=== PATIENT | female | born 1960 ===

== ENCOUNTER 2025-02-28 23:36 | Inpatient (IN) | payer OTHER, SELFPAY ==
--- NOTE | ~2025-02-28 | US_ITS ---
CLINICAL HISTORY: Diffuse abdominal pain--to be done on 9 7AM - PT NOT FASTING --- Additional Notes or Special Instructions: check GB CBD Kidneys US abdomen limited Comparison: None provided Findings: Unremarkable visualized liver. The common duct is 6 mm in diameter. Cholecystectomy. The main portal vein is antegrade. The right kidney is 9.8 cm in length. Left kidney 10.1 cm in length. Unremarkable kidneys without hydronephrosis. IMPRESSION: Cholecystectomy. Unremarkable kidneys without hydronephrosis. This document has been electronically signed by: Clarisa Moreno MD on 03/03/2025 10:46:33
--- NOTE | ~2025-02-28 | CT_ITS ---
CLINICAL HISTORY: cognitive impairment psychosis --- Additional Notes or Special Instructions: Talked to patients nurse at 0930. She mentioned that they dont have anybody that could come with the patient therefore she wants the exam to be done CT head without contrast Comparison: None provided Findings: No intra-axial mass, midline shift, hydrocephalus, or acute hemorrhage. No significant atrophy-like change or white matter disease. There is no sinus or mastoid fluid. The orbits are unremarkable. There is no acute fracture. IMPRESSION: 1. No acute intracranial findings. This document has been electronically signed by: Terence Lozano MD on 03/10/2025 12:14:25
--- OUTSIDE RECORDS SUMMARY | 2025-02-28 23:40 | XMS_ITS | Encounter Summary ---
Author Organization [facility] ([facility]) Address [address] [place] [address] Care Team Providers Care Field Case Manager Name Role Phone Jess Farrar MD Primary Care Provider [phone] Greg Taylor MD Primary Care Provider [phone] Zaki Layne MD Primary Care Provider [phone] Reason for Visit * Reason Onset Date Comments Refill Request 06/03/2021 metFORmin HCL 10 00 MG Tablet Encounter Details Date Type Department Care Team (Late st Contact Info) Description 06/03/2021 Refill [facility] [address] [place] [address] Jess Farrar MD [address] [place] [address] Refill Request (metFORmin HCL 1000 MG Tablet) Social History Tobacco Use Types Packs/Day Years Used Date Smoking Tobacco: Never Alcohol Use Standard Drinks/Week Comments Never 0 (1 standard drink = 0.6 oz pur e alcohol) Comments No Sex and Gender Information Value Date Recorded Sex Assigned at Not on file Legal Sex Female 11:08 AM EDT Gender Identity Not on file Sexual Orientation Not on file documented as of this encounter Miscellaneous Notes * Telephone Encounter - So Ventura RNP - 06/04/2021 11:59 AM EST Patient overdue for DM check. Please schedule OV. documented in this encounter Plan of Treatment Upcoming Encounters Date Type Department Care Team (Late st Contact Info) Description 03/05/2025 10:00 AM EDT Office Visit [facility] [address] [place] [address] 03/21/2025 10:30 AM EDT Office Visit [facility] [address] [place] [address] Yesenia Wen MD [address] [place] [address] documented as of this encounter Visit Diagnoses Diagnosis Type 2 diabetes mellitus without complication, without long-term current use of insulin (HCC) documented in this encounter Care Teams Field Case Manager Relationship Specialty Start Date End Date Jess Farrar MD [address] [place] [address] PCP - General Adult Medicine 12/03/19 01/10/22 Greg Taylor MD [address] [place] [address] PCP - General 01/11/22 01/09/25 Zaki Layne MD [address] [place] [address] PCP - General 01/10/25 documented as of this encounter
--- OUTSIDE RECORDS SUMMARY | 2025-02-28 23:40 | XMS_ITS | Encounter Summary ---
Author Organization [facility] ([facility]) Address [address] [place] [address] Care Team Providers Care Template Checker Name Role Phone Jess Farrar MD Primary Care Provider Greg Taylor MD Primary Care Provider [phone] Zaki Layne MD Primary Care Provider [phone] Encounter Details Date Type Department Care Team (Late st Contact Info) Description 09/01/2021 Legacy Encounter Practice 4 [address] [place] [address] So Ventura RNP [address] [place] [address] Social History Tobacco Use Types Packs/Day Years [...] on file documented as of this encounter Plan of Treatment Upcoming Encounters Date Type Department Care Team (Late st Contact Info) Description 03/05/2025 10:00 AM EDT [facility] [address] [place] [address] 03/21/2025 10:30 AM EDT Office Visit [facility] [address] [place] [address] Yesenia Wen MD [address] [place] [address] documented as of this encounter Visit Diagnoses Not on filedocumented in this encounter Care Teams Template Checker Relationship Specialty Start Date End Date Jess Farrar MD [address] [place] [address] PCP - General Adult Medicine 12/03/19 01/10/22 Greg Taylor MD [address] [place] [address] PCP - General 01/11/22 01/09/25 Zaki Layne MD [address] [place] [address] PCP - General 01/10/25 documented as of this encounter
--- OUTSIDE RECORDS SUMMARY | 2025-02-28 23:40 | XMS_ITS | Encounter Summary ---
Author Organization [facility] (Replaced by [facility]) Address [address] [place] [address] Care Team Providers Care Cattle Inspector Name Role Phone Jess Farrar MD Primary Care Provider [phone] Greg Taylor MD Primary Care Provider [phone] Zaki Layne MD Primary Care Provider [phone] Encounter Details Date Type Department Care Team (Late st Contact Info) Description 10/08/2021 [facility] [address] [place] [address] Jason Ruiz MD [address] [place] [address] Social History Tobacco Use Types Packs/Day Years [...] Office Visit [facility] [address] [place] [address] 03/21/2025 10:30 AM EDT Office Visit [facility] [address] [place] [address] Yesenia Wen MD [address] [place] [address] documented as of this encounter Visit Diagnoses Not on filedocumented in this encounter Care Teams Cattle Inspector Relationship Specialty Start Date End Date Jess Farrar MD [address] [place] [address] PCP - General Adult Medicine 12/03/19 01/10/22 Greg Taylor MD [address] [place] [address] PCP - General 01/11/22 01/09/25 Zaki Layne MD [address] [place] [address] PCP - General 01/10/25 documented as of this encounter
--- OUTSIDE RECORDS SUMMARY | 2025-02-28 23:41 | XMS_ITS | Encounter Summary ---
Author Organization [facility] ([facility]) Address [address] [place] [address] Care Team Providers Care Lacquer Coater Name Role Phone Greg Taylor MD Primary Care Provider [phone] Zaki Layne MD Primary Care Provider [phone] Reason for Visit * Reason Onset Date Comments Referral Request 07/16/2022 Colonoscopy Encounter Details Date Type Department Care Team (Late st Contact Info) Description 07/16/2022 Telephone Ad Med Call Center [address] [place] [address] Greg Taylor MD [address] [place] [address] Referral Request (Colonoscopy ) Social History Tobacco Use Types Packs/Day Years [...] encounter Miscellaneous Notes * Telephone Encounter - Diana Prescott - 07/16/2022 3:38 PM EST PCP: Please review and generate order so referral department can initiate appointment request Referral request received from pt's daughter Specialty: Colonoscopy Location: [facility] With Dr. NANCE/Symptom: General check up Ph: F: Comments: Pt stated she is due for colonoscopy and needs a referral for [facility]. Please advise. If appointment is already scheduled: NPI: Date of appointment Amount of visits requested: documented in this encounter Plan of Treatment Upcoming Encounters Date Type Department Care Team (Late st Contact Info) Description 03/05/2025 10:00 AM EDT Office Visit [facility] 10 [place] [address] 03/21/2025 10:30 AM EDT Office Visit [facility] [address] [place] [address] Yesenia Wen MD [address] [place] [address] documented as of this encounter Visit Diagnoses Not on filedocumented in this encounter Care Teams Lacquer Coater Relationship Specialty Start Date End Date Greg Taylor MD 10 [place] [address] PCP - General 01/11/22 01/09/25 Zaki Layne MD [address] [place] [address] PCP - General 01/10/25 documented as of this encounter
--- OUTSIDE RECORDS SUMMARY | 2025-02-28 23:41 | XMS_ITS | Encounter Summary ---
Author Organization [facility] ([facility]) Address [address] [place] [address] Care Team Providers Care Chucking Machine Set Up Operator Name Role Phone Greg Taylor MD Primary Care Provider [phone] Zaki Layne MD Primary Care Provider [phone] Reason for Visit * Reason Comments Refill Request Encounter Details Date Type Department Care Team (Late st Contact Info) Description 10/06/2022 Refill Practice 4 [address] [place] [address] So Ventura RNP 10 [place] [address] Refill Request Social History Tobacco Use Types Packs/Day Years [...] Office Visit [facility] [address] [place] [address] 03/21/2025 10:30 AM EDT Office Visit [facility] [address] [place] [address] Yesenia Wen MD [address] [place] [address] documented as of this encounter Visit Diagnoses Not on filedocumented in this encounter Care Teams Chucking Machine Set Up Operator Relationship Specialty Start Date End Date Greg Taylor MD 10 [place] [address] PCP - General 01/11/22 01/09/25 Zaki Layne MD 10 [place] [address] PCP - General 01/10/25 documented as of this encounter
--- OUTSIDE RECORDS SUMMARY | 2025-02-28 23:41 | XMS_ITS | Encounter Summary ---
Author Organization [facility] ([facility]) Address [address] [place] [address] Care Team Providers Care Amusement Equipment Operator Name Role Phone Jess Farrar MD Primary Care Provider [phone] Greg Taylor MD Primary Care Provider [phone] Zaki Layne MD Primary Care Provider [phone] Encounter Details Date Type Department Care Team (Late st Contact Info) Description 10/22/2021 Legacy Encounter PHARMACY [address] [place] [address] Betzaida Greenwood RNP [address] [place] [address] Social History Tobacco Use Types Packs/Day Years [...] Office Visit [facility] [address] [place] [address] 03/21/2025 10:30 AM EDT Office Visit [facility] [address] [place] [address] Yesenia Wen MD [address] [place] [address] documented as of this encounter Visit Diagnoses Not on filedocumented in this encounter Care Teams Amusement Equipment Operator Relationship Specialty Start Date End Date Jess Farrar MD [address] [place] [address] PCP - General Adult Medicine 12/03/19 01/10/22 Greg Taylor MD [address] [place] [address] PCP - General 01/11/22 01/09/25 Zaki Layne MD [address] [place] [address] PCP - General 01/10/25 documented as of this encounter
--- OUTSIDE RECORDS SUMMARY | 2025-02-28 23:41 | XMS_ITS | Encounter Summary ---
Author Organization [facility] ([facility]) Address [address] [place] [address] Care Team Providers Care Pecan Sheller Name Role Phone Greg Taylor MD Primary Care Provider [phone] Zaki Layne MD Primary Care Provider [phone] Reason for Visit * Reason Comments Refill Request Encounter Details Date Type Department Care Team (Late st Contact Info) Description 11/24/2022 Refill PHARMACY [address] [place] [address] Betzaida Greenwood RNP [address] [place] [address] Refill Request Social History Tobacco Use Types [...] Encounters Date Type Department Care Team (Late Contact Info) Description 03/05/2025 10:00 AM EDT Office Visit [facility] 10 [place] [address] 03/21/2025 10:30 AM EDT Office Visit [address] [place] [address] Yesenia Wen MD [address] [place] [address] documented as of this encounter Visit Diagnoses Not on filedocumented in this encounter Care Teams Pecan Sheller Relationship Specialty Start Date End Date Greg Taylor MD 10 [place] [address] PCP - General 01/11/22 01/09/25 Zaki Layne MD 10 [place] [address] PCP - General 01/10/25 documented as of this encounter
--- OUTSIDE RECORDS SUMMARY | 2025-02-28 23:41 | XMS_ITS | Encounter Summary ---
Author Organization [facility] r Address [address] [place] [address] Phone Care Team Providers Care Boat Dispatcher Name Role Phone Greg Taylor MD Primary Care Provider 6, Laith Saha Unavailable Unavailable Arnaud Begum MD Unavailable [phone] Terence Still MD Unavailable [phone] Reason for Visit * Reason Comments Automated Refill Request Encounter Details Date Type Department Care Team (Late st Contact Info) Description 02/02/2023 [facility] [address] [facility] 6th Floor, [place] [id number] Arnaud Begum [place] [address] Social History Tobacco Use Types Packs/Day Years Used Date Smoking Tobacco: Never Alcohol Use Standard Drinks/Week Comments Never 0 (1 standard drink = 0.6 oz pur e alcohol) Comments No Sex and Gender Information Value Date Recorded Sex Assigned at Female 04/13/2023 10:15 AM EDT Legal Sex Female 3:47 PM EDT Gender Identity Female 04/13/2023 10:15 AM EDT Sexual Orientation Patient's sexual milagro entation is not listed 07/19/2024 11:38 AM EST documented as of this encounter Miscellaneous Notes * Telephone Encounter - Sofia Adrian RN - 02/03/2023 8:16 AM EDT Pt had colonoscopy 01-06-23; No further procedure ordered at this time documented in this encounter Plan of Treatment Not on file documented as of this encounter Visit Diagnoses Not on filedocumented in this encounter Care Teams Boat Dispatcher Relationship Specialty Start Date End [place] [address] PCP - General Internal Medicine 07/26/22 6, Moa Endo 08/06/22 [place] [address] Gastroenterology 08/12/22 [place] [address] Gastroenterology 01/10/23 documented as of this encounter
--- OUTSIDE RECORDS SUMMARY | 2025-02-28 23:41 | XMS_ITS | Encounter Summary ---
Author Organization [facility] ([facility]) Address [address] [place] [address] Care Team Providers Care Drop Tester Name Role Phone Zaki Layne MD Primary Care Provider [phone] Encounter Details Date Type Department Care Team (Late st Contact Info) Description 02/15/2025 Results Follow-Up Practice 5 10 [place] [address] Bonnie Butt RNP [address] [place] [address] H. PYLORI BREATH TEST Social History Tobacco Use Types Packs/Day Years Used Date Smoking Tobacco: Never Alcohol Use Standard Drinks/Week Comments Never 0 (1 standard drink = 0.6 oz pur e alcohol) PHQ-2 Answer Date Recorded PHQ-9 Total Score 7 02/13/2025 Comments No Sex and Gender Information Value Date Recorded Sex Assigned at Not on file Legal Sex Female 11:08 AM EDT Gender Identity Not on file Sexual Orientation Not on file documented as of this encounter Plan of Treatment Upcoming Encounters Date Type Department Care Team (Late st Contact Info) Description 03/05/2025 10:00 AM EDT Office Visit [facility] 10 [place] [address] 03/21/2025 10:30 AM EDT Office Visit [facility] [address] [place] [address] Yesenia Wen MD [address] [place] [address] documented as of this encounter Visit Diagnoses Not on filedocumented in this encounter Care Teams Drop Tester Relationship Specialty Start Date End Date Zaki Layne MD [address] [place] [address] PCP - General 01/10/25 documented as of this encounter
--- OUTSIDE RECORDS SUMMARY | 2025-02-28 23:41 | XMS_ITS | Encounter Summary ---
Author Organization [facility] ([facility]) Address [address] [place] [address] Care Team Providers Care Manager Internet Retails Sales Name Role Phone Jess Farrar MD Primary Care Provider [phone] Greg Taylor MD Primary Care Provider [phone] Zaki Layne MD Primary Care Provider [phone] Reason for Visit * Reason Onset Date Comments Refill Request 10/22/2021 Encounter Details Date Type Department Care Team (Late st Contact Info) Description 10/22/2021 Refill PHARMAC[address] [place] [address] Jess Farrar MD [address] [place] [address] Refill Request Social History Tobacco Use Types [...] Office Visit [facility] [address] [place] [address] 03/21/2025 10:30 AM EDT Office Visit [facility] [address] [place] [address] Yesenia Wen MD [address] [place] [address] documented as of this encounter Visit Diagnoses Not on filedocumented in this encounter Care Teams Manager Internet Retails Sales Relationship Specialty Start Date End Date Jess Farrar MD [address] [place] [address] PCP - General Adult Medicine 12/03/19 01/10/22 Greg Taylor MD [address] [place] [address] PCP - General 01/11/22 01/09/25 Zaki Layne MD [address] [place] [address] PCP - General 01/10/25 documented as of this encounter
--- OUTSIDE RECORDS SUMMARY | 2025-02-28 23:41 | XMS_ITS | Encounter Summary ---
Author Organization [facility] ([facility]) Address [address] [place] [address] Care Team Providers Care Electrical Engineering Teacher Name Role Phone Greg Taylor MD Primary Care Provider [phone] Zaki Layne MD Primary Care Provider [phone] Encounter Details Date Type Department Care Team (Late st Contact Info) Description 05/05/2022 Legacy Encounter Practice 4 [address] [place] [address] Greg Taylor MD [address] [place] [address] Social History Tobacco Use Types Packs/Day Years [...] Visit [facility] 10 [place] [address] 03/21/2025 10:30 AM EDT Office Visit [facility] [place] [address] Yesenia Wen MD [address] [place] [address] documented as of this encounter Visit Diagnoses Not on filedocumented in this encounter Care Teams Electrical Engineering Teacher Relationship Specialty Start Date End Date Greg Taylor MD [address] [place] [address] PCP - General 01/11/22 01/09/25 Zaki Layne MD [address] [place] [address] PCP - General 01/10/25 documented as of this encounter
--- OUTSIDE RECORDS SUMMARY | 2025-02-28 23:41 | XMS_ITS | Encounter Summary ---
Author Organization [facility] ([facility]) Address [address] [place] [address] Care Team Providers Care Portable Canteen Operator Name Role Phone Greg Taylor MD Primary Care Provider [phone] Zaki Layne MD Primary Care Provider [phone] Reason for Visit * Reason Onset Date Comments Refill Request Call To Patient 01/17/2023 Encounter Details Date Type Department Care Team (Late st Contact Info) Description 01/17/2023 Refill Practice [address] [place] [address] Thai Umaña MD [address] [place] [address] Refill Request; Call To Patient Social History Tobacco Use Types Packs/Day Years [...] encounter Miscellaneous Notes * Telephone Encounter - Betzaida Greenwood RNP - 01/20/2023 11:39 AM EDT Chart rev'd and electronic rx sent to pharmacy requested. Overdue for Diabetes f/u. Please call and schedule office visit to discuss blood sugars. Ask Karen Sparks to check and record FASTING blood sugars daily before eating and record for one week prior and have ready for appointment. Please also ask him/her to bring their glucometer and medications to the appointment as well. Thanks. Lab Results Component Value Date GLYCO 7.6 (H) 07/22/2022 GLYCO 8.6 (H) 05/05/2022 Lab Results Component Value Date CR 0.59 10/22/2021 Last Adult Medicine Appointment: 07/22/2022 documented in this encounter Plan of Treatment Upcoming Encounters Date Type Department Care Team (Late st Contact Info) Description 03/05/2025 10:00 AM EDT Office Visit [facility] 10 [place] [address] 03/21/2025 10:30 AM EDT Office Visit [facility] [address] [place] [address] Yesenia Wen MD [address] [place] [address] documented as of this encounter Visit Diagnoses Not on filedocumented in this encounter Care Teams Portable Canteen Operator Relationship Specialty Start Date End Date Greg Taylor MD 10 [place] [address] PCP - General 01/11/22 01/09/25 Zaki Layne MD 10 [place] [address] PCP - General 01/10/25 documented as of this encounter
--- OUTSIDE RECORDS SUMMARY | 2025-02-28 23:41 | XMS_ITS | Clinical Summary ---
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 Name Role Phone Zaki Layne MD Primary Care Provider [phone] Allergies No known active allergies Medications Lancets MiscIndications:Typ e 2 diabetes mellitus without complication, without long-term current use of insulin (HCC) Dispense according to frequency of test strips 30 Each 3 12/07/19 20 Active Alcohol Swabs (ALCOHOL WIPES) 70 % PadsIndications:Typ e 2 diabetes mellitus with mild nonproliferative retinopathy, without long-term current use of insulin, macular edema presence unspecified, unspecified laterality (HCC) Use as directed 100 Each 3 09/06/19 21 Active atorvastatin 40 mg tabletIndications:H yperlipidemia, unspecified hyperlipidemia type Take 1 Tablet by mouth 1 time a day 90 Tablet 3 5 12:44 PM EDT 02/23/20 24 Active betamethasone dipropionate augmented 0.05% ointment Apply to affected areas of the finger and nails at night 50 g 3 5 12:45 PM EST 04/03/20 24 Active econazole 1% cream Apply to affected areas of the finger and nails in the morning 30 g 2 5 11:09 AM EST 04/03/20 24 Active Additional Information Patient not taking.Reported on 02/13/2025 traMAdol 50 mg tabletIndications:C ompression fracture of L1 vertebra, sequela Take 1 Tablet by mouth every 6 hours as needed for severe pain 10 Tablet 4 1:22 PM EST 05/10/20 24 Active Additional Information Patient not taking.Reported on 02/13/2025 triamcinolone 0.025% ointmentIndications :Paronychia of finger of right hand Apply to affected area twice a day 15 g 4 11:12 AM EST 06/01/20 24 Active propylene glycol-glycerin (MOISTURE EYES) 1-0.3% ophthalmic solution instill 1 drop into both eyes if needed for dry eyes 15 mL 9 5 10:39 AM EDT 07/19/19 25 Active metFORmin (GLUCOPHAGE) 1000 mg tabletIndications:T ype 2 diabetes mellitus with mild nonproliferative retinopathy, without long-term current use of insulin, macular edema presence unspecified, unspecified laterality (HCC) TAKE ONE (1) TABLET BY MOUTH EVERY 12 HOURS 180 tablet 1 5 11:27 AM EDT 08/07/19 25 Active empagliflozin (JARDIANCE) 25 mg tabletIndications:T ype 2 diabetes mellitus with mild nonproliferative retinopathy, without long-term current use of insulin, macular edema presence unspecified, unspecified laterality (HCC) Take 1 tablet by mouth 1 time a day 30 tablet 5 5 9:17 AM EDT 08/07/19 25 Active acetaminophen (TYLENOL) 325 mg tabletIndications:A cute bilateral low back pain with right-sided sciatica Take 1-2 tablets by mouth every 4 hours as needed for pain 60 tablet 1 5 2:57 PM EDT 09/09/19 25 Active SITagliptin (JANUVIA) 100 mg tabletIndications:T ype 2 diabetes mellitus with mild nonproliferative retinopathy, without long-term current use of insulin, macular edema presence unspecified, unspecified laterality (HCC) Take 1 tablet by mouth 1 time a day 30 tablet 5 5 10:39 AM EDT 09/11/19 25 Active lisinopril (ZESTRIL) 5 mg tabletIndications:E ssential hypertension Take 1 Tablet by mouth 1 time a day 90 tablet 1 5 12:44 PM EDT 11/06/19 25 Active TEST STRIPSIndications:T ype 2 diabetes mellitus with mild nonproliferative retinopathy, without long-term current use of insulin, macular edema presence unspecified, unspecified laterality (HCC) Use to check sugars twice a week alternating between morning fasting blood sugar and 2 hours after meal. 50 each 3 5 2:57 PM EDT 11/07/19 25 Active docusate sodium (COLACE) 100 mg capsule Take 1 capsule by mouth 2 times a day as needed for constipation 180 capsule 5 11:45 AM EDT 11/07/19 25 Active calcium carbonate-cholecalc iferol 600-10 mg-mcg tablet TAKE ONE (1) TABLET BY MOUTH TWICE A DAY 60 tablet 11 5 11:27 AM EDT 12/18/19 25 026 Active JARDIANCE 25 MG tablet Take 1 tablet (25 mg total) by mouth daily. Swallow whole; do NOT crush, split, or chew. 30 tablet 1 5 11:52 AM EDT 01/17/20 25 Active Polyethylene Glycol 3350 (MIRALAX) 17 g/SCOOP oral powderIndications:C hronic idiopathic constipation Mix 1 capful (17 grams) of powder in 8 ounces of water and drink once daily as directed 510 g 5 12:17 PM EDT 01/19/20 25 Active QUEtiapine (SEROQUEL) 25 mg tablet Take 1 tablet by mouth nightly 30 tablet 5 12:29 PM EDT 02/14/20 25 Active ARTIFICIAL TEARS 1.4 % SolutionIndications :Dry eyes INSTILL ONE (1) DROP INTO BOTH EYES IF NEEDED FOR DRY EYES 30 mL 11/21/19 22 023 Disconti derrick(Estella abrams) GLUCOMETERIndicatio ns:Type 2 diabetes mellitus with mild nonproliferative retinopathy, without long-term current use of insulin, macular edema presence unspecified, unspecified laterality (HCC) Dispense one glucometer per patient's insurance 1 Each 05/05/20 22 025 Disconti nued(Med List Cleanup) diclofenac sodium 1% gelIndications:Acut e bilateral low back pain with right-sided sciatica Apply 2 grams to affected area 3 times a day as needed for pain 100 g 4 11:49 AM EST 05/09/20 24 025 Disconti nued(Med List Cleanup) Polyethylene Glycol 3350 17 g/SCOOP oral powder Mix 17 grams of powder in liquid and take by mouth daily for 30 day 510 g 5 12:10 PM EDT 09/29/19 25 025 Disconti nued(Dup licate) Active Problems Problem Noted Date Diagnosed Date Compression fracture of L1 lumbar vertebra 07/19 Assessment & Plan (07/19/2024 11:22 AM EST): Presented to [facility] 05/09 with c/o constipation--also noted that she sustained a fall 4 days prior with continued severe back pain L1 compression fracture on imaging Was referred to ortho, had apt 06/22 but no showed, reports she was confused and did not know she had an apt Today--- She continues to have pain I have placed a new urgent ortho referral and reached out to Dar Mitchell to assist in scheduling Patient also would like to make her daughter, Yin a care program resident for extra help with keeping track of appointments I have advised patient to talk to secretaries before leaving today so this can be done Orders: ORTHOPEDICS(EXT)CONSULT H. pylori infection 11/04/2023 Overview (11/04/2023): 11/04/2023- quad tx sent Assessment & Plan (02/13/2025 2:18 PM EDT): Previous H pylori infection. Reports finished tx. No RAYO done. Recheck for H pylori. Orders: H. PYLORI BREATH TEST Depression 06/23/2023 Assessment & Plan (06/23/2023 10:39 PM EST): Mild depression, occs feeling of isolation at home, overall good family supports, no significant stressors - I offered counselling services or medication but she declines this presently; advised to call if treatment is desired. - I instructed her to send [employer] message or call if sx worsen or if other sx arise Vaginal pain 02/01/2023 Assessment & Plan (02/01/2023 1:01 PM EDT): - vaginal pain and difficulty with urination, feeling a need to strain to urinate - physical exam notable for prolapsed vaginal becerra. Pt denies symptoms of cystitis - advised continuing with vaginal lubicant prescribed by PCP - sureswab obtained to rule out overgrowth or infection causing some of the vaginal pain - UA obtained to rule out UTI. - referral to [facility] for guidance on vaginal prolapse and urinary symptoms. Prolapse may be causing her symptoms. Rib pain on left side 05/06/2022 Assessment & Plan (05/06/2022 4:20 PM EST): Left-sided pain over left rib for >1 month. Self-resolved spontaneously, with no associated symptoms. Exacerbated by movement. Abdominal and MSK exam unremarkable. Likely intercostal strain that self-resolved with rest. Discussed with patient to return if pain returns or progress, she can return to clinic/ED for further evaluation. Adhesive capsulitis of left shoulder 10/22/2021 Overview (10/22/2021): 09/01/21: p/w pulsating sensation in L bicep since Moderna and flu vaccine 06/30/21; limited ROM and pain keeps her up at night; decreased ROM on exam (abduction 90 degrees, L bicep tenderness); XR normal, rheum c/s, ibuprofen 600 mg, prednisone pack; c/f adhesive capsulitis; home exercises. 09/03/21: no improvement, sent to rheum. 10/08/21: exam c/w adhesive capsulitis, gave steroid injection, rec'd PT, ibuprofen, XR. 10/22/21: very concerned about her arm pain, says that she never had shoulder pain, it's always been in her upper arm below her shoulder. Pain medicines help, she isn't sure which ones, no difference in sxs with steroid injection. No improvement in range of motion. Has not done PT yet. Exam with persistently decreased passive/active ROM (90 degrees flexion and abduction) with pain in her upper arm, not shoulder. Area of pain in her arm corresponds to a soft tissue collection that is mildly TTP, unclear if this is fat deposition vs. Scar tissue. Odd that her pain is not intraarticular but could be referred from joint, or could have additional pathology with soft tissue collection. Regardless she would benefit from PT. Encouraged PT f/up and ordered US to further evaluate soft tissue. Assessment & Plan (10/22/2021 4:33 PM EDT): Initially presented on 09/01/21 with pulsating sensation in L bicep since Moderna and flu vaccine 06/30/21. Found to have limited ROM on exam (abduction 90 degrees, L bicep tenderness). Concern for adhesive capsulitis, given home exercises, ibuprofen, prednisone pack, and sent to rheum. Per rheum 10/08, exam c/w adhesive capsulitis, gave steroid injection, rec'd PT, ibuprofen. Today she is very concerned about her arm pain, says that she never had shoulder pain, it's always been in her upper arm below her shoulder. Pain medicines help, she isn't sure which ones, no difference in sxs with steroid injection. No improvement in range of motion. Has not done PT yet. Exam with persistently decreased passive/active ROM (90 degrees flexion and abduction) with pain in her upper arm, not shoulder. Area of pain in her arm corresponds to a soft tissue collection that is mildly TTP, unclear if this is fat deposition vs. Scar tissue. Odd that her pain is not intraarticular but could be referred from joint, or could have additional pathology with soft tissue collection. Regardless she would benefit from PT. Encouraged PT f/up and ordered US to further evaluate soft tissue. Plan: -Ibuprofen, tylenol, gabapentin, diclofenac PRN -US of upper arm to evaluate soft tissue collection -PT -Rheum f/up Dizziness 06/30/2021 Assessment & Plan (06/30/2021 5:08 PM EST): Reports episodic dizziness when going downstairs. No room spinning. Denies orthostatic sxs or any associated sxs including CP, SOB, palpitations. Only low BS were remote, not recent. Has not checked blood sugar during these episodes. Additionally has been exercising more recently and is on SGLT2, could have a component of dehydration. Encouraged her to check BS during episodes and call for BS <90, and additionally to drink plenty of water. Plan: -Check BS during episodes -Increase hydration -Call for sooner f/up if becoming worse Chronic pain of left knee 10/02/2020 Assessment & Plan (06/30/2021 5:13 PM EST): Continues to have intermittent pain. Encouraged her to get XR ordered to eval for signs of joint disease per sports medicine. Discussed plan per last sports med note that she could get joint injection if OA on XR and continued pain. Plan: -Continue tylenol PRN -F/up XR and sports med Assessment & Plan (10/02/2020 5:22 PM EDT): Reporting pain in her knee for over 10 years since she broke her leg , denies ever needing surgery. Pain with stairs, walking, squatting. She cannot tell me where on her knee the pain is. On exam, no effusion but tender to palpation on joint lines. Crepitus with ROM but no pain. Suspect OA. Will get plain films today and refer to sports med for consideration of injection. Plan: -Sports med referral for possible injection -Plain films to eval for OA -Continue tylenol PRN Symptomatic cholelithiasis 09/06/2020 Assessment & Plan (06/30/2021 4:48 PM EST): Has not followed with surgery to discuss cholecystectomy, but no recurrence of sxs and benign exam today. Assessment & Plan (10/02/2020 5:20 PM EDT): Presented with RUQ pain radiating to back one month ago. LFTs WNL but abdominal US with multiple gall stones, no cholecystitis. Now she reports her RUQ pain has not recurred, however she is tender to palpation in the RUQ. Given she was previously symptomatic from cholelithiasis, she is likely to become symptomatic again. Discussed possible complications of cholelithiasis and possible need for cholecystectomy. Given prior sxs will refer to general surgery for discussion of non urgent cholecystectomy. Plan: -Gen surg referral Assessment & Plan (09/06/2020 4:58 PM EST): Presenting with 2 months of persistent/progressive R sided pain (since suspected COVID19 infection in mid June). Overall unclear whether this pain is flank pain or RUQ pain, but seems to be RUQ pain that radiates to the back. No CVA tenderness or urinary sxs currently, though endorsed having fever, flank pain, and dysuria during her suspected COVID19 infection. Pain now is sometimes worse with food and has been more persistent over past several days. No n/v, diarrhea, constipation, fevers. Exam with tenderness in RUQ but no acute abdomen and afebrile w/out tachycardia. RUQ pain is concerning for liver vs. Gallbladder pathology, though given unclear whether this is RUQ vs. Flank pain and the urinary sxs initially (though none now), cannot rule out urinary tract pathology. Will get CBC to eval for leukocytosis, Cr to eval for YESSY, LFTS and abdominal US to eval for liver/gallblader pathology, and UA w/ reflex culture to eval for UTI/pyelo. Plan: -CBC, Cr/lytes, LFTs -UA w/ reflex culture -Abdominal US Illiteracy and low-level literacy 08/21/2020 Overview (08/21/2020): Lives with her daughter. Who helps her manage her medications. Completed 2 years of school. Cannot read but has some numeracy Assessment & Plan (07/22/2022 11:34 AM EST): Lives with her daughter who helps manage her medications. Works to take care of grandchildren and organize the home. Able to complete all ADLs at home, requires some assistance outside of home. Assessment & Plan (08/21/2020 3:08 PM EST): Lives with her daughter. Who helps her manage her medications. Completed 2 years of school. Would benefit from pill box. TE sent to RNs for schedule pill box THOM Vaginal itching 03/30/2020 Assessment & Plan (02/23/2024 1:12 PM EDT): Endorse intermittent vaginal itching over last sever days with grain-like discharge. No fevers, chills, or dysuria. High risk of genital mycotic infections with SGLT2i. She declines SureSwab today, will treat empirically for candidal infection. [ ] Follow-up symptoms at next encounter Orders: fluconazole (DIFLUCAN) 150 mg tablet; Take 1 Tablet by mouth once for 1 dose Assessment & Plan (03/30/2020 3:29 PM EDT): Continues to have vaginal itching. Previously sure swab negative for BV/yeast. Tried estrogen cream without relief. Prescribed lubricant but not covered by insurance. Repeated sure swab today, though no discharge visualized on exam. Will preemptively give clotrimazole cream. Plan: -Continue estrogen cream -Clotrimazole cream -Sure swab for yeast/bv Left hip pain 03/01/2020 Assessment & Plan (03/30/2020 3:26 PM EDT): Having L hip pain that started ~1 month ago. Not getting better or worse, hurts with walking and stairs. Tylenol not helping. Describes pain as burning along groin and anterior thigh. No tenderness with palpation but pain reproduced with FADIR movement. Given burning sensation of pain and distribution along groin and anterolateral thigh, concern for lateral femoral cutaneous nerve impingement. Will get x-ray to eval for arthritis and refer to PT. Plan: -PT referral -Xray to eval for arthritis Assessment & Plan (03/01/2020 7:41 PM EDT): Presents with several days of burning hip pain radiating into groin and down anterolateral thigh. Burning nature of pain is concerning for nerve pathology and the distribution is consistent w/ lateral femoral cutaneous nerve. Limited external rotation and distribution of pain additionally could be in consistent with OA or great trochanteric bursitis. Given acute nature of pain, will encourage tylenol and see if pain persists before pursuing further diagnostics. Plan: -Tylenol for pain -CTM, consider x rays next visit if still having sxs Essential hypertension 02/05/2020 Assessment & Plan (07/19/2024 11:22 AM EST): BP today: 115/64 Cont lisinopril 5 mg Assessment & Plan (05/09/2024 12:36 PM EST): BP elevated; possibly secondary to pain Encourage to f/u with primary team for recheck/management Assessment & Plan (02/23/2024 1:12 PM EDT): BP goal: <130/80 without hypotension Regimen prior to this visit: lisinopril 5 mg daily Changes today: none Home BP cuff: Has an arm cuff at home - goal to check prn Labs: repeat today Counseling provided: Low sodium diet, DASH diet, and Increasing exercise throughout the week Follow-up: 3 months Orders: BLOOD UREA NITROGEN CREATININE ELECTROLYTE PANEL (QUEST CODE 28170) MICROALBUMIN RANDOM URINE lisinopril (ZESTRIL) 5 mg tablet; Take 1 Tablet by mouth 1 time a day Assessment & Plan (06/22/2023 11:35 PM EST): well controlled - continue current meds - labs ordered - low salt diet, exercise as tolerated, weight loss efforts Assessment & Plan (07/22/2022 11:26 AM EST): BP well controlled today. - Continue lisinopril 5 mg daily Assessment & Plan (05/06/2022 3:58 PM EST): BP well controlled today. - Continue lisinopril 5 mg qd Assessment & Plan (06/30/2021 4:46 PM EST): BP well controlled today 122/74, on lisinopril 5 mg qd. Assessment & Plan (10/02/2020 5:23 PM EDT): Well controlled today 124/70 on lisinopril 5 mg. Next due for cr/lytes check 08/2020. Assessment & Plan (09/06/2020 4:44 PM EST): Well controlled today on lisinopril 5 mg. Assessment & Plan (03/30/2020 3:05 PM EDT): Well controlled today at 109/68. Continue lisinopril 5mg. Assessment & Plan (03/01/2020 7:23 PM EDT): Doing well on lisinopril w/out any sxs of hypotension. BP today WNL. Plan: -Continue lisinopril 5 mg Assessment & Plan (02/05/2020 12:26 PM EDT): Presents today with second elevated blood pressure reading 146/79. No chest pain, SOB, headache, dizziness, abdominal pain. Given diabetes, will start with lisinopril 5 mg daily. Recently has lytes and Cr so will just plan for 2 week f/u labs. Plan: -Lisinopril 5 mg daily -Repeat Cr and lytes in 2 weeks Type 2 diabetes mellitus wit h mild nonproliferative retinopathy 12/04/2019 Assessment & Plan (01/21/2025 3:08 PM EDT): A1c today: 9.1% Not addressed today d/t more acute concerns Per chart review, on januvia 100mg qd and jardiance 25mg qd RTC for dedicated DM follow up Check A1c Orders: GLYCOHEMOGLOBIN A1C (BACK OFFICE) Assessment & Plan (07/19/2024 11:22 AM EST): A1c today: 8.0, down from 10.8! Awesome!! Medications: Metformin 1000 mg BID, Jardiance 25 mg daily, Sitagliptin 100 mg daily Reviewed decreasing bread, tortillas and increasing vegetables/protein Recheck in 3 months Assessment & Plan (02/23/2024 1:12 PM EDT): A1c goal <7% w/o hypoglycemia. Most recent A1c 8.2 --> 10.8%, likely d/t stress and dietary indiscretion. Unclear if taking sitagliptin at home. Ideally would add GLP-1 but she declined to add new medications today. Sent refills to the pharmacy. Current regimen before this visit: Metformin 1000 mg BID, Jardiance 25 mg daily, Sitagliptin 100 mg daily Changes made this visit: none Blood glucose home monitoring goals: only as needed if feeling unwell to ensure no hypoglycemia Eye exam: Optometry referral Foot exam: Normal HTN control: Lisinopril 5 mg daily Lipid control: Atorvastatin 40 mg daily Weight control: Diet and exericse Renal studies: Repeat today Lab Results Component Value Date MICRO NOTE 06/23/2023 Discussion for next visit: repeat A1c in 2 months, discuss GLP1a Orders: GLYCOHEMOGLOBIN A1C GLYCOHEMOGLOBIN A1C (BACK OFFICE) BLOOD UREA NITROGEN CREATININE ELECTROLYTE PANEL (QUEST CODE 17220) MICROALBUMIN RANDOM URINE HEPATIC FUNCTION PANEL (AST ALT ALP TP ALB BILI DBIL) SITagliptin (JANUVIA) 100 mg tablet; Take 1 Tablet by mouth 1 time a day metFORmin (GLUCOPHAGE) 1000 mg tablet; TAKE ONE (1) TABLET BY MOUTH EVERY 12 HOURS empagliflozin (JARDIANCE) 25 mg tablet; Take 1 Tablet by mouth 1 time a day Assessment & Plan (06/23/2023 10:36 PM EST): ongoing fair control- A1c down to 7.8 and overall improved over past few years - discussed at length importance of follow up and care for DM to prevent end organ damage - referral to opto- given number - reviewed importance of diet mod, reduce carbs- given written info - continue current meds considering improved A1c, good lifestyle modification efforts - Discussed diabetic foot hygiene and care, always wear comfortable shoes, and avoid bare feet - labs ordered Assessment & Plan (02/01/2023 12:59 PM EDT): - increase of her A1C from 7.6 to 8.1 - already on maximum dose of current medications: sitagliptin 100 mg, metformin 1000 mg BID, jardiance 25 mg daily. Discussed adding on a medication and the patient would like to defer and work on her diet for 3 months. - recheck microalubmin, electrolytes - referral for eye exam - continue on current meds - recheck in three months. Assessment & Plan (07/22/2022 11:31 AM EST): 1. Glycemic control, under great control HbA1c trending down 9.6 --> 8.6 --> 7.6 today. Congratulated patient on her effort to improve eating and taking medications as prescribed. Discussed diet, exercise and weight loss. I instructed her to do routine fasting and post-prandial finger stick and to record these, goal fasting BG 80-140, post meal 100-180. 2. CV/lipids BP under great control. Taking atorvastatin 40 mg daily. 3. Eye health Last eye exam >1 year ago. Refer to optometry. 4. Renal: Lab Results Component Value Date CR 0.59 10/22/2021 CR 0.74 06/30/2021 CR 0.64 09/05/2020 5. Feet: exam normal - Discussed diabetic foot hygiene and care, always wear comfortable shoes, and avoid bare feet Monofilament testing intact Assessment & Plan (05/06/2022 4:06 PM EST): 1. Glycemic control, under fair control. Discussed goal fasting BG 80-140, post meal 100-180. Discussed diet, exercise, wt loss. I instructed her to do routine fasting and post-prandial FS and to record these and bring to every visit. Reviewed risks of hypoglycemia- advised no missed meals, reviewed self-treatment of hypoglycemia. 2. CV/lipids. BP under great control. On statin - Continue atorvastatin 40 mg daily - Continue lisinopril 5 mg daily 3. Eye health: Due for eye exam. - Referral to optometry. 4. Renal: Last Cr 0.59 (10/22/21), last micro-albumin 9. Lab Results Component Value Date CR 0.59 10/22/2021 CR 0.74 06/30/2021 CR 0.64 09/05/2020 Last microalbumen- Lab Results Component Value Date MICRO 9 10/22/2021 5. Feet: exam normal. Monofilament testing intact. - Discussed diabetic foot hygiene and care, always wear comfortable shoes, and avoid bare feet Assessment & Plan (10/22/2021 4:38 PM EDT): A1c: 10.7% (08/21/20)-> 7.7% (06/30/21)-> 9.6% today. Current regimen: Metformin 1000 mg BID, januvia 100 mg, jardiance 25mg. Med compliance: good for metformin, OK for jardiance (last picked up 06/30/21 for 90 days), poor for januvia (last filled 03/03/21 for 90 days). Lifestyle: Exercise: has lost additional 5lb since since last. Reports both exercise and taking care of grandkids. Diet: has not made any diet changes but sometimes gets busy and forgets to eat. Blood sugars: Not really checking. Complications: No known neuropathy, nephropathy. Has mild retinopathy (03/2020). No signs/sxs of autonomic dysfunction or cardiac disease. Lipids UTD and on atorva 40. Screenings: Microalbuminuria (none 11/2020, due for repeat, on lisinopril for BP), eye exam (mild diabetic retinopathy 03/2020, due for repeat), foot exam (06/30/2021 WNL), Cr (08/2020 WNL, due for repeat). Synthesis: Previously had been doing really well with diabetes with significant improvement in A1c. However, seems compliance has been an issue with SGLT2 and DPP4, subsequently causing significant worsening. She does not know her medications but her daughter helps her. Discussed medications thoroughly today and will additionally call daughter to discuss. No changes today, encouraged adherence to current regimen. Plan: -Continue metformin 1000 mg BID, januvia 100 mg, jardiance 25 mg -Due for eye exam, gave number to call and schedule -Urine and microalbuminuria today Assessment & Plan (06/30/2021 5:05 PM EST): A1c: 10.7% (08/21/20)-> 7.7% today (06/30/21) Current regimen: Metformin 1000 mg BID, januvia 100 mg, jardiance 25mg via pill box, says she's been taking medications Lifestyle: Exercise: has significantly increased exercise, lost 10 lb since last October, going to the gym and using the bicycle. Diet: has not made any diet changes Blood sugars: Fasting range from 77 (remote back in December) -221; mostly in mid 100s Checking 2-3X a week Complications: No known neuropathy, nephropathy. Has mild retinopathy (03/2020). No signs/sxs of autonomic dysfunction or cardiac disease. Lipids UTD and on atorva 10. Screenings: Microalbuminuria (none, 11/2020, on lisinopril), eye exam (mild diabetic retinopathy 03/2020, due for repeat), foot exam (06/30/2021), Cr (08/2020 WNL). Synthesis: Overall doing really well with diabetes with significant improvement in A1c. No changes in regimen today, encouraged continued exercise. Plan: -Continue metformin 1000 mg BID, januvia 100 mg, jardiance 25 mg -Due for eye exam, will discuss next visit -Encouraged her to check glucose 3-4 times a week with some fasting and some during the day Assessment & Plan (10/04/2020 11:38 AM EDT): A1c: 10.3% (02/2020)-> 10.7% (08/21/20) Current regimen: metformin 1000 mg BID, januvia 50 mg, jardiance 25mg via pill box, says she's been taking medications Blood sugars: Fasting range from 98-243 Per daughter, she is checking 1-2 times a week, always fasting Complications: No known neuropathy, nephropathy. Has mild retinopathy (03/2020). No signs/sxs of autonomic dysfunction or cardiac disease. Lipids UTD and on atorva 10. Screenings: Microalbuminuria (none, 11/2020, on lisinopril), eye exam (mild diabetic retinopathy 03/2020), foot exam (WNL 01/2021), Cr (08/2020 WNL). Plan: -Increase the januvia to 100 mg, daughter will pick pulling machine tender 100 mg tabs to fill in pill box this weekend -Encouraged her to check glucose 3-4 times a week with some fasting and some during the day Assessment & Plan (10/02/2020 5:34 PM EDT): A1c: 10.3% (02/2020)-> 10.7% (08/21/20) Current regimen: metformin 1000 mg BID, januvia 50 mg, jardiance 25mg via pill box, says she's been taking medications Blood sugars: Says she is checking sugars every 2-3 days but cannot tell me the numbers Complications: No known neuropathy, nephropathy. Has mild retinopathy (03/2020). No signs/sxs of autonomic dysfunction or cardiac disease. Lipids UTD and on atorva 10. Screenings: Microalbuminuria (none, 11/2020, on lisinopril), eye exam (mild diabetic retinopathy 03/2020), foot exam (WNL 01/2021), Cr (08/2020 WNL). Plan: -Likely is still poorly controlled but do not have blood sugars to assess. Room to increase the januvia to 100 mg. However, she is currently using pill box, so need daughters involvement in order to adjust medications. Will plan for telemed call tomorrow at 4PM to discuss further with daughter present and access to glucometer. Assessment & Plan (09/06/2020 5:02 PM EST): Most recent A1c 10.7% 07/2020, currently on metformin 1000 mg BID, januvia 50 mg, and jardiance 25mg via pill box. Has continued to have difficulty checking blood sugars regularly so no data to make changes today. Encouraged her to check blood sugars several times a week, ideally some fasting and some random. Will f/u in 1 mo, hopefully with blood sugar data to make adjustments at that time. Hyperglycemic today at 254, but likely chronically is this high and not having any signs/sxs of acute hyperglycemia. Plan: -Continue metformin 1000 mg BID, januvia 50 mg, jardiance 25mg -Encourage blood glucose checks -1 mo f/u with glucometer Assessment & Plan (08/21/2020 3:09 PM EST): Lives with her daughter. Who helps her manage her medications. Completed 2 years of school. Unclear and questionable adherence to medications. Would benefit from pill box as A1C increasing TE sent to RNs for schedule pill box THOM Reviewed exercise importance Assessment & Plan (03/30/2020 3:13 PM EDT): A1c last month 10.3%, up from 8.7% without clear reason (had started jardiance in the interim so if anything, should be equivocal/improved, not significantly increased). Increased jardiance due to patient refusing to consider injectable GLP1 or insulin. Now returning one month later with POC glucoses ~230s, c/w A1c of ~10%. Discussed importance of diabetes control today and risk of persistent hyperglycemia. When asked why she will not consider truclicity or insulin, she reports that people on insulin faster. I educated her about people on insulin having poorly controlled diabetes requiring insulin to get better control and that many on insulin because they delay starting insulin. She will consider re-addressing insulin and trulicity next visit but for now is adamantly against starting either. Given poor glucose control currently, will add januvia to regimen. Plan: -Continue metformin 1000 mg BID -Continue increased jardiance -Start januvia 50 mg daily Assessment & Plan (03/01/2020 7:42 PM EDT): Poorly controlled DMII with increasing A1c (8.7%-> 10.3%) despite adding jardiance to regimen since last A1c. She reports good med adherence and no changes in diet or exercise. No CBC in records so it's possible she had a resolution of anemia that caused false lowering of A1c previously so will check CBC just to have a baseline Hb for future reference. Though we discussed increasing jardiance to 25 mg daily last month given her glucometer readings, she has not yet started increased dosage due to thinking she should finish the other bottle of pills first. POC glucose today 241. She is very hesitant to consider an injectable medicine (GLP1 or insulin). She prefers to try the increased dosage of jardiance before injections. Will increase statin today to high intensity for risk factor optimization but otherwise she is not a smoker, does not drink alcohol, and has good control of blood pressure. Probably would benefit from further diet and exercise teaching. Still needs eye exam, referral has been made, she needs to call and schedule. Plan: -Continue metformin 1000 mg BID, and start increased jardiance 25 mg daily -Counseled to check blood sugars 4-5 times a week with at least a few fasting -Counseled to call clinic if blood sugars >300 at home -Plan to return to clinic in 1 month with glucometer to reassess diabetes management (consider insulin vs. GLP1) -Encouraged her to call for eye exam Assessment & Plan (02/05/2020 12:30 PM EDT): Recently started on jardiance 10 mg daily in addition to metformin 1000 mg BID for A1c 8.7. BG checks have been on avg 180s with lowest BG 109. No sxs of hypoglycemia. Diabetic foot exam w/out abnormality. Due for eye exam, referred and provided number. Plan: -Increase jardiance to 25 mg daily -Continue metformin 1000 mg daily -Next due for A1c next month Assessment & Plan (12/04/2019 2:48 PM EDT): History of DMII on metformin 1000 mg BID. No A1C on file. Recent random glucose >300 after missing 3 days of metformin will being detained. Suspect A1C will show uncontrolled diabetes. Currently experiencing polyuria. Not checking blood glucose at home. Plan: -Hb A1C, microalbuminuria, Cr -Eye exam referral -Checking lipids to optimize CVD risk -Plan to check blood pressure at in person visit -Diabetic foot exam in person visit -Diabetic teaching re diet and exercise in person visit Hyperlipidemia 12/04/2019 Assessment & Plan (07/19/2024 11:22 AM EST): Last lipid panel checked 10/25/23 Continues on atorvastatin 40 mg Assessment & Plan (02/23/2024 1:12 PM EDT): - Most recent lipid panel: 10/25/23 LDL 48, HDL 50, Chol 126 - Changes to therapy today: none, continue atorvastatin 40 mg daily - Dietary counseling reviewed today, encouraged decrease of saturated fat intake (animal fats, full fat dairy, butter, lard, etc) - Encouraged regular exercise - Other risk factors: T2DM - Plan to retest in 3 months Orders: atorvastatin 40 mg tablet; Take 1 Tablet by mouth 1 time a day Assessment & Plan (05/06/2022 3:57 PM EST): Last LDL 92 (November 2019), >70 and dx of diabetes. ASCVD Risk 12%, indicated for high intensity statin. Pt not fasting today, so low yield to repeat lipids this AM. Pt agreed to recheck fasting lipids at next visit to monitor for LDL reduction. - Continue atorvastatin 40 mg daily - Discussed diet, exercise, wt loss; check fasting lipids and ALT/AST at next visit Assessment & Plan (03/01/2020 7:22 PM EDT): Lipids last checked 01/2020, with LDL 92. Given ASCVD risk 10.8% with LDL >70 and diagnosis of diabetes, indicated for high intensity statin. Currently only moderate intensity. Will increase atorva to 40 mg today. Plan: -Increase atorva to 40 mg today Assessment & Plan (12/04/2019 2:49 PM EDT): Hx of HLD with no lipids on file. Currently taking atorvastatin 10 mg. Will check lipids today and adjust accordingly. Plan: -Lipids today -Increase atorvastatin from 10 mg if indicated Screening for colon cancer 12/04/2019 Assessment & Plan (07/22/2022 11:27 AM EST): Due for colon cancer screening. Now endorsing several months of constipation and thinning of stools, which is new for her. Previous FIT tests have been negative, but she has never had a CSY. - Refer for diagnostic colonoscopy - Check TSH and CBC Assessment & Plan (05/06/2022 4:07 PM EST): Discussed FIT testing recommended annually if colonoscopy not done; sent to lab to pick pulling machine tender Insure-FIT and receive instructions, asked her to mail or bring to lab. Assessment & Plan (10/22/2021 4:39 PM EDT): Overdue for mammo. Discussed today and provided number for scheduling. Due for shingles, did not have time to discuss today, will discuss next visit. Assessment & Plan (06/30/2021 5:16 PM EST): Received COVID booster and FIT test today. Provided number for mammo scheduled (over due). Deferred shingles conversation. Assessment & Plan (10/02/2020 5:16 PM EDT): Cancer screenings: -Colon: FIT 11/2019 UTD WNL -Cervical: completed 02/2020, NIL and HPV negative UTD -Breast: ordered but not yet scheduled, gave reminder and phone number today Disease prevention and screening: -CVD: lipids UTD and on atorvastatin 10 -Diabetes: A1c UTD -Smoking and drug use: none Vaccines: due for shingles, and COVID19 (completed 08/18/20 and 09/08/20 [place]) Wellness: -Mood: doing well, no concerns today -Housing/food insecurity: no concerns Plan: -Educated re importance of mammogram and reminded her to call for scheduling Assessment & Plan (09/06/2020 4:44 PM EST): Cancer screenings: -Colon: FIT 11/2019 UTD WNL -Cervical: completed 02/2020, NIL and HPV negative UTD -Breast: ordered but not yet scheduled, gave reminder and phone number today Disease prevention and screening: -CVD: lipids UTD and on atorvastatin 10 -Diabetes: A1c UTD -Smoking and drug use: none Vaccines: due for shingles, and COVID #2; scheduled for COVID #2 09/08/20 Wellness: -Mood: doing well, no concerns today -Housing/food insecurity: no concerns Plan: -Gave reminder for mammo and COVID19 vaccine Assessment & Plan (03/30/2020 3:27 PM EDT): Due for mammo but has not scheduled, reminded her of phone number to schedule. Received flu vaccine today. Assessment & Plan (02/05/2020 12:33 PM EDT): Cancer screenings: -Colon: FIT UTD WNL -Cervical: due today -Breast: ordered but not yet scheduled Disease prevention and screening: -CVD: lipids UTD and on atorvastatin 10 -Diabetes: A1c UTD discussed screenings due (see other problem) -Smoking and drug use: none Vaccines: due for hep b, PNA, tetanus Wellness: -Mood: doing well, no concerns today -Housing/food insecurity: no concerns Plan: -Pap today -Hep B, PNA, tetanus today -Need to discuss shingles next visit Assessment & Plan (12/04/2019 2:46 PM EDT): Presents for establishment of care. New [place] from [facility]. Cancer screenings: Due for colon, cervical, and breast. Would like to do FIT test for colon cancer screening. Disease prevention and screening: CVD: on atorvastatin 10 mg, will get lipids today and adjust accordingly. Diabetes: known diagnosis, no A1C on file. Smoking and drug use: none. Safe safe: not sexually active Vaccines: Zoster: will discuss at in person visit Hepatitis B, MMR titers today Plan: -Blood work ordered: A1C, lipids, LFTs, Cr, titers, HIV, syphilis -Mammo referral -FIT testing -Pap smear next in person visit Resolved Problems Problem Noted Date Diagnosed Date Resolved Date Elevated blood pressure reading 12/04/2019 02/05/2020 Assessment & Plan (12/04/2019 2:50 PM EDT): Elevated blood pressure reading at ED visit 155/90. No hx of HTN. No red flag sxs. Will plan to check blood pressure at in person visit and treat accordingly. Plan: -Check BP at in person visit Encounters Date Type Department Care Team Description 2025 Hospital Follow Up Ad Med Call Center [address] [place] [address] [id number] Zaki Layne MD [facility] F/U (Admission ) 02/15/2025 Results Follow-Up Practice [address] [place] [address] [phone] Bonnie Butt RNP H. PYLORI BREATH TEST 02/13/2025 2:00 PM EDT Office Visit Practice [address] [place] [address] [phone] Bonnie Butt RNP ABDOMINAL PAIN; VAGINAL ITCHING 02/13/2025 9:30 AM EDT Office Visit [facility] [address] [place] [address] [phone] Jackie Anderson NP Psychiatry Urgent Care Evaluation 01/31/2025 Telephone Clinical Pharmacy [address] [place] [address] [phone] Christina Hood, PharmD Diabetes (Pharmacist Med Review) 01/21/2025 1:30 PM EDT Office Visit [facility] [address] [place] [address] [phone] Christen Jacobo Urgent Care Evaluation 01/21/2025 1:00 PM EDT Office Visit Practice [address] [place] [address] [phone] Argenis Guerin RNP RINGING IN EAR (The right one); WEAKNESS 01/18/2025 Telephone [facility] [address] [place] [address] 62850 Hima Christianson Outreach 01/18/2025 Telephone Eye Technician Staff [address] [place] [address] Heidi Juan Eye Technician-Iranian 01/17/2025 Refill Practice 2 [address] [place] [address] Flora Prescott DNP Refill Request 01/17/2025 Telephone Ad Med Call Center [address] [place] [address] Zaki Layne MD Call From Patient (Mood concern) 01/15/2025 Telephone Ad Med Call Center [address] [place] [phone] Zaki Layne MD Call From Family/caregiver (Mental health concerns ) 12/16/2024 Refill Practice 4 [address] [place] [address] Alisia Cooney RNP Refill Request from Last 3 Months Immunizations Immunization Administration Dates Next Due Hep B Vaccine (GENERIC ORDER - PLEASE SPECIFY BRAND) 01/30/2020 Influenza, High Dose Seasonal 08/18/2023 Influenza, Injectable,Quadrivalent 05/05/2022,,03/26/2020 Moderna SARS-CoV-2 Vaccination 06/30/2021 PCV20 08/18/2023 PPSV23 (Pneumovax 23) 01/30/2020 Pfizer SARS-CoV-2 Vaccination 09/08/2020, 021 Tdap 01/30/2020 Social History Tobacco Use Types Packs/Day Years Used Date Smoking Tobacco: Never Tobacco Cessation:Counseling Given: Not Answered Alcohol Use Standard Drinks/Week Comments Never 0 (1 standard drink = 0.6 oz pur e alcohol) PHQ-2 Answer Date Recorded PHQ-9 Total Score 7 02/13/2025 Comments No Sex and Gender Information Value Date Recorded Sex Assigned at Not on file Legal Sex Female 11:08 AM EDT Gender Identity Not on file Sexual Orientation Not on file Last Filed Vital Signs Vital Sign Reading Time Taken Comments Blood Pressure 108/62 02/13/2025 1:22 PM EDT Pulse 90 02/13/2025 1:22 PM EDT Temperature 36.6 C (97.8 F) 02/13/2025 1:22 PM EDT Respiratory Rate 20 02/13/2025 9:48 AM EDT Oxygen Saturation 100% 02/13/2025 1:22 PM EDT Inhaled Oxygen Concentration - - Weight 56.7 kg (125 lb) 02/13/2025 1:22 PM EDT Height 152.8 cm (5' 0.16 ) 01/21/2025 12:58 PM E DT Body Mass Index 24.29 01/21/2025 12:58 PM EDT Plan of Treatment Upcoming Encounters Date Type Department Care Team (Late st Contact Info) Description 03/05/2025 10:00 AM EDT Office Visit [facility] [address] [place] [address] 03/21/2025 10:30 AM EDT Office Visit [facility] [address] [place] [address] Yesenia Wen MD [address] [place] [address] Health Maintenance Due Date Last Done Comments COLON CANCER SCREENING 5 YEAR SIGMOIDOSCOPY 2003 Cologuard (sDNA-FIT) 2003 Shingrix Vaccine (1 of 2) 02/28/2008 RSV Vaccine (Adult 60+ or OB 32-36wks) (1 - Risk 60-74 years 1-dose series) 2018 Diabetic Eye Exam 04/16/2022 04/16/2020, , 04/16/2020, Additional history exists PAP SMEAR 02/26/2023 2020, 07/2019, 01/30/2020, Additional history exists OSTEOPOROSIS DXA SCREENING DUE 2023 Annual FIT Colon Cancer Screening 07/22/2023 07/22/2022, 06/30/2021, 12/05/2019 BREAST CANCER SCREENING 07/27/2023 07/27/2022 Creatinine Level 10/24/2024 10/25/2023, , 01/31/2023, Additional history exists Full Lipid Panel Testing 10/24/2024 024, 07/22/2022, 12/05/2019, Additional history exists Influenza Vaccine (#1) 2025 4, 05/05/2022, 06/30/2021, Additional history exists Diabetic Foot Exam 02/22/2025 02/23/2024, 0 07/22/2022, 06/30/2021, Additional history exists Microalbumin 02/22/2025 02/23/2024, 05/28, 01/31/2023, Additional history exists COVID-19 Vaccine ( season) 2025 06/30/2021, 09/08/2020, 08/18/2020 Hemoglobin A1C 04/23/2025 01/21/2025, 06/28, 02/23/2024, Additional history exists PHQ2 Annual Screen 01/21/2026 01/21/2025 Colonoscopy 01/06/2030 01/06/2023, 01/06/2023 Colorectal Cancer Screening 01/06/2030 DTAP/TDAP/TD VACCINES (2 - Td or Tdap) 01/29/2030 01/30/2020 Pneumococcal Vaccine Age > 50 Completed 08/18/2023, 01/30/2020 Hepatitis C Screening Completed 01/16/2025, 020 HEPATITIS A VACCINES Aged Out No long er eligible based on patient's age to complete this topic HEPATITIS B VACCINES Aged Out No long er eligible based on patient's age to complete this topic HPV VACCINES Aged Out No longer eligi ble based on patient's age to complete this topic MENINGOCOCCAL VACCINE Aged Out No kandis tanmay eligible based on patient's age to complete this topic Procedures Procedure Name Priority Date/Time Associated Diagnosis Comments H. PYLORI BREATH TEST Routine 02/13/2025 2:13 PM EDT H. pylori infection GLYCOHEMOGLOBIN A1C (BACK OFFICE) Routine 01/21/2025 1:01 PM EDT Type 2 diabetes mellitus with mild nonproliferative retinopathy, without long-term current use of insulin, macular edema presence unspecified, unspecified laterality (HCC) MICROALBUMIN RANDOM URINE Routine 02/23/2024 6:08 PM EDT Type 2 diabetes mellitus with mild nonproliferative retinopathy, without long-term current use of insulin, macular edema presence unspecified, unspecified laterality (HCC) Essential hypertension CHEM 14 COMP METABOLIC PANEL Routine 10/25/2023 10:32 AM EDT Stomach upset LIPID PANEL (CHOL, TRIG, HDL) REFLEX TO DIRECT LDL Routine 10/25/2023 10:32 AM EDT Stomach upset MAMMOGRAPHY SCREENING BILATERAL Routine 07/27/2022 2:52 PM EST Breast screening INSURE ONE FIT TESTING Routine 3 12:05 PM EST Screening for colon cancer THIN PREP Routine 2020 5:07 PM EDT Cervical cancer screening HEPATITIS C AB, REFLEX TO HCV RNA QT Routine 12/05/2019 8:34 AM EDT Encounter to establish care from Last 3 Months or Most Recently Relevant to Health Maintenance Results * H. PYLORI BREATH TEST (02/13/2025 2:13 PM EDT) HELICOBACTER PYLORI, UREA BREATH TEST NOT DETECTED NOT DETECTED [facility] Comment: Antimicrobials, proton pump inhibitors, and bismuth preparations are known to suppress H. pylori, and ingestion of these prior to H. pylori diagnostic testing may lead to false negative results. If clinically indicated, the test may be repeated on a new specimen obtained two weeks after discontinuing treatment. However, a positive result is still clinically valid. Other 02/13/2025 2:13 PM EDT 02/13/2025 2:13 PM EDT Narrative [facility] - 02/14/2025 2:08 PM EDT [facility] Testing performed at: [facility], [employer] [facility], [address] [place] [address], [phone], Banquet Supervisor: Tarik Haines [facility] Collection Date/Time: [id number] [facility] Results Received Date/Time: [id number] [facility] Reported Date/Time: [id number] Bonnie Filomena [facility] Final Result Performing Organization Address City/[facility] Co de Phone Number [facility] [phone] * (ABNORMAL) GLYCOHEMOGLOBIN A1C (BACK OFFICE) (01/21/2025 1:01 PM EDT) Pathologist [facility] HEMOGLOBIN A1C BACKOFFICE 9.1(H) 4.0 - 5.8 % [facility] Whole blood 01/21/2025 1:01 PM EDT 01/21/2025 1:02 PM EDT Narrative [facility] - 01/21/2025 3:06 PM EDT [place] [address] Packer Operator Automatic: Dr. Stephen MD (CLIA [id number]) [facility] Final Result Performing Organization Address [facility] de Phone Number [facility] [address] [place] [address] * (ABNORMAL) MICROALBUMIN RANDOM URINE (02/23/2024 6:08 PM EDT) Pathologist [facility] CREATININE, RANDOM URINE 14(L) 20 - 275 mg/dL [facility] MICROALBUMIN <0.2 See Note: mg/dL [facility] Comment: Reference Range: Reference Range Not established MICROALBUMIN/CREAT ININE$RATIO, RANDOM URINE NOTE <30 mg/g creat [facility] Comment: NOTE: The urine albumin value is less than 0.2 mg/dL therefore we are unable to calculate excretion and/or creatinine ratio. The ADA defines abnormalities in albumin excretion as follows: Albuminuria Category Result (mg/g creatinine) Normal to Mildly increased <30 Moderately increased 30-299 Severely increased > OR = 300 The ADA recommends that at least two of three specimens collected within a 3-6 month period be abnormal before considering a patient to be within a diagnostic category. Urine 02/23/2024 6:08 PM EDT 02/23/2024 6:08 PM EDT Narrative [facility] - 02/25/2024 4:53 PM EDT [facility] Testing performed at: [facility], [facility] [employer] [facility], [address] [place] [address], [phone], Banquet Supervisor: Tarik Haines [facility] Collection Date/Time: [id number] [facility] Results Received Date/Time: [id number] [facility] Reported Date/Time: [id number] Grge Taylor MD LABORATORY Final Result [facility] [phone] * (ABNORMAL) CHEM 14 COMP METABOLIC PANEL (10/25/2023 10:32 AM EDT) Glucose 192(H) 65 - 99 mg/dL [facility] Comment: Fasting reference interval For someone without known diabetes, a glucose value >125 mg/dL indicates that they may have diabetes and this should be confirmed with a follow-up test. UREA NITROGEN (BUN) 16 7 - 25 mg/dL [facility] CREATININE 0.64 0.50 - 1.05 mg/dL [facility] EGFR 98 > OR = 60 mL/min/1. 73m2 [facility] BUN/CREATININE RATIO SEE NOTE: 6 - 22 (calc) [facility] Comment: Not Reported: BUN and Creatinine are within reference range. SODIUM 139 135 - 146 mmol/L [facility] POTASSIUM 4.1 3.5 - 5.3 mmol/L [facility] CHLORIDE 100 98 - 110 mmol/L [facility] CARBON DIOXIDE 27 20 - 32 mmol/L [facility] CALCIUM 9.9 8.6 - 10.4 mg/dL [facility] PROTEIN, TOTAL 7.0 6.1 - 8.1 g/dL [facility] ALBUMIN 4.6 3.6 - 5.1 g/dL [facility] GLOBULIN 2.4 1.9 - 3.7 g/dL (calc) [facility] ALBUMIN/GLOBULIN RATIO 1.9 1.0 - 2.5 (calc) [facility] BILIRUBIN, TOTAL 0.3 0.2 - 1.2 mg/dL [facility] ALKALINE PHOSPHATASE 82 37 - 153 U/L [facility] AST 17 10 - 35 U/L [facility] ALT 20 6 - 29 U/L [facility] Serum 10/25/2023 10:3 2 AM EDT 10/25/2023 10:32 AM EDT Narrative [facility] - 10/26/2023 2:47 AM EDT [facility] Testing performed at: [id number], [facility] [employer] [facility], [address] [place] [address], [phone], Banquet Supervisor: Tarik Haines [facility] Collection Date/Time: [id number] [facility] Results Received Date/Time: [id number] [facility] Reported Date/Time: [id number] Betzaida Greenwood [facility] Final Result [facility] [phone] * (ABNORMAL) LIPID PANEL (CHOL, TRIG, HDL) REFLEX TO DIRECT LDL (10/25/2023 10:32 AM EDT) CHOLESTEROL, TOTAL 126 <200 mg/dL [facility] HDL CHOLESTEROL 50 > OR = 50 mg/dL [facility] TRIGLYCERIDES 222(H) <150 mg/dL [facility] Comment: If a non-fasting specimen was collected, consider repeat triglyceride testing on a fasting specimen if clinically indicated. Nely et al. J. of Clin. Lipidol. 2015;9:129-169. LDL-CHOLESTEROL 48 mg/dL (calc) [facility] Comment: Reference range: <100 Desirable range <100 mg/dL for primary prevention; <70 mg/dL for patients with CHD or diabetic patients with > or = 2 CHD risk factors. LDL-C is now calculated using the Dimas-Paul calculation, which is a validated novel method providing better accuracy than the Friedewald equation in the estimation of LDL-C. Dimas SS et al. NU. 2013;310(19): 2279-9572 (http://education.EnergyChest.Touchtalent/faq/MMR090) CHOL/HDLC RATIO 2.5 <5.0 (calc) [facility] NON HDL CHOLESTEROL 76 <130 mg/dL (calc) [facility] Comment: For patients with diabetes plus 1 major ASCVD risk factor, treating to a non-HDL-C goal of <100 mg/dL (LDL-C of <70 mg/dL) is considered a therapeutic option. Serum 10/25/2023 10:3 2 AM EDT 10/25/2023 10:32 AM EDT Narrative [facility] - 10/26/2023 2:47 AM EDT [facility] Testing performed at: [facility], [employer] [facility], [address] [place] [address], [address], Banquet Supervisor: Tarik Haines [facility] Collection Date/Time: [id number] [facility] Results Received Date/Time: [id number] [facility] Reported Date/Time: [id number] Result [facility] Betzaida FRANKEL LABORATORY Final Result Performing Organization Address [facility] de Phone Number [facility] [phone] * MAMMOGRAPHY SCREENING BILATERAL (07/27/2022 2:52 PM EST) Narrative [facility] - 08/06/2022 12:43 PM EST BILATERAL DIGITAL SCREENING MAMMOGRAM WITH TOMOSYNTHESIS HISTORY: Routine screening mammogram; no complaints today. TECHNIQUE: Bilateral full field digital mammography with tomosynthesis was performed and interpreted with the aid of CAD. COMPARISON: No prior imaging is available. COMPOSITION: Scattered areas of fibroglandular density. FINDINGS: No suspicious masses, suspicious grouped calcifications or areas of architectural distortion are seen. IMPRESSION: No specific mammographic evidence of malignancy. BI-RADS 1 - Negative. RECOMMENDATION: Routine annual screening. The patient was sent a letter with the results of the exam and recommendations. Result [facility] Greg Taylor MD MAMMOGRAPHY Final Result Performing Organization Address [facility] de Phone Number [facility] 20 [facility] [place] [address]/[place] [address] * INSURE ONE FIT TESTING (07/22/2022 12:05 PM EST) FECAL GLOBIN BY IMMUNOCHEMISTRY SEE NOTE [facility] Comment: FECAL GLOBIN BY IMMUNOCHEMISTRY Micro Number: [id number] Test Status: Final Specimen Source: Insure (tm) fobt test card Specimen Quality: Adequate Fecal Globin: Not Detected Stool 07/22/2022 12:0 5 PM EST 07/22/2022 12:05 PM EST Narrative [facility] - 07/29/2022 12:04 PM EST [facility] Testing performed at: [facility], [employer], [address] [place] [address], ([facility] [place], [address], Banquet Supervisor: Tarik Haines [facility] Collection Date/Time: [id number] [facility] Results Received Date/Time: [id number] [facility] Reported Date/Time: Greg Taylor MD LABORATORY Final Result [facility] [phone] * THIN PREP (2020 5:07 PM EDT) CLINICAL INFORMATION SEE NOTE [facility] Comment:None given LMP SEE NOTE [facility] Comment:NONE GIVEN PREV. PAP SEE NOTE [facility] Comment:NO PREV. BX NO [facility] SOURCE: SEE NOTE [facility] Comment:Cervix, Endocervix STATEMENT OF ADEQUACY SEE NOTE [facility] Comment: Satisfactory for evaluation. Endocervical/transformation zone component present. Age and/or menstrual status not provided INTERPRETATION/RESU LT Negative for intraepithelial lesion or malignancy. [facility] SHARK BIOLOGIST SEE NOTE [facility] Comment: NSS, CT(ASCP) CT screening location: [place] [address] COMMENT SEE NOTE [facility] Comment: EXPLANATORY NOTE: The Pap is a screening test for cervical cancer. It is not a diagnostic test and is subject to false negative and false positive results. It is most reliable when a satisfactory sample, regularly obtained, is submitted with relevant clinical findings and history, and when the Pap result is evaluated along with historic and current clinical information. Other 2020 5:07 PM EDT 2020 5:07 PM EDT Narrative [facility] - 03/05/2020 8:45 AM EDT [facility] Testing performed at: [facility], [employer] [place] [employer], [address] [place] [address], [address], [place], [address], Banquet Supervisor: Tarik Haines [facility] Collection Date/Time: [id number] [facility] Results Received Date/Time: [id number] [facility] Reported Date/Time: [id number] us Jess Farrar MD LABORATORY Final Result Performing Organization Address [facility] de Phone Number [facility] [phone] * HEPATITIS C AB, REFLEX TO HCV RNA QT (12/05/2019 8:34 AM EDT) HEPATITIS C ANTIBODY NON-REACTI VE NON-REACT CLAUDIA [facility] SIGNAL TO CUT-OFF 0.01 <1.00 [facility] Comment: HCV antibody was non-reactive. There is no laboratory evidence of HCV infection. In most cases, no further action is required. However, if recent HCV exposure is suspected, a test for HCV RNA (test code 98738) is suggested. For additional information please refer to http://education.KYCK.com/faq/ZCL97s5 (This link is being provided for informational/ educational purposes only.) Serum 12/05/2019 8:34 AM EDT 12/05/2019 8:34 AM EDT Narrative [facility] - 12/06/2019 2:18 AM EDT [facility] Testing performed at: [facility], [employer] [facility], [address] [place] [address], [address], [place], [address], Banquet Supervisor: Tarik Haines [facility] Collection Date/Time: [id number] [facility] Results Received Date/Time: [id number] [facility] Reported Date/Time: [id number] us Jess Farrar MD LABORATORY Final Result Performing Organization Address [facility] Co de Phone Number [facility] [phone] from Last 3 Months or Most Recently Relevant to Health Maintenance Insurance [facility] [employer] Care Teams Ditch Digger Relationship Specialty Start Date End Date Zaki Layne MD [address] [place] [address] PCP - General 01/10/25
--- OUTSIDE RECORDS SUMMARY | 2025-02-28 23:41 | XMS_ITS | Encounter Summary ---
Author Organization [facility] ([facility]) Address [address] [place] [address] Care Team Providers Care Special Education Administrator Name Role Phone Jess Farrar MD Primary Care Provider [phone] Greg Taylor MD Primary Care Provider [phone] Zaki Layne MD Primary Care Provider [phone] Encounter Details Date Type Department Care Team (Late st Contact Info) Description 11/20/2021 Legacy Encounter [facility] [address] [place] [address] Betzaida Greenwood RNP [address] [place] [address] Social History Tobacco Use Types Packs/Day Years [...] [facility] [address] [place] [address] 03/21/2025 10:30 AM EDT Office Visit [facility] [address] [place] [address] Yesenia eWn MD [address] [place] [address] documented as of this encounter Visit Diagnoses Not on filedocumented in this encounter Care Teams Special Education Administrator Relationship Specialty Start Date End Date eJss Farrar MD [address] [place] [address] PCP - General Adult Medicine 12/03/19 01/10/22 Greg Taylor MD [address] [place] [address] PCP - General 01/11/22 01/09/25 Zaki Layne MD [address] [place] [address] PCP - General 01/10/25 documented as of this encounter
--- OUTSIDE RECORDS SUMMARY | 2025-02-28 23:41 | XMS_ITS | Encounter Summary ---
Author Organization [facility] ([facility]) Address [address] [place] [address] Care Team Providers Care Heart Specialist Name Role Phone Greg Taylor MD Primary Care Provider [phone] Zaki Layne MD Primary Care Provider [phone] Reason for Visit * Reason Comments Refill Request Encounter Details Date Type Department Care Team (Late st Contact Info) Description 07/01/2023 Refill Practice [address] [place] [address] Betzaida Greenwood RNP [address] [place] [address] Refill Request Social History Tobacco Use Types [...] [facility] Visit [facility] [address] [place] [address] 03/21/2025 10:30 AM EDT Office Visit [address] [place] [address] Yesenia Wen MD [address] [place] [address] documented as of this encounter Visit Diagnoses Diagnosis 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
--- OUTSIDE RECORDS SUMMARY | 2025-02-28 23:41 | XMS_ITS | Encounter Summary ---
Author Organization [facility] r Address [address] [place] [address] Phone Care Team Providers Care Commercial Pest Control Technician Name Role Phone Greg Taylor MD Primary Care Provider [phone] Laith Saha Unavailable Unavailable Arnaud Begum MD Unavailable [phone] Terence Still MD Unavailable [phone] Reason for Visit * Reason Comments Automated Refill Request Encounter Details Date Type Department Care Team (Late st Contact Info) Description 11/05/2024 Refill Orthopaedic Surgery [address] Principal Military Analyst [facility] [place] [phone] Alvaro [place] [address] Social History Tobacco Use Types Packs/Day Years [...] AM EST documented as of this encounter Plan of Treatment Not on file documented as of this encounter Visit Diagnoses Not on filedocumented in this encounter Care Teams Commercial Pest Control Technician Relationship Specialty Start Date End [place] [address] PCP - General Internal Medicine 07/26/22 6, Moa Endo 08/06/22 [place] [address] Gastroenterology 08/12/22 [place] [address] Gastroenterology 01/10/23 documented as of this encounter
--- OUTSIDE RECORDS SUMMARY | 2025-02-28 23:41 | XMS_ITS | Encounter Summary ---
Author Organization [facility] ([facility]) Address [address] [place] [address] Care Team Providers Care Edging Machine Feeder Name Role Phone Jess Farrar MD Primary Care Provider [phone] Greg Taylor MD Primary Care Provider [phone] Zaki Layne MD Primary Care Provider [phone] Encounter Details Date Type Department Care Team (Late Contact Info) Description 12/16/2021 Legacy Encounter [facility] [address] [place] [address] So Ventura RNP [address] [place] [address] Social History Tobacco Use Types Packs/Day Years [...] Office Visit [facility] [address] [place] [address] 03/21/2025 10:30 AM EDT Office Visit [facility] [address] [place] [address] Yesenia Wen MD [address] [place] [address] documented as of this encounter Visit Diagnoses Not on filedocumented in this encounter Care Teams Edging Machine Feeder Relationship Specialty Start Date End Date Jess Farrar MD [address] [place] [address] PCP - General Adult Medicine 12/03/19 01/10/22 Greg Taylor MD [address] [place] [address] PCP - General 01/11/22 01/09/25 Zaki Layne MD [address] [place] [address] PCP - General 01/10/25 documented as of this encounter
--- OUTSIDE RECORDS SUMMARY | 2025-02-28 23:41 | XMS_ITS | Encounter Summary ---
Author Organization [facility] ([facility]) Address [address] [place] [address] Care Team Providers Care Contact Lens Lathe Operator Name Role Phone Jess Farrar MD Primary Care Provider [phone] Greg Taylor MD Primary Care Provider [phone] Zaki Layne MD Primary Care Provider [phone] Reason for Visit * Reason Onset Date Comments Refill Request 10/22/2021 Encounter Details Date Type Department Care Team (Late st Contact Info) Description 10/22/2021 [address] [place] [address] Jess Farrar MD [address] [place] [address] Refill Request Social History Tobacco Use Types [...] Office Visit [facility] [address] [place] [address] 03/21/2025 10:30 AM EDT Office Visit [facility] [address] [place] [address] Yesenia Wen MD [address] [place] [address] documented as of this encounter Visit Diagnoses Not on filedocumented in this encounter Care Teams Contact Lens Lathe Operator Relationship Specialty Start Date End Date Jess Farrar MD [address] [place] [address] PCP - General Adult Medicine 12/03/19 01/10/22 Greg Taylor MD [address] [place] [address] PCP - General 01/11/22 01/09/25 Zaki Layne MD [address] [place] [address] PCP - General 01/10/25 documented as of this encounter
--- OUTSIDE RECORDS SUMMARY | 2025-02-28 23:41 | XMS_ITS | Encounter Summary ---
Author Organization [facility] ([facility]) Address [address] [place] [address] Care Team Providers Care Hair Boiler Operator Name Role Phone Jess Farrar MD Primary Care Provider [phone] Greg Taylor MD Primary Care Provider [phone] Zaki Layne MD Primary Care Provider [phone] Reason for Visit * Reason Onset Date Comments Refill Request 10/20/2021 Empagliflozin (J ARDIANCE) 25 MG Tablet () & Lisinopril 5 MG Tablet () Encounter Details Date Type Department Care Team (Late st Contact Info) Description 10/20/2021 Refill [facility] [address] [place] [address] Jess Farrar MD [address] [place] [address] Refill Request (Empagliflozin (JARDIANCE) 25 MG Tablet () & Lisinopril 5 MG Tablet ()) Social History Tobacco Use Types Packs/Day Years [...] Telephone Encounter - Betzaida Greenwood RNP - 10/23/2021 4:31 PM EDT Lisinopril, jardiace and vaginal moisturizer sent. Has been some years since had vagina estrogen. Please clarify that she would like this. Please set up Th to discuss sx an dosing of vaginal estrogenwith me or other P4 provider. Previously rx'ed: Estrogens, Conjugated 0.625 MG/GM Cream 30 g 5 2020 Sig - Route: Insert 0.5 g into the vagina twice a day - Vaginal May want to consider estradiol cream intravaginal estrace 1 gram Daily for 14 days then 1 gram 3x weekly thereafter * Telephone Encounter - Betzaida Greenwood RNP - 10/22/2021 5:31 PM EDT Patient seen today. Awaiting notes documented in this encounter Plan of Treatment Upcoming Encounters Date Type Department Care Team (Late st Contact Info) Description 03/05/2025 10:00 AM EDT Office Visit [facility] [address] [place] [address] 03/21/2025 10:30 AM EDT Office Visit [address] [address] [place] [address] [place] [address] documented as of this encounter Visit Diagnoses Diagnosis Hyperlipidemia, unspecified hyperlipidemia type Essential hypertension Type 2 diabetes mellitus without complication, without long-term current use of insulin (HCC) Vaginal itching Pruritus of genital organs documented in this encounter Care Teams Hair Boiler Operator Relationship Specialty Start Date End Date Jess Farrar MD [address] [place] [address] PCP - General Adult Medicine 12/03/19 01/10/22 Greg Taylor MD 10 [place] [address] PCP - General 01/11/22 01/09/25 Zaki Layne MD 10 [place] [address] PCP - General 01/10/25 documented as of this encounter
--- OUTSIDE RECORDS SUMMARY | 2025-02-28 23:41 | XMS_ITS | Encounter Summary ---
Author Organization [facility] ([facility]) Address [address] [place] [address] Care Team Providers Care Flakeboard Line Tender Name Role Phone Greg Taylor MD Primary Care Provider [phone] Zaki Layne MD Primary Care Provider [phone] Reason for Visit * Reason Onset Date Comments Referral 05/10/2024 [facility] - Referral [phone] Encounter Details Date Type Department Care Team (Late st Contact Info) Description 05/10/2024 Telephone APPT REFERRALS [facility] [address] [place] [address] Greg Taylor MD [address] [place] [address] Referral ([facility] - Referral [phone]) Social History Tobacco Use Types Packs/Day Years [...] encounter Miscellaneous Notes * Telephone Encounter - CyrusRich whitmana - 05/10/2024 12:17 PM EST Good day! [facility] scheduled the appointment on 06/22/24 at 10:45 AM with Fuad Castillo MD. It's the earliest date available for urgent referral. Thank you, Referral Department documented in this encounter Plan of Treatment Upcoming Encounters Date Type Department Care Team (Late st Contact Info) Description 03/05/2025 10:00 AM EDT Office Visit [facility] [address] [place] [address] 03/21/2025 10:30 AM EDT [facility] [address] [place] [address] Yesenia Wen MD [address] [place] [address] documented as of this encounter Visit Diagnoses Not on filedocumented in this encounter Care Teams Flakeboard Line Tender Relationship Specialty Start Date End Date Greg Taylor MD [address] [place] [address] PCP - General 01/11/22 01/09/25 Zaki Layne MD [address] [place] [address] PCP - General 01/10/25 documented as of this encounter
--- OUTSIDE RECORDS SUMMARY | 2025-02-28 23:41 | XMS_ITS | Encounter Summary ---
Author Organization [facility] ([facility]) Address [address] [place] [address] Care Team Providers Care Operating Room Scheduler Name Role Phone Greg Taylor MD Primary Care Provider [phone] Zaki Layne MD Primary Care Provider [phone] Encounter Details Date Type Department Care Team (Late st Contact Info) Description 07/22/2022 Legacy Encounter PHARMACY [address] [place] [address] Betzaida Greenwood RNP [address] [place] [address] Social History Tobacco Use Types Packs/Day Years [...] Visit [facility] [address] [place] [address] 03/21/2025 10:30 AM EDT Office Visit [place] [address] [place] [address] Yesenia Wen MD [address] [place] [address] documented as of this encounter Visit Diagnoses Not on filedocumented in this encounter Care Teams Operating Room Scheduler Relationship Specialty Start Date End Date Greg Taylor MD [address] [place] [address] PCP - General 01/11/22 01/09/25 Zaki Layne MD [address] [place] [address] PCP - General 01/10/25 documented as of this encounter
--- OUTSIDE RECORDS SUMMARY | 2025-02-28 23:41 | XMS_ITS | Referral Summary ---
Author Organization [facility] r Address [address] [place] [address] Phone Care Team Providers Care Maintenance Clerk Name Role Phone Gerg Taylor MD Primary Care Provider 6, Laith Endo Unavailable Unavailable Arnaud Begum MD Unavailable [phone] Terence Still MD Unavailable [phone] Encounters Date Type Department Care Team Description 01/16/2025 Travel 01/16/2025 11:24 AM EDT - 01/16/2025 7:[address] [facility] Emergency Department [address] [place] [address] Adeline Garcia MD Medzon, Ron, MD Paranoia (Primary Dx) Discharge Disposition: Home or Self Care from Last 3 Months Allergies No known active allergies Medications atorvastatin (LIPITOR) 40 mg tablet Take 40 mg by mouth. 1 Active lisinopriL (PRINIVIL;ZESTRI L) 5 mg tablet Take 5 mg by mouth. 1 Active metFORMIN (GLUCOPHAGE) 1000 mg tablet Take 1,000 mg by mouth every 12 (twelve) hours. 1 Active SITagliptin (JANUVIA) 100 MG tablet Take 100 mg by mouth. 1 Active calcium carbonate-vit D3-min 600 mg calcium- 400 unit Tab Take 1 tablet by mouth. 1 Active ibuprofen (ADVIL,MOTRIN) 600 MG tablet Take 1 tablet (600 mg total) by mouth every 6 (six) hours as needed for pain. Take with food 60 tablet 1 Active oxyCODONE (ROXICODONE) 5 mg immediate release tablet Take 1 tablet (5 mg total) by mouth every 6 (six) hours as needed for pain for up to 2 days. Permission to partially fill. 5 tablet 1 Active econazole nitrate 1 % creamIndications :Paronychia of finger, unspecified laterality,Onych odystrophy Apply to affected areas of the finger and nails in the morning 30 g 2 4 Active betamethasone, augmented, (DIPROLENE) 0.05 % ointmentIndicati ons:Paronychia of finger, unspecified laterality,Onych odystrophy Apply to affected areas of the finger and nails at night 50 g 3 4 Active docusate (COLACE) 100 mg capsule Take 1 capsule (100 mg total) by mouth 2 (two) times a day as needed for constipation. Take if taking oxycodone to prevent constipation. 60 capsule 5 Active JARDIANCE 25 mg tablet Take 1 tablet (25 mg total) by mouth daily. Swallow whole; do NOT crush, split, or chew. 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 Pt continues to present with limited ROM at (L) jt which is impacting functional mobility with iADLs and would cont to benefit from skilled PT with a focus on improving ROM. Case of care is complicated d/t poor ability to follow 2 step commands. Cont to focus on progression of range and tolerance to overhead activities. Assessment & Plan (01/29/2022 5:11 PM EDT): Pt is a pleaseant 61 y.o. female presenting with signs and sx consistent with frozen shoudler most likely in frozen stage; this IE was signifiacntly limited by pt refusal to accept diagnosis, limited ability from pt to allow for objective examination, and tangential conversation of pt. Pt dx supported by the following findings: gross impaired ROM with IR, Flexion, and Abduction most limited. Pt would benefit from skilled PT to focus on progress ROM and (I) sx mgmt. Prognosis is poor d/t refusal to accept dx Current Impairments: limited ROM Current Restrictions/Limitations: limited in self dressing and ADLs POC: to focus on improving ROM Cholelithiasis 12/11/2020 Overview (12/11/2020): Added automatically from request for surgery [id number] Hip pain, left 05/05/2020 Overview (05/05/2020): 60 year old woman with chronic left hip pain and knee pain most likely due to combination of factors including generally deconditioned, possible old pelvic fracture seen on x ray, and genu valgus Assessment & Plan (05/05/2020 3:11 PM EST): 60 year old woman with chronic left hip pain and knee pain most likely due to combination of factors including generally deconditioned, possible old pelvic fracture seen on x ray, and genu valgus. It can not be ruled out that pain may be from femoral artery or nerve pain as prolonged sitting cause much pain . These are not issues that physical therapy can rule out or treate. She is sedentary and present with weak core and hip muscles, and a Trendelenberg gait. She will benefit from a course of physical therapy to reduce pain and improve strength to restore function Social History Tobacco Use Types Packs/Day Years Used Date Smoking Tobacco: Never Alcohol Use Standard Drinks/Week Comments Never 0 (1 standard drink = 0.6 oz pur e alcohol) Housing Answer Date Recorded What is your living situation today? I h ave a place to live today, but I am worried about losing it in the future 01/16/2025 Medications Answer Date Recorded Do you have trouble paying for prescriptions? No 01/16/2025 Utilities Answer Date Recorded Do you have trouble paying f or utilites (heat, electricity, internet, or phone bill)? No 01/16/2025 Food Answer Date Recorded Within the past 12 months, w ere you worried whether your food would run out before you got money to buy more? Never true 0 01/16/2025 Not on file 01/16/2025 Transportation Answer Date Recorded Do you have trouble getting transportation to medical appointments? No 01/16/2025 Comments No Sex and Gender Information Value Date Recorded Sex Assigned at Female 04/13/2023 10:15 AM EDT Legal Sex Female 3:47 PM EDT Gender Identity Female 04/13/2023 10:15 AM EDT Sexual Orientation Patient's sexual milagro entation is not listed 07/19/2024 11:38 AM EST Last Filed Vital Signs Vital Sign Reading Time Taken Comments Blood Pressure 120/78 01/16/2025 6:16 PM EDT Pulse 99 01/16/2025 6:16 PM EDT Temperature 36.7 C (98 F) 01/16/2025 6:16 PM EDT Respiratory Rate 18 01/16/2025 6:16 PM EDT Oxygen Saturation 98% 01/16/2025 6:16 PM EDT Inhaled Oxygen Concentration - - Weight 56.9 kg (125 lb 6.4 oz) 01/16/2025 11:03 AM EDT Height 157.5 cm (5' 2.01 ) 01/16/2025 11:03 AM E DT Body Mass Index 22.93 01/16/2025 11:03 AM EDT Plan of Treatment Not on file Procedures Procedure Name Priority Date/Time Associated Diagnosis Comments TOXICOLOGY SCREEN, SERUM Nursing - STAT 01/16/2025 3:23 PM EDT VITAMIN D 25 HYDROXY Nursing - STAT 01/16/2025 3:23 PM EDT PTH, INTACT Nursing - STAT 01/16/2025 3:[address] HEAD WITHOUT CONTRAST STAT 01/16/2025 1:36 PM EDT TOXICOLOGY SCREEN, SERUM 01/16/2025 11:40 AM EDT URINALYSIS, REFLEX TO CULTURE Nursing - STAT 01/16/2025 11:40 AM EDT EXPANDED OPIOID PANEL, URINE Nursing - STAT 01/16/2025 11:40 AM EDT TOXICOLOGY SCREEN, URINE Nursing - STAT 01/16/2025 11:40 AM EDT ACETAMINOPHEN LEVEL Nursing - STAT 01/16/2025 1 1:40 AM EDT TSH WITH REFLEX TO FREE T4 Nursing - STAT 01/16/2025 11:40 AM EDT HCV AB REFLEX TO CONFIRMATORY/VIRAL LOAD AND GENOTYPE Nursing - STAT 01/16/2025 11:40 AM EDT COMPREHENSIVE METABOLIC PANEL Nursing - STAT 01/16/2025 11:40 AM EDT CBC AND DIFFERENTIAL Nursing - STAT 01/16/2025 11:40 AM EDT COLONOSCOPY Routine 01/06/2023 11:03 AM EDT from Last 3 Months or Most Recently Relevant to Health Maintenance Results * (ABNORMAL) Serum toxic screen (01/16/2025 3:23 PM EDT) Only the most recent of2 resultswithin the time period is included. Ethanol, Serum NONE DETECTED NONE DETECTED MG/DL 01/16/2025 5:00 PM EDT [facility] Salicylate <5.0(L) 15 - 30 MG/DL 01/16/2025 5:00 PM EDT [facility] Comment: THERAPEUTIC RANGE: ANALGESIC: <10 MG/DL ANTI INFLAMMATORY: 15 TO 20 MG/DL Tricyclics (Serum) NEG NEG NG/ML 2024 5:00 PM EDT [facility] Comment: A NEGATIVE RESULT IN THIS ASSAY INDICATES EITHER THE ABSENCE OF TRICYCLIC ANTIDEPRESSANTS (TCA) OR CONCENTRATIONS OF TCA THAT FALL INTO THE THERAPEUTIC OR SUBTHERAPEUTIC RANGE. CLINICAL CORRELATION IS SUGGESTED. THIS ASSAY USES A CUTOFF CONCENTRATION OF 300 NG/ML. 01/16/2025 3:23 PM EDT 01/16/2025 3:38 PM EDT Dacia Peerzcio PA LAB BLOOD ORDERABLES Final R esult [facility] CLIA [id number] [place] [address], [place] * Vitamin D 25 hydroxy (01/16/2025 3:23 PM EDT) Vit D 25-Hydroxy 42.2 30 - 60 ng/mL 01/16/2025 5:07 PM EDT [facility] Comment: Vitamin D Reference Range: <20 ng/mL Insufficient 20-96 ng/mL Sufficient 30-60 ng/mL Cameron >96 ng/mL Potentially Toxic 01/16/2025 3:23 PM EDT 01/16/2025 3:38 PM EDT Dacia HALSCIONo PA LAB BLOOD ORDERABLES Final R esult Performing Organization Address [facility]/ZIP Co de Phone Number [facility] CLIA [id number] [place] [address], [place] * Intact pth hormone (01/16/2025 3:23 PM EDT) Intact PTH Hormone 31 11 - 90 PG/ML 01/16/2025 5:00 PM EDT [employer] 01/16/2025 3:23 PM EDT 01/16/2025 3:38 PM EDT Dacia Peerzcio PA LAB BLOOD ORDERABLES Final R esult [facility] CLIA [id number] [place] [address], [place] * CT Brain Without Contrast (01/16/2025 1:36 PM EDT) [facility] IMG PATIENT HEIGHT 157.5 GE RIS-IC [facility] PATIENT WEIGHT 56.881 GE RIS-IC Anatomical Region Laterality Modality Head Computed Tomogra phy 01/16/2025 1:43 PM EDT Impressions 01/16/2025 1:47 PM EDT No acute intracranial abnormality. I personally reviewed the study and agree with the dictated report. Electronically signed by: Beverly Rodas MD Signed date and time: 01/16/2025 1:47 PM Narrative 01/16/2025 1:47 PM EDT EXAMINATION: CT BRAIN WITHOUT CONTRAST: 01/16/2025 1:36 PM HISTORY: paranoia, delusions, r/o space occupying lesion TECHNIQUE: Thin and thick section axial images of the head without intravenous contrast. Coronal and sagittal reformats. CT Dose Reduction: Exam was performed using either iterative reconstruction technique or adjustment of mA and/or kV according to the patient size. COMPARISON: None. FINDINGS: Sulci, ventricles and cisterns are within normal limits. No intra- or extra-axial mass, hemorrhage or territorial infarct is detected. Mild bilateral periventricular and subcortical white matter hypodensities, nonspecific but commonly seen in the setting of chronic small vessel changes. Orbits are unremarkable. Paranasal sinuses, middle ear cavities and mastoid air cells are clear. No soft tissue swelling or skull fracture. Procedure Note Beverly Rodas, MATEO - 01/16/2025 EXAMINATION: CT BRAIN WITHOUT CONTRAST: 01/16/2025 1:36 PM HISTORY: paranoia, delusions, r/o space occupying lesion TECHNIQUE: Thin and thick section axial images of the head without intravenouscontrast. Coronal and sagittal reformats. CT Dose Reduction: Exam was performed using either iterativereconstruction technique or adjustment of mA and/or kV according to thepatient size. COMPARISON: None. FINDINGS: Sulci, ventricles and cisterns are within normal limits. No intra- or extra-axial mass, hemorrhage or territorial infarct isdetected. Mild bilateral periventricular and subcortical white matter hypodensities,nonspecific but commonly seen in the setting of chronic small vesselchanges. Orbits are unremarkable. Paranasal sinuses, middle ear cavities and mastoid air cells are clear. No soft tissue swelling or skull fracture. IMPRESSION: No acute intracranial abnormality. I personally reviewed the study and agree with the dictated report. Electronically signed by: Beverly Rodas MD Signed date and time: 01/16/2025 1:47 PM us Dacia LAM IMG CT ORDERABLES Final Resu lt * Expanded opioid panel, urine (01/16/2025 11:40 AM EDT) Buprenorphine, Urine NEG NEG 01/16/2025 1:49 PM EDT [facility] Comment:THIS IS A SCREENING ASSAY ONLY AND RESULTS ARE REPORTED PRESUMPTIVE POSITIVE OR NEGATIVE, USING A CUTOFF CONCENTRATION OF 5 NG/ML. RESULTS ARE TO BE USED FOR CLINICAL EVALUATION ONLY. CONFIRMATION TESTING WAS NOT PERFORMED. Oxycodone, Urine NEG NEG 01/17/20 1:49 PM EDT [facility] Comment:THIS IS A SCREENING ASSAY ONLY AND RESULTS ARE REPORTED PRESUMPTIVE POSITIVE OR NEGATIVE, USING A CUTOFF CONCENTRATION OF 100 NG/ML. RESULTS ARE TO BE USED FOR CLINICAL EVALUATION ONLY. CONFIRMATION TESTING WAS NOT PERFORMED. Methadone, Urine NEG NEG 01/17/20 1:49 PM EDT [facility] Comment:THIS IS A SCREENING ASSAY ONLY AND RESULTS ARE REPORTED PRESUMPTIVE POSITIVE OR NEGATIVE, USING A CUTOFF CONCENTRATION OF 300 NG/ML. RESULTS ARE TO BE USED FOR CLINICAL EVALUATION ONLY. CONFIRMATION TESTING WAS NOT PERFORMED. Fentanyl Presumptive Screen, Urine NEG NEG 01/16/2025 1:49 PM EDT [facility] Comment:This is a screening assay only and results are reported as presumptive positive or negative, using a cutoff concentration of 1 ng/mL. Results are to be used for clinical evaluation only. 01/16/2025 11:4 0 AM EDT 01/16/2025 12:18 PM EDT us Dacia LAM URINE ORDERABLES Final Resul t [facility] CLIA [id number] [address] [place] [id number], [place] * (ABNORMAL) Urinalysis, Reflex to Culture (01/16/2025 11:40 AM EDT) Color, Urinalysis YELLOW 01/16/2025 1:10 PM EDT [facility] Clarity, Urinalysis CLEAR 01/16/2025 1:10 PM EDT [facility] Specific Davis, Urinalysis 1.019 1.005 - 1.030 01/16/2025 1:10 PM EDT [facility] PH, Urinalysis 5.0 5.0 - 8.0 01/16/2025 1:10 PM EDT [facility] Protein, Urinalysis NEG NEG 01/16/2025 1:10 PM EDT [facility] Glucose, Urinalysis 3+(A) NEG 01/16/2025 1:10 PM EDT [facility] Ketone, Urinalysis NEG NEG 01/16/2025 1:10 PM EDT [facility] Bilirubin, Urinalysis NEG NEG 01/16/2025 1:10 PM EDT [facility] Blood,Urinaly sis NEG NEG 01/16/2025 1:10 PM EDT [facility] Nitrite, Urinalysis NEG NEG 01/16/2025 1:10 PM EDT [facility] Leukocyte Esterase 1+(A) NEG 01/16/2025 1:10 PM EDT [facility] Urobilinogen, Urinalysis NEG 0.2 - 1.0 MG/DL 01/16/2025 1:10 PM EDT [facility] Urine Culture Urinalysis results do not qualify for culture. Urinalysis results do not qualify for culture. 01/16/2025 2:49 PM EDT [facility] RBC 0 TO 3 0 TO 3 /HPF 01/16/2025 1:10 PM EDT [facility] WBC 0 TO 5 0 TO 5 /HPF 01/16/2025 1:10 PM EDT [facility] Bacteria NEG NEG /HPF 01/16/2025 1:10 PM EDT [facility] Squamous Epithelial 0 TO 4 0 TO 4 /HPF 01/16/2025 1:10 PM EDT [facility] Hyaline Cast 0 TO 1 0 TO 1 /HPF 01/16/2025 1:10 PM EDT [facility] 01/16/2025 11:4 0 AM EDT 01/16/2025 12:14 PM EDT Dacia LAM URINE ORDERABLES Final Resul t Performing Organization Address [facility] Co de Phone Number [facility] CLIA [id number] [place] [address], [place] * TSH with Reflex to Free T4 (01/16/2025 11:40 AM EDT) Pathologist [facility] TSH 0.98 0.35 - 4.9 uIU/ML 01/16/2025 1:00 PM EDT [facility] Blood 01/16/2025 11:4 0 AM EDT 01/16/2025 12:13 PM EDT Dacia Celso LAM LAB BLOOD ORDERABLES Final R esult Performing Organization Address [facility] Co de Phone Number [facility] CLIA [id number] [place] [address], [place] * HCV Ab reflex to Confirmatory/Viral load and Genotype (01/16/2025 11:40 AM EDT) [facility] Hepatitis C Antibody NON-REACTI VE NON-REACTI VE 01/16/2025 1:21 PM EDT [facility] 01/16/2025 11:4 0 AM EDT 01/16/2025 12:21 PM EDT Dacia Celso LAM LAB BLOOD ORDERABLES Final R esult Performing Organization Address [facility] Co de Phone Number [facility] CLIA [id number] [place] [address], [place] * Urine toxicology screen (01/16/2025 11:40 AM EDT) Pathologist [facility] Amphetamine, Urine NEG NEG 2024 1:49 PM EDT [facility] Comment:THIS IS A SCREENING ASSAY ONLY AND THE RESULTS ARE REPORTED PRESUMPTIVE POSITIVE OR NEGATIVE, USING A CUTOFF CONCENTRATION OF 1000 NG/ML. RESULTS ARE TO BE USED FOR CLINICAL EVALUATION ONLY. CONFIRMATION TESTING WAS NOT PERFORMED. Barbiturate, Urine NEG NEG 2024 1:49 PM EDT [facility] Comment:THIS IS A SCREENING ASSAY ONLY AND RESULTS ARE REPORTED PRESUMPTIVE POSITIVE OR NEGATIVE, USING A CUTOFF CONCENTRATION OF 200 NG/ML. RESULTS ARE TO BE USED FOR CLINICAL EVALUATION ONLY. CONFIRMATION TESTING WAS NOT PERFORMED. Cocaine, Urine NEG NEG 01/16/2025 1:49 PM EDT [facility] Comment:THIS IS A SCREENING ASSAY ONLY AND RESULTS ARE REPORTED PRESUMPTIVE POSITIVE OR NEGATIVE, USING A CUTOFF CONCENTRATION OF 300 NG/ML. RESULTS ARE TO BE USED FOR CLINICAL EVALUATION ONLY. CONFIRMATION TESTING WAS NOT PERFORMED. Opiate, Urine NEG NEG 01/16/2025 1:49 PM EDT [facility] Comment:THIS IS A SCREENING ASSAY ONLY AND RESULTS ARE REPORTED PRESUMPTIVE POSITIVE OR NEGATIVE, USING A CUTOFF CONCENTRATION OF 300 NG/ML. RESULTS ARE TO BE USED FOR CLINICAL EVALUATION ONLY. CONFIRMATION TESTING WAS NOT PERFORMED. Benzodiazepine, Urine NEG NEG 01/16/2025 1:49 PM EDT [facility] Comment:THIS IS A SCREENING ASSAY ONLY AND RESULTS ARE REPORTED PRESUMPTIVE POSITIVE OR NEGATIVE, USING A CUTOFF CONCENTRATION OF 200 NG/ML. RESULTS ARE TO BE USED FOR CLINICAL EVALUATION ONLY. CONFIRMATION TESTING WAS NOT PERFORMED. 01/16/2025 11:4 0 AM EDT 01/16/2025 12:18 PM EDT us Dacia LAM URINE ORDERABLES Final Resul t [facility] CLIA [id number] [address] [place] [place] [address], * (ABNORMAL) CBC and differential (01/16/2025 11:40 AM EDT) WBC 7.9 4.0 - 11.0 K/UL 01/16/2025 12:17 PM EDT [facility] RBC 5.52(H) 4.00 - 5.20 M/UL 01/16/2025 12:17 PM EDT [facility] Comment:The results of this assay should be interpreted in the context of the patient's pjj-isfibsoz-rb- and additional relevant clinical and laboratory data. Hemoglobin 15.6 11.8 - 16.0 G/DL 01/16/2025 12:17 PM EDT [facility] Comment:The results of this assay should be interpreted in the context of the patient's hxl-owsufyfr-ga- and additional relevant clinical and laboratory data. Hematocrit 46.1 36.0 - 47.0 % 01/16/2025 12:17 PM EDT [facility] Comment:The results of this assay should be interpreted in the context of the patient's swm-hiedruhm-xg- and additional relevant clinical and laboratory data. MCV 84 80 - 97 FL 01/16/2025 12:17 PM EDT [facility] MCH 28.3 27.0 - 33.0 PG 01/16/2025 12:17 PM EDT [facility] MCHC 33.8 32.0 - 36.0 G/DL 01/16/2025 12:17 PM EDT [facility] Platelet 265 150 - 400 K/UL 01/16/2025 12:17 PM EDT [facility] RBC Dist Width 12.4 12.0 - 14.5 % 01/16/2025 12:17 PM EDT [facility] NRBC (Percent) 0.0 0.0 /100 WBC 01/16/2025 12:17 PM EDT [facility] Absolute NRBC 0.00 0.0 K/UL 01/16/2025 12:17 PM EDT [facility] Poly 67 40 - 75 % 01/16/2025 12:17 PM EDT [facility] Lymph 27 15 - 54 % 01/16/2025 12:17 PM EDT [facility] [place] 6 4 - 13 % 01/16/2025 12:17 PM EDT [facility] Eos 0 0 - 7 % 01/16/2025 12:17 PM EDT [facility] Baso 0 0 - 1 % 01/16/2025 12:17 PM EDT [facility] Absolute Poly 5.2 1.8 - 7.0 K/UL 01/16/2025 12:17 PM EDT [facility] Absolute Lymph 2.2 1.1 - 3.5 K/UL 01/16/2025 12:17 PM EDT [facility] Absolute [place] 0.5 0.2 - 0.9 K/UL 01/16/2025 12:17 PM EDT [facility] Absolute Eos 0.0 0.0 - 0.6 K/UL 01/16/2025 12:17 PM EDT [facility] Absolute Baso 0.0 0.0 - 0.1 K/UL 01/16/2025 12:17 PM EDT [facility] Immature Granulocytes (Percent) 0 0 - 1 % 01/16/2025 12:17 PM EDT [facility] Comment:Immature granulocyte s represents either metamyelocytes myelocytes, promyelocytes, or any combination thereof. Absolute Immature Granulocytes 0.02 0.00 - 0.06 K/UL 01/16/2025 12:17 PM EDT [facility] 01/16/2025 11:4 0 AM EDT 01/16/2025 12:13 PM EDT Dacia AGELON ?ramosAdYouNetjudy GA LAB BLOOD ORDERABLES Final R esult Performing Organization Address [facility] Co de Phone Number [facility] CLIA [id number] [place] [address], * (ABNORMAL) Acetaminophen Level (01/16/2025 11:40 AM EDT) Acetaminophen <10.0(L) 10.0 - 30.0 MCG/ML 01/16/2025 12:36 PM EDT [facility] Comment:TOXICITY: GREATER TH AN 150 MCG/ML AT 4 HOURS OR 50 MCG/ML AT 12 HOURS POST INGESTION. 01/16/2025 11:4 0 AM EDT 01/16/2025 12:13 PM EDT Dacia AGELON ?lauren GA LAB BLOOD ORDERABLES Final R esult Performing Organization Address [facility] Co de Phone Number [facility] CLIA [id number] [place] [address], * (ABNORMAL) Comprehensive Metabolic Panel (01/16/2025 11:40 AM EDT) Albumin 5.2(H) 3.5 - 5.0 G/DL 01/16/2025 1:11 PM EDT [facility] Bilirubin, Total 0.4 0.3 - 1.2 MG/DL 01/16/2025 1:11 PM EDT [facility] Calcium 10.6(H) 8 - 10.5 MG/DL 01/16/2025 1:39 PM EDT [facility] CO2 25.0 19 - 28 MMOL/L 01/16/2025 1:11 PM EDT [facility] Comment:Elevated triglycerid e levels (>1000 mg/dL) may cause falsely low bicarbonate results. If clinically indicated, a venous blood gas should be ordered to confirm the bicarbonate result. Chloride 104 98 - 110 MMOL/L 01/16/2025 1:11 PM EDT [facility] Glucose 140(H) 70 - 100 MG/DL 01/16/2025 1:11 PM EDT [facility] Alkaline Phosphatase, Total 117(H) 25 - 100 U/L 01/16/2025 1:11 PM EDT [facility] Comment:The results of this assay should be interpreted in the context of the patient's gvk-kqmmrbfi-hw- and additional relevant clinical and laboratory data. Potassium 4.4 3.1 - 5.3 MMOL/L 01/16/2025 1:11 PM EDT [facility] Comment:For serum, the lower end of the reference range may be higher by 0.2 to 0.4 mmol/L. Protein, Total 8.0 6.8 - 8.6 G/DL 01/16/2025 1:11 PM EDT [facility] Sodium 142 135 - 145 MMOL/L 01/16/2025 1:11 PM EDT [facility] ALT(SGPT) 18 9.0 - 67.0 U/L 01/16/2025 1:11 PM EDT [facility] AST(SGOT) 20 13 - 45 U/L 01/16/2025 1:11 PM EDT [facility] Comment: PLEASE NOTE NEW R EFERENCE RANGE Urea Nitrogen (BUN) 11 7 - 25 MG/DL 01/16/2025 1:11 PM EDT [facility] Creatinine 0.66 0.5 - 1.1 MG/DL 01/16/2025 1:11 PM EDT [facility] Comment:The results of this assay should be interpreted in the context of the patient's xid-tmddglgq-pw- and additional relevant clinical and laboratory data. Estimated GFR >90 >59 mL/min/1.7 3_m2 01/16/2025 1:11 PM EDT [facility] Comment: The calculation of eGFR utilizes the 2020 CKD-EPI creatinine equation. eGFR estimates can be inaccurate and may vary from the true level of kidney function. Specific populations in which an eGFR value may be inaccurate or biased include: acute kidney injury, , extremes of muscle mass, age greater than 80 years old. The results of this assay should be interpreted in the context of the patient's zml-hssanltd-jg- and additional relevant clinical and laboratory data. Anion Gap Without Potassium 13 7 - 16 01/16/2025 1:11 PM EDT [employer] 01/16/2025 11:4 0 AM EDT 01/16/2025 12:13 PM EDT us Dacia LAM LAB BLOOD ORDERABLES Final R esult [employer] [facility] CLIA [id number] [address] [place] [address], [place] * Colonoscopy (01/06/2023 11:03 AM EDT) Colonoscopy Patient Name: Tian Noel Procedure Date: 01/06/2023 11:03 AM Date of : 1960 Admit Type: Outpatient Age: 62 Room: ENDO 4 Procedure: Colonoscopy Indications: Screening for colorectal malignant neoplasm Providers: Terence Still MD Referring MD: Greg Taylor (Referring ) Medicines: Monitored Anesthesia Care Complications: No immediate complications. Estimated blood loss: None. Procedure: After obtaining informed consent, the colonoscope was passed under direct vision. Throughout the procedure, the patient's blood pressure, pulse, and oxygen saturations were monitored continuously. The PCF colonoscope was introduced through the anus and advanced to the cecum, identified by appendiceal orifice and ileocecal valve. The colonoscopy was performed without difficulty. The patient tolerated the procedure well. The quality of the bowel preparation was good. Findings: A 4 mm polyp was found in the sigmoid colon. The polyp was sessile. The polyp was removed with a cold snare. Resection and retrieval were complete. Impression: - One 4 mm polyp in the sigmoid colon, removed with a cold snare. Resected and retrieved. Recommendation: - Await pathology results. - Repeat colonoscopy in 7 years for surveillance. Attending Participation: I personally performed the entire procedure. Terence Still MD 01/06/2023 1:56:03 PM This report has been signed electronically.D geneva Still MD Number of Addenda: 0 Note Initiated On: 01/06/2023 11:03 AM PROVATION 01/06/2023 11:0 3 AM EDT Greg Taylor MD GI AMBULATORY PROCEDURE Final Re sult [employer] from Last 3 Months or Most Recently Relevant to Health Maintenance Advance Directives For more information, please contact: [phone] (Available ) * Full Code (Latest Code Status on File) Date Activated Date Inactivated Comments 12/22/2020 7:47 AM 01/06/2023 10:14 AM Question Answer Comments Does patient have MOLST form? No Reviewed with patient? No Care Teams Maintenance Clerk Relationship Specialty Start Date End Date Greg Taylor MD [address] [place] [address] PCP - General Internal Medicine 07/26/22 6, Moa Endo 08/06/22 [place] [address] Gastroenterology 08/12/22 [place] [address] Gastroenterology 01/10/23
--- OUTSIDE RECORDS SUMMARY | 2025-02-28 23:41 | XMS_ITS | Encounter Summary ---
Author Organization [facility] ([facility]) Address [address] [place] [address] Care Team Providers Care Transportation Engineering Technician Name Role Phone Jess Farrar MD Primary Care Provider [phone] Greg Taylor MD Primary Care Provider [phone] Zaki Layne MD Primary Care Provider [phone] Encounter Details Date Type Department Care Team (Late st Contact Info) Description 10/23/2021 Legacy Encounter Ad Med Call Center [address] [place] [address] Betzaida Greenwood RNP [address] [place] [address] Social History Tobacco Use Types Packs/Day Years [...] Office Visit [facility] [address] [place] [address] 03/21/2025 10:30 AM EDT Office Visit [facility] [address] [place] [address] Yesenia Wen MD [address] [place] [address] documented as of this encounter Visit Diagnoses Not on filedocumented in this encounter Care Teams Transportation Engineering Technician Relationship Specialty Start Date End Date Jess Farrar MD [address] [place] [address] PCP - General Adult Medicine 12/03/19 01/10/22 Greg Taylor MD [address] [place] [address] PCP - General 01/11/22 01/09/25 Zaki Layne MD [address] [place] [address] PCP - General 01/10/25 documented as of this encounter
--- OUTSIDE RECORDS SUMMARY | 2025-02-28 23:41 | XMS_ITS | Encounter Summary ---
Author Organization [facility] ([facility]) Address [address] [place] [address] Care Team Providers Care Marine Equipment Test Engineer Name Role Phone Jess Farrar MD Primary Care Provider [phone] Greg Taylor MD Primary Care Provider Zaki Layne MD Primary Care Provider [phone] Reason for Visit * Reason Onset Date Comments Call From Hospital 05/20/2020 [employer] [facility] Encounter Details Date Type Department Care Team (Late st Contact Info) Description 05/20/2020 Telephone Practice [address] [place] [address] Jess Farrar MD [address] [place] [address] Call From Hospital ([employer]) Social History Tobacco Use Types Packs/Day Years [...] encounter Miscellaneous Notes * Telephone Encounter - Shawn Sidhu - 05/21/2020 4:14 PM EST Pt. returned call. Relayed message below. Appt scheduled. * Telephone Encounter - Flora Allen - 05/21/2020 4:06 PM EST [phone] (Home Phone) [phone] (Work Phone) [Press F2 to highlight responses] Attempted to reach patient, left message for patient to call practice at earliest convenience [CLINICIAN: please close encounter when all action complete] * Telephone Encounter - Jess Farrar MD - 05/21/2020 4:00 PM EST Hi, can you please call Ms. Patton and see if she would like to schedule an in person appointment for evaluation of her knee pain? Thank you! * Telephone Encounter - Edi Craig - 05/20/2020 9:18 AM EST V/mail 05/19/20 @ 4:11 p.m. Pam Garcia.T. [phone] , reports that P.T. seems to be making pt. worst & she is recommending that pt. sees an Orthopaedic specialist. P.T. referral was for her hip but she is having severe pain in her (l) knee. She feels as if pt. doesn't want to do therapy because it's too painful documented in this encounter Plan of Treatment Upcoming Encounters Date Type Department Care Team (Late st Contact Info) Description 03/05/2025 10:00 AM EDT Office [facility] [address] [place] [address] 03/21/2025 10:30 AM EDT Office Visit [facility] [address] [place] [address] Yesenia Wen MD [address] [place] [address] documented as of this encounter Visit Diagnoses Not on filedocumented in this encounter Care Teams Marine Equipment Test Engineer Relationship Specialty Start Date End Date Jess Farrar MD [address] [place] [address] PCP - General Adult Medicine 12/03/19 01/10/22 Greg Taylor MD [address] [place] [address] PCP - General 01/11/22 01/09/25 Zaki Layne MD [address] [place] [address] PCP - General 01/10/25 documented as of this encounter
--- OUTSIDE RECORDS SUMMARY | 2025-02-28 23:41 | XMS_ITS | Encounter Summary ---
Author Organization [facility] ([facility]) Address [address] [place] [address] Care Team Providers Care Assistant Professor Of Biochemistry Name Role Phone Greg Taylor MD Primary Care Provider [phone] Zaki Layne MD Primary Care Provider [phone] Encounter Details Date Type Department Care Team (Late st Contact Info) Description 04/20/2022 Legacy Encounter [facility] [address] [place] [address] Betzaida Greenwood RNP [address] [place] [address] Social History Tobacco Use Types Packs/Day Years [...] Visit [facility] [address] [place] [address] 03/21/2025 10:30 AM EDT Office Visit [address] [address] Yesenia Wen MD [address] [place] [address] documented as of this encounter Visit Diagnoses Not on filedocumented in this encounter Care Teams Assistant Professor Of Biochemistry Relationship Specialty Start Date End Date Greg Taylor MD [address] [place] [address] PCP - General 01/11/22 01/09/25 Zaki Layne MD [address] [place] [address] PCP - General 01/10/25 documented as of this encounter
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
--- OUTSIDE RECORDS SUMMARY | 2025-02-28 23:41 | XMS_ITS | Encounter Summary ---
Author Organization [facility] ([facility]) Address [address] [place] [address] Care Team Providers Care Project Manager Interior Design Name Role Phone Jess Farrar MD Primary Care Provider [phone] Greg Taylor MD Primary Care Provider [phone] Zaki Layne MD Primary Care Provider [phone] Reason for Visit * Reason Comments Refill Request Encounter Details Date Type Department Care Team (Late st Contact Info) Description 10/22/2021 Refill Practice [address] [place] [address] Betzaida Greenwood RNP [address] [place] [address] Refill Request Social History Tobacco Use Types [...] Office Visit [facility] [address] [place] [address] 03/21/2025 10:30 AM EDT Office Visit [facility] [address] [place] [address] Yesenia Wen MD [address] [place] [address] documented as of this encounter Visit Diagnoses Diagnosis Type 2 diabetes mellitus without complication, without long-term current use of insulin (HCC) Essential hypertension documented in this encounter Care Teams Project Manager Interior Design Relationship Specialty Start Date End Date Jess Farrar MD [address] [place] [address] PCP - General Adult Medicine 12/03/19 01/10/22 Greg Taylor MD [address] [place] [address] PCP - General 01/11/22 01/09/25 Zaki Layne MD [address] [place] [address] PCP - General 01/10/25 documented as of this encounter
--- OUTSIDE RECORDS SUMMARY | 2025-02-28 23:41 | XMS_ITS | Clinical Summary ---
Author Organization [facility] r Address [address] [place] [address] Phone Care Team Providers Care Special Makeup Fx Artist Instructor Name Role Phone Greg Taylor MD Primary Care Provider [phone], Laith Endo Unavailable Unavailable Arnaud Begum MD Unavailable [phone] Terence Still MD Unavailable [phone] Allergies No known active allergies Medications atorvastatin [...] [facility] which is impacting functional mobility with iADLs [...] (12/11/2020): Added automatically from request for surgery [id number] Hip pain, left 05/05/2020 Overview (05/05/2020): 60 [...] pain and improve strength to restore function Encounters Date Type Department Care Team Description 01/16/2025 11:24 AM EDT - 01/16/2025 7:37 PM EDT Emergency [facility] [address] [place] [address] Adeline Garcia MD Medzon, Ron, MD Paranoia (Primary Dx) Discharge Disposition: Home or Self Care 01/16/2025 Travel from Last 3 Months Family History Medical History Relation Name Comments Diabetes Mellitus Mother Anesthesia problems Neg Hx DVT Neg Hx Pulmonary embolism Neg Hx Relation Name Status Comments Mother Social History Tobacco Use Types Packs/Day Years [...] 01/16/2025 11:03 AM EDT Plan of Treatment Health Maintenance Due Date Last Done Comments Fall Prevention 1960 HEMOGLOBIN A1C 1960 HIV Lifetime Screening 1960 Hepatitis B Lifetime Screening 1960 LIPID PANEL 1960 THRIVE SCREENING 1960 Oral Health Screen 1958 HEIP Disability Screen 1963 FOOT EXAM (MONOFILAMENT) 02/28/1968 OPHTHALMOLOGY EXAM 02/28/1968 URINE MICROALBUMIN 02/28/1968 BEHAVIORAL HEALTH SCREEN 1970 Psych Substance Use Screen 1970 DTAP/TDAP VACCINE (1 - Tdap) 1977 Pneumonia Vaccine 50+ (1 of 2 - PCV) 1977 MAMMOGRAM 1998 FOBT 2003 Sigmoidoscopy 2003 Zoster Vaccine (1 of 2) 02/28/2008 Colonoscopy FOBT- Positive 01/07/2023 01/06/2023 DXA SCAN 2023 COVID-19 Vaccine ( - season) 2025 06/30/2021, 09/08/2020, 08/18/2020 INFLUENZA VACCINE (#1) 2025 , 05/05/2022, 06/30/2021, Additional history exists CREATININE LEVEL 01/16/2026 01/16/2025 Colonoscopy 01/06/2030 01/06/2023 Colorectal Cancer Screening 01/06/2030 RSV Immunization 60 Years and Older OR (1 - 1-dose 75+ series) 2033 Hepatitis C Antibody Lifetime Screening Completed 01/16/2025 HEPATITIS B VACCINES Aged Out No long er eligible based on patient's age to complete this topic HPV VACCINES Aged Out No longer eligi ble based on patient's age to complete this topic IPV VACCINES Aged Out No longer eligi ble based on patient's age to complete this topic MENINGOCOCCAL B Aged Out No longer el igible based on patient's age to complete this topic ROTAVIRUS VACCINES Aged Out No longer eligible based on patient's age to complete [...] of2 resultswithin the time period is included. Pathologist [facility] Ethanol, Serum NONE DETECTED NONE DETECTED MG/DL [...] PM EDT 01/16/2025 3:38 PM EDT Dacia HusseinramosBluepayo PA LAB BLOOD ORDERABLES Final R esult [facility] CLIA [id number] [place] [address], [place] * Vitamin D 25 hydroxy (01/16/2025 3:23 PM EDT) Vit D 25-Hydroxy 42.2 30 - 60 ng/mL 01/16/2025 5:07 PM EDT [facility] Comment: Vitamin D Reference Range: <20 ng/mL Insufficient 20-96 ng/mL Sufficient 30-60 ng/mL [place] >96 ng/mL Potentially Toxic 01/16/2025 3:23 PM EDT 01/16/2025 3:38 PM EDT Dacia HusseinramosBluepayo PA LAB BLOOD ORDERABLES Final R esult Performing Organization Address [facility]/ZIP Co de Phone Number [facility] CLIA [id number] [place] [address], [place] * Intact pth hormone (01/16/2025 3:23 PM EDT) Intact PTH Hormone 31 11 - 90 PG/ML 01/16/2025 5:00 PM EDT [facility] 01/16/2025 3:23 PM EDT 01/16/2025 3:38 PM EDT Dacia Cogenicso PA LAB BLOOD ORDERABLES Final R esult [facility] CLIA [id number] [place] [address], [place] * CT Brain Without Contrast (01/16/2025 1:36 PM EDT) [facility] IMG PATIENT HEIGHT 157.5 GE RIS-IC [facility] IMG PATIENT WEIGHT 56.881 GE RIS-IC Anatomical Region [...] swelling or skull fracture. Procedure Note Beverly Rodas MBBS - 01/16/2025 EXAMINATION: CT BRAIN WITHOUT CONTRAST: [...] Urine NEG NEG 01/16/2025 1:49 PM EDT [facility] Comment:THIS IS A SCREENING ASSAY ONLY AND [...] Urine NEG NEG 01/16/2025 1:49 PM EDT [facility] [employer] Comment:This is a screening assay only and results are reported as presumptive positive or negative, using a cutoff concentration of 1 ng/mL. Results are to be used for clinical evaluation only. 01/16/2025 11:4 0 AM EDT 01/16/2025 12:18 PM EDT us Dacia LAM URINE ORDERABLES Final Resul t [facility] CLIA [id number] [address] [facility] [place] [address], [place] * (ABNORMAL) Urinalysis, Reflex to Culture (01/16/2025 11:40 AM EDT) Color, Urinalysis YELLOW 01/16/2025 1:10 PM EDT [facility] Clarity, Urinalysis CLEAR 01/16/2025 1:10 PM EDT [facility] Specific [place], Urinalysis 1.019 1.005 - 1.030 01/16/2025 1:10 [...] 0 AM EDT 01/16/2025 12:14 PM EDT us Dacia LAM URINE ORDERABLES Final Resul t [facility] CLIA [id number] [place] [address], [place] * TSH with Reflex to Free T4 (01/16/2025 11:40 AM EDT) [facility] TSH 0.98 0.35 - 4.9 uIU/ML 01/16/2025 1:00 PM EDT [facility] Blood 01/16/2025 11:4 0 AM EDT 01/16/2025 12:13 PM EDT Zollo LAB BLOOD ORDERABLES Final R esult Performing Organization Address City/[facility]/ZIP Co de Phone Number [facility] CLIA [id number] [place] [address], [place] * HCV Ab reflex to Confirmatory/Viral load and Genotype (01/16/2025 11:40 AM EDT) [facility] Hepatitis C Antibody NON-REACTI VE NON-REACTI VE 01/16/2025 1:21 PM EDT [facility] 01/16/2025 11:4 0 AM EDT 01/16/2025 12:21 PM EDT THERAVECTYS [place] LAB BLOOD ORDERABLES Final R esult Performing Organization Address City/[facility]/ZIP Co de Phone Number [facility] CLIA [id number] [place] [address], [place] * Urine toxicology screen (01/16/2025 11:40 AM EDT) [facility] Amphetamine, Urine NEG NEG 2024 1:49 PM EDT [facility] Comment:THIS IS A SCREENING ASSAY ONLY AND THE RESULTS ARE REPORTED PRESUMPTIVE POSITIVE OR NEGATIVE, USING A CUTOFF CONCENTRATION OF 1000 NG/ML. RESULTS ARE TO BE USED FOR CLINICAL EVALUATION ONLY. CONFIRMATION TESTING WAS NOT PERFORMED. Barbiturate, Urine NEG NEG 2024 1:49 PM EDT Appies Comment:THIS IS A SCREENING ASSAY ONLY AND [...] Dacia LAM URINE ORDERABLES Final Resul t [facility] CLIA [id number] [address] [facility] [place] [address], * (ABNORMAL) CBC and differential (01/16/2025 11:40 AM EDT) WBC 7.9 4.0 - 11.0 K/UL 01/16/2025 12:17 PM EDT [facility] RBC 5.52(H) 4.00 - 5.20 M/UL 01/16/2025 12:17 PM EDT [facility] Comment:The results of this assay should be interpreted in the context of the patient's aeq-gikyvjus-gm- and additional relevant clinical and laboratory data. Hemoglobin 15.6 11.8 - 16.0 G/DL 01/16/2025 12:17 PM EDT [facility] Comment:The results of this assay should be interpreted in the context of the patient's fyh-uvrhnfzb-iz- and additional relevant clinical and laboratory data. Hematocrit 46.1 36.0 - 47.0 % 01/16/2025 12:17 PM EDT [facility] Comment:The results of this assay should be interpreted in the context of the patient's eaf-eafdkzct-vk- and additional relevant clinical and laboratory data. [...] 54 % 01/16/2025 12:17 PM EDT [facility] [place] 6 4 - 13 % 01/16/2025 12:17 PM EDT [facility] Eos 0 0 - 7 % 01/16/2025 12:17 PM EDT [facility] Baso 0 0 - 1 % 01/16/2025 12:17 PM EDT [facility] Absolute Poly 5.2 1.8 - 7.0 K/UL 01/16/2025 12:17 PM EDT [facility] Absolute Lymph 2.2 1.1 - 3.5 K/UL 01/16/2025 12:17 PM EDT [facility] Absolute [place] 0.5 0.2 - 0.9 K/UL 01/16/2025 12:17 [...] AM EDT 01/16/2025 12:13 PM EDT Dacia LAM LAB BLOOD ORDERABLES Final R esult Performing Organization Address [facility] Co de Phone Number [facility] CLIA [id number] [place] [address], * (ABNORMAL) Acetaminophen Level (01/16/2025 11:40 AM EDT) Pathologist [facility] Acetaminophen <10.0(L) 10.0 - 30.0 MCG/ML 01/16/2025 12:36 PM EDT [facility] Comment:TOXICITY: GREATER TH AN 150 MCG/ML AT 4 HOURS OR 50 MCG/ML AT 12 HOURS POST INGESTION. 01/16/2025 11:4 0 AM EDT 01/16/2025 12:13 PM EDT Dacia LAM LAB BLOOD ORDERABLES Final R [facility] Performing Organization Address [facility] de Phone Number [facility] CLIA [id number] [place] [address], * (ABNORMAL) Comprehensive Metabolic Panel (01/16/2025 11:40 [...] interpreted in the context of the patient's sol-ynyccxef-ij- and additional relevant clinical and laboratory data. [...] interpreted in the context of the patient's skv-svmyybkp-dl- and additional relevant clinical and laboratory data. [...] interpreted in the context of the patient's wgx-ftvoxmbn-kl- and additional relevant clinical and laboratory data. Anion Gap Without Potassium 13 7 - 16 01/16/2025 1:11 PM EDT [facility] 01/16/2025 11:4 0 AM EDT 01/16/2025 12:13 PM EDT us Dacia LAM LAB BLOOD ORDERABLES Final R esult [facility] CLIA [id number] [address] [facility] [place] [address], [place] * Colonoscopy (01/06/2023 11:03 AM EDT) Colonoscopy Patient Name: Tian Salmondonado Procedure Date: 01/06/2023 11:03 AM Date of : 1960 Admit Type: Outpatient Age: 62 Room: [facility] 4 Procedure: Colonoscopy Indications: Screening for colorectal [...] Advance Directives For more information, please contact: [phone] (Available ) * Full Code (Latest Code Status on File) Date Activated Date Inactivated Comments 12/22/2020 7:47 AM 01/06/2023 10:14 AM Question Answer Comments Does patient have MOLST form? No Reviewed with patient? No Care Teams Special Makeup Fx Artist Instructor Relationship Specialty Start Date End Date Greg Taylor MD [address] [facility] [place] [address] PCP - General Internal Medicine 07/26/22 6, Moa Endo 08/06/22 [place] [address] Gastroenterology 08/12/22 [place] [address] Gastroenterology 01/10/23
--- OUTSIDE RECORDS SUMMARY | 2025-02-28 23:41 | XMS_ITS | Encounter Summary ---
Author Organization [facility] (Critical access hospital) Address [address] [place] [address] Care Team Providers Care Publishing Editor Name Role Phone Greg Taylor MD Primary Care Provider [phone] Zaki Layne MD Primary Care Provider [phone] Reason for Visit * Reason Onset Date Comments Medication Problem 05/12/2023 Inquiry for d rops Encounter Details Date Type Department Care Team (Late Contact Info) Description 05/12/2023 Telephone Ad Med Call Center [address] [place] [id number] Greg Taylor MD [address] [place] [id number] Medication Problem (Inquiry for drops ) Social History Tobacco Use Types Packs/Day [...] encounter Miscellaneous Notes * Telephone Encounter - Ha Aguilar - 05/12/2023 11:56 AM EST Pt daughter called in to request that the eyedrops get put on the Pt medication list Pc did not have a name for the drops Pc will cb to give the info and stated the nurse should know what they are CC advised they are ARTIFICIAL TEARS 1.4 % Solution refill documented in this encounter Plan of Treatment Upcoming Encounters Date Type Department Care Team (Late st Contact Info) Description 03/05/2025 10:00 AM EDT Office Visit [facility] [address] [place] [address] 03/21/2025 10:30 AM EDT Office Visit [facility] [address] [place] [address] Yesenia Wen MD [address] [place] [address] documented as of this encounter Visit Diagnoses Diagnosis Dry eyes Tear film insufficiency, unspecified documented in this encounter Care Teams Publishing Editor Relationship Specialty Start Date End Date Greg Taylor MD [address] [place] [phone] PCP - General 01/11/22 01/09/25 Zaki Layne MD [address] [place] [id number] PCP - General 01/10/25 documented as of this encounter
[2025-02-28 23:55] VITALS: BP 127/67; PULSE 78; TEMP 36.4; O2SAT 99
[2025-03-01 02:20] VITALS: BMI 22.1
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
[2025-03-01 08:00] VITALS: BP 145/75; PULSE 96; TEMP 36.4; O2SAT 100
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
--- NOTE | 2025-03-01 12:24 | MHC.CLN ---
CONSULT PATIENT REPORTS APPROX 15# WEIGHT LOSS. NO PRIOR WEIGHT HX VIEWED. BMI=22.1, NORMAL. PLEASE CONSULT RD IF POOR PO DURING ADM.
[2025-03-01 20:00] VITALS: BP 119/61; PULSE 92; RESP 18; TEMP 36.6; O2SAT 97
[2025-03-01 20:12] LABS: Glucose, Whole Blood 442 mg/dL (60-115)
[2025-03-01] MEDS: traZODone HCL 25 MG HALFTAB PO (22:12)
[2025-03-01] MEDS: Insulin Glargine,Hum.rec.anlog 100 UNIT/ML 10 ML VIAL 10 UNIT SUBCUT (22:12)
[2025-03-01 23:22] LABS: Glucose, Whole Blood 310 mg/dL (60-115)
[2025-03-02 05:54] LABS: Glucose, Whole Blood 266 mg/dL (60-115)
[2025-03-02 08:00] VITALS: BP 127/70; PULSE 109; TEMP 36.5; O2SAT 98
[2025-03-02 08:32] LABS: Glucose, Whole Blood 336 mg/dL (60-115)
--- NOTE | 2025-03-02 08:33 | HO.PSYCHPN ---
Subjective Subjective Date of Service: 03/02/25 Reason For Visit: F29 Unspecified Schizophrenia spectrumand other ps Interim History: Met With patient; discussed with team; reviewed chart; seen with Lana Murphy pt a little confused and it is difficult to follow her answers; Seems to mentioned safety and talks about unrelated things, her family and lists the names of each of her kids. Says team can contact them. Does not really answer questions about mood Mental Status Exam Mental Status Exam Narrative: Patient is alert and oriented to self and place but not situaton; patient is not in distress; dressed in hospital attire with kempt hair and adequate hygiene; mood is constricted; affect odd, eye contact appropriate; Speech is slow and soft; no psychomotor agitation/retardation present; thought process can be goal directed but more disorganized; Thought content is on safety; answers are not pertinent to relevant topics at times, appear to be paranoid ideation; no grandiose thoughts, denies any SI/SIB/HI. Denies AVH but perhaps internally preoccupied. Patient's insight and judgment impaired. Diagnostics Vital Signs (24Hr): Vital Signs - 24 hr 03/01/25 20:00 Temperature 98 F Pulse Rate 92 Respiratory Rate 18 Blood Pressure 119/61 Pulse Oximetry 97 Oxygen Delivery Method Room Air BMI result Body Mass Index 22.1 Labs 03/02/25 16:26 03/02/25 16:26 Labs: Laboratory Results - last 48 hr 03/01/25 03/01/25 03/02/25 20:03 23:17 05:49 POC Glucose 442 H* 310 H 266 H 03/02/25 08:28 POC Glucose 336 H Medications Medications Current Medications Acetaminophen (Acetaminophen 325 Mg Tablet) 650 mg PO Q6H PRN PRN Reason: Headache/Pain, Scale 1-10 Al Hydroxide/Mg Hydroxide (Magnesium Hydrox/Alum Hydrox 30 Ml Oral.Susp) 30 ml PO Q6H PRN PRN Reason: Heartburn/Nausea Dextrose (Dextrose 50 % 25 Gm/50 Ml Syringe) 25 gm IVPUSH Q15M PRN; Protocol PRN Reason: per Hypoglycemia Standing Ord. Glucose (Glucose Gel 15 Gm Gel..Gram.) 15 gm PO Q15M PRN; Protocol PRN Reason: per Hypoglycemia Standing Ord. Hydroxyzine HCl (Hydroxyzine Hcl 25 Mg Tablet) 25 mg PO Q6H PRN PRN Reason: mild anxiety Last Admin: 03/01/25 22:12 Dose: 25 mg Insulin Glargine (Insulin Glargine,Hum.Rec.Anlog 100 Unit/Ml 10 Ml Vial) 10 unit SUBCUT BEDTIME [place]OUIS Last Admin: 03/01/25 22:12 Dose: 10 unit Insulin Human Lispro (Insulin Lispro 100 Unit/Ml 3 Ml Vial) 0 unit SUBCUT QIDACHS LOUIS; Protocol Last Admin: 03/01/25 22:13 Dose: 12 unit Magnesium Hydroxide (Milk Of Magnesia 30 Ml Oral.Susp) 30 ml PO DAILY PRN PRN Reason: Constipation Melatonin (Melatonin 3 Mg Tablet) 3 mg PO BEDTIME LOUIS Last Admin: 03/01/25 22:09 Dose: 3 mg Risperidone (Risperidone 0.25 Mg Tablet) 0.5 mg PO BID [facility] Last Admin: 03/01/25 22:12 Dose: 0.5 mg Trazodone HCl (Trazodone Hcl 25 Mg Halftab) 25 mg PO BEDTIME MRX1 PRN PRN Reason: Insomnia Last Admin: 03/01/25 22:12 Dose: 25 mg Allergies Allergies Allergy/AdvReac Type Severity Reaction Status Date / Time No Known Allergies Allergy Verified 02/28/25 23:33 Assessment & Plan Assessment & Plan (1) Unspecified psychosis: Status: Acute Code(s): F29 - Unspecified psychosis not due to a substance or known physiological condition Plan HPI: Patient is a 65 years old Polish-speaking female with possible hx of diabetic and HTN who presented to the ED reporting someone is stealing her phone and making threatening comments to another person, patient feels that she is under threat. She said that she lives with her daughter. She says that she is afraid to call the police in regard to the pawn situation because it would involve using her phone which she believes is compromised. She reports that she has been sick for awhile, stomach pain. Patient provided very vague and none committal when asked clarified questions. She reports no security at home and missed just with a landlord and there are people in the house taking her phone and making threats Collateral done in the ED with family: Grandson's Stephane and Argenis her daughter reports that patient has not been taking medications. They suspect that patient flushing them down to toilet or hiding them. They feel there is paranoid. Reported that patient lives with [phone]. Formulation/clinical reasoning: Patient appeared to be paranoid, disorganized, anxious, depressed, poor sleep and appetite. Questioned if she have any cognitive decline or dementia. We will be benefit to having [facility] done. She is not in distress, ADLs appeared to be fair. Poor insight and poor judgment. Reports that she feels safe here. We will do collateral with her daughter to get more history of diagnosis and baseline. Discussed with her regarding medication for severe disorganization, and paranoid thoughts, as well as insomnia. Patient agree with the plans but not sure she is able to process information. Hospital course: 03/01/25: at this time. I would address symptoms of insomnia, and paranoid until more information obtained from her daughter regarding treatment hx. [facility] dx and medcial conditions. Not sure if she is diabetic or having HTN hx. Start melatonin 3 mg at bedtime for insomnia with Low dose of trazodone PRN. Risperidone 0.5 b.i.d. for paranoid/disorganized thoughts. We will order point of care with insulin coverage. She refused on labs ordered for this morning. We will monitor for hypotension/high blood pressure and POC 03/02 pt a little confused and it is difficult to follow her answers; Seems to mentioned safety and talks about unrelated things, her family and lists the names of each of her kids. Says team can contact them. Does not really answer questions about mood Plan Patient on 15 minute checks for safety. Admitted to M5. CV. Work with treatment team to do collateral and FLU appointment for aftercare. 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 Patient seen by Hospitalist on 03/01/25. Nutrition consult placed on 03/01/25. She may benefit from MOCA for cognitive decline/functioning. Reorder labs for 03/02/2025 Patient educated on: diagnosis Informed Consent: does not understand Reason for continued inpatient stay Substantial Risk for: inability to function Time Spent With Patient Time: Total time managing care of this patient today ____ minutes.
[2025-03-02 12:10] LABS: Glucose, Whole Blood 337 mg/dL (60-115)
[2025-03-02 16:51] LABS: MANUAL DIFF FLAG NO
[2025-03-02 16:58] LABS: Hematocrit 40.2 % (37.0-47.0); Hemoglobin 13.8 g/dl (12.0-16.0); Imm Gran Abs Auto 0.03 X10*3/uL (0.00-0.03); Imm Gran Pct Auto 0.3 % (0.0-0.4); Lymphocytes Absolute Auto 2.5 X10*3/uL (1.2-4.9); Mean Corpuscular HGB Conc 34.3 g/dl (31.0-35.0); Mean Corpuscular Hemoglobin 28.7 pg (27.0-33.0); Mean Corpuscular Volume 83.6 fL (80.0-98.0); NRBC Abs Auto 0.000 X10*3/uL (0.0-0.012); NRBC Pct Auto 0.0 /100WBC (0.0-0.2); Platelet Count 292 X10*3/uL (160-400); Red Blood Count 4.81 X10*6/uL (4.20-5.50); White Blood Count 8.7 X10*3/uL (4.8-10.8)
[2025-03-02 17:19] LABS: Glucose, Whole Blood 222 mg/dL (60-115)
[2025-03-02 17:30] LABS: Hemoglobin A1C 291.7026 umol/L; Total Hemoglobin (HGBA1C) 3531.8826 umol/L
[2025-03-02 17:41] LABS: Alanine Aminotransferase 29 U/L (0-31); Albumin Level 4.5 g/dL (3.5-5.0); Alkaline Phosphatase 105 U/L (39-117); Anion Gap 14 (12-20); Aspartate Amino Transferase 28 U/L (5-31); Blood Urea Nitrogen 31 mg/dL (9-16); Calcium 9.1 mg/dL (8.4-10.2); Carbon Dioxide 24 mmol/L (22-29); Chloride 103 mmol/L (96-108); Cholesterol 164 mg/dL (<200); Creatinine Clr Calc Pharmacy 47.9; Estimated Glomerular Filt Rate > 60; HDL Cholesterol 48 mg/dL (>40); Magnesium 2.1 mg/dL (1.6-2.6); Potassium 3.3 mmol/L (3.3-5.1); Sodium 138 mmol/L (135-145); Total Protein 6.8 g/dL (6.5-8.0); Triglycerides 143 mg/dL (<150)
[2025-03-02 17:51] LABS: Free T4 (Free Thyroxine) 1.60 ng/dL (0.71-1.85); Thyroid Stimulating Hormone 1.25 uIU/mL (0.32-4.0)
[2025-03-02 19:38] VITALS: BP 163/78; PULSE 102; RESP 16; TEMP 36.9; O2SAT 99
[2025-03-02 19:54] LABS: Glucose, Whole Blood 237 mg/dL (60-115)
[2025-03-02] MEDS: traZODone HCL 25 MG HALFTAB PO (21:17)
[2025-03-02] MEDS: Insulin Glargine,Hum.rec.anlog 100 UNIT/ML 10 ML VIAL 10 UNIT SUBCUT (21:18)
[2025-03-03 01:31] LABS: Glucose, Whole Blood 153 mg/dL (60-115)
[2025-03-03 07:52] LABS: Glucose, Whole Blood 269 mg/dL (60-115)
[2025-03-03 08:00] VITALS: BP 124/74; PULSE 101; TEMP 36.4; O2SAT 100
[2025-03-03 12:17] LABS: Glucose, Whole Blood 233 mg/dL (60-115)
--- NOTE | 2025-03-03 17:05 | HO.PSYCHPN ---
Subjective Subjective Date of Service: 03/03/25 Reason For Visit: F29 Unspecified Schizophrenia spectrumand other ps Interim History: Met with patient; discussed with team; patient seen with hospital mortician Gulshan Patient remains odd. She thinks that she is being watched by cameras in the room. Asked if her family can visit, she says if they do we will need security... When asked if she is afraid of her family she points to the door and says the doors are not locked... Question is repeated in a different way and she again points to the door and says the door is not locked. Eventually she seems to say she is not afraid of her family but that she is in general afraid of someone coming into the house and hurting her. Mental Status Exam Mental Status Exam Narrative: Patient is alert and oriented to self and place but not situaton; patient is not in distress; dressed in hospital attire with kempt hair and adequate hygiene; mood is constricted; affect odd, eye contact appropriate; Speech is slow and soft; no psychomotor agitation/retardation present; thought process can be goal directed but more disorganized; Thought content is on safety, some paranoid ideations;; answers are not pertinent to relevant topics at times; denies any SI/SIB/HI. Denies AVH but perhaps internally preoccupied. Patient's insight and judgment impaired. Diagnostics Vital Signs (24Hr): Vital Signs - 24 hr 03/02/25 19:38 03/03/25 08:00 Temperature 98.5 F 97.5 F Pulse Rate 102 H 101 H Respiratory Rate 16 Blood Pressure 163/78 H 124/74 Pulse Oximetry 99 100 Oxygen Delivery Method Room Air Room Air BMI result Body Mass Index 22.1 Labs 03/02/25 16:26 03/02/25 16:26 Labs: Laboratory Results - last 48 hr 03/01/25 03/01/25 03/02/25 20:03 23:17 05:49 WBC RBC Hgb Hct MCV MCH MCHC RDW Plt Count MPV Immature Gran % (Auto) Neut % (Auto) Lymph % (Auto) [place] % (Auto) Eos % (Auto) Baso % (Auto) Lymph # (Auto) [place] # (Auto) Eos # (Auto) Baso # (Auto) Abs Immat Gran (auto) Absolute Neuts (auto) Absolute Nucleated RBC Nucleated RBC % (auto) Sodium Potassium Chloride Carbon Dioxide Anion Gap BUN Creatinine Estim Creat Clear Calc Estimated GFR POC Glucose 442 H* 310 H 266 H Random Glucose Estimat Average Glucose Hemoglobin A1c % Calcium Magnesium Total Bilirubin AST ALT Alkaline Phosphatase Total Protein Albumin Triglycerides Cholesterol LDL Cholesterol, Calc HDL Cholesterol Vitamin B12 Folate TSH Free T4 03/02/25 03/02/25 03/02/25 08:28 12:00 16:26 WBC 8.7 RBC 4.81 Hgb 13.8 Hct 40.2 MCV 83.6 MCH 28.7 MCHC 34.3 RDW 12.9 Plt Count 292 MPV 8.8 L Immature Gran % (Auto) 0.3 Neut % (Auto) 60.8 Lymph % (Auto) 29.1 [place] % (Auto) 9.1 Eos % (Auto) 0.5 Baso % (Auto) 0.2 Lymph # (Auto) 2.5 [place] # (Auto) 0.8 Eos # (Auto) 0.0 Baso # (Auto) 0.0 Abs Immat Gran (auto) 0.03 Absolute Neuts (auto) 5.3 Absolute Nucleated RBC 0.000 Nucleated RBC % (auto) 0.0 Sodium Cancelled Potassium Chloride Carbon Dioxide Anion Gap BUN Creatinine Estim Creat Clear Calc Estimated GFR POC Glucose 336 H 337 H Random Glucose Estimat Average Glucose Hemoglobin A1c % Calcium Magnesium Total Bilirubin AST ALT Alkaline Phosphatase Total Protein Albumin Triglycerides Cholesterol LDL Cholesterol, Calc HDL Cholesterol Vitamin B12 Folate TSH Free T4 03/02/25 03/02/25 03/02/25 16:26 16:26 16:26 WBC RBC Hgb Hct MCV MCH MCHC RDW Plt Count MPV Immature Gran % (Auto) Neut % (Auto) Lymph % (Auto) [place] % (Auto) Eos % (Auto) Baso % (Auto) Lymph # (Auto) [place] # (Auto) Eos # (Auto) Baso # (Auto) Abs Immat Gran (auto) Absolute Neuts (auto) Absolute Nucleated RBC Nucleated RBC % (auto) Sodium 138 Cancelled Potassium Cancelled 3.3 Chloride Carbon Dioxide Anion Gap BUN Creatinine Estim Creat Clear Calc Estimated GFR POC Glucose Random Glucose Estimat Average Glucose Hemoglobin A1c % Calcium Magnesium Total Bilirubin AST ALT Alkaline Phosphatase Total Protein Albumin Triglycerides Cholesterol LDL Cholesterol, Calc HDL Cholesterol Vitamin B12 Folate TSH Free T4 03/02/25 03/02/25 03/02/25 16:26 16:26 16:26 WBC RBC Hgb Hct MCV MCH MCHC RDW Plt Count MPV Immature Gran % (Auto) Neut % (Auto) Lymph % (Auto) [place] % (Auto) Eos % (Auto) Baso % (Auto) Lymph # (Auto) [place] # (Auto) Eos # (Auto) Baso # (Auto) Abs Immat Gran (auto) Absolute Neuts (auto) Absolute Nucleated RBC Nucleated RBC % (auto) Sodium Potassium Cancelled Chloride Cancelled 103 Cancelled Carbon Dioxide Cancelled Anion Gap BUN Creatinine Estim Creat Clear Calc Estimated GFR POC Glucose Random Glucose Estimat Average Glucose Hemoglobin A1c % Calcium Magnesium Total Bilirubin AST ALT Alkaline Phosphatase Total Protein Albumin Triglycerides Cholesterol LDL Cholesterol, Calc HDL Cholesterol Vitamin B12 Folate TSH Free T4 03/02/25 03/02/25 03/02/25 16:26 16:26 16:26 WBC RBC Hgb Hct MCV MCH MCHC RDW Plt Count MPV Immature Gran % (Auto) Neut % (Auto) Lymph % (Auto) [place] % (Auto) Eos % (Auto) Baso % (Auto) Lymph # (Auto) [place] # (Auto) Eos # (Auto) Baso # (Auto) Abs Immat Gran (auto) Absolute Neuts (auto) Absolute Nucleated RBC Nucleated RBC % (auto) Sodium Potassium Chloride Carbon Dioxide 24 Cancelled Anion Gap Cancelled 14 BUN Creatinine Estim Creat Clear Calc Estimated GFR POC Glucose Random Glucose Estimat Average Glucose Hemoglobin A1c % Calcium Magnesium Total Bilirubin AST ALT Alkaline Phosphatase Total Protein Albumin Triglycerides Cholesterol LDL Cholesterol, Calc HDL Cholesterol Vitamin B12 Folate TSH Free T4 03/02/25 03/02/25 03/02/25 16:26 16:26 16:26 WBC RBC Hgb Hct MCV MCH MCHC RDW Plt Count MPV Immature Gran % (Auto) Neut % (Auto) Lymph % (Auto) [place] % (Auto) Eos % (Auto) Baso % (Auto) Lymph # (Auto) [place] # (Auto) Eos # (Auto) Baso # (Auto) Abs Immat Gran (auto) Absolute Neuts (auto) Absolute Nucleated RBC Nucleated RBC % (auto) Sodium Potassium Chloride Carbon Dioxide Anion Gap Cancelled BUN Cancelled 31 H Cancelled Creatinine Cancelled Estim Creat Clear Calc Estimated GFR POC Glucose Random Glucose Estimat Average Glucose Hemoglobin A1c % Calcium Magnesium Total Bilirubin AST ALT Alkaline Phosphatase Total Protein Albumin Triglycerides Cholesterol LDL Cholesterol, Calc HDL Cholesterol Vitamin B12 Folate TSH Free T4 03/02/25 03/02/25 03/02/25 16:26 16:26 16:26 WBC RBC Hgb Hct MCV MCH MCHC RDW Plt Count MPV Immature Gran % (Auto) Neut % (Auto) Lymph % (Auto) [place] % (Auto) Eos % (Auto) Baso % (Auto) Lymph # (Auto) [place] # (Auto) Eos # (Auto) Baso # (Auto) Abs Immat Gran (auto) Absolute Neuts (auto) Absolute Nucleated RBC Nucleated RBC % (auto) Sodium Potassium Chloride Carbon Dioxide Anion Gap BUN Creatinine 0.86 Cancelled Estim Creat Clear Calc Cancelled 47.9 Estimated GFR POC Glucose Random Glucose Estimat Average Glucose Hemoglobin A1c % Calcium Magnesium Total Bilirubin AST ALT Alkaline Phosphatase Total Protein Albumin Triglycerides Cholesterol LDL Cholesterol, Calc HDL Cholesterol Vitamin B12 Folate TSH Free T4 03/02/25 03/02/25 03/02/25 16:26 16:26 16:26 WBC RBC Hgb Hct MCV MCH MCHC RDW Plt Count MPV Immature Gran % (Auto) Neut % (Auto) Lymph % (Auto) [place] % (Auto) Eos % (Auto) Baso % (Auto) Lymph # (Auto) [place] # (Auto) Eos # (Auto) Baso # (Auto) Abs Immat Gran (auto) Absolute Neuts (auto) Absolute Nucleated RBC Nucleated RBC % (auto) Sodium Potassium Chloride Carbon Dioxide Anion Gap BUN Creatinine Estim Creat Clear Calc Cancelled Estimated GFR Cancelled > 60 Cancelled POC Glucose Random Glucose Cancelled Estimat Average Glucose Hemoglobin A1c % Calcium Magnesium Total Bilirubin AST ALT Alkaline Phosphatase Total Protein Albumin Triglycerides Cholesterol LDL Cholesterol, Calc HDL Cholesterol Vitamin B12 Folate TSH Free T4 03/02/25 03/02/25 03/02/25 16:26 16:26 16:26 WBC RBC Hgb Hct MCV MCH MCHC RDW Plt Count MPV Immature Gran % (Auto) Neut % (Auto) Lymph % (Auto) [place] % (Auto) Eos % (Auto) Baso % (Auto) Lymph # (Auto) [place] # (Auto) Eos # (Auto) Baso # (Auto) Abs Immat Gran (auto) Absolute Neuts (auto) Absolute Nucleated RBC Nucleated RBC % (auto) Sodium Potassium Chloride Carbon Dioxide Anion Gap BUN Creatinine Estim Creat Clear Calc Estimated GFR POC Glucose Random Glucose 223 H Cancelled Estimat Average Glucose Cancelled 232 Hemoglobin A1c % Cancelled Calcium Magnesium Total Bilirubin AST ALT Alkaline Phosphatase Total Protein Albumin Triglycerides Cholesterol LDL Cholesterol, Calc HDL Cholesterol Vitamin B12 Folate TSH Free T4 03/02/25 03/02/25 03/02/25 16:26 16:26 16:26 WBC RBC Hgb Hct MCV MCH MCHC RDW Plt Count MPV Immature Gran % (Auto) Neut % (Auto) Lymph % (Auto) [place] % (Auto) Eos % (Auto) Baso % (Auto) Lymph # (Auto) [place] # (Auto) Eos # (Auto) Baso # (Auto) Abs Immat Gran (auto) Absolute Neuts (auto) Absolute Nucleated RBC Nucleated RBC % (auto) Sodium Potassium Chloride Carbon Dioxide Anion Gap BUN Creatinine Estim Creat Clear Calc Estimated GFR POC Glucose Random Glucose Estimat Average Glucose Hemoglobin A1c % 9.7 H Calcium Cancelled 9.1 Cancelled Magnesium Cancelled Total Bilirubin AST ALT Alkaline Phosphatase Total Protein Albumin Triglycerides Cholesterol LDL Cholesterol, Calc HDL Cholesterol Vitamin B12 Folate TSH Free T4 03/02/25 03/02/25 03/02/25 16:26 16:26 16:26 WBC RBC Hgb Hct MCV MCH MCHC RDW Plt Count MPV Immature Gran % (Auto) Neut % (Auto) Lymph % (Auto) [place] % (Auto) Eos % (Auto) Baso % (Auto) Lymph # (Auto) [place] # (Auto) Eos # (Auto) Baso # (Auto) Abs Immat Gran (auto) Absolute Neuts (auto) Absolute Nucleated RBC Nucleated RBC % (auto) Sodium Potassium Chloride Carbon Dioxide Anion Gap BUN Creatinine Estim Creat Clear Calc Estimated GFR POC Glucose Random Glucose Estimat Average Glucose Hemoglobin A1c % Calcium Magnesium 2.1 Total Bilirubin Cancelled 0.2 Cancelled AST Cancelled ALT Alkaline Phosphatase Total Protein Albumin Triglycerides Cholesterol LDL Cholesterol, Calc HDL Cholesterol Vitamin B12 Folate TSH Free T4 03/02/25 03/02/25 03/02/25 16:26 16:26 16:26 WBC RBC Hgb Hct MCV MCH MCHC RDW Plt Count MPV Immature Gran % (Auto) Neut % (Auto) Lymph % (Auto) [place] % (Auto) Eos % (Auto) Baso % (Auto) Lymph # (Auto) [place] # (Auto) Eos # (Auto) Baso # (Auto) Abs Immat Gran (auto) Absolute Neuts (auto) Absolute Nucleated RBC Nucleated RBC % (auto) Sodium Potassium Chloride Carbon Dioxide Anion Gap BUN Creatinine Estim Creat Clear Calc Estimated GFR POC Glucose Random Glucose Estimat Average Glucose Hemoglobin A1c % Calcium Magnesium Total Bilirubin AST 28 Cancelled ALT Cancelled 29 Alkaline Phosphatase Total Protein Albumin Triglycerides Cholesterol LDL Cholesterol, Calc HDL Cholesterol Vitamin B12 Folate TSH Free T4 03/02/25 03/02/25 03/02/25 16:26 16:26 16:26 WBC RBC Hgb Hct MCV MCH MCHC RDW Plt Count MPV Immature Gran % (Auto) Neut % (Auto) Lymph % (Auto) [place] % (Auto) Eos % (Auto) Baso % (Auto) Lymph # (Auto) [place] # (Auto) Eos # (Auto) Baso # (Auto) Abs Immat Gran (auto) Absolute Neuts (auto) Absolute Nucleated RBC Nucleated RBC % (auto) Sodium Potassium Chloride Carbon Dioxide Anion Gap BUN Creatinine Estim Creat Clear Calc Estimated GFR POC Glucose Random Glucose Estimat Average Glucose Hemoglobin A1c % Calcium Magnesium Total Bilirubin AST ALT Cancelled Alkaline Phosphatase Cancelled 105 Cancelled Total Protein Cancelled Albumin Triglycerides Cholesterol LDL Cholesterol, Calc HDL Cholesterol Vitamin B12 Folate TSH Free T4 03/02/25 03/02/25 03/02/25 16:26 16:26 16:26 WBC RBC Hgb Hct MCV MCH MCHC RDW Plt Count MPV Immature Gran % (Auto) Neut % (Auto) Lymph % (Auto) [place] % (Auto) Eos % (Auto) Baso % (Auto) Lymph # (Auto) [place] # (Auto) Eos # (Auto) Baso # (Auto) Abs Immat Gran (auto) Absolute Neuts (auto) Absolute Nucleated RBC Nucleated RBC % (auto) Sodium Potassium Chloride Carbon Dioxide Anion Gap BUN Creatinine Estim Creat Clear Calc Estimated GFR POC Glucose Random Glucose Estimat Average Glucose Hemoglobin A1c % Calcium Magnesium Total Bilirubin AST ALT Alkaline Phosphatase Total Protein 6.8 Cancelled Albumin Cancelled 4.5 Triglycerides Cholesterol LDL Cholesterol, Calc HDL Cholesterol Vitamin B12 Folate TSH Free T4 03/02/25 03/02/25 03/02/25 16:26 16:26 17:14 WBC RBC Hgb Hct MCV MCH MCHC RDW Plt Count MPV Immature Gran % (Auto) Neut % (Auto) Lymph % (Auto) [place] % (Auto) Eos % (Auto) Baso % (Auto) Lymph # (Auto) [place] # (Auto) Eos # (Auto) Baso # (Auto) Abs Immat Gran (auto) Absolute Neuts (auto) Absolute Nucleated RBC Nucleated RBC % (auto) Sodium Potassium Chloride Carbon Dioxide Anion Gap BUN Creatinine Estim Creat Clear Calc Estimated GFR POC Glucose 222 H Random Glucose Estimat Average Glucose Hemoglobin A1c % Calcium Magnesium Total Bilirubin AST ALT Alkaline Phosphatase Total Protein Albumin Cancelled Triglycerides 143 Cholesterol 164 LDL Cholesterol, Calc 88 HDL Cholesterol 48 Vitamin B12 Cancelled Folate Cancelled TSH Cancelled 1.25 Free T4 1.60 03/02/25 03/03/25 03/03/25 19:49 01:27 07:39 WBC RBC Hgb Hct MCV MCH MCHC RDW Plt Count MPV Immature Gran % (Auto) Neut % (Auto) Lymph % (Auto) [place] % (Auto) Eos % (Auto) Baso % (Auto) Lymph # (Auto) [place] # (Auto) Eos # (Auto) Baso # (Auto) Abs Immat Gran (auto) Absolute Neuts (auto) Absolute Nucleated RBC Nucleated RBC % (auto) Sodium Potassium Chloride Carbon Dioxide Anion Gap BUN Creatinine Estim Creat Clear Calc Estimated GFR POC Glucose 237 H 153 H 269 H Random Glucose Estimat Average Glucose Hemoglobin A1c % Calcium Magnesium Total Bilirubin AST ALT Alkaline Phosphatase Total Protein Albumin Triglycerides Cholesterol LDL Cholesterol, Calc HDL Cholesterol Vitamin B12 Folate TSH Free T4 03/03/25 12:05 WBC RBC Hgb Hct MCV MCH MCHC RDW Plt Count MPV Immature Gran % (Auto) Neut % (Auto) Lymph % (Auto) [place] % (Auto) Eos % (Auto) Baso % (Auto) Lymph # (Auto) [place] # (Auto) Eos # (Auto) Baso # (Auto) Abs Immat Gran (auto) Absolute Neuts (auto) Absolute Nucleated RBC Nucleated RBC % (auto) Sodium Potassium Chloride Carbon Dioxide Anion Gap BUN Creatinine Estim Creat Clear Calc Estimated GFR POC Glucose 233 H Random Glucose Estimat Average Glucose Hemoglobin A1c % Calcium Magnesium Total Bilirubin AST ALT Alkaline Phosphatase Total Protein Albumin Triglycerides Cholesterol LDL Cholesterol, Calc HDL Cholesterol Vitamin B12 Folate TSH Free T4 Medications Medications Current Medications Acetaminophen (Acetaminophen 325 Mg Tablet) 650 mg PO Q6H PRN PRN Reason: Headache/Pain, Scale 1-10 Al Hydroxide/Mg Hydroxide (Magnesium Hydrox/Alum Hydrox 30 Ml Oral.Susp) 30 ml PO Q6H PRN PRN Reason: Heartburn/Nausea Dextrose (Dextrose 50 % 25 Gm/50 Ml Syringe) 25 gm IVPUSH Q15M PRN; Protocol PRN Reason: per Hypoglycemia Standing Ord. Glucose (Glucose Gel 15 Gm Gel..Gram.) 15 gm PO Q15M PRN; Protocol PRN Reason: per Hypoglycemia Standing Ord. Hydroxyzine HCl (Hydroxyzine Hcl 25 Mg Tablet) 25 mg PO Q6H PRN PRN Reason: mild anxiety Last Admin: 03/01/25 22:12 Dose: 25 mg Insulin Glargine (Insulin Glargine,Hum.Rec.Anlog 100 Unit/Ml 10 Ml Vial) 10 unit SUBCUT BEDTIME [facility] Last Admin: 03/02/25 21:18 Dose: 10 unit Insulin Human Lispro (Insulin Lispro 100 Unit/Ml 3 Ml Vial) 0 unit SUBCUT QIDACHS [facility]; Protocol Last Admin: 03/03/25 12:23 Dose: 6 unit Magnesium Hydroxide (Milk Of Magnesia 30 Ml Oral.Susp) 30 ml PO DAILY PRN PRN Reason: Constipation Melatonin (Melatonin 3 Mg Tablet) 3 mg PO BEDTIME [facility] Last Admin: 03/02/25 21:25 Dose: Not Given Risperidone (Risperidone 0.5 Mg Tablet) 0.5 mg PO BID [facility] Last Admin: 03/03/25 10:19 Dose: 0.5 mg Trazodone HCl (Trazodone Hcl 25 Mg Halftab) 25 mg PO BEDTIME MRX1 PRN PRN Reason: Insomnia Last Admin: 03/02/25 21:17 Dose: 25 mg Allergies Allergies Allergy/AdvReac Type Severity Reaction Status Date / Time No Known Allergies Allergy Verified 02/28/25 23:33 Assessment & Plan Assessment & Plan (1) Unspecified psychosis: Status: Acute Code(s): F29 - Unspecified psychosis not due to a substance or known physiological condition Plan HPI: Patient is a 65 years old Latvian-speaking female with possible hx of diabetic and HTN who presented to the ED reporting someone is stealing her phone and making threatening comments to another person, patient feels that she is under threat. She said that she lives with her daughter. She says that she is afraid to call the police in regard to the pawn situation because it would involve using her phone which she believes is compromised. She reports that she has been sick for awhile, stomach pain. Patient provided very vague and none committal when asked clarified questions. She reports no security at home and missed just with a landlord and there are people in the house taking her phone and making threats Collateral done in the ED with family: Grandson's Stephane and Argenis her daughter reports that patient has not been taking medications. They suspect that patient flushing them down to toilet or hiding them. They feel there is paranoid. Reported that patient lives with [phone]. Formulation/clinical reasoning: Patient appeared to be paranoid, disorganized, anxious, depressed, poor sleep and appetite. Questioned if she have any cognitive decline or dementia. We will be benefit to having [place] done. She is not in distress, ADLs appeared to be fair. Poor insight and poor judgment. Reports that she feels safe here. We will do collateral with her daughter to get more history of diagnosis and baseline. Discussed with her regarding medication for severe disorganization, and paranoid thoughts, as well as insomnia. Patient agree with the plans but not sure she is able to process information. Hospital course: 03/01/25: at this time. I would address symptoms of insomnia, and paranoid until more information obtained from her daughter regarding treatment hx. [employer] dx and medcial conditions. Not sure if she is diabetic or having HTN hx. Start melatonin 3 mg at bedtime for insomnia with Low dose of trazodone PRN. Risperidone 0.5 b.i.d. for paranoid/disorganized thoughts. We will order point of care with insulin coverage. She refused on labs ordered for this morning. We will monitor for hypotension/high blood pressure and POC 03/02 pt a little confused and it is difficult to follow her answers; Seems to mentioned safety and talks about unrelated things, her family and lists the names of each of her kids. Says team can contact them. Does not really answer questions about mood 03/03 Patient remains odd. She thinks that she is being watched by cameras in the room. Asked if her family can visit, she says if they do we will need security... When asked if she is afraid of her family she points to the door and says the doors are not locked... Question is repeated in a different way and she again points to the door and says the door is not locked. Eventually she seems to say she is not afraid of her family but that she is in general afraid of someone coming into the house and hurting her. -will increase risperdal dose to 1mg bid -very much need collateral Psychosis? PTSD? Dementia? Plan Risperdal 1 mg b.i.d. Patient on 15 minute checks for safety. Admitted to [facility]. CV. Work with treatment team to do collateral and FLU appointment for aftercare. school social worker will contact her daughter Blanca for more mental health history. Patient seen by Hospitalist on 03/01/25. Nutrition consult placed on 03/01/25. She may benefit from MOCA for cognitive decline/functioning. Reorder labs for 03/02/2025 Patient educated on: diagnosis and medication risk/benefits Informed Consent: understands Reason for continued inpatient stay Substantial Risk for: inability to function Time Spent With Patient Time: Total time managing care of this patient today ____ minutes.
[2025-03-03 17:11] LABS: Glucose, Whole Blood 316 mg/dL (60-115)
[2025-03-03 19:46] VITALS: BP 106/56; PULSE 79; RESP 18; TEMP 36.6; O2SAT 99
[2025-03-03 21:33] LABS: Glucose, Whole Blood 197 mg/dL (60-115)
[2025-03-03] MEDS: Insulin Glargine,Hum.rec.anlog 100 UNIT/ML 10 ML VIAL 10 UNIT SUBCUT (21:46)
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
[2025-03-04 20:00] VITALS: BP 171/93; PULSE 99; RESP 20; TEMP 36.6; O2SAT 100
[2025-03-04 20:24] LABS: Glucose, Whole Blood 279 mg/dL (60-115)
[2025-03-04] MEDS: Insulin Glargine,Hum.rec.anlog 100 UNIT/ML 10 ML VIAL 10 UNIT SUBCUT (20:44)
[2025-03-05 08:00] VITALS: BP 142/71; PULSE 93; RESP 18; TEMP 36.3; O2SAT 100
[2025-03-05 08:01] LABS: Glucose, Whole Blood 206 mg/dL (60-115)
--- NOTE | 2025-03-05 10:00 | HO.PSYCHPN ---
Subjective Subjective Date of Service: 03/05/25 Reason For Visit: F29 Unspecified Schizophrenia spectrumand other ps Subjective Notes: Conditional Voluntary Healthcare Proxy: No Guardianship: No Medical Problems Affecting Mental Status: No Interim History: Continues with paranoia, delusions. Feels her room is not secure. Worries she will be shot as guns are coming into the unit. Feels control from above when in bed so it is unsafe to sleep. Upset with room-mate, unsure about medications, not feeling they are needed. Fears sleep, attempting to remain awake. Not wanting diagnostics. Visited by her daughter and daughter's chicho who find pt to be more symptomatic. Medication Compliance: Intermittent Side effects from medications: No Attending Groups: No Review of Systems Acute medical concerns: No Medical Review of Systems: unchanged Review of Systems Review of Systems denies Mental Status Exam Mental Status Exam Patient Appearance: Appropriate Patient Orientation: Person Level of Consciousness: Alert Patient Behavior: Talkative Mood Description: Withdrawn Affect Description: Withdrawn Patient Cognition Impaired: No Ability to Follow Directions: Fair Speech Pattern: Spontaneous Speech Memory Description: Remote Impaired Hallucinations: None Delusions: Being Controlled, Paranoid Ideation and Present Perceptual Disturbances: Depersonalization and Derealization Thought Process: Distracted and Rumination Thought Content: positive for Perseveration Depressive Symptoms: Increased Anxiety Judgement: Poor Diagnostics Vital Signs (24Hr): Vital Signs - 24 hr 03/04/25 20:00 03/05/25 08:00 Temperature 97.8 F 97.4 F Pulse Rate 99 93 Respiratory Rate 20 18 Blood Pressure 171/93 H 142/71 H Pulse Oximetry 100 100 Oxygen Delivery Method Room Air Room Air BMI result Body Mass Index 22.1 Labs 03/02/25 16:26 03/02/25 16:26 Labs: Laboratory Results - last 48 hr 03/03/25 03/03/25 03/03/25 12:05 16:59 21:25 POC Glucose 233 H 316 H 197 H 03/04/25 03/05/25 20:18 07:48 POC Glucose 279 H 206 H Medications Medications Current Medications Acetaminophen (Acetaminophen 325 Mg Tablet) 650 mg PO Q6H PRN PRN Reason: Headache/Pain, Scale 1-10 Al Hydroxide/Mg Hydroxide (Magnesium Hydrox/Alum Hydrox 30 Ml Oral.Susp) 30 ml PO Q6H PRN PRN Reason: Heartburn/Nausea Dextrose (Dextrose 50 % 25 Gm/50 Ml Syringe) 25 gm IVPUSH Q15M PRN; Protocol PRN Reason: per Hypoglycemia Standing Ord. Glucose (Glucose Gel 15 Gm Gel..Gram.) 15 gm PO Q15M PRN; Protocol PRN Reason: per Hypoglycemia Standing Ord. Hydroxyzine HCl (Hydroxyzine Hcl 25 Mg Tablet) 25 mg PO Q6H PRN PRN Reason: mild anxiety Last Admin: 03/01/25 22:12 Dose: 25 mg Insulin Glargine (Insulin Glargine,Hum.Rec.Anlog 100 Unit/Ml 10 Ml Vial) 10 unit SUBCUT BEDTIME [facility] Last Admin: 03/04/25 20:44 Dose: 10 unit Insulin Human Lispro (Insulin Lispro 100 Unit/Ml 3 Ml Vial) 0 unit SUBCUT QIDACHS [facility]; Protocol Last Admin: 03/05/25 08:36 Dose: 6 unit Magnesium Hydroxide (Milk Of Magnesia 30 Ml Oral.Susp) 30 ml PO DAILY PRN PRN Reason: Constipation Melatonin (Melatonin 3 Mg Tablet) 3 mg PO BEDTIME [facility] Last Admin: 03/04/25 20:49 Dose: Not Given Risperidone (Risperidone 1 Mg Tablet) 1 mg PO BID [facility] Last Admin: 03/05/25 08:38 Dose: 1 mg Trazodone HCl (Trazodone Hcl 25 Mg Halftab) 25 mg PO BEDTIME MRX1 PRN PRN Reason: Insomnia Last Admin: 03/02/25 21:17 Dose: 25 mg Allergies Allergies Allergy/AdvReac Type Severity Reaction Status Date / Time No Known Allergies Allergy Verified 02/28/25 23:33 Assessment & Plan Assessment & Plan (1) Unspecified psychosis: Status: Acute Code(s): F29 - Unspecified psychosis not due to a substance or known physiological condition Plan HPI: Patient is a 65 years old Georgian-speaking female with possible hx of diabetic and HTN who presented to the ED reporting someone is stealing her phone and making threatening comments to another person, patient feels that she is under threat. She said that she lives with her daughter. She says that she is afraid to call the police in regard to the pawn situation because it would involve using her phone which she believes is compromised. She reports that she has been sick for awhile, stomach pain. Patient provided very vague and none committal when asked clarified questions. She reports no security at home and missed just with a landlord and there are people in the house taking her phone and making threats Collateral done in the ED with family: Grandson's Stephane and Argenis her daughter reports that patient has not been taking medications. They suspect that patient flushing them down to toilet or hiding them. They feel there is paranoid. Reported that patient lives with [phone]. Formulation/clinical reasoning: Patient appeared to be paranoid, disorganized, anxious, depressed, poor sleep and appetite. Questioned if she have any cognitive decline or dementia. We will be benefit to having [place] done. She is not in distress, ADLs appeared to be fair. Poor insight and poor judgment. Reports that she feels safe here. We will do collateral with her daughter to get more history of diagnosis and baseline. Discussed with her regarding medication for severe disorganization, and paranoid thoughts, as well as insomnia. Patient agree with the plans but not sure she is able to process information. Hospital course: 03/01/25: at this time. I would address symptoms of insomnia, and paranoid until more information obtained from her daughter regarding treatment hx. Datactics dx and medcial conditions. Not sure if she is diabetic or having HTN hx. Start melatonin 3 mg at bedtime for insomnia with Low dose of trazodone PRN. Risperidone 0.5 b.i.d. for paranoid/disorganized thoughts. We will order point of care with insulin coverage. She refused on labs ordered for this morning. We will monitor for hypotension/high blood pressure and POC 03/02 pt a little confused and it is difficult to follow her answers; Seems to mentioned safety and talks about unrelated things, her family and lists the names of each of her kids. Says team can contact them. Does not really answer questions about mood 03/03 Patient remains odd. She thinks that she is being watched by cameras in the room. Asked if her family can visit, she says if they do we will need security... When asked if she is afraid of her family she points to the door and says the doors are not locked... Question is repeated in a different way and she again points to the door and says the door is not locked. Eventually she seems to say she is not afraid of her family but that she is in general afraid of someone coming into the house and hurting her. -will increase risperdal dose to 1mg bid -very much need collateral 03/05 Increase Risperdal to 2 mg bid for 24 hour trial. Psychosis? PTSD? Dementia? Plan Risperdal 1 mg b.i.d. Patient on 15 minute checks for safety. Admitted to . CV. Work with treatment team to do collateral and FLU appointment for aftercare. 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 Patient seen by Hospitalist on 03/01/25. Nutrition consult placed on 03/01/25. She may benefit from MOCA for cognitive decline/functioning. Reorder labs for 03/02/2025 Reason for continued inpatient stay Substantial Risk for: rapid decompensation Time Spent With Patient Time: Total time managing care of this patient today ____ minutes.
[2025-03-05 11:58] LABS: Glucose, Whole Blood 351 mg/dL (60-115)
[2025-03-05 20:00] VITALS: BP 136/79; PULSE 94; RESP 18; TEMP 36.8; O2SAT 97
[2025-03-05 20:54] LABS: Glucose, Whole Blood 403 mg/dL (60-115)
[2025-03-05] MEDS: Insulin Glargine,Hum.rec.anlog 100 UNIT/ML 10 ML VIAL 10 UNIT SUBCUT (22:28)
[2025-03-05] MEDS: traZODone HCL 25 MG HALFTAB PO (22:32)
--- NOTE | 2025-03-06 08:08 | PC.NURSE ---
Addendum entered by Juanita Florez RN 03/06/25 09:53: pt refused her AM medication as well. provider made aware via tt. Original Note: pt continues to refused POCs and VS to be obtained.
--- NOTE | 2025-03-06 10:30 | PC.NURSE ---
N:N with BETH Simmons on S1 done.
[2025-03-06 11:39] LABS: Glucose, Whole Blood 248 mg/dL (60-115)
[2025-03-06 11:40] VITALS: BP 135/77; PULSE 114; RESP 18; TEMP 36.3; O2SAT 97
--- NOTE | 2025-03-06 12:13 | PC.NURSE ---
Pt has a POC blood sugar of 248 and is refusing to each her lunch. RN notified the provider. Provider advised this RN to hold the 6 units of Insulin Lispro, RN held med.
--- NOTE | 2025-03-06 13:08 | PC.NURSE ---
Pt was transferred from [facility] [place] [facility] M5 to [facility] [place] [facility] S1 on 03/06/25 at 1120 on a CV for treatment of schizophrenia. 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 Upon arrival to pt displayed a constricted affect. Pt was concerned that her son would not know she was here. Pt attempted to call her son but he did not answer and she left a message. Pt is diabetic and requires her blood sugar to be checked before meals and at hs. Pt's 11:30 POC was 248 but she did not received scheduled insulin d/t provider hold as she refused to eat her lunch. Pt reported feeling anxious for her children. Pt VS WNL and skin check was unremarkable. Pt ambulates independently with a steady gait. Pt is on 15 minute safety checks. Pt has been visible pacing the unit since arrival.
[2025-03-06 16:26] LABS: Glucose, Whole Blood 202 mg/dL (60-115)
[2025-03-06 20:00] VITALS: BP 133/64; PULSE 87; RESP 16; TEMP 36.6; O2SAT 96
[2025-03-06 20:14] LABS: Glucose, Whole Blood 224 mg/dL (60-115)
[2025-03-06] MEDS: traZODone HCL 25 MG HALFTAB PO (20:26)
[2025-03-06] MEDS: Insulin Glargine,Hum.rec.anlog 100 UNIT/ML 10 ML VIAL 10 UNIT SUBCUT (20:27)
[2025-03-07 06:47] LABS: Glucose, Whole Blood 157 mg/dL (60-115)
[2025-03-07 08:22] VITALS: BMI 22.7
--- NOTE | 2025-03-07 08:51 | P.PNPSI_ITS ---
Subjective Subjective Date of Service: 03/07/25 Reason For Visit: F29 Unspecified Schizophrenia spectrumand other ps Subjective Notes: Conditional Voluntary Interim History: Pt slept 7 hrs. She was awake looking for her belonging. Pt has not had food in the past 2 days. She is suspicious about what is being given. She tells this insurance writer that she tried to have a hot dog today but was too hard. She asked if we could meet in the room because there are cameras and she feels is safer. She denied SI/HI. She reports she wants to be discharged. She did not take risperidone and reports that it makes her feel tired. Mental Status Exam Mental Status Exam Narrative: Appearance: wearing hospital gown, fair hygiene, in NAD Behavior: somewhat guarded, Psychomotor: no agitation or retardation noted Speech: mostly clear, normal rate/rhythm/volume, spontaneous TP: mostly linear TC: fear about food she is eating here, not wanting to take medications and wanting to be discharged Mood: good AFfect: suspicious and paranoid SI: denies HI: denies VH/AH: unclear, she denies but may be internally preoccupied Delusions: paranoid delusions Insight/judgment: impaired x 2. Memory/cog: alert, oriented to idea that she is in the hospital. She knows the month and year. Not oriented to situation. Pending as less psychosis, MOCA/ ACL. Diagnostics Vital Signs (24Hr): Vital Signs - 24 hr 03/06/25 11:40 03/06/25 20:00 Temperature 97.3 F 97.8 F Pulse Rate 114 H 87 Respiratory Rate 18 16 Blood Pressure 135/77 133/64 Pulse Oximetry 97 96 Oxygen Delivery Method Room Air Room Air BMI result Body Mass Index 22.7 Labs 03/02/25 16:26 03/07/25 10:03 Labs: Laboratory Results - last 48 hr 03/05/25 03/05/25 03/06/25 11:44 20:50 11:35 POC Glucose 351 H* 403 H* 248 H 03/06/25 03/06/25 03/07/25 16:21 20:06 06:35 POC Glucose 202 H 224 H 157 H Medications Medications Current Medications Acetaminophen (Acetaminophen 325 Mg Tablet) 650 mg PO Q6H PRN PRN Reason: Headache/Pain, Scale 1-10 Al Hydroxide/Mg Hydroxide (Magnesium Hydrox/Alum Hydrox 30 Ml Oral.Susp) 30 ml PO Q6H PRN PRN Reason: Heartburn/Nausea Dextrose (Dextrose 50 % 25 Gm/50 Ml Syringe) 25 gm IVPUSH Q15M PRN; Protocol PRN Reason: per Hypoglycemia Standing Ord. Glucose (Glucose Gel 15 Gm Gel..Gram.) 15 gm PO Q15M PRN; Protocol PRN Reason: per Hypoglycemia Standing Ord. Hydroxyzine HCl (Hydroxyzine Hcl 25 Mg Tablet) 25 mg PO Q6H PRN PRN Reason: mild anxiety Last Admin: 03/05/25 22:32 Dose: 25 mg Insulin Glargine (Insulin Glargine,Hum.Rec.Anlog 100 Unit/Ml 10 Ml Vial) 10 unit SUBCUT BEDTIME [facility] Last Admin: 03/06/25 20:27 Dose: 10 unit Insulin Human Lispro (Insulin Lispro 100 Unit/Ml 3 Ml Vial) 0 unit SUBCUT QIDACHS [facility]; Protocol Last Admin: 03/07/25 08:15 Dose: Not Given Magnesium Hydroxide (Milk Of Magnesia 30 Ml Oral.Susp) 30 ml PO DAILY PRN PRN Reason: Constipation Melatonin (Melatonin 3 Mg Tablet) 3 mg PO BEDTIME [facility] Last Admin: 03/06/25 22:47 Dose: Not Given Risperidone (Risperidone 2 Mg Tablet) 2 mg PO BID [facility] Last Admin: 03/07/25 08:15 Dose: Not Given Trazodone HCl (Trazodone Hcl 25 Mg Halftab) 25 mg PO BEDTIME MRX1 PRN PRN Reason: Insomnia Last Admin: 03/06/25 20:26 Dose: 25 mg Allergies Allergies Allergy/AdvReac Type Severity Reaction Status Date / Time No Known Allergies Allergy Verified 02/28/25 23:33 Assessment & Plan Assessment & Plan (1) Unspecified psychosis: Status: Acute Code(s): F29 - Unspecified psychosis not due to a substance or known physiological condition Plan HPI: Patient is a 65 years old Micronesian-speaking female with possible hx of diabetic and HTN who presented to the ED reporting someone is stealing her phone and making threatening comments to another person, patient feels that she is under threat. She said that she lives with her daughter. She says that she is afraid to call the police in regard to the pawn situation because it would involve using her phone which she believes is compromised. She reports that she has been sick for awhile, stomach pain. Patient provided very vague and none committal when asked clarified questions. She reports no security at home and missed just with a landlord and there are people in the house taking her phone and making threats Collateral done in the ED with family: Grandson's Stephane and Argenis her daughter reports that patient has not been taking medications. They suspect that patient flushing them down to toilet or hiding them. They feel there is paranoid. Reported that patient lives with [phone]. Formulation/clinical reasoning: Patient appeared to be paranoid, disorganized, anxious, depressed, poor sleep and appetite. Questioned if she have any cognitive decline or dementia. We will be benefit to having [place] done. She is not in distress, ADLs appeared to be fair. Poor insight and poor judgment. Reports that she feels safe here. We will do collateral with her daughter to get more history of diagnosis and baseline. Discussed with her regarding medication for severe disorganization, and paranoid thoughts, as well as insomnia. Patient agree with the plans but not sure she is able to process information. Hospital course: 03/01/25: at this time. I would address symptoms of insomnia, and paranoid until more information obtained from her daughter regarding treatment hx. critical access hospital dx and medcial conditions. Not sure if she is diabetic or having HTN hx. Start melatonin 3 mg at bedtime for insomnia with Low dose of trazodone PRN. Risperidone 0.5 b.i.d. for paranoid/disorganized thoughts. We will order point of care with insulin coverage. She refused on labs ordered for this morning. We will monitor for hypotension/high blood pressure and POC 03/02 pt a little confused and it is difficult to follow her answers; Seems to mentioned safety and talks about unrelated things, her family and lists the names of each of her kids. Says team can contact them. Does not really answer questions about mood 03/03 Patient remains odd. She thinks that she is being watched by cameras in the room. Asked if her family can visit, she says if they do we will need security... When asked if she is afraid of her family she points to the door and says the doors are not locked... Question is repeated in a different way and she again points to the door and says the door is not locked. Eventually she seems to say she is not afraid of her family but that she is in general afraid of someone coming into the house and hurting her. -will increase risperdal dose to 1mg bid -very much need collateral 03/05 Increase Risperdal to 2 mg bid for 24 hour trial. 03/07 patient has only taken one dose of risperidone 2 mg, otherwise she has refused it. She had not been eating for the past 2 days, finally today she did eat something. pt presents as suspicious and paranoid. Reason for continued inpatient stay Substantial Risk for: inability to function Time Spent With Patient Time: Total time managing care of this patient today ____ minutes.
[2025-03-07 10:35] LABS: Alanine Aminotransferase 21 U/L (0-31); Albumin Level 4.1 g/dL (3.5-5.0); Alkaline Phosphatase 106 U/L (39-117); Anion Gap 13 (12-20); Aspartate Amino Transferase 25 U/L (5-31); Blood Urea Nitrogen 18 mg/dL (9-16); Calcium 8.9 mg/dL (8.4-10.2); Carbon Dioxide 23 mmol/L (22-29); Chloride 107 mmol/L (96-108); Creatinine Clr Calc Pharmacy 71.0; Estimated Glomerular Filt Rate > 60; Potassium 4.3 mmol/L (3.3-5.1); Sodium 139 mmol/L (135-145); Total Protein 6.3 g/dL (6.5-8.0)
[2025-03-07 11:33] LABS: Glucose, Whole Blood 178 mg/dL (60-115)
[2025-03-07 16:24] LABS: Glucose, Whole Blood 196 mg/dL (60-115)
[2025-03-07] MEDS: Insulin Glargine,Hum.rec.anlog 100 UNIT/ML 10 ML VIAL 10 UNIT SUBCUT (21:29)
[2025-03-07 21:42] LABS: Glucose, Whole Blood 169 mg/dL (60-115)
[2025-03-08 08:00] VITALS: BP 141/84; PULSE 102; TEMP 36.2; O2SAT 98
[2025-03-08 09:44] LABS: Glucose, Whole Blood 182 mg/dL (60-115)
[2025-03-08 11:24] LABS: Glucose, Whole Blood 252 mg/dL (60-115)
--- NOTE | 2025-03-08 15:31 | P.PNPSI_ITS ---
Subjective Subjective Date of Service: 03/08/25 Reason For Visit: F29 Unspecified Schizophrenia spectrumand other ps Subjective Notes: Conditional Voluntary Interim History: Pt declined taking risperidone. She is eating better today. She continues to present with paranoid delusions, worried that if she return to her daughter's house she is not safe. She reports she wants to return to [facility]. She states she wants to leave today and although she does not have a ride back to [place] that she will figure out. She has been visible. She reports she does not like taking medications and does not think she needs them. This freelance copywriter spoke with daughter, Blanca, who reports pt came from [facility] 5 years ago because pt was reporting not being safe there and wanting to come. Blanca reports she was paranoid and suspicious towards family members and left her sister's house because she accused her partner of trying to kill her. Blanca reports pt then refused to go to her house because again did not feel safe. There is not a long hx of psychosis, it's been somewhat recent for the past 5-6 years or so. This freelance copywriter explained than one pt is not taking antipsychotic medication- may have to revoke CV. also discuss once less paranoid will complete memory/cognitive assessments. Review of Systems Review of Systems denies Mental Status Exam Mental Status Exam Narrative: Appearance: wearing hospital gown, fair hygiene, in NAD Behavior: somewhat guarded, Psychomotor: no agitation or retardation noted Speech: mostly clear, normal rate/rhythm/volume, spontaneous TP: mostly linear TC: fear about food she is eating here, not wanting to take medications and wanting to be discharged Mood: good AFfect: suspicious and paranoid SI: denies HI: denies VH/AH: unclear, she denies but may be internally preoccupied Delusions: paranoid delusions Insight/judgment: impaired x 2. Memory/cog: alert, oriented to idea that she is in the hospital. She knows the month and year. Not oriented to situation. Pending as less psychosis, MOCA/ ACL. Diagnostics Vital Signs (24Hr): Vital Signs - 24 hr 03/08/25 08:00 Temperature 97.2 F Pulse Rate 102 H Blood Pressure 141/84 H Pulse Oximetry 98 Oxygen Delivery Method Room Air BMI result Body Mass Index 22.7 Labs 03/02/25 16:26 03/07/25 10:03 Labs: Laboratory Results - last 48 hr 03/06/25 03/06/25 03/07/25 16:21 20:06 06:35 Hold Purple Top Sodium Potassium Chloride Carbon Dioxide Anion Gap BUN Creatinine Estim Creat Clear Calc Estimated GFR POC Glucose 202 H 224 H 157 H Random Glucose Calcium Total Bilirubin AST ALT Alkaline Phosphatase Total Protein Albumin 03/07/25 03/07/25 03/07/25 10:03 11:28 16:17 Hold Purple Top SEE NOTE Sodium 139 Potassium 4.3 D Chloride 107 Carbon Dioxide 23 Anion Gap 13 BUN 18 H Creatinine 0.58 Estim Creat Clear Calc 71.0 Estimated GFR > 60 POC Glucose 178 H 196 H Random Glucose 207 H Calcium 8.9 Total Bilirubin 0.5 AST 25 ALT 21 Alkaline Phosphatase 106 Total Protein 6.3 L Albumin 4.1 03/07/25 03/08/25 03/08/25 21:38 06:51 11:20 Hold Purple Top Sodium Potassium Chloride Carbon Dioxide Anion Gap BUN Creatinine Estim Creat Clear Calc Estimated GFR POC Glucose 169 H 182 H 252 H Random Glucose Calcium Total Bilirubin AST ALT Alkaline Phosphatase Total Protein Albumin Medications Medications Current Medications Acetaminophen (Acetaminophen 325 Mg Tablet) 650 mg PO Q6H PRN PRN Reason: Headache/Pain, Scale 1-10 Al Hydroxide/Mg Hydroxide (Magnesium Hydrox/Alum Hydrox 30 Ml Oral.Susp) 30 ml PO Q6H PRN PRN Reason: Heartburn/Nausea Dextrose (Dextrose 50 % 25 Gm/50 Ml Syringe) 25 gm IVPUSH Q15M PRN; Protocol PRN Reason: per Hypoglycemia Standing Ord. Glucose (Glucose Gel 15 Gm Gel..Gram.) 15 gm PO Q15M PRN; Protocol PRN Reason: per Hypoglycemia Standing Ord. Hydroxyzine HCl (Hydroxyzine Hcl 25 Mg Tablet) 25 mg PO Q6H PRN PRN Reason: mild anxiety Last Admin: 03/05/25 22:32 Dose: 25 mg Insulin Glargine (Insulin Glargine,Hum.Rec.Anlog 100 Unit/Ml 10 Ml Vial) 10 unit SUBCUT BEDTIME [facility] Last Admin: 03/07/25 21:29 Dose: 10 unit Insulin Human Lispro (Insulin Lispro 100 Unit/Ml 3 Ml Vial) 0 unit SUBCUT QIDACHS [facility]; Protocol Last Admin: 03/08/25 11:28 Dose: 8 unit Magnesium Hydroxide (Milk Of Magnesia 30 Ml Oral.Susp) 30 ml PO DAILY PRN PRN Reason: Constipation Melatonin (Melatonin 3 Mg Tablet) 3 mg PO BEDTIME [facility] Last Admin: 03/07/25 21:29 Dose: Not Given Metformin HCl (Metformin Hcl Er 500 Mg Tab.Er.24h) 1,000 mg PO DAILY [facility] Last Admin: 03/08/25 11:31 Dose: 1,000 mg Risperidone (Risperidone 2 Mg Tablet) 2 mg PO BID [facility] Last Admin: 03/08/25 10:00 Dose: Not Given Trazodone HCl (Trazodone Hcl 25 Mg Halftab) 25 mg PO BEDTIME MRX1 PRN PRN Reason: Insomnia Last Admin: 03/06/25 20:26 Dose: 25 mg Allergies Allergies Allergy/AdvReac Type Severity Reaction Status Date / Time No Known Allergies Allergy Verified 02/28/25 23:33 Assessment & Plan Assessment & Plan (1) Unspecified psychosis: Status: Acute Code(s): F29 - Unspecified psychosis not due to a substance or known physiological condition Plan HPI: Patient is a 65 years old [place]-speaking female with possible hx of diabetic and HTN who presented to the ED reporting someone is stealing her phone and making threatening comments to another person, patient feels that she is under threat. She said that she lives with her daughter. She says that she is afraid to call the police in regard to the pawn situation because it would involve using her phone which she believes is compromised. She reports that she has been sick for awhile, stomach pain. Patient provided very vague and none committal when asked clarified questions. She reports no security at home and missed just with a landlord and there are people in the house taking her phone and making threats Collateral done in the ED with family: Grandson's Stephane and Argenis her daughter reports that patient has not been taking medications. They suspect that patient flushing them down to toilet or hiding them. They feel there is paranoid. Reported that patient lives with [phone]. Formulation/clinical reasoning: Patient appeared to be paranoid, disorganized, anxious, depressed, poor sleep and appetite. Questioned if she have any cognitive decline or dementia. We will be benefit to having [place] done. She is not in distress, ADLs appeared to be fair. Poor insight and poor judgment. Reports that she feels safe here. We will do collateral with her daughter to get more history of diagnosis and baseline. Discussed with her regarding medication for severe disorganization, and paranoid thoughts, as well as insomnia. Patient agree with the plans but not sure she is able to process information. Hospital course: 03/01/25: at this time. I would address symptoms of insomnia, and paranoid until more information obtained from her daughter regarding treatment [facility]. [facility] and medcial conditions. Not sure if she is diabetic or having HTN hx. Start melatonin 3 mg at bedtime for insomnia with Low dose of trazodone PRN. Risperidone 0.5 b.i.d. for paranoid/disorganized thoughts. We will order point of care with insulin coverage. She refused on labs ordered for this morning. We will monitor for hypotension/high blood pressure and POC 03/02 pt a little confused and it is difficult to follow her answers; Seems to mentioned safety and talks about unrelated things, her family and lists the names of each of her kids. Says team can contact them. Does not really answer questions about mood 03/03 Patient remains odd. She thinks that she is being watched by cameras in the room. Asked if her family can visit, she says if they do we will need security... When asked if she is afraid of her family she points to the door and says the doors are not locked... Question is repeated in a different way and she again points to the door and says the door is not locked. Eventually she seems to say she is not afraid of her family but that she is in general afraid of someone coming into the house and hurting her. -will increase risperdal dose to 1mg bid -very much need collateral 03/05 Increase Risperdal to 2 mg bid for 24 hour trial. 03/07 patient has only taken one dose of risperidone 2 mg, otherwise she has refused it. She had not been eating for the past 2 days, finally today she did eat something. pt presents as suspicious and paranoid. 03/08 pt refusing risperidone, has only taken one time 2mg. continues to present as paranoid and suspicious, declines to go back to her daughter's house. does not seem to understand that she can't survive on the streets, insists on leaving regardless. add head CT, will complete moca/ acl next week in [place]. this freelance copywriter spoke with her daughter and provided update. r/o dementing process causing paranoia- her orientation for the most part seems intact except for situation. Reason for continued inpatient stay Substantial Risk for: inability to function Time Spent With Patient Time: Total time managing care of this patient today ____ minutes.
[2025-03-08 16:31] LABS: Glucose, Whole Blood 210 mg/dL (60-115)
[2025-03-08 20:00] VITALS: BP 133/63; PULSE 88; RESP 17; TEMP 36.4; O2SAT 99
[2025-03-08] MEDS: Insulin Glargine,Hum.rec.anlog 100 UNIT/ML 10 ML VIAL 10 UNIT SUBCUT (20:32)
[2025-03-08 20:43] LABS: Glucose, Whole Blood 162 mg/dL (60-115)
[2025-03-09 06:43] LABS: Glucose, Whole Blood 176 mg/dL (60-115)
[2025-03-09 08:00] VITALS: BP 122/66; PULSE 95; RESP 16; TEMP 36.4; O2SAT 98
[2025-03-09 11:25] LABS: Glucose, Whole Blood 174 mg/dL (60-115)
--- NOTE | 2025-03-09 14:41 | P.PNPSI_ITS ---
Subjective Subjective Date of Service: 03/09/25 Reason For Visit: F29 Unspecified Schizophrenia spectrumand other ps Subjective Notes: Conditional Voluntary and 3 Day Healthcare Proxy: No Interim History: Seen in OT office with ingot supervisor present. She presents calm, communicative, with pressured speech. She states that she wanted to leave yesterday. She can't sleep. People are knocking on the door to her room. Regarding hospitalization, she states that her girls brought her here, because they said that she was crazy. I can't tell them some things because they think everything's a joke. Appetite good. Mood good. At times during the encounter, molten iron pourer was struggling to understand patient's communication, and confirmed that she was communicating in a disorganized fashion. Additionally, patient?s speech was pressured today. Medication Compliance: Yes Side effects from medications: No Review of Systems Acute medical concerns: No Medical Review of Systems: unchanged Review of Systems Constitutional: Reports no additional constitutional complaints Eyes: Reports no additional eye complaints Reports system reviewed and no additional complaints, except as documented Cardiovascular: Reports no additional cardiovascular complaints Respiratory: Reports no additional respiratory complaints Gastrointestinal: Reports no additional gastrointestinal complaints Genitourinary: Reports no additional female genitourinary complaints Musculoskeletal: Reports no additional musculoskeletal complaints Skin/Breast: Reports system reviewed and no additional complaints, except as docu Reports system reviewed and no additional complaints, except as documented Psychiatric: Reports as per HPI Endocrine: Reports no additional endocrine complaints Hematologic/Lymphatic: Reports no additional hematologic/lymphatic complaints Allergic/Immunologic: Reports no additional allergic/immunologic complaints Mental Status Exam Mental Status Exam Patient Appearance: Well Grooomed Patient Orientation: Person, Place (hospital) and Time (February only) Level of Consciousness: Awake and Alert Patient Behavior: Guarded Mood Description: Calm ( good ) Affect Description: Angry Patient Cognition Impaired: Yes Ability to Follow Directions: Good Speech Pattern: Clear Hallucinations: None Delusions: Not Present Thought Process: Confusion Thought Content: negative for Suicidal Ideation or negative for Homicidal Ideation Judgement and Insight: impaired Diagnostics Vital Signs (24Hr): Vital Signs - 24 hr 03/08/25 20:00 03/09/25 08:00 Temperature 97.5 F 97.6 F Pulse Rate 88 95 Respiratory Rate 17 16 Blood Pressure 133/63 122/66 Pulse Oximetry 99 98 Oxygen Delivery Method Room Air Room Air BMI result Body Mass Index 22.7 Labs 03/02/25 16:26 03/07/25 10:03 Labs: Laboratory Results - last 48 hr 03/07/25 03/07/25 03/08/25 16:17 21:38 06:51 Hold Purple Top POC Glucose 196 H 169 H 182 H 03/08/25 03/08/25 03/08/25 11:20 16:27 20:30 Hold Purple Top POC Glucose 252 H 210 H 162 H 03/09/25 03/09/25 03/09/25 06:32 07:25 11:17 Hold Purple Top SEE NOTE POC Glucose 176 H 174 H Medications Medications Current Medications Acetaminophen (Acetaminophen 325 Mg Tablet) 650 mg PO Q6H PRN PRN Reason: Headache/Pain, Scale 1-10 Al Hydroxide/Mg Hydroxide (Magnesium Hydrox/Alum Hydrox 30 Ml Oral.Susp) 30 ml PO Q6H PRN PRN Reason: Heartburn/Nausea Dextrose (Dextrose 50 % 25 Gm/50 Ml Syringe) 25 gm IVPUSH Q15M PRN; Protocol PRN Reason: per Hypoglycemia Standing Ord. Glucose (Glucose Gel 15 Gm Gel..Gram.) 15 gm PO Q15M PRN; Protocol PRN Reason: per Hypoglycemia Standing Ord. Hydroxyzine HCl (Hydroxyzine Hcl 25 Mg Tablet) 25 mg PO Q6H PRN PRN Reason: mild anxiety Last Admin: 03/05/25 22:32 Dose: 25 mg Insulin Glargine (Insulin Glargine,Hum.Rec.Anlog 100 Unit/Ml 10 Ml Vial) 10 unit SUBCUT BEDTIME [facility] Last Admin: 03/08/25 20:32 Dose: 10 unit Insulin Human Lispro (Insulin Lispro 100 Unit/Ml 3 Ml Vial) 0 unit SUBCUT QIDACHS [facility]; Protocol Last Admin: 03/09/25 11:22 Dose: 4 unit Magnesium Hydroxide (Milk Of Magnesia 30 Ml Oral.Susp) 30 ml PO DAILY PRN PRN Reason: Constipation Melatonin (Melatonin 3 Mg Tablet) 3 mg PO BEDTIME [facility] Last Admin: 03/08/25 20:36 Dose: Not Given Metformin HCl (Metformin Hcl Er 500 Mg Tab.Er.24h) 1,000 mg PO DAILY [facility] Last Admin: 03/09/25 07:56 Dose: 1,000 mg Risperidone (Risperidone 2 Mg Tablet) 2 mg PO BEDTIME [facility] Last Admin: 03/08/25 20:36 Dose: Not Given Trazodone HCl (Trazodone Hcl 25 Mg Halftab) 25 mg PO BEDTIME MRX1 PRN PRN Reason: Insomnia Last Admin: 03/06/25 20:26 Dose: 25 mg Allergies Allergies Allergy/AdvReac Type Severity Reaction Status Date / Time No Known Allergies Allergy Verified 02/28/25 23:33 Assessment & Plan Assessment & Plan (1) Unspecified psychosis: Status: Acute Code(s): F29 - Unspecified psychosis not due to a substance or known physiological condition Plan HPI: Patient is a 65 years old [place]-speaking female with possible hx of diabetic and HTN who presented to the ED reporting someone is stealing her phone and making threatening comments to another person, patient feels that she is under threat. She said that she lives with her daughter. She says that she is afraid to call the police in regard to the pawn situation because it would involve using her phone which she believes is compromised. She reports that she has been sick for awhile, stomach pain. Patient provided very vague and none committal when asked clarified questions. She reports no security at home and missed just with a landlord and there are people in the house taking her phone and making threats Collateral done in the ED with family: Grandson's Stephane and Argenis her daughter reports that patient has not been taking medications. They suspect that patient flushing them down to toilet or hiding them. They feel there is paranoid. Reported that patient lives with [phone]. Formulation/clinical reasoning: Patient appeared to be paranoid, disorganized, anxious, depressed, poor sleep and appetite. Questioned if she have any cognitive decline or dementia. We will be benefit to having [place] done. She is not in distress, ADLs appeared to be fair. Poor insight and poor judgment. Reports that she feels safe here. We will do collateral with her daughter to get more history of diagnosis and baseline. Discussed with her regarding medication for severe disorganization, and paranoid thoughts, as well as insomnia. Patient agree with the plans but not sure she is able to process information. Hospital course: 03/01/25: at this time. I would address symptoms of insomnia, and paranoid until more information obtained from her daughter regarding treatment hx. [facility] dx and medcial conditions. Not sure if she is diabetic or having HTN hx. Start melatonin 3 mg at bedtime for insomnia with Low dose of trazodone PRN. Risperidone 0.5 b.i.d. for paranoid/disorganized thoughts. We will order point of care with insulin coverage. She refused on labs ordered for this morning. We will monitor for hypotension/high blood pressure and POC 03/02 pt a little confused and it is difficult to follow her answers; Seems to mentioned safety and talks about unrelated things, her family and lists the names of each of her kids. Says team can contact them. Does not really answer questions about mood 03/03 Patient remains odd. She thinks that she is being watched by cameras in the room. Asked if her family can visit, she says if they do we will need security... When asked if she is afraid of her family she points to the door and says the doors are not locked... Question is repeated in a different way and she again points to the door and says the door is not locked. Eventually she seems to say she is not afraid of her family but that she is in general afraid of someone coming into the house and hurting her. -will increase risperdal dose to 1mg bid -very much need collateral 03/05 Increase Risperdal to 2 mg bid for 24 hour trial. 03/07 patient has only taken one dose of risperidone 2 mg, otherwise she has refused it. She had not been eating for the past 2 days, finally today she did eat something. pt presents as suspicious and paranoid. 03/08 pt refusing risperidone, has only taken one time 2mg. continues to present as paranoid and suspicious, declines to go back to her daughter's house. does not seem to understand that she can't survive on the streets, insists on leaving regardless. add head CT, will complete moca/ acl next week in [place]. this keno writer spoke with her daughter and provided update. r/o dementing process causing paranoia- her orientation for the most part seems intact except for situation. 03/09: Informed Consent: does not understand Reason for continued inpatient stay Substantial Risk for: rapid decompensation Time Spent With Patient Time: Total time managing care of this patient today _15__ minutes.
[2025-03-09 16:24] LABS: Glucose, Whole Blood 121 mg/dL (60-115)
[2025-03-09 20:00] VITALS: BP 121/64; PULSE 68; RESP 16; TEMP 36.6; O2SAT 95
[2025-03-09 21:00] LABS: Glucose, Whole Blood 317 mg/dL (60-115)
[2025-03-09] MEDS: Insulin Glargine,Hum.rec.anlog 100 UNIT/ML 10 ML VIAL 10 UNIT SUBCUT (21:43)
[2025-03-10 06:34] LABS: Glucose, Whole Blood 166 mg/dL (60-115)
[2025-03-10 07:47] VITALS: BP 133/73; PULSE 95; RESP 16; TEMP 36.4; O2SAT 98
[2025-03-10 11:24] LABS: Glucose, Whole Blood 198 mg/dL (60-115)
[2025-03-10 16:17] LABS: Glucose, Whole Blood 294 mg/dL (60-115)
--- NOTE | 2025-03-10 17:21 | P.PNPSI_ITS ---
Subjective Subjective Date of Service: 03/10/25 Reason For Visit: F29 Unspecified Schizophrenia spectrumand other ps Subjective Notes: Conditional Voluntary and 3 Day (due Wed 03/13) Healthcare Proxy: No Guardianship: No Medical Problems Affecting Mental Status: No Interim History: Patient was seen in the Day area with application performance engineer present. She was cooperative, communicative, irritable, and again voiced anger, and frustration about still being in the hospital. She reports undergoing head CT earlier today, results pending. She denies SI/HI/AVH.? She said that there may have been some miscommunication around her refusal to take metformin. Medication Compliance: Yes Side effects from medications: No Attending Groups: Yes Review of Systems Acute medical concerns: No Medical Review of Systems: unchanged Review of Systems Review of Systems Yes all other systems are reviewed and are negative Mental Status Exam Mental Status Exam Narrative: Patient Appearance: Well Grooomed Patient Orientation: Person, Place (hospital) and Time (February only) Level of Consciousness: Awake and Alert Patient Behavior: Guarded Mood Description: Calm ( good ) Affect Description: Angry Patient Cognition Impaired: Yes Ability to Follow Directions: Good Speech Pattern: Clear Hallucinations: None Delusions: Not Present Thought Process: Confusion Thought Content: negative for Suicidal Ideation or negative for Homicidal Ideation Judgement and Insight: impaired Diagnostics Vital Signs (24Hr): Vital Signs - 24 hr 03/09/25 20:00 03/10/25 07:47 Temperature 97.9 F 97.5 F Pulse Rate 68 95 Respiratory Rate 16 16 Blood Pressure 121/64 133/73 Pulse Oximetry 95 98 Oxygen Delivery Method Room Air Room Air BMI result Body Mass Index 22.7 Labs 03/02/25 16:26 03/07/25 10:03 Labs: Laboratory Results - last 48 hr 03/08/25 03/09/25 03/09/25 20:30 06:32 07:25 Hold Purple Top SEE NOTE POC Glucose 162 H 176 H 03/09/25 03/09/25 03/09/25 11:17 16:21 20:56 Hold Purple Top POC Glucose 174 H 121 H 317 H 03/10/25 03/10/25 03/10/25 06:22 11:17 16:13 Hold Purple Top POC Glucose 166 H 198 H 294 H Medications Medications Current Medications Acetaminophen (Acetaminophen 325 Mg Tablet) 650 mg PO Q6H PRN PRN Reason: Headache/Pain, Scale 1-10 Al Hydroxide/Mg Hydroxide (Magnesium Hydrox/Alum Hydrox 30 Ml Oral.Susp) 30 ml PO Q6H PRN PRN Reason: Heartburn/Nausea Dextrose (Dextrose 50 % 25 Gm/50 Ml Syringe) 25 gm IVPUSH Q15M PRN; Protocol PRN Reason: per Hypoglycemia Standing Ord. Glucose (Glucose Gel 15 Gm Gel..Gram.) 15 gm PO Q15M PRN; Protocol PRN Reason: per Hypoglycemia Standing Ord. Hydroxyzine HCl (Hydroxyzine Hcl 25 Mg Tablet) 25 mg PO Q6H PRN PRN Reason: mild anxiety Last Admin: 03/05/25 22:32 Dose: 25 mg Insulin Glargine (Insulin Glargine,Hum.Rec.Anlog 100 Unit/Ml 10 Ml Vial) 10 unit SUBCUT BEDTIME [facility] Last Admin: 03/09/25 21:43 Dose: 10 unit Insulin Human Lispro (Insulin Lispro 100 Unit/Ml 3 Ml Vial) 0 unit SUBCUT QIDACHS [facility]; Protocol Last Admin: 03/10/25 16:27 Dose: 8 unit Magnesium Hydroxide (Milk Of Magnesia 30 Ml Oral.Susp) 30 ml PO DAILY PRN PRN Reason: Constipation Melatonin (Melatonin 3 Mg Tablet) 3 mg PO BEDTIME [facility] Last Admin: 03/09/25 21:44 Dose: Not Given Metformin HCl (Metformin Hcl Er 500 Mg Tab.Er.24h) 1,000 mg PO DAILY [facility] Last Admin: 03/10/25 08:48 Dose: Not Given Risperidone (Risperidone 2 Mg Tablet) 2 mg PO BEDTIME [facility] Last Admin: 03/09/25 21:45 Dose: Not Given Trazodone HCl (Trazodone Hcl 25 Mg Halftab) 25 mg PO BEDTIME MRX1 PRN PRN Reason: Insomnia Last Admin: 03/06/25 20:26 Dose: 25 mg Allergies Allergies Allergy/AdvReac Type Severity Reaction Status Date / Time No Known Allergies Allergy Verified 02/28/25 23:33 Assessment & Plan Assessment & Plan (1) Unspecified psychosis: Status: Acute Code(s): F29 - Unspecified psychosis not due to a substance or known physiological condition Plan HPI: Patient is a 65 years old Kiswahili-speaking female with possible hx of diabetic and HTN who presented to the ED reporting someone is stealing her phone and making threatening comments to another person, patient feels that she is under threat. She said that she lives with her daughter. She says that she is afraid to call the police in regard to the pawn situation because it would involve using her phone which she believes is compromised. She reports that she has been sick for awhile, stomach pain. Patient provided very vague and none committal when asked clarified questions. She reports no security at home and missed just with a landlord and there are people in the house taking her phone and making threats Collateral done in the ED with family: Grandson's Stephane and Argenis her daughter reports that patient has not been taking medications. They suspect that patient flushing them down to toilet or hiding them. They feel there is paranoid. Reported that patient lives with [phone]. Formulation/clinical reasoning: Patient appeared to be paranoid, disorganized, anxious, depressed, poor sleep and appetite. Questioned if she have any cognitive decline or dementia. We will be benefit to having [place] done. She is not in distress, ADLs appeared to be fair. Poor insight and poor judgment. Reports that she feels safe here. We will do collateral with her daughter to get more history of diagnosis and baseline. Discussed with her regarding medication for severe disorganization, and paranoid thoughts, as well as insomnia. Patient agree with the plans but not sure she is able to process information. Hospital course: 03/01/25: at this time. I would address symptoms of insomnia, and paranoid until more information obtained from her daughter regarding treatment hx. [email or web address] dx and medcial conditions. Not sure if she is diabetic or having HTN hx. Start melatonin 3 mg at bedtime for insomnia with Low dose of trazodone PRN. Risperidone 0.5 b.i.d. for paranoid/disorganized thoughts. We will order point of care with insulin coverage. She refused on labs ordered for this morning. We will monitor for hypotension/high blood pressure and POC 03/02 pt a little confused and it is difficult to follow her answers; Seems to mentioned safety and talks about unrelated things, her family and lists the names of each of her kids. Says team can contact them. Does not really answer questions about mood 03/03 Patient remains odd. She thinks that she is being watched by cameras in the room. Asked if her family can visit, she says if they do we will need security... When asked if she is afraid of her family she points to the door and says the doors are not locked... Question is repeated in a different way and she again points to the door and says the door is not locked. Eventually she seems to say she is not afraid of her family but that she is in general afraid of someone coming into the house and hurting her. -will increase risperdal dose to 1mg bid -very much need collateral 03/05 Increase Risperdal to 2 mg bid for 24 hour trial. 03/07 patient has only taken one dose of risperidone 2 mg, otherwise she has refused it. She had not been eating for the past 2 days, finally today she did eat something. pt presents as suspicious and paranoid. 03/08 pt refusing risperidone, has only taken one time 2mg. continues to present as paranoid and suspicious, declines to go back to her daughter's house. does not seem to understand that she can't survive on the streets, insists on leaving regardless. add head CT, will complete moca/ acl next week in [place]isw[place]. this curriculum writer spoke with her daughter and provided update. r/o dementing process causing paranoia- her orientation for the most part seems intact except for situation. 03/09: no change 03/10: referred back to primary team to address concerns about not being discharged Patient educated on: diagnosis and medication risk/benefits Informed Consent: understands Reason for continued inpatient stay Substantial Risk for: inability to function and rapid decompensation Time Spent With Patient Time: Total time managing care of this patient today __15__ minutes.
[2025-03-10 20:00] VITALS: BP 112/55; PULSE 77; RESP 16; TEMP 36.5; O2SAT 99
[2025-03-10 20:15] LABS: Glucose, Whole Blood 160 mg/dL (60-115)
[2025-03-10] MEDS: Insulin Glargine,Hum.rec.anlog 100 UNIT/ML 10 ML VIAL 10 UNIT SUBCUT (21:04)
[2025-03-11 07:00] LABS: Glucose, Whole Blood 144 mg/dL (60-115)
[2025-03-11 08:00] VITALS: BP 125/64; PULSE 99; RESP 16; TEMP 36.3; O2SAT 99
--- NOTE | 2025-03-11 08:41 | HO.PSYCHPN ---
Subjective Subjective Date of Service: 03/11/25 Reason For Visit: F29 Unspecified Schizophrenia spectrumand other ps Subjective Notes: Conditional Voluntary and 3 Day Interim History: Pt slept through the night per nursing. She reports she feels very anxious at night because she does not know what can happen. She declined risperidone at bedtime. She reports it makes her sleepy and she can;t be sleepy because she has to be ready to protect herself. She continues to present with paranoid delusions related [facility] and not being safe there. She asks to be discharged but does not have a place to be. She reports she will go to [facility] but does not have an airline ticket nor money to afford one. She agreed to try a different medication. Review of Systems Review of Systems denies Yes all other systems are reviewed and are negative Constitutional: Reports no additional constitutional complaints Eyes: Reports no additional eye complaints Reports system reviewed and no additional complaints, except as documented Cardiovascular: Reports no additional cardiovascular complaints Respiratory: Reports no additional respiratory complaints Gastrointestinal: Reports no additional gastrointestinal complaints Musculoskeletal: Reports no additional musculoskeletal complaints Skin/Breast: Reports system reviewed and no additional complaints, except as docu Reports system reviewed and no additional complaints, except as documented Psychiatric: Reports as per HPI Endocrine: Reports no additional endocrine complaints Hematologic/Lymphatic: Reports no additional hematologic/lymphatic complaints Allergic/Immunologic: Reports no additional allergic/immunologic complaints Mental Status Exam Mental Status Exam Narrative: Patient Appearance: Well Grooomed Patient Orientation: Person, Place (hospital) and Time (February only) Level of Consciousness: Awake and Alert Patient Behavior: Guarded Mood Description: Calm ( good ) Affect Description: Angry Patient Cognition Impaired: Yes Ability to Follow Directions: Good Speech Pattern: Clear Hallucinations: None Delusions: Not Present Thought Process: Confusion Thought Content: negative for Suicidal Ideation or negative for Homicidal Ideation Judgement and Insight: impaired Diagnostics Vital Signs (24Hr): Vital Signs - 24 hr 03/10/25 20:00 Temperature 97.7 F Pulse Rate 77 Respiratory Rate 16 Blood Pressure 112/55 L Pulse Oximetry 99 Oxygen Delivery Method Room Air BMI result Body Mass Index 22.7 Labs 03/02/25 16:26 03/07/25 10:03 Labs: Laboratory Results - last 48 hr 03/09/25 03/09/25 03/09/25 11:17 16:21 20:56 POC Glucose 174 H 121 H 317 H 03/10/25 03/10/25 03/10/25 06:22 11:17 16:13 POC Glucose 166 H 198 H 294 H 03/10/25 03/11/25 20:06 06:31 POC Glucose 160 H 144 H Medications Medications Current Medications Acetaminophen (Acetaminophen 325 Mg Tablet) 650 mg PO Q6H PRN PRN Reason: Headache/Pain, Scale 1-10 Al Hydroxide/Mg Hydroxide (Magnesium Hydrox/Alum Hydrox 30 Ml Oral.Susp) 30 ml PO Q6H PRN PRN Reason: Heartburn/Nausea Dextrose (Dextrose 50 % 25 Gm/50 Ml Syringe) 25 gm IVPUSH Q15M PRN; Protocol PRN Reason: per Hypoglycemia Standing Ord. Glucose (Glucose Gel 15 Gm Gel..Gram.) 15 gm PO Q15M PRN; Protocol PRN Reason: per Hypoglycemia Standing Ord. Hydroxyzine HCl (Hydroxyzine Hcl 25 Mg Tablet) 25 mg PO Q6H PRN PRN Reason: mild anxiety Last Admin: 03/05/25 22:32 Dose: 25 mg Insulin Glargine (Insulin Glargine,Hum.Rec.Anlog 100 Unit/Ml 10 Ml Vial) 10 unit SUBCUT BEDTIME [facility] Last Admin: 03/10/25 21:04 Dose: 10 unit Insulin Human Lispro (Insulin Lispro 100 Unit/Ml 3 Ml Vial) 0 unit SUBCUT QIDACHS [facility]; Protocol Last Admin: 03/11/25 08:27 Dose: 2 unit Magnesium Hydroxide (Milk Of Magnesia 30 Ml Oral.Susp) 30 ml PO DAILY PRN PRN Reason: Constipation Melatonin (Melatonin 3 Mg Tablet) 3 mg PO BEDTIME [facility] Last Admin: 03/10/25 21:10 Dose: Not Given Metformin HCl (Metformin Hcl Er 500 Mg Tab.Er.24h) 1,000 mg PO DAILY [facility] Last Admin: 03/11/25 08:28 Dose: 1,000 mg Risperidone (Risperidone 2 Mg Tablet) 2 mg PO BEDTIME [facility] Last Admin: 03/10/25 21:11 Dose: Not Given Trazodone HCl (Trazodone Hcl 25 Mg Halftab) 25 mg PO BEDTIME MRX1 PRN PRN Reason: Insomnia Last Admin: 03/06/25 20:26 Dose: 25 mg Allergies Allergies Allergy/AdvReac Type Severity Reaction Status Date / Time No Known Allergies Allergy Verified 02/28/25 23:33 Assessment & Plan Assessment & Plan (1) Unspecified psychosis: Status: Acute Code(s): F29 - Unspecified psychosis not due to a substance or known physiological condition Plan HPI: Patient is a 65 years old Palestinian-speaking female with possible hx of diabetic and HTN who presented to the ED reporting someone is stealing her phone and making threatening comments to another person, patient feels that she is under threat. She said that she lives with her daughter. She says that she is afraid to call the police in regard to the pawn situation because it would involve using her phone which she believes is compromised. She reports that she has been sick for awhile, stomach pain. Patient provided very vague and none committal when asked clarified questions. She reports no security at home and missed just with a landlord and there are people in the house taking her phone and making threats Collateral done in the ED with family: Grandean's Stephane and Argenis her daughter reports that patient has not been taking medications. They suspect that patient flushing them down to toilet or hiding them. They feel there is paranoid. Reported that patient lives with [phone]. Formulation/clinical reasoning: Patient appeared to be paranoid, disorganized, anxious, depressed, poor sleep and appetite. Questioned if she have any cognitive decline or dementia. We will be benefit to having [place] done. She is not in distress, ADLs appeared to be fair. Poor insight and poor judgment. Reports that she feels safe here. We will do collateral with her daughter to get more history of diagnosis and baseline. Discussed with her regarding medication for severe disorganization, and paranoid thoughts, as well as insomnia. Patient agree with the plans but not sure she is able to process information. Hospital course: 03/01/25: at this time. I would address symptoms of insomnia, and paranoid until more information obtained from her daughter regarding treatment hx. [employer] dx and medcial conditions. Not sure if she is diabetic or having HTN hx. Start melatonin 3 mg at bedtime for insomnia with Low dose of trazodone PRN. Risperidone 0.5 b.i.d. for paranoid/disorganized thoughts. We will order point of care with insulin coverage. She refused on labs ordered for this morning. We will monitor for hypotension/high blood pressure and POC 03/02 pt a little confused and it is difficult to follow her answers; Seems to mentioned safety and talks about unrelated things, her family and lists the names of each of her kids. Says team can contact them. Does not really answer questions about mood 03/03 Patient remains odd. She thinks that she is being watched by cameras in the room. Asked if her family can visit, she says if they do we will need security... When asked if she is afraid of her family she points to the door and says the doors are not locked... Question is repeated in a different way and she again points to the door and says the door is not locked. Eventually she seems to say she is not afraid of her family but that she is in general afraid of someone coming into the house and hurting her. -will increase risperdal dose to 1mg bid -very much need collateral 03/05 Increase Risperdal to 2 mg bid for 24 hour trial. 03/07 patient has only taken one dose of risperidone 2 mg, otherwise she has refused it. She had not been eating for the past 2 days, finally today she did eat something. pt presents as suspicious and paranoid. 03/08 pt refusing risperidone, has only taken one time 2mg. continues to present as paranoid and suspicious, declines to go back to her daughter's house. does not seem to understand that she can't survive on the streets, insists on leaving regardless. add head CT, will complete moca/ acl next week in [place]. this insurance underwriter spoke with her daughter and provided update. r/o dementing process causing paranoia- her orientation for the most part seems intact except for situation. 03/09: no change 03/10: referred back to primary team to address concerns about not being discharged 03/11 d/c risperidone as pt reports she does not want this medication, will change to prolixin 1mg po daily. continues to present with paranoid delusions. anxious and guarded, declining to go back to her daughters' house, doesn't have a place to go. Reason for continued inpatient stay Substantial Risk for: inability to function Time Spent With Patient Time: Total time managing care of this patient today ____ minutes.
[2025-03-11 11:43] LABS: Glucose, Whole Blood 203 mg/dL (60-115)
[2025-03-11 16:25] LABS: Glucose, Whole Blood 162 mg/dL (60-115)
[2025-03-11 19:46] LABS: Glucose, Whole Blood 199 mg/dL (60-115)
[2025-03-11 20:00] VITALS: BP 132/65; PULSE 91; RESP 16; TEMP 36; O2SAT 99
[2025-03-11] MEDS: Insulin Glargine,Hum.rec.anlog 100 UNIT/ML 10 ML VIAL 10 UNIT SUBCUT (20:40)
[2025-03-12 06:30] LABS: Glucose, Whole Blood 219 mg/dL (60-115)
[2025-03-12 08:00] VITALS: BP 144/73; PULSE 95; O2SAT 98
--- NOTE | 2025-03-12 08:28 | HO.PM.IMPN ---
Subjective Subjective Date of Service: 03/12/25 Interval History: Patient seen in follow up, she reports that she feels hungry otherwise has no complaints. Nursing denies any concerns. Patient is seen in follow up for diabetes. Her blood pressures have been slightly elevated. Review of Systems She denies any shortness of breath, chest pain, dizziness, lightheadedness or any other concerning symptoms. Patient reports feeling hungry and thirsty. Physical Exam Exam: Exam: CONST: Alert and oriented, in NAD. Well nourished HEENT: Normocephalic, atraumatic, MMM RESP: Lungs clear, RRR even and regular HEART:,RRR, S1, S2. No edema GI:Abdomen Soft NT, ND. + BS times four :Deferred SKIN: Warm dry and intact, no visible lesions or rashes NEURO:CN II-XII Intact bilaterally, Sensation intact. Speech clear PSYCH: Normal affect Vital Signs: Vital Signs: Last Vital Signs Temp 96.8 F 03/11/25 20:00 Pulse 91 03/11/25 20:00 Resp 16 03/11/25 20:00 BP 132/65 03/11/25 20:00 Pulse Ox 99 03/11/25 20:00 O2 Del Method Room Air 03/11/25 20:00 BMI result Body Mass Index 22.7 Objective Data Active Medications Acetaminophen (Acetaminophen 325 Mg Tablet) 650 mg PO Q6H PRN PRN Reason: Headache/Pain, Scale 1-10 Al Hydroxide/Mg Hydroxide (Magnesium Hydrox/Alum Hydrox 30 Ml Oral.Susp) 30 ml PO Q6H PRN PRN Reason: Heartburn/Nausea Dextrose (Dextrose 50 % 25 Gm/50 Ml Syringe) 25 gm IVPUSH Q15M PRN; Protocol PRN Reason: per Hypoglycemia Standing Ord. Fluphenazine HCl (Fluphenazine Hcl 1 Mg Tablet) 1 mg PO DAILY [facility] Last Admin: 03/12/25 08:18 Dose: 1 mg Documented By: NADINE Glucose (Glucose Gel 15 Gm Gel..Gram.) 15 gm PO Q15M PRN; Protocol PRN Reason: per Hypoglycemia Standing Ord. Hydroxyzine HCl (Hydroxyzine Hcl 25 Mg Tablet) 25 mg PO Q6H PRN PRN Reason: mild anxiety Last Admin: 03/05/25 22:32 Dose: 25 mg Documented By: HO.REGANEI Insulin Glargine (Insulin Glargine,Hum.Rec.Anlog 100 Unit/Ml 10 Ml Vial) 10 unit SUBCUT BEDTIME [facility] Last Admin: 03/11/25 20:40 Dose: 10 unit Documented By: MARIANELA Insulin Human Lispro (Insulin Lispro 100 Unit/Ml 3 Ml Vial) 0 unit SUBCUT QIDACHS [facility]; Protocol Last Admin: 03/12/25 08:16 Dose: 6 unit Documented By: NADINE Magnesium Hydroxide (Milk Of Magnesia 30 Ml Oral.Susp) 30 ml PO DAILY PRN PRN Reason: Constipation Melatonin (Melatonin 3 Mg Tablet) 3 mg PO BEDTIME [facility] Last Admin: 03/11/25 20:41 Dose: 3 mg Documented By: MARIANELA Metformin HCl (Metformin Hcl Er 500 Mg Tab.Er.24h) 1,000 mg PO DAILY [facility] Last Admin: 03/12/25 08:14 Dose: 500 mg Documented By: NADINE Trazodone HCl (Trazodone Hcl 25 Mg Halftab) 25 mg PO BEDTIME MRX1 PRN PRN Reason: Insomnia Last Admin: 03/06/25 20:26 Dose: 25 mg Documented By: NINO Labs 03/02/25 16:26 03/07/25 10:03 Labs: Laboratory Results - last 24 hr 03/11/25 03/11/25 03/11/25 11:38 16:19 19:40 POC Glucose 203 H 162 H 199 H 03/12/25 06:16 POC Glucose 219 H Assessment and Plan (1) Insulin dependent type 2 diabetes mellitus: Status: Acute Plan 65-year-old female with past medical history of paranoia and disorganized behavior Paranoia and disorganized behavior/Schizophrenia spectrum Treatment per psychiatric team Patient oriented only to year. MOCA to be completed with English speaking public health sanitarian technician. Type 2 DM Hemoglobin A1c noted to be 9.7 Started on Lantus and sliding scale, metformin started at 1000 mg daily Blood sugars ranging 100-200's No hypoglycemic episodes noted. Increase Lantus to 14U Start Lisinopril and statin per ADA recommendations LCL 88. Goal <70 Thank you for allowing me to participate in the care of this patient. Will follow as needed. Please reconsult of any acute concerns or issues arise Quality Stroke Does the patient have a stroke diagnosis?: No VTE Prior VTE?: No VTE Risk Level:: Medical - low VTE Device Contraindication: Treatment Not Indicated VTE Drug Contraindication: Treatment Not Indicated
[2025-03-12 11:33] LABS: Glucose, Whole Blood 277 mg/dL (60-115)
--- NOTE | 2025-03-12 11:37 | P.PNPSI_ITS ---
Subjective Subjective Date of Service: 03/12/25 Reason For Visit: F29 Unspecified Schizophrenia spectrumand other ps Subjective Notes: Conditional Voluntary and 3 Day Interim History: Pt reports not sleeping well because I need to be alert. nursing reports she slept. Pt continues to present as paranoid, declining to go back to her daughters houses. She reports she will figure it out, if only I let her go. However, discussed she does not speak upper sorbian nor have any money and is far from her daughters house. She is taking partial doses of metformin. did accept prolixin. Review of Systems Review of Systems She denies any shortness of breath, chest pain, dizziness, lightheadedness or any other concerning symptoms. Patient reports feeling hungry and thirsty. Yes all other systems are reviewed and are negative Constitutional: Reports no additional constitutional complaints Eyes: Reports no additional eye complaints Reports system reviewed and no additional complaints, except as documented Cardiovascular: Reports no additional cardiovascular complaints Respiratory: Reports no additional respiratory complaints Gastrointestinal: Reports no additional gastrointestinal complaints Musculoskeletal: Reports no additional musculoskeletal complaints Skin/Breast: Reports system reviewed and no additional complaints, except as docu Reports system reviewed and no additional complaints, except as documented Psychiatric: Reports as per HPI Endocrine: Reports no additional endocrine complaints Hematologic/Lymphatic: Reports no additional hematologic/lymphatic complaints Allergic/Immunologic: Reports no additional allergic/immunologic complaints Mental Status Exam Mental Status Exam Narrative: Appearance: wearing hospital gown, fair hygiene, in NAD Behavior: somewhat guarded, Psychomotor: no agitation or retardation noted Speech: mostly clear, normal rate/rhythm/volume, spontaneous TP: mostly linear TC: fear about food she is eating here, not wanting to take medications and wanting to be discharged Mood: good AFfect: suspicious and paranoid SI: denies HI: denies VH/AH: unclear, she denies but may be internally preoccupied Delusions: paranoid delusions Insight/judgment: impaired x 2. Memory/cog: alert, oriented to idea that she is in the hospital. She knows the month and year. Not oriented to situation. Pending as less psychosis, MOCA/ ACL. Diagnostics Vital Signs (24Hr): Vital Signs - 24 hr 03/11/25 20:00 03/12/25 08:00 Temperature 96.8 F Pulse Rate 91 95 Respiratory Rate 16 Blood Pressure 132/65 144/73 H Pulse Oximetry 99 98 Oxygen Delivery Method Room Air BMI result Body Mass Index 22.7 Labs 03/02/25 16:26 03/07/25 10:03 Labs: Laboratory Results - last 48 hr 03/10/25 03/10/25 03/11/25 16:13 20:06 06:31 POC Glucose 294 H 160 H 144 H 03/11/25 03/11/25 03/11/25 11:38 16:19 19:40 POC Glucose 203 H 162 H 199 H 03/12/25 03/12/25 06:16 11:26 POC Glucose 219 H 277 H Medications Medications Current Medications Acetaminophen (Acetaminophen 325 Mg Tablet) 650 mg PO Q6H PRN PRN Reason: Headache/Pain, Scale 1-10 Al Hydroxide/Mg Hydroxide (Magnesium Hydrox/Alum Hydrox 30 Ml Oral.Susp) 30 ml PO Q6H PRN PRN Reason: Heartburn/Nausea Dextrose (Dextrose 50 % 25 Gm/50 Ml Syringe) 25 gm IVPUSH Q15M PRN; Protocol PRN Reason: per Hypoglycemia Standing Ord. Fluphenazine HCl (Fluphenazine Hcl 1 Mg Tablet) 1 mg PO DAILY [facility] Last Admin: 03/12/25 08:18 Dose: 1 mg Glucose (Glucose Gel 15 Gm Gel..Gram.) 15 gm PO Q15M PRN; Protocol PRN Reason: per Hypoglycemia Standing Ord. Hydroxyzine HCl (Hydroxyzine Hcl 25 Mg Tablet) 25 mg PO Q6H PRN PRN Reason: mild anxiety Last Admin: 03/05/25 22:32 Dose: 25 mg Insulin Glargine (Insulin Glargine,Hum.Rec.Anlog 100 Unit/Ml 10 Ml Vial) 10 unit SUBCUT BEDTIME [facility] Last Admin: 03/11/25 20:40 Dose: 10 unit Insulin Human Lispro (Insulin Lispro 100 Unit/Ml 3 Ml Vial) 0 unit SUBCUT QIDACHS [facility]; Protocol Last Admin: 03/12/25 08:16 Dose: 6 unit Magnesium Hydroxide (Milk Of Magnesia 30 Ml Oral.Susp) 30 ml PO DAILY PRN PRN Reason: Constipation Melatonin (Melatonin 3 Mg Tablet) 3 mg PO BEDTIME [facility] Last Admin: 03/11/25 20:41 Dose: 3 mg Metformin HCl (Metformin Hcl Er 500 Mg Tab.Er.24h) 1,000 mg PO DAILY [facility] Last Admin: 03/12/25 08:14 Dose: 500 mg Trazodone HCl (Trazodone Hcl 25 Mg Halftab) 25 mg PO BEDTIME MRX1 PRN PRN Reason: Insomnia Last Admin: 03/06/25 20:26 Dose: 25 mg Allergies Allergies Allergy/AdvReac Type Severity Reaction Status Date / Time No Known Allergies Allergy Verified 02/28/25 23:33 Assessment & Plan Assessment & Plan (1) Unspecified psychosis: Status: Acute Code(s): F29 - Unspecified psychosis not due to a substance or known physiological condition Plan HPI: Patient is a 65 years old Trinidadian-speaking female with possible hx of diabetic and HTN who presented to the ED reporting someone is stealing her phone and making threatening comments to another person, patient feels that she is under threat. She said that she lives with her daughter. She says that she is afraid to call the police in regard to the pawn situation because it would involve using her phone which she believes is compromised. She reports that she has been sick for awhile, stomach pain. Patient provided very vague and none committal when asked clarified questions. She reports no security at home and missed just with a landlord and there are people in the house taking her phone and making threats Collateral done in the ED with family: Grandson's Stephane and Argenis her daughter reports that patient has not been taking medications. They suspect that patient flushing them down to toilet or hiding them. They feel there is paranoid. Reported that patient lives with [phone]. Formulation/clinical reasoning: Patient appeared to be paranoid, disorganized, anxious, depressed, poor sleep and appetite. Questioned if she have any cognitive decline or dementia. We will be benefit to having [place] done. She is not in distress, ADLs appeared to be fair. Poor insight and poor judgment. Reports that she feels safe here. We will do collateral with her daughter to get more history of diagnosis and baseline. Discussed with her regarding medication for severe disorganization, and paranoid thoughts, as well as insomnia. Patient agree with the plans but not sure she is able to process information. Hospital course: 03/01/25: at this time. I would address symptoms of insomnia, and paranoid until more information obtained from her daughter regarding treatment hx. [facility] dx and medcial conditions. Not sure if she is diabetic or having HTN hx. Start melatonin 3 mg at bedtime for insomnia with Low dose of trazodone PRN. Risperidone 0.5 b.i.d. for paranoid/disorganized thoughts. We will order point of care with insulin coverage. She refused on labs ordered for this morning. We will monitor for hypotension/high blood pressure and POC 03/02 pt a little confused and it is difficult to follow her answers; Seems to mentioned safety and talks about unrelated things, her family and lists the names of each of her kids. Says team can contact them. Does not really answer questions about mood 03/03 Patient remains odd. She thinks that she is being watched by cameras in the room. Asked if her family can visit, she says if they do we will need security... When asked if she is afraid of her family she points to the door and says the doors are not locked... Question is repeated in a different way and she again points to the door and says the door is not locked. Eventually she seems to say she is not afraid of her family but that she is in general afraid of someone coming into the house and hurting her. -will increase risperdal dose to 1mg bid -very much need collateral 03/05 Increase Risperdal to 2 mg bid for 24 hour trial. 03/07 patient has only taken one dose of risperidone 2 mg, otherwise she has refused it. She had not been eating for the past 2 days, finally today she did eat something. pt presents as suspicious and paranoid. 03/08 pt refusing risperidone, has only taken one time 2mg. continues to present as paranoid and suspicious, declines to go back to her daughter's house. does not seem to understand that she can't survive on the streets, insists on leaving regardless. add head CT, will complete moca/ acl next week in [place]. this comic book writer spoke with her daughter and provided update. r/o dementing process causing paranoia- her orientation for the most part seems intact except for situation. 03/09: no change 03/10: referred back to primary team to address concerns about not being discharged 03/11 d/c risperidone as pt reports she does not want this medication, will change to prolixin 1mg po daily. continues to present with paranoid delusions. anxious and guarded, declining to go back to her daughters' house, doesn't have a place to go. 03/12 increase prolixin to 2mg po daily. d/c risperidone. Reason for continued inpatient stay Substantial Risk for: inability to function Time Spent With Patient Time: Total time managing care of this patient today ____ minutes.
[2025-03-12 12:18] LABS: Anti Nuclear Antibody Screen NEGATIVE (NEGATIVE)
[2025-03-12 16:11] LABS: Glucose, Whole Blood 147 mg/dL (60-115)
[2025-03-12 19:33] LABS: Glucose, Whole Blood 346 mg/dL (60-115)
[2025-03-12 20:00] VITALS: BP 95/60; PULSE 79; RESP 17; TEMP 36.1; O2SAT 94
[2025-03-12] MEDS: Insulin Glargine,Hum.rec.anlog 100 UNIT/ML 10 ML VIAL 14 UNIT SUBCUT (20:17)
[2025-03-13 06:09] LABS: Glucose, Whole Blood 242 mg/dL (60-115)
[2025-03-13 08:00] VITALS: BP 126/71; PULSE 86; RESP 16; O2SAT 100
[2025-03-13 11:27] LABS: Glucose, Whole Blood 235 mg/dL (60-115)
[2025-03-13 16:00] LABS: Glucose, Whole Blood 176 mg/dL (60-115)
--- NOTE | 2025-03-13 19:32 | HO.PSYCHPN ---
Subjective Subjective Date of Service: 03/13/25 Reason For Visit: F29 Unspecified Schizophrenia spectrumand other ps Subjective Notes: Section 7 Interim History: Pt reports she wants this ticket writer to discharge her as she does not feel safe. She continues to report she is not safe with her daughter but open to go with one of them. She is suspicious about her medications, only taking partial doses. No plan if discharge as to where she will stay- just let me go, I'll figure it out. She also tells this ticket writer that we may be able to speak with the president [facility] as he may help her. this ticket writer explained we can't contact the president. Review of Systems Review of Systems She denies any shortness of breath, chest pain, dizziness, lightheadedness or any other concerning symptoms. Patient reports feeling hungry and thirsty. Yes all other systems are reviewed and are negative Constitutional: Reports no additional constitutional complaints Eyes: Reports no additional eye complaints Reports system reviewed and no additional complaints, except as documented Cardiovascular: Reports no additional cardiovascular complaints Respiratory: Reports no additional respiratory complaints Gastrointestinal: Reports no additional gastrointestinal complaints Musculoskeletal: Reports no additional musculoskeletal complaints Skin/Breast: Reports system reviewed and no additional complaints, except as docu Reports system reviewed and no additional complaints, except as documented Psychiatric: Reports as per HPI Endocrine: Reports no additional endocrine complaints Hematologic/Lymphatic: Reports no additional hematologic/lymphatic complaints Allergic/Immunologic: Reports no additional allergic/immunologic complaints Mental Status Exam Mental Status Exam Narrative: Appearance: wearing hospital gown, fair hygiene, in NAD Behavior: somewhat guarded, Psychomotor: no agitation or retardation noted Speech: mostly clear, normal rate/rhythm/volume, spontaneous TP: mostly linear TC: fear about food she is eating here, not wanting to take medications and wanting to be discharged Mood: good AFfect: suspicious and paranoid SI: denies HI: denies VH/AH: unclear, she denies but may be internally preoccupied Delusions: paranoid delusions Insight/judgment: impaired x 2. Memory/cog: alert, oriented to idea that she is in the hospital. She knows the month and year. Not oriented to situation. Pending as less psychosis, MOCA/ ACL. Diagnostics Vital Signs (24Hr): Vital Signs - 24 hr 03/12/25 20:00 03/13/25 08:00 Temperature 97 F Pulse Rate 79 86 Respiratory Rate 17 16 Blood Pressure 95/60 126/71 Pulse Oximetry 94 100 Oxygen Delivery Method Room Air Room Air BMI result Body Mass Index 22.7 Labs 03/02/25 16:26 03/07/25 10:03 Labs: Laboratory Results - last 48 hr 03/09/25 03/11/25 03/12/25 07:22 19:40 06:16 POC Glucose 199 H 219 H CATIA Screen NEGATIVE CATIA Titer TNP CATIA Titer 2 TNP CATIA Titer 3 TNP CATIA Pattern TNP CATIA Pattern 2 TNP CATIA Pattern 3 TNP 03/12/25 03/12/25 03/12/25 11:26 16:06 19:29 POC Glucose 277 H 147 H 346 H CATIA Screen CATIA Titer CATIA Titer 2 CATIA Titer 3 CATIA Pattern CATIA Pattern 2 CATIA Pattern 3 03/13/25 03/13/25 03/13/25 05:59 11:23 15:55 POC Glucose 242 H 235 H 176 H CATIA Screen CATIA Titer CATIA Titer 2 CATIA Titer 3 CATIA Pattern CATIA Pattern 2 CATIA Pattern 3 Medications Medications Current Medications Acetaminophen (Acetaminophen 325 Mg Tablet) 650 mg PO Q6H PRN PRN Reason: Headache/Pain, Scale 1-10 Al Hydroxide/Mg Hydroxide (Magnesium Hydrox/Alum Hydrox 30 Ml Oral.Susp) 30 ml PO Q6H PRN PRN Reason: Heartburn/Nausea Atorvastatin Calcium (Atorvastatin Calcium 10 Mg Tablet) 10 mg PO BEDTIME [facility] Last Admin: 03/12/25 20:17 Dose: 10 mg Dextrose (Dextrose 50 % 25 Gm/50 Ml Syringe) 25 gm IVPUSH Q15M PRN; Protocol PRN Reason: per Hypoglycemia Standing Ord. Fluphenazine HCl (Fluphenazine Hcl 1 Mg Tablet) 2 mg PO DAILY [facility] Last Admin: 03/13/25 08:32 Dose: 1 mg Glucose (Glucose Gel 15 Gm Gel..Gram.) 15 gm PO Q15M PRN; Protocol PRN Reason: per Hypoglycemia Standing Ord. Hydroxyzine HCl (Hydroxyzine Hcl 25 Mg Tablet) 25 mg PO Q6H PRN PRN Reason: mild anxiety Last Admin: 03/05/25 22:32 Dose: 25 mg Insulin Glargine (Insulin Glargine,Hum.Rec.Anlog 100 Unit/Ml 10 Ml Vial) 14 unit SUBCUT BEDTIME [facility] Last Admin: 09/16/25 20:17 Dose: 14 unit Insulin Human Lispro (Insulin Lispro 100 Unit/Ml 3 Ml Vial) 0 unit SUBCUT QIDACHS [facility]; Protocol Last Admin: 03/13/25 16:39 Dose: 2 unit Lisinopril (Lisinopril 2.5 Mg Tablet) 2.5 mg PO DAILY [facility]; Protocol Last Admin: 03/13/25 08:27 Dose: 2.5 mg Magnesium Hydroxide (Milk Of Magnesia 30 Ml Oral.Susp) 30 ml PO DAILY PRN PRN Reason: Constipation Melatonin (Melatonin 3 Mg Tablet) 3 mg PO BEDTIME [facility] Last Admin: 03/12/25 20:17 Dose: 3 mg Metformin HCl (Metformin Hcl Er 500 Mg Tab.Er.24h) 1,000 mg PO DAILY [facility] Last Admin: 03/13/25 08:33 Dose: 500 mg Trazodone HCl (Trazodone Hcl 25 Mg Halftab) 25 mg PO BEDTIME MRX1 PRN PRN Reason: Insomnia Last Admin: 03/06/25 20:26 Dose: 25 mg Allergies Allergies Allergy/AdvReac Type Severity Reaction Status Date / Time No Known Allergies Allergy Verified 02/28/25 23:33 Assessment & Plan Assessment & Plan (1) Unspecified psychosis: Status: Acute Code(s): F29 - Unspecified psychosis not due to a substance or known physiological condition Plan HPI: Patient is a 65 years old Maltese-speaking female with possible hx of diabetic and HTN who presented to the ED reporting someone is stealing her phone and making threatening comments to another person, patient feels that she is under threat. She said that she lives with her daughter. She says that she is afraid to call the police in regard to the pawn situation because it would involve using her phone which she believes is compromised. She reports that she has been sick for awhile, stomach pain. Patient provided very vague and none committal when asked clarified questions. She reports no security at home and missed just with a landlord and there are people in the house taking her phone and making threats Collateral done in the ED with family: Grandson's Stephane and Argenis her daughter reports that patient has not been taking medications. They suspect that patient flushing them down to toilet or hiding them. They feel there is paranoid. Reported that patient lives with [id number]. Formulation/clinical reasoning: Patient appeared to be paranoid, disorganized, anxious, depressed, poor sleep and appetite. Questioned if she have any cognitive decline or dementia. We will be benefit to having [place] done. She is not in distress, ADLs appeared to be fair. Poor insight and poor judgment. Reports that she feels safe here. We will do collateral with her daughter to get more history of diagnosis and baseline. Discussed with her regarding medication for severe disorganization, and paranoid thoughts, as well as insomnia. Patient agree with the plans but not sure she is able to process information. Hospital course: 03/01/25: at this time. I would address symptoms of insomnia, and paranoid until more information obtained from her daughter regarding treatment hx. [facility] dx and medcial conditions. Not sure if she is diabetic or having HTN hx. Start melatonin 3 mg at bedtime for insomnia with Low dose of trazodone PRN. Risperidone 0.5 b.i.d. for paranoid/disorganized thoughts. We will order point of care with insulin coverage. She refused on labs ordered for this morning. We will monitor for hypotension/high blood pressure and POC 03/02 pt a little confused and it is difficult to follow her answers; Seems to mentioned safety and talks about unrelated things, her family and lists the names of each of her kids. Says team can contact them. Does not really answer questions about mood 03/03 Patient remains odd. She thinks that she is being watched by cameras in the room. Asked if her family can visit, she says if they do we will need security... When asked if she is afraid of her family she points to the door and says the doors are not locked... Question is repeated in a different way and she again points to the door and says the door is not locked. Eventually she seems to say she is not afraid of her family but that she is in general afraid of someone coming into the house and hurting her. -will increase risperdal dose to 1mg bid -very much need collateral 03/05 Increase Risperdal to 2 mg bid for 24 hour trial. 03/07 patient has only taken one dose of risperidone 2 mg, otherwise she has refused it. She had not been eating for the past 2 days, finally today she did eat something. pt presents as suspicious and paranoid. 03/08 pt refusing risperidone, has only taken one time 2mg. continues to present as paranoid and suspicious, declines to go back to her daughter's house. does not seem to understand that she can't survive on the streets, insists on leaving regardless. add head CT, will complete moca/ acl next week in Maltese. this ticket writer spoke with her daughter and provided update. r/o dementing process causing paranoia- her orientation for the most part seems intact except for situation. 03/09: no change 03/10: referred back to primary team to address concerns about not being discharged 03/11 d/c risperidone as pt reports she does not want this medication, will change to prolixin 1mg po daily. continues to present with paranoid delusions. anxious and guarded, declining to go back to her daughters' house, doesn't have a place to go. 03/12 increase prolixin to 2mg po daily. d/c risperidone. 03/13 continue prolixin, filed for 7&8. Reason for continued inpatient stay Substantial Risk for: inability to function Time Spent With Patient Time: Total time managing care of this patient today ____ minutes.
[2025-03-13 19:47] LABS: Glucose, Whole Blood 222 mg/dL (60-115)
[2025-03-13 19:48] VITALS: BP 107/60; PULSE 97; RESP 16; TEMP 36.3; O2SAT 97
[2025-03-13] MEDS: Insulin Glargine,Hum.rec.anlog 100 UNIT/ML 10 ML VIAL 14 UNIT SUBCUT (20:48)
[2025-03-14 06:39] LABS: Glucose, Whole Blood 223 mg/dL (60-115)
[2025-03-14 08:10] VITALS: BP 126/70; PULSE 86; RESP 18; TEMP 35.7; O2SAT 99
[2025-03-14 08:32] VITALS: BMI 23.5
[2025-03-14 08:43] LABS: Creatinine Clr Calc Pharmacy 57.2; Estimated Glomerular Filt Rate > 60
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
[2025-03-14 11:14] LABS: Glucose, Whole Blood 242 mg/dL (60-115)
[2025-03-14 16:19] LABS: Glucose, Whole Blood 151 mg/dL (60-115)
[2025-03-14 19:41] LABS: Glucose, Whole Blood 277 mg/dL (60-115)
[2025-03-14 20:00] VITALS: BP 117/60; PULSE 90; RESP 16; TEMP 36.2; O2SAT 98
[2025-03-14] MEDS: Insulin Glargine,Hum.rec.anlog 100 UNIT/ML 10 ML VIAL 14 UNIT SUBCUT (20:58)
[2025-03-15 06:31] LABS: Glucose, Whole Blood 177 mg/dL (60-115)
[2025-03-15 08:00] VITALS: BP 115/68; PULSE 82; RESP 16; O2SAT 100
[2025-03-15 11:08] LABS: Glucose, Whole Blood 199 mg/dL (60-115)
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
[2025-03-15 16:29] LABS: Glucose, Whole Blood 207 mg/dL (60-115)
[2025-03-15 20:00] VITALS: BP 110/60; PULSE 84; RESP 16; TEMP 36.4; O2SAT 93
[2025-03-15 20:22] LABS: Glucose, Whole Blood 266 mg/dL (60-115)
[2025-03-15] MEDS: Insulin Glargine,Hum.rec.anlog 100 UNIT/ML 10 ML VIAL 14 UNIT SUBCUT (21:12)
[2025-03-16 06:36] LABS: Glucose, Whole Blood 231 mg/dL (60-115)
[2025-03-16 08:30] VITALS: BP 116/65; PULSE 103; RESP 18; TEMP 36.2; O2SAT 98
--- NOTE | 2025-03-16 10:14 | HO.PSYCHPN ---
Subjective Subjective Date of Service: 03/16/25 Reason For Visit: F29 Unspecified Schizophrenia spectrumand other ps Interim History: Pt seen with RN and claims consultant. Patient remains delusional and paranoid. Says she is feeling bad because they are disrespecting me. She says a woman police or patrol park officer was here and threatened her. She believes people are placing drugs in her food and on her bed. She is suspicious. She denies SI/HI. Review of Systems Review of Systems She denies any shortness of breath, chest pain, dizziness, lightheadedness or any other concerning symptoms. Patient reports feeling hungry and thirsty. Yes all other systems are reviewed and are negative Constitutional: Reports no additional constitutional complaints Eyes: Reports no additional eye complaints Reports system reviewed and no additional complaints, except as documented Cardiovascular: Reports no additional cardiovascular complaints Respiratory: Reports no additional respiratory complaints Gastrointestinal: Reports no additional gastrointestinal complaints Musculoskeletal: Reports no additional musculoskeletal complaints Skin/Breast: Reports system reviewed and no additional complaints, except as docu Reports system reviewed and no additional complaints, except as documented Psychiatric: Reports as per HPI Endocrine: Reports no additional endocrine complaints Hematologic/Lymphatic: Reports no additional hematologic/lymphatic complaints Allergic/Immunologic: Reports no additional allergic/immunologic complaints Mental Status Exam Mental Status Exam Narrative: Appearance: wearing hospital gown, fair hygiene, in NAD Behavior: somewhat guarded, Psychomotor: no agitation or retardation noted Speech: mostly clear, normal rate/rhythm/volume, spontaneous TP: mostly linear TC: fear about food she is eating here, not wanting to take medications and wanting to be discharged Mood: good AFfect: suspicious and paranoid SI: denies HI: denies VH/AH: unclear, she denies but may be internally preoccupied Delusions: paranoid delusions Insight/judgment: impaired x 2. Memory/cog: alert, oriented to idea that she is in the hospital. She knows the month and year. Not oriented to situation. Pending as less psychosis, MOCA/ ACL. Patient Appearance: Well Grooomed Patient Orientation: Person, Place (hospital) and Time (February only) Level of Consciousness: Awake and Alert Patient Behavior: Guarded Mood Description: Calm ( good ) Affect Description: Angry Patient Cognition Impaired: Yes Ability to Follow Directions: Good Speech Pattern: Clear Memory Description: Remote Impaired Diagnostics Vital Signs (24Hr): Vital Signs - 24 hr 03/15/25 20:00 03/16/25 08:30 Temperature 97.6 F 97.2 F Pulse Rate 84 103 H Respiratory Rate 16 18 Blood Pressure 110/60 116/65 Pulse Oximetry 93 98 Oxygen Delivery Method Room Air Room Air BMI result Body Mass Index 23.5 Labs 03/02/25 16:26 03/14/25 08:19 Labs: Laboratory Results - last 48 hr 03/14/25 03/14/25 03/14/25 11:11 16:09 19:36 POC Glucose 242 H 151 H 277 H 03/15/25 03/15/25 03/15/25 05:56 11:03 16:22 POC Glucose 177 H 199 H 207 H 03/15/25 03/16/25 20:06 06:11 POC Glucose 266 H 231 H Medications Medications Current Medications Acetaminophen (Acetaminophen 325 Mg Tablet) 650 mg PO Q6H PRN PRN Reason: Headache/Pain, Scale 1-10 Last Admin: 03/16/25 08:39 Dose: 650 mg Al Hydroxide/Mg Hydroxide (Magnesium Hydrox/Alum Hydrox 30 Ml Oral.Susp) 30 ml PO Q6H PRN PRN Reason: Heartburn/Nausea Atorvastatin Calcium (Atorvastatin Calcium 10 Mg Tablet) 10 mg PO BEDTIME [facility] Last Admin: 03/15/25 21:12 Dose: 10 mg Dextrose (Dextrose 50 % 25 Gm/50 Ml Syringe) 25 gm IVPUSH Q15M PRN; Protocol PRN Reason: per Hypoglycemia Standing Ord. Fluphenazine HCl (Fluphenazine Hcl 1 Mg Tablet) 2 mg PO DAILY [facility] Last Admin: 03/16/25 08:39 Dose: 2 mg Glucose (Glucose Gel 15 Gm Gel..Gram.) 15 gm PO Q15M PRN; Protocol PRN Reason: per Hypoglycemia Standing Ord. Hydroxyzine HCl (Hydroxyzine Hcl 25 Mg Tablet) 25 mg PO Q6H PRN PRN Reason: mild anxiety Last Admin: 03/05/25 22:32 Dose: 25 mg Insulin Glargine (Insulin Glargine,Hum.Rec.Anlog 100 Unit/Ml 10 Ml Vial) 14 unit SUBCUT BEDTIME [facility] Last Admin: 03/15/25 21:12 Dose: 14 unit Insulin Human Lispro (Insulin Lispro 100 Unit/Ml 3 Ml Vial) 0 unit SUBCUT QIDACHS [facility]; Protocol Last Admin: 03/16/25 07:51 Dose: 6 unit Lisinopril (Lisinopril 2.5 Mg Tablet) 2.5 mg PO DAILY [facility]; Protocol Last Admin: 03/16/25 08:39 Dose: 2.5 mg Magnesium Hydroxide (Milk Of Magnesia 30 Ml Oral.Susp) 30 ml PO DAILY PRN PRN Reason: Constipation Melatonin (Melatonin 3 Mg Tablet) 3 mg PO BEDTIME [facility] Last Admin: 03/15/25 21:12 Dose: 3 mg Metformin HCl (Metformin Hcl Er 500 Mg Tab.Er.24h) 1,000 mg PO DAILY [facility] Last Admin: 03/16/25 08:43 Dose: 1,000 mg Trazodone HCl (Trazodone Hcl 25 Mg Halftab) 25 mg PO BEDTIME [facility] PRN PRN Reason: Insomnia Last Admin: 03/06/25 20:26 Dose: 25 mg Allergies Allergies Allergy/AdvReac Type Severity Reaction Status Date / Time No Known Allergies Allergy Verified 02/28/25 23:33 Assessment & Plan Assessment & Plan (1) Unspecified psychosis: Status: Acute Code(s): F29 - Unspecified psychosis not due to a substance or known physiological condition Plan HPI: Patient is a 65 years old Bulgarian-speaking female with possible hx of diabetic and HTN who presented to the ED reporting someone is stealing her phone and making threatening comments to another person, patient feels that she is under threat. She said that she lives with her daughter. She says that she is afraid to call the police in regard to the pawn situation because it would involve using her phone which she believes is compromised. She reports that she has been sick for awhile, stomach pain. Patient provided very vague and none committal when asked clarified questions. She reports no security at home and missed just with a landlord and there are people in the house taking her phone and making threats Collateral done in the ED with family: Grandson's Stephane and Argenis her daughter reports that patient has not been taking medications. They suspect that patient flushing them down to toilet or hiding them. They feel there is paranoid. Reported that patient lives with [phone]. Formulation/clinical reasoning: Patient appeared to be paranoid, disorganized, anxious, depressed, poor sleep and appetite. Questioned if she have any cognitive decline or dementia. We will be benefit to having [place] done. She is not in distress, ADLs appeared to be fair. Poor insight and poor judgment. Reports that she feels safe here. We will do collateral with her daughter to get more history of diagnosis and baseline. Discussed with her regarding medication for severe disorganization, and paranoid thoughts, as well as insomnia. Patient agree with the plans but not sure she is able to process information. Hospital course: 03/01/25: at this time. I would address symptoms of insomnia, and paranoid until more information obtained from her daughter regarding treatment hx. [employer] health dx and medcial conditions. Not sure if she is diabetic or having HTN hx. Start melatonin 3 mg at bedtime for insomnia with Low dose of trazodone PRN. Risperidone 0.5 b.i.d. for paranoid/disorganized thoughts. We will order point of care with insulin coverage. She refused on labs ordered for this morning. We will monitor for hypotension/high blood pressure and POC 03/02 pt a little confused and it is difficult to follow her answers; Seems to mentioned safety and talks about unrelated things, her family and lists the names of each of her kids. Says team can contact them. Does not really answer questions about mood 03/03 Patient remains odd. She thinks that she is being watched by cameras in the room. Asked if her family can visit, she says if they do we will need security... When asked if she is afraid of her family she points to the door and says the doors are not locked... Question is repeated in a different way and she again points to the door and says the door is not locked. Eventually she seems to say she is not afraid of her family but that she is in general afraid of someone coming into the house and hurting her. -will increase risperdal dose to 1mg bid -very much need collateral 03/05 Increase Risperdal to 2 mg bid for 24 hour trial. 03/07 patient has only taken one dose of risperidone 2 mg, otherwise she has refused it. She had not been eating for the past 2 days, finally today she did eat something. pt presents as suspicious and paranoid. 03/08 pt refusing risperidone, has only taken one time 2mg. continues to present as paranoid and suspicious, declines to go back to her daughter's house. does not seem to understand that she can't survive on the streets, insists on leaving regardless. add head CT, will complete moca/ acl next week in Bulgarian. this telegraphic typewriter mechanic spoke with her daughter and provided update. r/o dementing process causing paranoia- her orientation for the most part seems intact except for situation. 03/09: no change 03/10: referred back to primary team to address concerns about not being discharged 03/11 d/c risperidone as pt reports she does not want this medication, will change to prolixin 1mg po daily. continues to present with paranoid delusions. anxious and guarded, declining to go back to her daughters' house, doesn't have a place to go. 03/12 increase prolixin to 2mg po daily. d/c risperidone. 03/13 continue prolixin, filed for 7&8. 03/14 continue tx. 03/15 continue tx. collateral information from daughter who reports paranoia may be present for long than initially suspected, more than 10 years at least. 03/16: continue current management and treatment plan. Reason for continued inpatient stay Substantial Risk for: inability to function and rapid decompensation Time Spent With Patient Time: Total time managing care of this patient today ____ minutes.
[2025-03-16 11:12] LABS: Glucose, Whole Blood 234 mg/dL (60-115)
[2025-03-16 16:12] LABS: Glucose, Whole Blood 157 mg/dL (60-115)
[2025-03-16 20:00] VITALS: BP 112/60; PULSE 74; RESP 16; TEMP 36.6; O2SAT 97
[2025-03-16 20:01] LABS: Glucose, Whole Blood 254 mg/dL (60-115)
[2025-03-16] MEDS: Insulin Glargine,Hum.rec.anlog 100 UNIT/ML 10 ML VIAL 14 UNIT SUBCUT (20:56)
[2025-03-17 06:35] LABS: Glucose, Whole Blood 188 mg/dL (60-115)
[2025-03-17 08:03] VITALS: BP 125/57; PULSE 81; RESP 16; TEMP 35.6; O2SAT 100
[2025-03-17 11:16] LABS: Glucose, Whole Blood 219 mg/dL (60-115)
--- NOTE | 2025-03-17 15:46 | HO.PSYCHPN ---
Subjective Subjective Date of Service: 03/17/25 Reason For Visit: F29 Unspecified Schizophrenia spectrumand other ps Interim History: Pt seen with RN and staff interpreter. She remains paranoid. She says there is a patient named Anthony that is coming and attacking people and other patients are in danger. Patient remains delusional and paranoid. She believes people are placing drugs in her food and on her bed. She is suspicious. She denies SI/HI. Review of Systems Review of Systems She denies any shortness of breath, chest pain, dizziness, lightheadedness or any other concerning symptoms. Patient reports feeling hungry and thirsty. Yes all other systems are reviewed and are negative Constitutional: Reports no additional constitutional complaints Eyes: Reports no additional eye complaints Reports system reviewed and no additional complaints, except as documented Cardiovascular: Reports no additional cardiovascular complaints Respiratory: Reports no additional respiratory complaints Gastrointestinal: Reports no additional gastrointestinal complaints Musculoskeletal: Reports no additional musculoskeletal complaints Skin/Breast: Reports system reviewed and no additional complaints, except as docu Reports system reviewed and no additional complaints, except as documented Psychiatric: Reports as per HPI Endocrine: Reports no additional endocrine complaints Hematologic/Lymphatic: Reports no additional hematologic/lymphatic complaints Allergic/Immunologic: Reports no additional allergic/immunologic complaints Mental Status Exam Mental Status Exam Narrative: Appearance: wearing hospital gown, fair hygiene, in NAD Behavior: somewhat guarded, Psychomotor: no agitation or retardation noted Speech: mostly clear, normal rate/rhythm/volume, spontaneous TP: mostly linear TC: fear about food she is eating here, not wanting to take medications and wanting to be discharged Mood: good AFfect: suspicious and paranoid SI: denies HI: denies VH/AH: unclear, she denies but may be internally preoccupied Delusions: paranoid delusions Insight/judgment: impaired x 2. Memory/cog: alert, oriented to idea that she is in the hospital. She knows the month and year. Not oriented to situation. Pending as less psychosis, MOCA/ ACL. Patient Appearance: Well Grooomed Patient Orientation: Person, Place (hospital) and Time (February only) Level of Consciousness: Awake and Alert Patient Behavior: Guarded Mood Description: Calm ( good ) Affect Description: Angry Patient Cognition Impaired: Yes Ability to Follow Directions: Good Speech Pattern: Clear Memory Description: Remote Impaired Diagnostics Vital Signs (24Hr): Vital Signs - 24 hr 03/16/25 20:00 03/17/25 08:03 Temperature 97.8 F 96.1 F L Pulse Rate 74 81 Respiratory Rate 16 16 Blood Pressure 112/60 125/57 L Pulse Oximetry 97 100 Oxygen Delivery Method Room Air Room Air BMI result Body Mass Index 23.5 Labs 03/02/25 16:26 03/14/25 08:19 Labs: Laboratory Results - last 48 hr 03/15/25 03/15/25 03/16/25 16:22 20:06 06:11 POC Glucose 207 H 266 H 231 H 03/16/25 03/16/25 03/16/25 11:04 16:06 19:55 POC Glucose 234 H 157 H 254 H 03/17/25 03/17/25 06:00 11:12 POC Glucose 188 H 219 H Medications Medications Current Medications Acetaminophen (Acetaminophen 325 Mg Tablet) 650 mg PO Q6H PRN PRN Reason: Headache/Pain, Scale 1-10 Last Admin: 03/16/25 08:39 Dose: 650 mg Al Hydroxide/Mg Hydroxide (Magnesium Hydrox/Alum Hydrox 30 Ml Oral.Susp) 30 ml PO Q6H PRN PRN Reason: Heartburn/Nausea Atorvastatin Calcium (Atorvastatin Calcium 10 Mg Tablet) 10 mg PO BEDTIME [facility] Last Admin: 03/16/25 20:57 Dose: 10 mg Dextrose (Dextrose 50 % 25 Gm/50 Ml Syringe) 25 gm IVPUSH Q15M PRN; Protocol PRN Reason: per Hypoglycemia Standing Ord. Fluphenazine HCl (Fluphenazine Hcl 1 Mg Tablet) 2 mg PO DAILY [facility] Last Admin: 03/17/25 08:04 Dose: 2 mg Glucose (Glucose Gel 15 Gm Gel..Gram.) 15 gm PO Q15M PRN; Protocol PRN Reason: per Hypoglycemia Standing Ord. Hydroxyzine HCl (Hydroxyzine Hcl 25 Mg Tablet) 25 mg PO Q6H PRN PRN Reason: mild anxiety Last Admin: 03/05/25 22:32 Dose: 25 mg Insulin Glargine (Insulin Glargine,Hum.Rec.Anlog 100 Unit/Ml 10 Ml Vial) 14 unit SUBCUT BEDTIME [facility] Last Admin: 03/16/25 20:56 Dose: 14 unit Insulin Human Lispro (Insulin Lispro 100 Unit/Ml 3 Ml Vial) 0 unit SUBCUT QIDACHS [facility]; Protocol Last Admin: 03/17/25 11:40 Dose: 6 unit Lisinopril (Lisinopril 2.5 Mg Tablet) 2.5 mg PO DAILY [facility]; Protocol Last Admin: 03/17/25 08:04 Dose: 2.5 mg Magnesium Hydroxide (Milk Of Magnesia 30 Ml Oral.Susp) 30 ml PO DAILY PRN PRN Reason: Constipation Melatonin (Melatonin 3 Mg Tablet) 3 mg PO BEDTIME [facility] Last Admin: 03/16/25 20:57 Dose: 3 mg Metformin HCl (Metformin Hcl Er 500 Mg Tab.Er.24h) 1,000 mg PO DAILY [facility] Last Admin: 03/17/25 08:04 Dose: 1,000 mg Trazodone HCl (Trazodone Hcl 25 Mg Halftab) 25 mg PO BEDTIME [facility] PRN PRN Reason: Insomnia Last Admin: 03/06/25 20:26 Dose: 25 mg Allergies Allergies Allergy/AdvReac Type Severity Reaction Status Date / Time No Known Allergies Allergy Verified 02/28/25 23:33 Assessment & Plan Assessment & Plan (1) Unspecified psychosis: Status: Acute Code(s): F29 - Unspecified psychosis not due to a substance or known physiological condition Plan HPI: Patient is a 65 years old Martiniquais-speaking female with possible hx of diabetic and HTN who presented to the ED reporting someone is stealing her phone and making threatening comments to another person, patient feels that she is under threat. She said that she lives with her daughter. She says that she is afraid to call the police in regard to the pawn situation because it would involve using her phone which she believes is compromised. She reports that she has been sick for awhile, stomach pain. Patient provided very vague and none committal when asked clarified questions. She reports no security at home and missed just with a landlord and there are people in the house taking her phone and making threats Collateral done in the ED with family: Grandson's Stephane and Argenis her daughter reports that patient has not been taking medications. They suspect that patient flushing them down to toilet or hiding them. They feel there is paranoid. Reported that patient lives with [phone]. Formulation/clinical reasoning: Patient appeared to be paranoid, disorganized, anxious, depressed, poor sleep and appetite. Questioned if she have any cognitive decline or dementia. We will be benefit to having [place] done. She is not in distress, ADLs appeared to be fair. Poor insight and poor judgment. Reports that she feels safe here. We will do collateral with her daughter to get more history of diagnosis and baseline. Discussed with her regarding medication for severe disorganization, and paranoid thoughts, as well as insomnia. Patient agree with the plans but not sure she is able to process information. Hospital course: 03/01/25: at this time. I would address symptoms of insomnia, and paranoid until more information obtained from her daughter regarding treatment hx. [facility] dx and medcial conditions. Not sure if she is diabetic or having HTN hx. Start melatonin 3 mg at bedtime for insomnia with Low dose of trazodone PRN. Risperidone 0.5 b.i.d. for paranoid/disorganized thoughts. We will order point of care with insulin coverage. She refused on labs ordered for this morning. We will monitor for hypotension/high blood pressure and POC 03/02 pt a little confused and it is difficult to follow her answers; Seems to mentioned safety and talks about unrelated things, her family and lists the names of each of her kids. Says team can contact them. Does not really answer questions about mood 03/03 Patient remains odd. She thinks that she is being watched by cameras in the room. Asked if her family can visit, she says if they do we will need security... When asked if she is afraid of her family she points to the door and says the doors are not locked... Question is repeated in a different way and she again points to the door and says the door is not locked. Eventually she seems to say she is not afraid of her family but that she is in general afraid of someone coming into the house and hurting her. -will increase risperdal dose to 1mg bid -very much need collateral 03/05 Increase Risperdal to 2 mg bid for 24 hour trial. 03/07 patient has only taken one dose of risperidone 2 mg, otherwise she has refused it. She had not been eating for the past 2 days, finally today she did eat something. pt presents as suspicious and paranoid. 03/08 pt refusing risperidone, has only taken one time 2mg. continues to present as paranoid and suspicious, declines to go back to her daughter's house. does not seem to understand that she can't survive on the streets, insists on leaving regardless. add head CT, will complete moca/ acl next week in Martiniquais. this field underwriter spoke with her daughter and provided update. r/o dementing process causing paranoia- her orientation for the most part seems intact except for situation. 03/09: no change 03/10: referred back to primary team to address concerns about not being discharged 03/11 d/c risperidone as pt reports she does not want this medication, will change to prolixin 1mg po daily. continues to present with paranoid delusions. anxious and guarded, declining to go back to her daughters' house, doesn't have a place to go. 03/12 increase prolixin to 2mg po daily. d/c risperidone. 03/13 continue prolixin, filed for 7&8. 03/14 continue tx. 03/15 continue tx. collateral information from daughter who reports paranoia may be present for long than initially suspected, more than 10 years at least. 03/16: continue current management and treatment plan. 03/17: continue current management and treatment plan. Reason for continued inpatient stay Substantial Risk for: inability to function and rapid decompensation Time Spent With Patient Time: Total time managing care of this patient today ____ minutes.
[2025-03-17 16:30] LABS: Glucose, Whole Blood 216 mg/dL (60-115)
[2025-03-17 19:50] LABS: Glucose, Whole Blood 351 mg/dL (60-115)
[2025-03-17 20:00] VITALS: BP 118/60; PULSE 96; RESP 16; TEMP 36.4; O2SAT 96
[2025-03-17] MEDS: Insulin Glargine,Hum.rec.anlog 100 UNIT/ML 10 ML VIAL 14 UNIT SUBCUT (20:34)
[2025-03-18 06:56] LABS: Glucose, Whole Blood 196 mg/dL (60-115)
[2025-03-18 07:45] LABS: Anion Gap 9 (12-20); Blood Urea Nitrogen 16 mg/dL (9-16); Calcium 8.5 mg/dL (8.4-10.2); Carbon Dioxide 29 mmol/L (22-29); Chloride 106 mmol/L (96-108); Creatinine Clr Calc Pharmacy 67.5; Estimated Glomerular Filt Rate > 60; Potassium 4.2 mmol/L (3.3-5.1); Sodium 140 mmol/L (135-145)
[2025-03-18 07:55] VITALS: BP 113/62; PULSE 82; RESP 18; TEMP 36.6; O2SAT 98
--- NOTE | 2025-03-18 08:45 | HO.PSYCHPN ---
Subjective Subjective Date of Service: 03/18/25 Reason For Visit: F29 Unspecified Schizophrenia spectrumand other ps Subjective Notes: Section 7 Interim History: Per nursing, pt sleeps through the night, but pt reports she is not able to sleep here as she is not safe. Pt continues to present as paranoid, she tells this technical report writer that someone is coming at night and spreading drugs all overt her bed. She tells this technical report writer I don't understand and can't protect her and if she is not discharged from the hospital soon, she will be killed. She insists that she can stay with her daughter, however, daughter told this technical report writer she can't take in her current condition as she is very paranoid and suspicious and worries that she will just leave the house and stay on the streets. Pt denies SI/HI. She has been more visible on the unit, going to some groups. She is also taking prolixin more consistently. No EPS noted. Review of Systems Review of Systems She denies any shortness of breath, chest pain, dizziness, lightheadedness or any other concerning symptoms. Patient reports feeling hungry and thirsty. Yes all other systems are reviewed and are negative Constitutional: Reports no additional constitutional complaints Eyes: Reports no additional eye complaints Reports system reviewed and no additional complaints, except as documented Cardiovascular: Reports no additional cardiovascular complaints Respiratory: Reports no additional respiratory complaints Gastrointestinal: Reports no additional gastrointestinal complaints Musculoskeletal: Reports no additional musculoskeletal complaints Skin/Breast: Reports system reviewed and no additional complaints, except as docu Reports system reviewed and no additional complaints, except as documented Psychiatric: Reports as per HPI Endocrine: Reports no additional endocrine complaints Hematologic/Lymphatic: Reports no additional hematologic/lymphatic complaints Allergic/Immunologic: Reports no additional allergic/immunologic complaints Mental Status Exam Mental Status Exam Narrative: Appearance: wearing hospital gown, fair hygiene, in NAD Behavior: somewhat guarded, Psychomotor: no agitation or retardation noted Speech: mostly clear, normal rate/rhythm/volume, spontaneous TP: mostly linear TC: fear about food she is eating here, not wanting to take medications and wanting to be discharged Mood: good AFfect: suspicious and paranoid SI: denies HI: denies VH/AH: seeing people putting things on her bed, and telling her that they kill her if she speaks up. Delusions: paranoid delusions Insight/judgment: impaired x 2. Memory/cog: alert, oriented to idea that she is in the hospital. She knows the month and year. Not oriented to situation. Pending as less psychosis, MOCA/ ACL. Diagnostics Vital Signs (24Hr): Vital Signs - 24 hr 03/17/25 20:00 Temperature 97.6 F Pulse Rate 96 Respiratory Rate 16 Blood Pressure 118/60 Pulse Oximetry 96 Oxygen Delivery Method Room Air BMI result Body Mass Index 23.5 Labs 03/02/25 16:26 03/18/25 07:14 Labs: Laboratory Results - last 48 hr 03/16/25 03/16/25 03/16/25 11:04 16:06 19:55 Sodium Potassium Chloride Carbon Dioxide Anion Gap BUN Creatinine Estim Creat Clear Calc Estimated GFR POC Glucose 234 H 157 H 254 H Random Glucose Calcium 03/17/25 03/17/25 03/17/25 06:00 11:12 16:26 Sodium Potassium Chloride Carbon Dioxide Anion Gap BUN Creatinine Estim Creat Clear Calc Estimated GFR POC Glucose 188 H 219 H 216 H Random Glucose Calcium 03/17/25 03/18/25 03/18/25 19:42 06:06 07:14 Sodium 140 Potassium 4.2 Chloride 106 Carbon Dioxide 29 Anion Gap 9 L BUN 16 Creatinine 0.61 Estim Creat Clear Calc 67.5 Estimated GFR > 60 POC Glucose 351 H* 196 H Random Glucose 207 H Calcium 8.5 Medications Medications Current Medications Acetaminophen (Acetaminophen 325 Mg Tablet) 650 mg PO Q6H PRN PRN Reason: Headache/Pain, Scale 1-10 Last Admin: 03/16/25 08:39 Dose: 650 mg Al Hydroxide/Mg Hydroxide (Magnesium Hydrox/Alum Hydrox 30 Ml Oral.Susp) 30 ml PO Q6H PRN PRN Reason: Heartburn/Nausea Atorvastatin Calcium (Atorvastatin Calcium 10 Mg Tablet) 10 mg PO BEDTIME [facility] Last Admin: 03/17/25 20:34 Dose: 10 mg Dextrose (Dextrose 50 % 25 Gm/50 Ml Syringe) 25 gm IVPUSH Q15M PRN; Protocol PRN Reason: per Hypoglycemia Standing Ord. Fluphenazine HCl (Fluphenazine Hcl 1 Mg Tablet) 2 mg PO DAILY [facility] Last Admin: 03/18/25 07:59 Dose: 2 mg Glucose (Glucose Gel 15 Gm Gel..Gram.) 15 gm PO Q15M PRN; Protocol PRN Reason: per Hypoglycemia Standing Ord. Hydroxyzine HCl (Hydroxyzine Hcl 25 Mg Tablet) 25 mg PO Q6H PRN PRN Reason: mild anxiety Last Admin: 03/05/25 22:32 Dose: 25 mg Insulin Glargine (Insulin Glargine,Hum.Rec.Anlog 100 Unit/Ml 10 Ml Vial) 14 unit SUBCUT BEDTIME [facility] Last Admin: 03/17/25 20:34 Dose: 14 unit Insulin Human Lispro (Insulin Lispro 100 Unit/Ml 3 Ml Vial) 0 unit SUBCUT QIDACHS [facility]; Protocol Last Admin: 03/18/25 07:58 Dose: 2 unit Lisinopril (Lisinopril 2.5 Mg Tablet) 2.5 mg PO DAILY [facility]; Protocol Last Admin: 03/18/25 08:03 Dose: 2.5 mg Magnesium Hydroxide (Milk Of Magnesia 30 Ml Oral.Susp) 30 ml PO DAILY PRN PRN Reason: Constipation Melatonin (Melatonin 3 Mg Tablet) 3 mg PO BEDTIME [facility] Last Admin: 03/17/25 20:34 Dose: 3 mg Metformin HCl (Metformin Hcl Er 500 Mg Tab.Er.24h) 1,000 mg PO DAILY [facility] Last Admin: 03/18/25 07:59 Dose: 1,000 mg Trazodone HCl (Trazodone Hcl 25 Mg Halftab) 25 mg PO BEDTIME MRX1 PRN PRN Reason: Insomnia Last Admin: 03/06/25 20:26 Dose: 25 mg Allergies Allergies Allergy/AdvReac Type Severity Reaction Status Date / Time No Known Allergies Allergy Verified 02/28/25 23:33 Assessment & Plan Assessment & Plan (1) Unspecified psychosis: Status: Acute Code(s): F29 - Unspecified psychosis not due to a substance or known physiological condition Plan HPI: Patient is a 65 years old Swedish-speaking female with possible hx of diabetic and HTN who presented to the ED reporting someone is stealing her phone and making threatening comments to another person, patient feels that she is under threat. She said that she lives with her daughter. She says that she is afraid to call the police in regard to the pawn situation because it would involve using her phone which she believes is compromised. She reports that she has been sick for awhile, stomach pain. Patient provided very vague and none committal when asked clarified questions. She reports no security at home and missed just with a landlord and there are people in the house taking her phone and making threats Collateral done in the ED with family: Grandson's Stephane and Argenis her daughter reports that patient has not been taking medications. They suspect that patient flushing them down to toilet or hiding them. They feel there is paranoid. Reported that patient lives with [phone]. Formulation/clinical reasoning: Patient appeared to be paranoid, disorganized, anxious, depressed, poor sleep and appetite. Questioned if she have any cognitive decline or dementia. We will be benefit to having [place] done. She is not in distress, ADLs appeared to be fair. Poor insight and poor judgment. Reports that she feels safe here. We will do collateral with her daughter to get more history of diagnosis and baseline. Discussed with her regarding medication for severe disorganization, and paranoid thoughts, as well as insomnia. Patient agree with the plans but not sure she is able to process information. Hospital course: 03/01/25: at this time. I would address symptoms of insomnia, and paranoid until more information obtained from her daughter regarding treatment hx. [employer] dx and medcial conditions. Not sure if she is diabetic or having HTN hx. Start melatonin 3 mg at bedtime for insomnia with Low dose of trazodone PRN. Risperidone 0.5 b.i.d. for paranoid/disorganized thoughts. We will order point of care with insulin coverage. She refused on labs ordered for this morning. We will monitor for hypotension/high blood pressure and POC 03/02 pt a little confused and it is difficult to follow her answers; Seems to mentioned safety and talks about unrelated things, her family and lists the names of each of her kids. Says team can contact them. Does not really answer questions about mood 03/03 Patient remains odd. She thinks that she is being watched by cameras in the room. Asked if her family can visit, she says if they do we will need security... When asked if she is afraid of her family she points to the door and says the doors are not locked... Question is repeated in a different way and she again points to the door and says the door is not locked. Eventually she seems to say she is not afraid of her family but that she is in general afraid of someone coming into the house and hurting her. -will increase risperdal dose to 1mg bid -very much need collateral 03/05 Increase Risperdal to 2 mg bid for 24 hour trial. 03/07 patient has only taken one dose of risperidone 2 mg, otherwise she has refused it. She had not been eating for the past 2 days, finally today she did eat something. pt presents as suspicious and paranoid. 03/08 pt refusing risperidone, has only taken one time 2mg. continues to present as paranoid and suspicious, declines to go back to her daughter's house. does not seem to understand that she can't survive on the streets, insists on leaving regardless. add head CT, will complete moca/ acl next week in Swedish. this technical report writer spoke with her daughter and provided update. r/o dementing process causing paranoia- her orientation for the most part seems intact except for situation. 03/09: no change 03/10: referred back to primary team to address concerns about not being discharged 03/11 d/c risperidone as pt reports she does not want this medication, will change to prolixin 1mg po daily. continues to present with paranoid delusions. anxious and guarded, declining to go back to her daughters' house, doesn't have a place to go. 03/12 increase prolixin to 2mg po daily. d/c risperidone. 03/13 continue prolixin, filed for 7&8. 03/14 continue tx. 03/15 continue tx. collateral information from daughter who reports paranoia may be present for long than initially suspected, more than 10 years at least. 03/16: continue current management and treatment plan. 03/17: continue current management and treatment plan. 03/18 Increase prolixin to 3mg po daily, continues to present with paranoid delusions and psychosis. Reason for continued inpatient stay Substantial Risk for: inability to function Time Spent With Patient Time: Total time managing care of this patient today ____ minutes.
[2025-03-18 11:31] LABS: Glucose, Whole Blood 200 mg/dL (60-115)
[2025-03-18 16:32] LABS: Glucose, Whole Blood 168 mg/dL (60-115)
[2025-03-18 20:00] VITALS: BP 99/56; PULSE 68; RESP 16; TEMP 35.7; O2SAT 98
[2025-03-18 21:25] LABS: Glucose, Whole Blood 236 mg/dL (60-115)
[2025-03-18] MEDS: Insulin Glargine,Hum.rec.anlog 100 UNIT/ML 10 ML VIAL 14 UNIT SUBCUT (21:28)
[2025-03-19 07:50] VITALS: BP 126/66; PULSE 96; RESP 18; TEMP 36.9; O2SAT 98
--- NOTE | 2025-03-19 08:56 | HO.PSYCHPN ---
Subjective Subjective Date of Service: 03/19/25 Reason For Visit: F29 Unspecified Schizophrenia spectrumand other ps Subjective Notes: Section 7 Interim History: Pt reports she slept better last night. She reports she does not think people who where coming and spreading drugs on her bed, came last. She thinks this is due to hospital hiring better security guards. She reports she is eating well. Less paranoid today towards staff and others. Mental Status Exam Mental Status Exam Narrative: Appearance: wearing hospital gown, fair hygiene, in NAD Behavior: somewhat guarded, Psychomotor: no agitation or retardation noted Speech: mostly clear, normal rate/rhythm/volume, spontaneous TP: mostly linear TC: fear about food she is eating here, not wanting to take medications and wanting to be discharged Mood: good AFfect: suspicious and paranoid SI: denies HI: denies VH/AH: seeing people putting things on her bed, and telling her that they kill her if she speaks up. Delusions: paranoid delusions Insight/judgment: impaired x 2. Memory/cog: alert, oriented to idea that she is in the hospital. She knows the month and year. Not oriented to situation. Pending as less psychosis, MOCA/ ACL. Diagnostics Vital Signs (24Hr): Vital Signs - 24 hr 03/18/25 20:00 Temperature 96.3 F L Pulse Rate 68 Respiratory Rate 16 Blood Pressure 99/56 L Pulse Oximetry 98 Oxygen Delivery Method Room Air BMI result Body Mass Index 23.5 Labs 03/02/25 16:26 03/18/25 07:14 Labs: Laboratory Results - last 48 hr 03/17/25 03/17/25 03/17/25 11:12 16:26 19:42 Sodium Potassium Chloride Carbon Dioxide Anion Gap BUN Creatinine Estim Creat Clear Calc Estimated GFR POC Glucose 219 H 216 H 351 H* Random Glucose Calcium 03/18/25 03/18/25 03/18/25 06:06 07:14 11:26 Sodium 140 Potassium 4.2 Chloride 106 Carbon Dioxide 29 Anion Gap 9 L BUN 16 Creatinine 0.61 Estim Creat Clear Calc 67.5 Estimated GFR > 60 POC Glucose 196 H 200 H Random Glucose 207 H Calcium 8.5 03/18/25 03/18/25 03/19/25 16:25 21:17 06:36 Sodium Potassium Chloride Carbon Dioxide Anion Gap BUN Creatinine Estim Creat Clear Calc Estimated GFR POC Glucose 168 H 236 H 192 H Random Glucose Calcium Medications Medications Current Medications Acetaminophen (Acetaminophen 325 Mg Tablet) 650 mg PO Q6H PRN PRN Reason: Headache/Pain, Scale 1-10 Last Admin: 03/16/25 08:39 Dose: 650 mg Al Hydroxide/Mg Hydroxide (Magnesium Hydrox/Alum Hydrox 30 Ml Oral.Susp) 30 ml PO Q6H PRN PRN Reason: Heartburn/Nausea Atorvastatin Calcium (Atorvastatin Calcium 10 Mg Tablet) 10 mg PO BEDTIME [facility] Last Admin: 03/18/25 21:17 Dose: 10 mg Dextrose (Dextrose 50 % 25 Gm/50 Ml Syringe) 25 gm IVPUSH Q15M PRN; Protocol PRN Reason: per Hypoglycemia Standing Ord. Fluphenazine HCl (Fluphenazine Hcl 1 Mg Tablet) 2 mg PO DAILY [facility] Last Admin: 03/19/25 08:08 Dose: 2 mg Glucose (Glucose Gel 15 Gm Gel..Gram.) 15 gm PO Q15M PRN; Protocol PRN Reason: per Hypoglycemia Standing Ord. Hydroxyzine HCl (Hydroxyzine Hcl 25 Mg Tablet) 25 mg PO Q6H PRN PRN Reason: mild anxiety Last Admin: 03/05/25 22:32 Dose: 25 mg Insulin Glargine (Insulin Glargine,Hum.Rec.Anlog 100 Unit/Ml 10 Ml Vial) 14 unit SUBCUT BEDTIME [facility] Last Admin: 03/18/25 21:28 Dose: 14 unit Insulin Human Lispro (Insulin Lispro 100 Unit/Ml 3 Ml Vial) 0 unit SUBCUT QIDACHS [facility]; Protocol Last Admin: 03/19/25 07:34 Dose: 2 unit Lisinopril (Lisinopril 2.5 Mg Tablet) 2.5 mg PO DAILY [facility]; Protocol Last Admin: 03/19/25 08:07 Dose: 2.5 mg Magnesium Hydroxide (Milk Of Magnesia 30 Ml Oral.Susp) 30 ml PO DAILY PRN PRN Reason: Constipation Melatonin (Melatonin 3 Mg Tablet) 3 mg PO BEDTIME [facility] Last Admin: 03/18/25 21:17 Dose: 3 mg Metformin HCl (Metformin Hcl Er 500 Mg Tab.Er.24h) 1,000 mg PO DAILY [facility] Last Admin: 03/19/25 08:07 Dose: 1,000 mg Trazodone HCl (Trazodone Hcl 25 Mg Halftab) 25 mg PO BEDTIME X1 PRN PRN Reason: Insomnia Last Admin: 03/06/25 20:26 Dose: 25 mg Allergies Allergies Allergy/AdvReac Type Severity Reaction Status Date / Time No Known Allergies Allergy Verified 02/28/25 23:33 Assessment & Plan Assessment & Plan (1) Unspecified psychosis: Status: Acute Code(s): F29 - Unspecified psychosis not due to a substance or known physiological condition Plan HPI: Patient is a 65 years old [place]ian-speaking female with possible hx of diabetic and HTN who presented to the ED reporting someone is stealing her phone and making threatening comments to another person, patient feels that she is under threat. She said that she lives with her daughter. She says that she is afraid to call the police in regard to the pawn situation because it would involve using her phone which she believes is compromised. She reports that she has been sick for awhile, stomach pain. Patient provided very vague and none committal when asked clarified questions. She reports no security at home and missed just with a landlord and there are people in the house taking her phone and making threats Collateral done in the ED with family: Grandson's Stephane and Argenis her daughter reports that patient has not been taking medications. They suspect that patient flushing them down to toilet or hiding them. They feel there is paranoid. Reported that patient lives with [phone]. Formulation/clinical reasoning: Patient appeared to be paranoid, disorganized, anxious, depressed, poor sleep and appetite. Questioned if she have any cognitive decline or dementia. We will be benefit to having [place] done. She is not in distress, ADLs appeared to be fair. Poor insight and poor judgment. Reports that she feels safe here. We will do collateral with her daughter to get more history of diagnosis and baseline. Discussed with her regarding medication for severe disorganization, and paranoid thoughts, as well as insomnia. Patient agree with the plans but not sure she is able to process information. Hospital course: 03/01/25: at this time. I would address symptoms of insomnia, and paranoid until more information obtained from her daughter regarding treatment hx. [email or web address] dx and medcial conditions. Not sure if she is diabetic or having HTN hx. Start melatonin 3 mg at bedtime for insomnia with Low dose of trazodone PRN. Risperidone 0.5 b.i.d. for paranoid/disorganized thoughts. We will order point of care with insulin coverage. She refused on labs ordered for this morning. We will monitor for hypotension/high blood pressure and POC 03/02 pt a little confused and it is difficult to follow her answers; Seems to mentioned safety and talks about unrelated things, her family and lists the names of each of her kids. Says team can contact them. Does not really answer questions about mood 03/03 Patient remains odd. She thinks that she is being watched by cameras in the room. Asked if her family can visit, she says if they do we will need security... When asked if she is afraid of her family she points to the door and says the doors are not locked... Question is repeated in a different way and she again points to the door and says the door is not locked. Eventually she seems to say she is not afraid of her family but that she is in general afraid of someone coming into the house and hurting her. -will increase risperdal dose to 1mg bid -very much need collateral 03/05 Increase Risperdal to 2 mg bid for 24 hour trial. 03/07 patient has only taken one dose of risperidone 2 mg, otherwise she has refused it. She had not been eating for the past 2 days, finally today she did eat something. pt presents as suspicious and paranoid. 03/08 pt refusing risperidone, has only taken one time 2mg. continues to present as paranoid and suspicious, declines to go back to her daughter's house. does not seem to understand that she can't survive on the streets, insists on leaving regardless. add head CT, will complete moca/ acl next week in [place]ian. this life insurance underwriter spoke with her daughter and provided update. r/o dementing process causing paranoia- her orientation for the most part seems intact except for situation. 03/09: no change 03/10: referred back to primary team to address concerns about not being discharged 03/11 d/c risperidone as pt reports she does not want this medication, will change to prolixin 1mg po daily. continues to present with paranoid delusions. anxious and guarded, declining to go back to her daughters' house, doesn't have a place to go. 03/12 increase prolixin to 2mg po daily. d/c risperidone. 03/13 continue prolixin, filed for 7&8. 03/14 continue tx. 03/15 continue tx. collateral information from daughter who reports paranoia may be present for long than initially suspected, more than 10 years at least. 03/16: continue current management and treatment plan. 03/17: continue current management and treatment plan. 03/18 Increase prolixin to 3mg po daily, continues to present with paranoid delusions and psychosis. 03/19 continue tx. slightly less paranoid. Reason for continued inpatient stay Substantial Risk for: inability to function Time Spent With Patient Time: Total time managing care of this patient today ____ minutes.
[2025-03-19 16:18] LABS: Glucose, Whole Blood 203 mg/dL (60-115)
[2025-03-19 19:41] LABS: Glucose, Whole Blood 253 mg/dL (60-115)
[2025-03-19 20:00] VITALS: BP 114/59; PULSE 72; RESP 18; TEMP 36.3; O2SAT 98
[2025-03-19] MEDS: Insulin Glargine,Hum.rec.anlog 100 UNIT/ML 10 ML VIAL 14 UNIT SUBCUT (20:44)
[2025-03-20 06:46] LABS: Glucose, Whole Blood 262 mg/dL (60-115)
[2025-03-20 08:00] VITALS: BP 99/54; PULSE 74; RESP 16; TEMP 36.9; O2SAT 98
[2025-03-20 09:21] VITALS: BP 144/75
[2025-03-20 11:41] LABS: Glucose, Whole Blood 116 mg/dL (60-115)
[2025-03-20 16:39] LABS: Glucose, Whole Blood 215 mg/dL (60-115)
--- NOTE | 2025-03-20 17:22 | P.PNPSI_ITS ---
Subjective Subjective Date of Service: 03/20/25 Reason For Visit: F29 Unspecified Schizophrenia spectrumand other ps Subjective Notes: Section 7 Interim History: Pt slept through the night, but reports that again she did not have a good night as she suspects someone came and tried to spread something on her bed. She reports food is good. Less paranoid and taking all medications. She continues to present with paranoid towards daughers and not sure whether she should go there ans asking this remote mortgage underwriter... just let me go, I'll figure out where to stay! Medication Compliance: Yes Review of Systems Review of Systems She denies any shortness of breath, chest pain, dizziness, lightheadedness or any other concerning symptoms. Patient reports feeling hungry and thirsty. Yes all other systems are reviewed and are negative Constitutional: Reports no additional constitutional complaints Eyes: Reports no additional eye complaints Reports system reviewed and no additional complaints, except as documented Cardiovascular: Reports no additional cardiovascular complaints Respiratory: Reports no additional respiratory complaints Gastrointestinal: Reports no additional gastrointestinal complaints Musculoskeletal: Reports no additional musculoskeletal complaints Skin/Breast: Reports system reviewed and no additional complaints, except as docu Reports system reviewed and no additional complaints, except as documented Psychiatric: Reports as per HPI Endocrine: Reports no additional endocrine complaints Hematologic/Lymphatic: Reports no additional hematologic/lymphatic complaints Allergic/Immunologic: Reports no additional allergic/immunologic complaints Mental Status Exam Mental Status Exam Narrative: Appearance: wearing hospital gown, fair hygiene, in NAD Behavior: somewhat guarded, Psychomotor: no agitation or retardation noted Speech: mostly clear, normal rate/rhythm/volume, spontaneous TP: mostly linear TC: fear about food she is eating here, not wanting to take medications and wanting to be discharged Mood: good AFfect: suspicious and paranoid SI: denies HI: denies VH/AH: seeing people putting things on her bed, and telling her that they kill her if she speaks up. Delusions: paranoid delusions Insight/judgment: impaired x 2. Memory/cog: alert, oriented to idea that she is in the hospital. She knows the month and year. Not oriented to situation. Pending as less psychosis, MOCA/ ACL. Diagnostics Vital Signs (24Hr): Vital Signs - 24 hr 03/19/25 20:00 03/20/25 08:00 03/20/25 09:21 Temperature 97.3 F 98.4 F Pulse Rate 72 74 Respiratory Rate 18 16 Blood Pressure 114/59 L 99/54 L 144/75 H Pulse Oximetry 98 98 Oxygen Delivery Method Room Air Room Air BMI result Body Mass Index 23.5 Labs 03/02/25 16:26 03/21/25 08:37 Labs: Laboratory Results - last 48 hr 03/18/25 03/19/25 03/19/25 21:17 06:36 11:09 POC Glucose 236 H 192 H 244 H 03/19/25 03/19/25 03/20/25 16:13 19:36 06:41 POC Glucose 203 H 253 H 262 H 03/20/25 03/20/25 11:37 16:36 POC Glucose 116 H 215 H Medications Medications Current Medications Acetaminophen (Acetaminophen 325 Mg Tablet) 650 mg PO Q6H PRN PRN Reason: Headache/Pain, Scale 1-10 Last Admin: 03/16/25 08:39 Dose: 650 mg Al Hydroxide/Mg Hydroxide (Magnesium Hydrox/Alum Hydrox 30 Ml Oral.Susp) 30 ml PO Q6H PRN PRN Reason: Heartburn/Nausea Atorvastatin Calcium (Atorvastatin Calcium 10 Mg Tablet) 10 mg PO BEDTIME [facility] Last Admin: 03/19/25 20:44 Dose: 10 mg Dextrose (Dextrose 50 % 25 Gm/50 Ml Syringe) 25 gm IVPUSH Q15M PRN; Protocol PRN Reason: per Hypoglycemia Standing Ord. Fluphenazine HCl (Fluphenazine Hcl 1 Mg Tablet) 2 mg PO DAILY [facility] Last Admin: 03/20/25 08:15 Dose: 2 mg Glucose (Glucose Gel 15 Gm Gel..Gram.) 15 gm PO Q15M PRN; Protocol PRN Reason: per Hypoglycemia Standing Ord. Hydroxyzine HCl (Hydroxyzine Hcl 25 Mg Tablet) 25 mg PO Q6H PRN PRN Reason: mild anxiety Last Admin: 03/05/25 22:32 Dose: 25 mg Insulin Glargine (Insulin Glargine,Hum.Rec.Anlog 100 Unit/Ml 10 Ml Vial) 14 unit SUBCUT BEDTIME [facility] Last Admin: 03/19/25 20:44 Dose: 14 unit Insulin Human Lispro (Insulin Lispro 100 Unit/Ml 3 Ml Vial) 0 unit SUBCUT QIDACHS [facility]; Protocol Last Admin: 03/20/25 16:42 Dose: 6 unit Lisinopril (Lisinopril 2.5 Mg Tablet) 2.5 mg PO DAILY [facility]; Protocol Last Admin: 03/20/25 09:21 Dose: 2.5 mg Magnesium Hydroxide (Milk Of Magnesia 30 Ml Oral.Susp) 30 ml PO DAILY PRN PRN Reason: Constipation Melatonin (Melatonin 3 Mg Tablet) 3 mg PO BEDTIME [facility] Last Admin: 03/19/25 20:44 Dose: 3 mg Metformin HCl (Metformin Hcl Er 500 Mg Tab.Er.24h) 1,000 mg PO DAILY [facility] Last Admin: 03/20/25 08:15 Dose: 1,000 mg Trazodone HCl (Trazodone Hcl 25 Mg Halftab) 25 mg PO BEDTIME [facility] PRN PRN Reason: Insomnia Last Admin: 03/06/25 20:26 Dose: 25 mg Allergies Allergies Allergy/AdvReac Type Severity Reaction Status Date / Time No Known Allergies Allergy Verified 02/28/25 23:33 Assessment & Plan Assessment & Plan (1) Unspecified psychosis: Status: Acute Code(s): F29 - Unspecified psychosis not due to a substance or known physiological condition Plan HPI: Patient is a 65 years old [place]-speaking female with possible hx of diabetic and HTN who presented to the ED reporting someone is stealing her phone and making threatening comments to another person, patient feels that she is under threat. She said that she lives with her daughter. She says that she is afraid to call the police in regard to the pawn situation because it would involve using her phone which she believes is compromised. She reports that she has been sick for awhile, stomach pain. Patient provided very vague and none committal when asked clarified questions. She reports no security at home and missed just with a landlord and there are people in the house taking her phone and making threats Collateral done in the ED with family: Grandson's Stephane and Argenis her daughter reports that patient has not been taking medications. They suspect that patient flushing them down to toilet or hiding them. They feel there is paranoid. Reported that patient lives with [phone]. Formulation/clinical reasoning: Patient appeared to be paranoid, disorganized, anxious, depressed, poor sleep and appetite. Questioned if she have any cognitive decline or dementia. We will be benefit to having [place] done. She is not in distress, ADLs appeared to be fair. Poor insight and poor judgment. Reports that she feels safe here. We will do collateral with her daughter to get more history of diagnosis and baseline. Discussed with her regarding medication for severe disorganization, and paranoid thoughts, as well as insomnia. Patient agree with the plans but not sure she is able to process information. Hospital course: 03/01/25: at this time. I would address symptoms of insomnia, and paranoid until more information obtained from her daughter regarding treatment hx. [facility] [employer] dx and medcial conditions. Not sure if she is diabetic or having HTN hx. Start melatonin 3 mg at bedtime for insomnia with Low dose of trazodone PRN. Risperidone 0.5 b.i.d. for paranoid/disorganized thoughts. We will order point of care with insulin coverage. She refused on labs ordered for this morning. We will monitor for hypotension/high blood pressure and POC 03/02 pt a little confused and it is difficult to follow her answers; Seems to mentioned safety and talks about unrelated things, her family and lists the names of each of her kids. Says team can contact them. Does not really answer questions about mood 03/03 Patient remains odd. She thinks that she is being watched by cameras in the room. Asked if her family can visit, she says if they do we will need security... When asked if she is afraid of her family she points to the door and says the doors are not locked... Question is repeated in a different way and she again points to the door and says the door is not locked. Eventually she seems to say she is not afraid of her family but that she is in general afraid of someone coming into the house and hurting her. -will increase risperdal dose to 1mg bid -very much need collateral 03/05 Increase Risperdal to 2 mg bid for 24 hour trial. 03/07 patient has only taken one dose of risperidone 2 mg, otherwise she has refused it. She had not been eating for the past 2 days, finally today she did eat something. pt presents as suspicious and paranoid. 03/08 pt refusing risperidone, has only taken one time 2mg. continues to present as paranoid and suspicious, declines to go back to her daughter's house. does not seem to understand that she can't survive on the streets, insists on leaving regardless. add head CT, will complete moca/ acl next week in [place]. this remote mortgage underwriter spoke with her daughter and provided update. r/o dementing process causing paranoia- her orientation for the most part seems intact except for situation. 03/09: no change 03/10: referred back to primary team to address concerns about not being discharged 03/11 d/c risperidone as pt reports she does not want this medication, will change to prolixin 1mg po daily. continues to present with paranoid delusions. anxious and guarded, declining to go back to her daughters' house, doesn't have a place to go. 03/12 increase prolixin to 2mg po daily. d/c risperidone. 03/13 continue prolixin, filed for 7&8. 03/14 continue tx. 03/15 continue tx. collateral information from daughter who reports paranoia may be present for long than initially suspected, more than 10 years at least. 03/16: continue current management and treatment plan. 03/17: continue current management and treatment plan. 03/18 Increase prolixin to 3mg po daily, continues to present with paranoid delusions and psychosis. 03/19 continue tx. slightly less paranoid. 03/20 continue tx. Reason for continued inpatient stay Substantial Risk for: inability to function Time Spent With Patient Time: Total time managing care of this patient today ____ minutes.
[2025-03-20 20:00] VITALS: BP 110/56; PULSE 75; RESP 16; TEMP 36.7; O2SAT 98
[2025-03-20 21:05] LABS: Glucose, Whole Blood 240 mg/dL (60-115)
[2025-03-20] MEDS: Insulin Glargine,Hum.rec.anlog 100 UNIT/ML 10 ML VIAL 14 UNIT SUBCUT (21:06)
[2025-03-21 06:25] LABS: Glucose, Whole Blood 202 mg/dL (60-115)
[2025-03-21 08:57] LABS: Creatinine Clr Calc Pharmacy 55.6; Estimated Glomerular Filt Rate > 60
[2025-03-21 09:06] VITALS: BP 114/61; PULSE 99; RESP 18; TEMP 36.5; O2SAT 100
--- NOTE | 2025-03-21 09:46 | P.PNPSI_ITS ---
Subjective Subjective Date of Service: 03/21/25 Reason For Visit: F29 Unspecified Schizophrenia spectrumand other ps Subjective Notes: Section 7 Interim History: Pt reports she had a better night. She reports that she sees less people trying to harm her but still thinks this is happening. more understanding about staying here and taking medications prior to being ready to return to her daughter's house. She has been visible on the unit, social with select peers, although this is limited by language barrier. Medication Compliance: Yes Mental Status Exam Mental Status Exam Narrative: Appearance: wearing hospital gown, fair hygiene, in NAD Behavior: somewhat guarded, Psychomotor: no agitation or retardation noted Speech: mostly clear, normal rate/rhythm/volume, spontaneous TP: mostly linear TC: fear about food she is eating here, not wanting to take medications and wanting to be discharged Mood: good AFfect: suspicious and paranoid SI: denies HI: denies VH/AH: seeing people putting things on her bed, and telling her that they kill her if she speaks up. Delusions: paranoid delusions Insight/judgment: impaired x 2. Memory/cog: alert, oriented to idea that she is in the hospital. She knows the month and year. Not oriented to situation. Pending MOCA. Diagnostics Vital Signs (24Hr): Vital Signs - 24 hr 03/20/25 20:00 03/21/25 09:06 Temperature 98.1 F 97.7 F Pulse Rate 75 99 Respiratory Rate 16 18 Blood Pressure 110/56 L 114/61 Pulse Oximetry 98 100 Oxygen Delivery Method Room Air Room Air BMI result Body Mass Index 23.5 Labs 03/02/25 16:26 03/21/25 08:37 Labs: Laboratory Results - last 48 hr 03/19/25 03/19/25 03/19/25 11:09 16:13 19:36 Creatinine Estim Creat Clear Calc Estimated GFR POC Glucose 244 H 203 H 253 H 03/20/25 03/20/25 03/20/25 06:41 11:37 16:36 Creatinine Estim Creat Clear Calc Estimated GFR POC Glucose 262 H 116 H 215 H 03/20/25 03/21/25 03/21/25 20:59 06:18 08:37 Creatinine 0.74 Estim Creat Clear Calc 55.6 Estimated GFR > 60 POC Glucose 240 H 202 H Medications Medications Current Medications Acetaminophen (Acetaminophen 325 Mg Tablet) 650 mg PO Q6H PRN PRN Reason: Headache/Pain, Scale 1-10 Last Admin: 03/16/25 08:39 Dose: 650 mg Al Hydroxide/Mg Hydroxide (Magnesium Hydrox/Alum Hydrox 30 Ml Oral.Susp) 30 ml PO Q6H PRN PRN Reason: Heartburn/Nausea Atorvastatin Calcium (Atorvastatin Calcium 10 Mg Tablet) 10 mg PO BEDTIME [facility] Last Admin: 03/20/25 21:06 Dose: 10 mg Dextrose (Dextrose 50 % 25 Gm/50 Ml Syringe) 25 gm IVPUSH Q15M PRN; Protocol PRN Reason: per Hypoglycemia Standing Ord. Fluphenazine HCl (Fluphenazine Hcl 1 Mg Tablet) 2 mg PO DAILY [facility] Last Admin: 03/21/25 09:05 Dose: 2 mg Glucose (Glucose Gel 15 Gm Gel..Gram.) 15 gm PO Q15M PRN; Protocol PRN Reason: per Hypoglycemia [facility]. Hydroxyzine HCl (Hydroxyzine Hcl 25 Mg Tablet) 25 mg PO Q6H PRN PRN Reason: mild anxiety Last Admin: 03/05/25 22:32 Dose: 25 mg Insulin Glargine (Insulin Glargine,Hum.Rec.Anlog 100 Unit/Ml 10 Ml Vial) 14 unit SUBCUT BEDTIME [facility] Last Admin: 03/20/25 21:06 Dose: 14 unit Insulin Human Lispro (Insulin Lispro 100 Unit/Ml 3 Ml Vial) 0 unit SUBCUT QIDACHS [facility]; Protocol Last Admin: 03/21/25 07:41 Dose: 6 unit Lisinopril (Lisinopril 2.5 Mg Tablet) 2.5 mg PO DAILY [facility]; Protocol Last Admin: 03/21/25 09:07 Dose: 2.5 mg Magnesium Hydroxide (Milk Of Magnesia 30 Ml Oral.Susp) 30 ml PO DAILY PRN PRN Reason: Constipation Melatonin (Melatonin 3 Mg Tablet) 3 mg PO BEDTIME [facility] Last Admin: 03/20/25 21:06 Dose: 3 mg Metformin HCl (Metformin Hcl Er 500 Mg Tab.Er.24h) 1,000 mg PO DAILY [facility] Last Admin: 03/21/25 09:05 Dose: 1,000 mg Trazodone HCl (Trazodone Hcl 25 Mg Halftab) 25 mg PO BEDTIME [facility]1 PRN PRN Reason: Insomnia Last Admin: 03/06/25 20:26 Dose: 25 mg Allergies Allergies Allergy/AdvReac Type Severity Reaction Status Date / Time No Known Allergies Allergy Verified 02/28/25 23:33 Assessment & Plan Assessment & Plan (1) Unspecified psychosis: Status: Acute Code(s): F29 - Unspecified psychosis not due to a substance or known physiological condition Plan HPI: Patient is a 65 years old [place]-speaking female with possible hx of diabetic and HTN who presented to the ED reporting someone is stealing her phone and making threatening comments to another person, patient feels that she is under threat. She said that she lives with her daughter. She says that she is afraid to call the police in regard to the pawn situation because it would involve using her phone which she believes is compromised. She reports that she has been sick for awhile, stomach pain. Patient provided very vague and none committal when asked clarified questions. She reports no security at home and missed just with a landlord and there are people in the house taking her phone and making threats Collateral done in the ED with family: Grandson's Stephane and Argenis her daughter reports that patient has not been taking medications. They suspect that patient flushing them down to toilet or hiding them. They feel there is paranoid. Reported that patient lives with [phone]. Formulation/clinical reasoning: Patient appeared to be paranoid, disorganized, anxious, depressed, poor sleep and appetite. Questioned if she have any cognitive decline or dementia. We will be benefit to having [place] done. She is not in distress, ADLs appeared to be fair. Poor insight and poor judgment. Reports that she feels safe here. We will do collateral with her daughter to get more history of diagnosis and baseline. Discussed with her regarding medication for severe disorganization, and paranoid thoughts, as well as insomnia. Patient agree with the plans but not sure she is able to process information. Hospital course: 03/01/25: at this time. I would address symptoms of insomnia, and paranoid until more information obtained from her daughter regarding treatment hx. [employer] dx and medcial conditions. Not sure if she is diabetic or having HTN hx. Start melatonin 3 mg at bedtime for insomnia with Low dose of trazodone PRN. Risperidone 0.5 b.i.d. for paranoid/disorganized thoughts. We will order point of care with insulin coverage. She refused on labs ordered for this morning. We will monitor for hypotension/high blood pressure and POC 03/02 pt a little confused and it is difficult to follow her answers; Seems to mentioned safety and talks about unrelated things, her family and lists the names of each of her kids. Says team can contact them. Does not really answer questions about mood 03/03 Patient remains odd. She thinks that she is being watched by cameras in the room. Asked if her family can visit, she says if they do we will need security... When asked if she is afraid of her family she points to the door and says the doors are not locked... Question is repeated in a different way and she again points to the door and says the door is not locked. Eventually she seems to say she is not afraid of her family but that she is in general afraid of someone coming into the house and hurting her. -will increase risperdal dose to 1mg bid -very much need collateral 03/05 Increase Risperdal to 2 mg bid for 24 hour trial. 03/07 patient has only taken one dose of risperidone 2 mg, otherwise she has refused it. She had not been eating for the past 2 days, finally today she did eat something. pt presents as suspicious and paranoid. 03/08 pt refusing risperidone, has only taken one time 2mg. continues to present as paranoid and suspicious, declines to go back to her daughter's house. does not seem to understand that she can't survive on the streets, insists on leaving regardless. add head CT, will complete moca/ acl next week in [place]. this typewriters functional tester spoke with her daughter and provided update. r/o dementing process causing paranoia- her orientation for the most part seems intact except for situation. 03/09: no change 03/10: referred back to primary team to address concerns about not being discharged 03/11 d/c risperidone as pt reports she does not want this medication, will change to prolixin 1mg po daily. continues to present with paranoid delusions. anxious and guarded, declining to go back to her daughters' house, doesn't have a place to go. 03/12 increase prolixin to 2mg po daily. d/c risperidone. 03/13 continue prolixin, filed for 7&8. 03/14 continue tx. 03/15 continue tx. collateral information from daughter who reports paranoia may be present for long than initially suspected, more than 10 years at least. 03/16: continue current management and treatment plan. 03/17: continue current management and treatment plan. 03/18 Increase prolixin to 3mg po daily, continues to present with paranoid delusions and psychosis. 03/19 continue tx. slightly less paranoid. 03/20 continue tx. 03/21 continue tx. Reason for continued inpatient stay Substantial Risk for: inability to function Time Spent With Patient Time: Total time managing care of this patient today ____ minutes.
[2025-03-21 10:27] VITALS: BMI 24.4
[2025-03-21 11:22] LABS: Glucose, Whole Blood 243 mg/dL (60-115)
[2025-03-21 16:38] LABS: Glucose, Whole Blood 187 mg/dL (60-115)
[2025-03-21 20:00] VITALS: BP 108/55; PULSE 71; RESP 16; TEMP 36.1; O2SAT 98
[2025-03-21 20:25] LABS: Glucose, Whole Blood 182 mg/dL (60-115)
[2025-03-21] MEDS: Insulin Glargine,Hum.rec.anlog 100 UNIT/ML 10 ML VIAL 14 UNIT SUBCUT (20:28)
[2025-03-22 06:16] LABS: Glucose, Whole Blood 176 mg/dL (60-115)
[2025-03-22 08:00] VITALS: BP 96/53; PULSE 79; RESP 15; TEMP 36.3; O2SAT 98
[2025-03-22 11:51] LABS: Glucose, Whole Blood 180 mg/dL (60-115)
[2025-03-22 16:18] LABS: Glucose, Whole Blood 111 mg/dL (60-115)
--- NOTE | 2025-03-22 16:49 | P.PNPSI_ITS ---
Subjective Subjective Date of Service: 03/22/25 Reason For Visit: F29 Unspecified Schizophrenia spectrumand other ps Subjective Notes: Section 7 Interim History: Pt barricaded herself and roommate last night. She reports one of the staff who speaks Turkish was talking about killing her last night. When this freelance writer asked if this staff was speaking in Turkish how did you understand what she said... she reports you don't understand but this is what she was trying to do and I know that. She said that although things are calmer here, she does not feel safe. She reports dry eyes, will add artificial tears. Review of Systems Review of Systems She denies any shortness of breath, chest pain, dizziness, lightheadedness or any other concerning symptoms. Patient reports feeling hungry and thirsty. Yes all other systems are reviewed and are negative Constitutional: Reports no additional constitutional complaints Eyes: Reports no additional eye complaints Reports system reviewed and no additional complaints, except as documented Cardiovascular: Reports no additional cardiovascular complaints Respiratory: Reports no additional respiratory complaints Gastrointestinal: Reports no additional gastrointestinal complaints Musculoskeletal: Reports no additional musculoskeletal complaints Skin/Breast: Reports system reviewed and no additional complaints, except as docu Reports system reviewed and no additional complaints, except as documented Psychiatric: Reports as per HPI Endocrine: Reports no additional endocrine complaints Hematologic/Lymphatic: Reports no additional hematologic/lymphatic complaints Allergic/Immunologic: Reports no additional allergic/immunologic complaints Mental Status Exam Mental Status Exam Narrative: Appearance: wearing hospital gown, fair hygiene, in NAD Behavior: somewhat guarded, Psychomotor: no agitation or retardation noted Speech: mostly clear, normal rate/rhythm/volume, spontaneous TP: mostly linear TC: fear about food she is eating here, not wanting to take medications and wanting to be discharged Mood: good AFfect: suspicious and paranoid SI: denies HI: denies VH/AH: seeing people putting things on her bed, and telling her that they kill her if she speaks up. Delusions: paranoid delusions Insight/judgment: impaired x 2. Memory/cog: alert, oriented to idea that she is in the hospital. She knows the month and year. Not oriented to situation. Pending MOCA. Diagnostics Vital Signs (24Hr): Vital Signs - 24 hr 03/21/25 20:00 03/22/25 08:00 Temperature 96.9 F 97.4 F Pulse Rate 71 79 Respiratory Rate 16 15 Blood Pressure 108/55 L 96/53 L Pulse Oximetry 98 98 Oxygen Delivery Method Room Air Room Air BMI result Body Mass Index 24.4 Labs 03/02/25 16:26 03/21/25 08:37 Labs: Laboratory Results - last 48 hr 03/20/25 03/21/25 03/21/25 20:59 06:18 08:37 Creatinine 0.74 Estim Creat Clear Calc 55.6 Estimated GFR > 60 POC Glucose 240 H 202 H 03/21/25 03/21/25 03/21/25 11:18 16:34 20:19 Creatinine Estim Creat Clear Calc Estimated GFR POC Glucose 243 H 187 H 182 H 03/22/25 03/22/25 03/22/25 06:10 11:47 16:10 Creatinine Estim Creat Clear Calc Estimated GFR POC Glucose 176 H 180 H 111 Medications Medications Current Medications Acetaminophen (Acetaminophen 325 Mg Tablet) 650 mg PO Q6H PRN PRN Reason: Headache/Pain, Scale 1-10 Last Admin: 03/16/25 08:39 Dose: 650 mg Al Hydroxide/Mg Hydroxide (Magnesium Hydrox/Alum Hydrox 30 Ml Oral.Susp) 30 ml PO Q6H PRN PRN Reason: Heartburn/Nausea Atorvastatin Calcium (Atorvastatin Calcium 10 Mg Tablet) 10 mg PO BEDTIME ON LICENSE OF [facility] Last Admin: 03/21/25 20:28 Dose: 10 mg Dextrose (Dextrose 50 % 25 Gm/50 Ml Syringe) 25 gm IVPUSH Q15M PRN; Protocol PRN Reason: per Hypoglycemia Standing Ord. Fluphenazine HCl (Fluphenazine Hcl 1 Mg Tablet) 3 mg PO DAILY ON LICENSE OF [facility] Glucose (Glucose Gel 15 Gm Gel..Gram.) 15 gm PO Q15M PRN; Protocol PRN Reason: per Hypoglycemia Standing Ord. Hydroxyzine HCl (Hydroxyzine Hcl 25 Mg Tablet) 25 mg PO Q6H PRN PRN Reason: mild anxiety Last Admin: 03/05/25 22:32 Dose: 25 mg Insulin Glargine (Insulin Glargine,Hum.Rec.Anlog 100 Unit/Ml 10 Ml Vial) 14 unit SUBCUT BEDTIME [facility] Last Admin: 03/21/25 20:28 Dose: 14 unit Insulin Human Lispro (Insulin Lispro 100 Unit/Ml 3 Ml Vial) 0 unit SUBCUT QIDACHS ON LICENSE OF [facility]; Protocol Last Admin: 03/22/25 16:18 Dose: 2 unit Lisinopril (Lisinopril 2.5 Mg Tablet) 2.5 mg PO DAILY [facility]; Protocol Last Admin: 03/22/25 10:04 Dose: Not Given Magnesium Hydroxide (Milk Of Magnesia 30 Ml Oral.Susp) 30 ml PO DAILY PRN PRN Reason: Constipation Melatonin (Melatonin 3 Mg Tablet) 3 mg PO BEDTIME [facility] Last Admin: 03/21/25 20:28 Dose: 3 mg Metformin HCl (Metformin Hcl Er 500 Mg Tab.Er.24h) 1,000 mg PO DAILY [facility] Last Admin: 03/22/25 08:56 Dose: 1,000 mg Trazodone HCl (Trazodone Hcl 25 Mg Halftab) 25 mg PO BEDTIME MRX1 PRN PRN Reason: Insomnia Last Admin: 03/06/25 20:26 Dose: 25 mg Allergies Allergies Allergy/AdvReac Type Severity Reaction Status Date / Time No Known Allergies Allergy Verified 02/28/25 23:33 Assessment & Plan Assessment & Plan (1) Unspecified psychosis: Status: Acute Code(s): F29 - Unspecified psychosis not due to a substance or known physiological condition Plan HPI: Patient is a 65 years old [place]-speaking female with possible hx of diabetic and HTN who presented to the ED reporting someone is stealing her phone and making threatening comments to another person, patient feels that she is under threat. She said that she lives with her daughter. She says that she is afraid to call the police in regard to the pawn situation because it would involve using her phone which she believes is compromised. She reports that she has been sick for awhile, stomach pain. Patient provided very vague and none committal when asked clarified questions. She reports no security at home and missed just with a landlord and there are people in the house taking her phone and making threats Collateral done in the ED with family: Grandson's Stephane and Argenis her daughter reports that patient has not been taking medications. They suspect that patient flushing them down to toilet or hiding them. They feel there is paranoid. Reported that patient lives with [phone]. Formulation/clinical reasoning: Patient appeared to be paranoid, disorganized, anxious, depressed, poor sleep and appetite. Questioned if she have any cognitive decline or dementia. We will be benefit to having [place] done. She is not in distress, ADLs appeared to be fair. Poor insight and poor judgment. Reports that she feels safe here. We will do collateral with her daughter to get more history of diagnosis and baseline. Discussed with her regarding medication for severe disorganization, and paranoid thoughts, as well as insomnia. Patient agree with the plans but not sure she is able to process information. Hospital course: 03/01/25: at this time. I would address symptoms of insomnia, and paranoid until more information obtained from her daughter regarding treatment hx. [facility] dx and medcial conditions. Not sure if she is diabetic or having HTN hx. Start melatonin 3 mg at bedtime for insomnia with Low dose of trazodone PRN. Risperidone 0.5 b.i.d. for paranoid/disorganized thoughts. We will order point of care with insulin coverage. She refused on labs ordered for this morning. We will monitor for hypotension/high blood pressure and POC 03/02 pt a little confused and it is difficult to follow her answers; Seems to mentioned safety and talks about unrelated things, her family and lists the names of each of her kids. Says team can contact them. Does not really answer questions about mood 03/03 Patient remains odd. She thinks that she is being watched by cameras in the room. Asked if her family can visit, she says if they do we will need security... When asked if she is afraid of her family she points to the door and says the doors are not locked... Question is repeated in a different way and she again points to the door and says the door is not locked. Eventually she seems to say she is not afraid of her family but that she is in general afraid of someone coming into the house and hurting her. -will increase risperdal dose to 1mg bid -very much need collateral 03/05 Increase Risperdal to 2 mg bid for 24 hour trial. 03/07 patient has only taken one dose of risperidone 2 mg, otherwise she has refused it. She had not been eating for the past 2 days, finally today she did eat something. pt presents as suspicious and paranoid. 03/08 pt refusing risperidone, has only taken one time 2mg. continues to present as paranoid and suspicious, declines to go back to her daughter's house. does not seem to understand that she can't survive on the streets, insists on leaving regardless. add head CT, will complete moca/ acl next week in [place]. this freelance writer spoke with her daughter and provided update. r/o dementing process causing paranoia- her orientation for the most part seems intact except for situation. 03/09: no change 03/10: referred back to primary team to address concerns about not being discharged 03/11 d/c risperidone as pt reports she does not want this medication, will change to prolixin 1mg po daily. continues to present with paranoid delusions. anxious and guarded, declining to go back to her daughters' house, doesn't have a place to go. 03/12 increase prolixin to 2mg po daily. d/c risperidone. 03/13 continue prolixin, filed for 7&8. 03/14 continue tx. 03/15 continue tx. collateral information from daughter who reports paranoia may be present for long than initially suspected, more than 10 years at least. 03/16: continue current management and treatment plan. 03/17: continue current management and treatment plan. 03/18 continue tx. 03/19 continue tx. slightly less paranoid. 03/20 continue tx. 03/21 continue tx. 03/22 increase prolixin to 3mg po daily. Reason for continued inpatient stay Substantial Risk for: inability to function Time Spent With Patient Time: Total time managing care of this patient today ____ minutes.
[2025-03-22 20:00] VITALS: BP 117/58; PULSE 79; RESP 18; TEMP 36.4; O2SAT 99
[2025-03-22 20:19] LABS: Glucose, Whole Blood 252 mg/dL (60-115)
[2025-03-22] MEDS: Insulin Glargine,Hum.rec.anlog 100 UNIT/ML 10 ML VIAL 14 UNIT SUBCUT (20:42)
[2025-03-23 06:25] LABS: Glucose, Whole Blood 183 mg/dL (60-115)
[2025-03-23 09:31] VITALS: BP 118/66; PULSE 92; RESP 18; TEMP 36.4; O2SAT 98
[2025-03-23] MEDS: Artificial Tears 15 ML DROPS 1 DROP EYE-BOTH ×2 (09:32→16:41)
[2025-03-23 11:44] LABS: Glucose, Whole Blood 309 mg/dL (60-115)
--- NOTE | 2025-03-23 15:19 | HO.PSYCHPN ---
Subjective Subjective Date of Service: 03/23/25 Reason For Visit: F29 Unspecified Schizophrenia spectrumand other ps Interim History: seen with director zone. floridly psychotic, going on about a female gyroscopic engineering technician on the unit the other night and some plot to kill her and her barricading the door to prevent someone from coming in and cutting her up. per staff, no changes. calm, cooperative, paranoid. Mental Status Exam Mental Status Exam Narrative: Appearance: wearing hospital gown, fair hygiene, in NAD Behavior: somewhat guarded, Psychomotor: no agitation or retardation noted Speech: mostly clear, normal rate/rhythm/volume, spontaneous TP: mostly tangential TC: fear about being killed on the unit, delusional about female gyroscopic engineering technician and plot to murder her. Mood: not assessed AFfect: suspicious and paranoid SI: none expressed HI: none expressed VH/AH: seeing people putting things on her bed, and telling her that they kill her if she speaks up. Delusions: paranoid delusions Insight/judgment: impaired x 2. Memory/cog: alert, oriented to idea that she is in the hospital. She knows the month and year. Not oriented to situation. Pending MOCA. Diagnostics Vital Signs (24Hr): Vital Signs - 24 hr 03/22/25 20:00 03/23/25 09:31 Temperature 97.6 F 97.5 F Pulse Rate 79 92 Respiratory Rate 18 18 Blood Pressure 117/58 L 118/66 Pulse Oximetry 99 98 Oxygen Delivery Method Room Air Room Air BMI result Body Mass Index 24.4 Labs 03/02/25 16:26 03/21/25 08:37 Labs: Laboratory Results - last 48 hr 03/21/25 03/21/25 03/22/25 16:34 20:19 06:10 POC Glucose 187 H 182 H 176 H 03/22/25 03/22/25 03/22/25 11:47 16:10 20:15 POC Glucose 180 H 111 252 H 03/23/25 03/23/25 06:00 11:37 POC Glucose 183 H 309 H Medications Medications Current Medications Acetaminophen (Acetaminophen 325 Mg Tablet) 650 mg PO Q6H PRN PRN Reason: Headache/Pain, Scale 1-10 Last Admin: 03/16/25 08:39 Dose: 650 mg Al Hydroxide/Mg Hydroxide (Magnesium Hydrox/Alum Hydrox 30 Ml Oral.Susp) 30 ml PO Q6H PRN PRN Reason: Heartburn/Nausea Artificial Tears (Artificial Tears 15 Ml Drops) 1 drop EYE-BOTH DAILY@0900,1700 [facility] Last Admin: 03/23/25 09:32 Dose: 1 drop Atorvastatin Calcium (Atorvastatin Calcium 10 Mg Tablet) 10 mg PO BEDTIME [facility] Last Admin: 03/22/25 20:43 Dose: 10 mg Dextrose (Dextrose 50 % 25 Gm/50 Ml Syringe) 25 gm IVPUSH Q15M PRN; Protocol PRN Reason: per Hypoglycemia Standing Ord. Fluphenazine HCl (Fluphenazine Hcl 1 Mg Tablet) 3 mg PO DAILY [facility] Last Admin: 03/23/25 09:33 Dose: 3 mg Glucose (Glucose Gel 15 Gm Gel..Gram.) 15 gm PO Q15M PRN; Protocol PRN Reason: per Hypoglycemia Standing Ord. Hydroxyzine HCl (Hydroxyzine Hcl 25 Mg Tablet) 25 mg PO Q6H PRN PRN Reason: mild anxiety Last Admin: 03/05/25 22:32 Dose: 25 mg Insulin Glargine (Insulin Glargine,Hum.Rec.Anlog 100 Unit/Ml 10 Ml Vial) 14 unit SUBCUT BEDTIME [facility] Last Admin: 03/22/25 20:42 Dose: 14 unit Insulin Human Lispro (Insulin Lispro 100 Unit/Ml 3 Ml Vial) 0 unit SUBCUT QIDACHS [facility]; Protocol Last Admin: 03/23/25 11:52 Dose: 10 unit Lisinopril (Lisinopril 2.5 Mg Tablet) 2.5 mg PO DAILY [facility]; Protocol Last Admin: 03/23/25 09:33 Dose: 2.5 mg Magnesium Hydroxide (Milk Of Magnesia 30 Ml Oral.Susp) 30 ml PO DAILY PRN PRN Reason: Constipation Melatonin (Melatonin 3 Mg Tablet) 3 mg PO BEDTIME [facility] Last Admin: 03/22/25 20:43 Dose: 3 mg Metformin HCl (Metformin Hcl Er 500 Mg Tab.Er.24h) 1,000 mg PO DAILY [facility] Last Admin: 03/23/25 09:33 Dose: 1,000 mg Trazodone HCl (Trazodone Hcl 25 Mg Halftab) 25 mg PO BEDTIME MRX1 PRN PRN Reason: Insomnia Last Admin: 03/06/25 20:26 Dose: 25 mg Allergies Allergies Allergy/AdvReac Type Severity Reaction Status Date / Time No Known Allergies Allergy Verified 02/28/25 23:33 Assessment & Plan Assessment & Plan (1) Unspecified psychosis: Status: Acute Code(s): F29 - Unspecified psychosis not due to a substance or known physiological condition Plan HPI: Patient is a 65 years old [place]-speaking female with possible hx of diabetic and HTN who presented to the ED reporting someone is stealing her phone and making threatening comments to another person, patient feels that she is under threat. She said that she lives with her daughter. She says that she is afraid to call the police in regard to the pawn situation because it would involve using her phone which she believes is compromised. She reports that she has been sick for awhile, stomach pain. Patient provided very vague and none committal when asked clarified questions. She reports no security at home and missed just with a landlord and there are people in the house taking her phone and making threats Collateral done in the ED with family: Grandson's Stephane and Argenis her daughter reports that patient has not been taking medications. They suspect that patient flushing them down to toilet or hiding them. They feel there is paranoid. Reported that patient lives with [phone]. Formulation/clinical reasoning: Patient appeared to be paranoid, disorganized, anxious, depressed, poor sleep and appetite. Questioned if she have any cognitive decline or dementia. We will be benefit to having [place] done. She is not in distress, ADLs appeared to be fair. Poor insight and poor judgment. Reports that she feels safe here. We will do collateral with her daughter to get more history of diagnosis and baseline. Discussed with her regarding medication for severe disorganization, and paranoid thoughts, as well as insomnia. Patient agree with the plans but not sure she is able to process information. Hospital course: 03/01/25: at this time. I would address symptoms of insomnia, and paranoid until more information obtained from her daughter regarding treatment hx. [facility] dx and medcial conditions. Not sure if she is diabetic or having HTN hx. Start melatonin 3 mg at bedtime for insomnia with Low dose of trazodone PRN. Risperidone 0.5 b.i.d. for paranoid/disorganized thoughts. We will order point of care with insulin coverage. She refused on labs ordered for this morning. We will monitor for hypotension/high blood pressure and POC 03/02 pt a little confused and it is difficult to follow her answers; Seems to mentioned safety and talks about unrelated things, her family and lists the names of each of her kids. Says team can contact them. Does not really answer questions about mood 03/03 Patient remains odd. She thinks that she is being watched by cameras in the room. Asked if her family can visit, she says if they do we will need security... When asked if she is afraid of her family she points to the door and says the doors are not locked... Question is repeated in a different way and she again points to the door and says the door is not locked. Eventually she seems to say she is not afraid of her family but that she is in general afraid of someone coming into the house and hurting her. -will increase risperdal dose to 1mg bid -very much need collateral 03/05 Increase Risperdal to 2 mg bid for 24 hour trial. 03/07 patient has only taken one dose of risperidone 2 mg, otherwise she has refused it. She had not been eating for the past 2 days, finally today she did eat something. pt presents as suspicious and paranoid. 03/08 pt refusing risperidone, has only taken one time 2mg. continues to present as paranoid and suspicious, declines to go back to her daughter's house. does not seem to understand that she can't survive on the streets, insists on leaving regardless. add head CT, will complete moca/ acl next week in [place]. this automobile service writer spoke with her daughter and provided update. r/o dementing process causing paranoia- her orientation for the most part seems intact except for situation. 03/09: no change 03/10: referred back to primary team to address concerns about not being discharged 03/11 d/c risperidone as pt reports she does not want this medication, will change to prolixin 1mg po daily. continues to present with paranoid delusions. anxious and guarded, declining to go back to her daughters' house, doesn't have a place to go. 03/12 increase prolixin to 2mg po daily. d/c risperidone. 03/13 continue prolixin, filed for 7&8. 03/14 continue tx. 03/15 continue tx. collateral information from daughter who reports paranoia may be present for long than initially suspected, more than 10 years at least. 03/16: continue current management and treatment plan. 03/17: continue current management and treatment plan. 03/18 continue tx. 03/19 continue tx. slightly less paranoid. 03/20 continue tx. 03/21 continue tx. 03/22 increase prolixin to 3mg po daily. 03/23: add prolixin 3 mg QHS due to florid psychosis. Reason for continued inpatient stay Substantial Risk for: inability to function Time Spent With Patient Time: Total time managing care of this patient today __25__ minutes.
[2025-03-23 16:19] LABS: Glucose, Whole Blood 146 mg/dL (60-115)
[2025-03-23 20:00] VITALS: BP 116/85; PULSE 80; RESP 19; TEMP 37; O2SAT 98
[2025-03-23 20:40] LABS: Glucose, Whole Blood 218 mg/dL (60-115)
[2025-03-23] MEDS: Insulin Glargine,Hum.rec.anlog 100 UNIT/ML 10 ML VIAL 14 UNIT SUBCUT (21:00)
[2025-03-24 06:53] LABS: Glucose, Whole Blood 198 mg/dL (60-115)
[2025-03-24 08:40] VITALS: BP 103/60; PULSE 83; RESP 18; TEMP 36.2; O2SAT 99
[2025-03-24] MEDS: Artificial Tears 15 ML DROPS 1 DROP EYE-BOTH ×2 (09:36→17:18)
[2025-03-24 11:15] LABS: Glucose, Whole Blood 266 mg/dL (60-115)
--- NOTE | 2025-03-24 14:31 | P.PNPSI_ITS ---
Subjective Subjective Date of Service: 03/24/25 Reason For Visit: F29 Unspecified Schizophrenia spectrumand other ps Interim History: seen with wet suit gluer. improved from yesterday, now projecting her delusions onto her roommate, saying it is her roommate who is seeing strange things and fearful cindy will come in and kill her. pt says she believes they have found and killed cindy by now so she doesn't need to worry. repors her mood is good and she slept well. per staff, bright yet paranoid. Mental Status Exam Mental Status Exam Narrative: Appearance: wearing hospital gown, fair hygiene, in NAD Behavior: less guarded Psychomotor: no agitation or retardation noted Speech: mostly clear, normal rate/rhythm/volume, spontaneous TP: mostly tangential TC: less fearful, projecting her delusions onto roommate Mood: good AFfect: constricted, normo-intense SI: none expressed HI: none expressed VH/AH: none Delusions: paranoid delusions Insight/judgment: impaired x 2. Memory/cog: alert, oriented to idea that she is in the hospital. She knows the month and year. Not oriented to situation. Pending MOCA. Diagnostics Vital Signs (24Hr): Vital Signs - 24 hr 03/23/25 20:00 03/24/25 08:40 Temperature 98.6 F 97.2 F Pulse Rate 80 83 Respiratory Rate 19 18 Blood Pressure 116/85 103/60 Pulse Oximetry 98 99 Oxygen Delivery Method Room Air Room Air BMI result Body Mass Index 24.4 Labs 03/02/25 16:26 03/21/25 08:37 Labs: Laboratory Results - last 48 hr 03/22/25 03/22/25 03/23/25 16:10 20:15 06:00 POC Glucose 111 252 H 183 H 03/23/25 03/23/25 03/23/25 11:37 16:16 20:37 POC Glucose 309 H 146 H 218 H 03/24/25 03/24/25 06:37 11:12 POC Glucose 198 H 266 H Medications Medications Current Medications Acetaminophen (Acetaminophen 325 Mg Tablet) 650 mg PO Q6H PRN PRN Reason: Headache/Pain, Scale 1-10 Last Admin: 03/24/25 09:36 Dose: 650 mg Al Hydroxide/Mg Hydroxide (Magnesium Hydrox/Alum Hydrox 30 Ml Oral.Susp) 30 ml PO Q6H PRN PRN Reason: Heartburn/Nausea Artificial Tears (Artificial Tears 15 Ml Drops) 1 drop EYE-BOTH DAILY@0900,1700 [facility] Last Admin: 03/24/25 09:36 Dose: 1 drop Atorvastatin Calcium (Atorvastatin Calcium 10 Mg Tablet) 10 mg PO BEDTIME [facility] Last Admin: 03/23/25 21:01 Dose: 10 mg Dextrose (Dextrose 50 % 25 Gm/50 Ml Syringe) 25 gm IVPUSH Q15M PRN; Protocol PRN Reason: per Hypoglycemia Standing Ord. Fluphenazine HCl (Fluphenazine Hcl 1 Mg Tablet) 4 mg PO BID [facility] Glucose (Glucose Gel 15 Gm Gel..Gram.) 15 gm PO Q15M PRN; Protocol PRN Reason: per Hypoglycemia Standing Ord. Hydroxyzine HCl (Hydroxyzine Hcl 25 Mg Tablet) 25 mg PO Q6H PRN PRN Reason: mild anxiety Last Admin: 03/05/25 22:32 Dose: 25 mg Insulin Glargine (Insulin Glargine,Hum.Rec.Anlog 100 Unit/Ml 10 Ml Vial) 14 unit SUBCUT BEDTIME [facility] Last Admin: 03/23/25 21:00 Dose: 14 unit Insulin Human Lispro (Insulin Lispro 100 Unit/Ml 3 Ml Vial) 0 unit SUBCUT QIDACHS [facility]; Protocol Last Admin: 03/24/25 11:34 Dose: 8 unit Lisinopril (Lisinopril 2.5 Mg Tablet) 2.5 mg PO DAILY [facility]; Protocol Last Admin: 03/24/25 09:29 Dose: 2.5 mg Magnesium Hydroxide (Milk Of Magnesia 30 Ml Oral.Susp) 30 ml PO DAILY PRN PRN Reason: Constipation Melatonin (Melatonin 3 Mg Tablet) 3 mg PO BEDTIME [facility] Last Admin: 03/23/25 21:01 Dose: 3 mg Metformin HCl (Metformin Hcl Er 500 Mg Tab.Er.24h) 1,000 mg PO DAILY [facility] Last Admin: 03/24/25 09:29 Dose: 1,000 mg Trazodone HCl (Trazodone Hcl 25 Mg Halftab) 25 mg PO BEDTIME MRX1 PRN PRN Reason: Insomnia Last Admin: 03/06/25 20:26 Dose: 25 mg Allergies Allergies Allergy/AdvReac Type Severity Reaction Status Date / Time No Known Allergies Allergy Verified 02/28/25 23:33 Assessment & Plan Assessment & Plan (1) Unspecified psychosis: Status: Acute Code(s): F29 - Unspecified psychosis not due to a substance or known physiological condition Plan HPI: Patient is a 65 years old [place]ian-speaking female with possible hx of diabetic and HTN who presented to the ED reporting someone is stealing her phone and making threatening comments to another person, patient feels that she is under threat. She said that she lives with her daughter. She says that she is afraid to call the police in regard to the pawn situation because it would involve using her phone which she believes is compromised. She reports that she has been sick for awhile, stomach pain. Patient provided very vague and none committal when asked clarified questions. She reports no security at home and missed just with a landlord and there are people in the house taking her phone and making threats Collateral done in the ED with family: Grandson's Stephane and Argenis her daughter reports that patient has not been taking medications. They suspect that patient flushing them down to toilet or hiding them. They feel there is paranoid. Reported that patient lives with [phone]. Formulation/clinical reasoning: Patient appeared to be paranoid, disorganized, anxious, depressed, poor sleep and appetite. Questioned if she have any cognitive decline or dementia. We will be benefit to having [place] done. She is not in distress, ADLs appeared to be fair. Poor insight and poor judgment. Reports that she feels safe here. We will do collateral with her daughter to get more history of diagnosis and baseline. Discussed with her regarding medication for severe disorganization, and paranoid thoughts, as well as insomnia. Patient agree with the plans but not sure she is able to process information. Hospital course: 03/01/25: at this time. I would address symptoms of insomnia, and paranoid until more information obtained from her daughter regarding treatment hx. [facility] dx and medcial conditions. Not sure if she is diabetic or having HTN hx. Start melatonin 3 mg at bedtime for insomnia with Low dose of trazodone PRN. Risperidone 0.5 b.i.d. for paranoid/disorganized thoughts. We will order point of care with insulin coverage. She refused on labs ordered for this morning. We will monitor for hypotension/high blood pressure and POC 03/02 pt a little confused and it is difficult to follow her answers; Seems to mentioned safety and talks about unrelated things, her family and lists the names of each of her kids. Says team can contact them. Does not really answer questions about mood 03/03 Patient remains odd. She thinks that she is being watched by cameras in the room. Asked if her family can visit, she says if they do we will need security... When asked if she is afraid of her family she points to the door and says the doors are not locked... Question is repeated in a different way and she again points to the door and says the door is not locked. Eventually she seems to say she is not afraid of her family but that she is in general afraid of someone coming into the house and hurting her. -will increase risperdal dose to 1mg bid -very much need collateral 03/05 Increase Risperdal to 2 mg bid for 24 hour trial. 03/07 patient has only taken one dose of risperidone 2 mg, otherwise she has refused it. She had not been eating for the past 2 days, finally today she did eat something. pt presents as suspicious and paranoid. 03/08 pt refusing risperidone, has only taken one time 2mg. continues to present as paranoid and suspicious, declines to go back to her daughter's house. does not seem to understand that she can't survive on the streets, insists on leaving regardless. add head CT, will complete moca/ acl next week in [place]. this production underwriter spoke with her daughter and provided update. r/o dementing process causing paranoia- her orientation for the most part seems intact except for situation. 03/09: no change 03/10: referred back to primary team to address concerns about not being discharged 03/11 d/c risperidone as pt reports she does not want this medication, will change to prolixin 1mg po daily. continues to present with paranoid delusions. anxious and guarded, declining to go back to her daughters' house, doesn't have a place to go. 03/12 increase prolixin to 2mg po daily. d/c risperidone. 03/13 continue prolixin, filed for 7&8. 03/14 continue tx. 03/15 continue tx. collateral information from daughter who reports paranoia may be present for long than initially suspected, more than 10 years at least. 03/16: continue current management and treatment plan. 03/17: continue current management and treatment plan. 03/18 continue tx. 03/19 continue tx. slightly less paranoid. 03/20 continue tx. 03/21 continue tx. 03/22 increase prolixin to 3mg po daily. 03/23: add prolixin 3 mg QHS due to florid psychosis. 03/24: psychosis improved from yesterday, less anxious. increase prolixin to 4 BID. Reason for continued inpatient stay Substantial Risk for: inability to function Time Spent With Patient Time: Total time managing care of this patient today _25___ minutes.
[2025-03-24 16:13] LABS: Glucose, Whole Blood 137 mg/dL (60-115)
[2025-03-24 19:51] LABS: Glucose, Whole Blood 227 mg/dL (60-115)
[2025-03-24 19:59] VITALS: BP 98/55; PULSE 74; RESP 16; TEMP 36.8; O2SAT 98
[2025-03-24] MEDS: Insulin Glargine,Hum.rec.anlog 100 UNIT/ML 10 ML VIAL 14 UNIT SUBCUT (20:42)
[2025-03-25 06:58] LABS: Glucose, Whole Blood 214 mg/dL (60-115)
[2025-03-25 08:00] VITALS: BP 110/58; PULSE 78; RESP 17; TEMP 36.2; O2SAT 100
[2025-03-25 08:02] VITALS: BP 110/58
[2025-03-25] MEDS: Artificial Tears 15 ML DROPS 1 DROP EYE-BOTH ×2 (08:40→16:40)
[2025-03-25 11:32] LABS: Glucose, Whole Blood 125 mg/dL (60-115)
--- NOTE | 2025-03-25 14:56 | P.PNPSI_ITS ---
Subjective Subjective Date of Service: 03/25/25 Reason For Visit: F29 Unspecified Schizophrenia spectrumand other ps Subjective Notes: Conditional Voluntary Interim History: Pt slept through the night. She reports people continues to come to her room and she can't sleep most of the night as she has to be alert and ready to react if something happens. She denies SI/HI. She is taking medications as prescribed. Prolixin was increased to 4mg po BID over the weekend. No further increases at this time, will monitor EPS, therapeutic benefit. Review of Systems Review of Systems She denies any shortness of breath, chest pain, dizziness, lightheadedness or any other concerning symptoms. Patient reports feeling hungry and thirsty. Yes all other systems are reviewed and are negative Constitutional: Reports no additional constitutional complaints Eyes: Reports no additional eye complaints Reports system reviewed and no additional complaints, except as documented Cardiovascular: Reports no additional cardiovascular complaints Respiratory: Reports no additional respiratory complaints Gastrointestinal: Reports no additional gastrointestinal complaints Musculoskeletal: Reports no additional musculoskeletal complaints Skin/Breast: Reports system reviewed and no additional complaints, except as docu Reports system reviewed and no additional complaints, except as documented Psychiatric: Reports as per HPI Endocrine: Reports no additional endocrine complaints Hematologic/Lymphatic: Reports no additional hematologic/lymphatic complaints Allergic/Immunologic: Reports no additional allergic/immunologic complaints Mental Status Exam Mental Status Exam Narrative: Appearance: wearing hospital gown, fair hygiene, in NAD Behavior: less guarded Psychomotor: no agitation or retardation noted Speech: mostly clear, normal rate/rhythm/volume, spontaneous TP: mostly tangential TC: less fearful, projecting her delusions onto roommate Mood: good AFfect: constricted, normo-intense SI: none expressed HI: none expressed VH/AH: none Delusions: paranoid delusions Insight/judgment: impaired x 2. Memory/cog: alert, oriented to idea that she is in the hospital. She knows the month and year. Not oriented to situation. Pending MOCA. Diagnostics Vital Signs (24Hr): Vital Signs - 24 hr 03/24/25 19:59 03/25/25 08:00 03/25/25 08:02 Temperature 98.2 F 97.2 F Pulse Rate 74 78 Respiratory Rate 16 17 Blood Pressure 98/55 L 110/58 L 110/58 L Pulse Oximetry 98 100 Oxygen Delivery Method Room Air Room Air BMI result Body Mass Index 24.4 Labs 03/02/25 16:26 03/21/25 08:37 Labs: Laboratory Results - last 48 hr 03/23/25 03/23/25 03/24/25 16:16 20:37 06:37 POC Glucose 146 H 218 H 198 H 03/24/25 03/24/25 03/24/25 11:12 16:04 19:42 POC Glucose 266 H 137 H 227 H 03/25/25 03/25/25 06:54 11:29 POC Glucose 214 H 125 H Medications Medications Current Medications Acetaminophen (Acetaminophen 325 Mg Tablet) 650 mg PO Q6H PRN PRN Reason: Headache/Pain, Scale 1-10 Last Admin: 03/24/25 09:36 Dose: 650 mg Al Hydroxide/Mg Hydroxide (Magnesium Hydrox/Alum Hydrox 30 Ml Oral.Susp) 30 ml PO Q6H PRN PRN Reason: Heartburn/Nausea Artificial Tears (Artificial Tears 15 Ml Drops) 1 drop EYE-BOTH DAILY@0900,1700 [facility] Last Admin: 03/25/25 08:40 Dose: 1 drop Atorvastatin Calcium (Atorvastatin Calcium 10 Mg Tablet) 10 mg PO BEDTIME [facility] Last Admin: 03/24/25 20:42 Dose: 10 mg Dextrose (Dextrose 50 % 25 Gm/50 Ml Syringe) 25 gm IVPUSH Q15M PRN; Protocol PRN Reason: per Hypoglycemia Standing Ord. Fluphenazine HCl (Fluphenazine Hcl 1 Mg Tablet) 4 mg PO BID [facility] Last Admin: 03/25/25 08:02 Dose: 4 mg Glucose (Glucose Gel 15 Gm Gel..Gram.) 15 gm PO Q15M PRN; Protocol PRN Reason: per Hypoglycemia Standing Ord. Hydroxyzine HCl (Hydroxyzine Hcl 25 Mg Tablet) 25 mg PO Q6H PRN PRN Reason: mild anxiety Last Admin: 03/05/25 22:32 Dose: 25 mg Insulin Glargine (Insulin Glargine,Hum.Rec.Anlog 100 Unit/Ml 10 Ml Vial) 14 unit SUBCUT BEDTIME [facility] Last Admin: 03/24/25 20:42 Dose: 14 unit Insulin Human Lispro (Insulin Lispro 100 Unit/Ml 3 Ml Vial) 0 unit SUBCUT QIDACHS [facility]; Protocol Last Admin: 03/25/25 11:34 Dose: 2 unit Lisinopril (Lisinopril 2.5 Mg Tablet) 2.5 mg PO DAILY [facility]; Protocol Last Admin: 03/25/25 08:02 Dose: 2.5 mg Magnesium Hydroxide (Milk Of Magnesia 30 Ml Oral.Susp) 30 ml PO DAILY PRN PRN Reason: Constipation Melatonin (Melatonin 3 Mg Tablet) 3 mg PO BEDTIME [facility] Last Admin: 03/24/25 20:42 Dose: 3 mg Metformin HCl (Metformin Hcl Er 500 Mg Tab.Er.24h) 1,000 mg PO DAILY [facility] Last Admin: 03/25/25 08:02 Dose: 1,000 mg Trazodone HCl (Trazodone Hcl 25 Mg Halftab) 25 mg PO BEDTIME MRX1 PRN PRN Reason: Insomnia Last Admin: 03/06/25 20:26 Dose: 25 mg Allergies Allergies Allergy/AdvReac Type Severity Reaction Status Date / Time No Known Allergies Allergy Verified 02/28/25 23:33 Assessment & Plan Assessment & Plan (1) Unspecified psychosis: Status: Acute Code(s): F29 - Unspecified psychosis not due to a substance or known physiological condition Plan HPI: Patient is a 65 years old [place]-speaking female with possible hx of diabetic and HTN who presented to the ED reporting someone is stealing her phone and making threatening comments to another person, patient feels that she is under threat. She said that she lives with her daughter. She says that she is afraid to call the police in regard to the pawn situation because it would involve using her phone which she believes is compromised. She reports that she has been sick for awhile, stomach pain. Patient provided very vague and none committal when asked clarified questions. She reports no security at home and missed just with a landlord and there are people in the house taking her phone and making threats Collateral done in the ED with family: Grandson's Stephane and Argenis her daughter reports that patient has not been taking medications. They suspect that patient flushing them down to toilet or hiding them. They feel there is paranoid. Reported that patient lives with [phone]. Formulation/clinical reasoning: Patient appeared to be paranoid, disorganized, anxious, depressed, poor sleep and appetite. Questioned if she have any cognitive decline or dementia. We will be benefit to having [place] done. She is not in distress, ADLs appeared to be fair. Poor insight and poor judgment. Reports that she feels safe here. We will do collateral with her daughter to get more history of diagnosis and baseline. Discussed with her regarding medication for severe disorganization, and paranoid thoughts, as well as insomnia. Patient agree with the plans but not sure she is able to process information. Hospital course: 03/01/25: at this time. I would address symptoms of insomnia, and paranoid until more information obtained from her daughter regarding treatment hx. [facility] dx and medcial conditions. Not sure if she is diabetic or having HTN hx. Start melatonin 3 mg at bedtime for insomnia with Low dose of trazodone PRN. Risperidone 0.5 b.i.d. for paranoid/disorganized thoughts. We will order point of care with insulin coverage. She refused on labs ordered for this morning. We will monitor for hypotension/high blood pressure and POC 03/02 pt a little confused and it is difficult to follow her answers; Seems to mentioned safety and talks about unrelated things, her family and lists the names of each of her kids. Says team can contact them. Does not really answer questions about mood 03/03 Patient remains odd. She thinks that she is being watched by cameras in the room. Asked if her family can visit, she says if they do we will need security... When asked if she is afraid of her family she points to the door and says the doors are not locked... Question is repeated in a different way and she again points to the door and says the door is not locked. Eventually she seems to say she is not afraid of her family but that she is in general afraid of someone coming into the house and hurting her. -will increase risperdal dose to 1mg bid -very much need collateral 03/05 Increase Risperdal to 2 mg bid for 24 hour trial. 03/07 patient has only taken one dose of risperidone 2 mg, otherwise she has refused it. She had not been eating for the past 2 days, finally today she did eat something. pt presents as suspicious and paranoid. 03/08 pt refusing risperidone, has only taken one time 2mg. continues to present as paranoid and suspicious, declines to go back to her daughter's house. does not seem to understand that she can't survive on the streets, insists on leaving regardless. add head CT, will complete moca/ acl next week in [place]. this financial underwriter spoke with her daughter and provided update. r/o dementing process causing paranoia- her orientation for the most part seems intact except for situation. 03/09: no change 03/10: referred back to primary team to address concerns about not being discharged 03/11 d/c risperidone as pt reports she does not want this medication, will change to prolixin 1mg po daily. continues to present with paranoid delusions. anxious and guarded, declining to go back to her daughters' house, doesn't have a place to go. 03/12 increase prolixin to 2mg po daily. d/c risperidone. 03/13 continue prolixin, filed for 7&8. 03/14 continue tx. 03/15 continue tx. collateral information from daughter who reports paranoia may be present for long than initially suspected, more than 10 years at least. 03/16: continue current management and treatment plan. 03/17: continue current management and treatment plan. 03/18 continue tx. 03/19 continue tx. slightly less paranoid. 03/20 continue tx. 03/21 continue tx. 03/22 increase prolixin to 3mg po daily. 03/23: add prolixin 3 mg QHS due to florid psychosis. 03/24: psychosis improved from yesterday, less anxious. increase prolixin to 4 BID. 03/25 continue tx. Reason for continued inpatient stay Substantial Risk for: inability to function Time Spent With Patient Time: Total time managing care of this patient today ____ minutes.
[2025-03-25 16:40] LABS: Glucose, Whole Blood 251 mg/dL (60-115)
[2025-03-25 19:49] LABS: Glucose, Whole Blood 240 mg/dL (60-115)
[2025-03-25 20:00] VITALS: BP 107/54; PULSE 78; RESP 16; TEMP 36.4; O2SAT 98
[2025-03-25] MEDS: Insulin Glargine,Hum.rec.anlog 100 UNIT/ML 10 ML VIAL 14 UNIT SUBCUT (21:44)
[2025-03-26 06:30] LABS: Glucose, Whole Blood 183 mg/dL (60-115)
[2025-03-26 08:00] VITALS: BP 144/70; PULSE 71; RESP 16; TEMP 36.2; O2SAT 99
[2025-03-26 11:24] LABS: Glucose, Whole Blood 201 mg/dL (60-115)
[2025-03-26] MEDS: Artificial Tears 15 ML DROPS 1 DROP EYE-BOTH ×2 (12:04→17:39)
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
[2025-03-26 16:37] LABS: Glucose, Whole Blood 143 mg/dL (60-115)
[2025-03-26 20:00] VITALS: BP 140/88; PULSE 85; RESP 16; TEMP 36.4; O2SAT 99
[2025-03-26] MEDS: Insulin Glargine,Hum.rec.anlog 100 UNIT/ML 10 ML VIAL 14 UNIT SUBCUT ×2 (20:19→20:27)
[2025-03-26 20:34] LABS: Glucose, Whole Blood 250 mg/dL (60-115)
[2025-03-27 06:46] LABS: Glucose, Whole Blood 187 mg/dL (60-115)
[2025-03-27 08:00] VITALS: BP 107/69; PULSE 94; RESP 14; TEMP 36.2; O2SAT 100
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
[2025-03-27] MEDS: Artificial Tears 15 ML DROPS 1 DROP EYE-BOTH ×2 (09:33→18:19)
[2025-03-27 12:52] LABS: Glucose, Whole Blood 374 mg/dL (60-115)
[2025-03-27 16:41] LABS: Glucose, Whole Blood 252 mg/dL (60-115)
[2025-03-27 20:00] VITALS: BP 114/87; PULSE 82; RESP 16; TEMP 36.4; O2SAT 99
[2025-03-27 20:31] LABS: Glucose, Whole Blood 200 mg/dL (60-115)
[2025-03-27] MEDS: Insulin Glargine,Hum.rec.anlog 100 UNIT/ML 10 ML VIAL 14 UNIT SUBCUT (21:17)
[2025-03-28 06:21] LABS: Glucose, Whole Blood 218 mg/dL (60-115)
[2025-03-28 08:00] VITALS: BP 121/74; PULSE 16; RESP 16; TEMP 36.6; O2SAT 98
[2025-03-28 08:28] LABS: Creatinine Clr Calc Pharmacy 72.3; Estimated Glomerular Filt Rate > 60
[2025-03-28 10:11] VITALS: BMI 25.0
[2025-03-28 11:12] LABS: Glucose, Whole Blood 332 mg/dL (60-115)
[2025-03-28] MEDS: Artificial Tears 15 ML DROPS 1 DROP EYE-BOTH ×2 (11:28→17:17)
[2025-03-28 16:43] LABS: Glucose, Whole Blood 196 mg/dL (60-115)
--- NOTE | 2025-03-28 17:06 | HO.PSYCHPN ---
Subjective Subjective Date of Service: 03/28/25 Reason For Visit: F29 Unspecified Schizophrenia spectrumand other ps Subjective Notes: Section 7 Interim History: Pt slept through the night. She is visible and eating well. However, pt continues to report paranoid ideas about staff trying to poison her. She reports she is not safe here and hopes to be discharged soon. No behavioral concerns. Review of Systems Review of Systems She denies any shortness of breath, chest pain, dizziness, lightheadedness or any other concerning symptoms. Patient reports feeling hungry and thirsty. Yes all other systems are reviewed and are negative Constitutional: Reports no additional constitutional complaints Eyes: Reports no additional eye complaints Reports system reviewed and no additional complaints, except as documented Cardiovascular: Reports no additional cardiovascular complaints Respiratory: Reports no additional respiratory complaints Gastrointestinal: Reports no additional gastrointestinal complaints Musculoskeletal: Reports no additional musculoskeletal complaints Skin/Breast: Reports system reviewed and no additional complaints, except as docu Reports system reviewed and no additional complaints, except as documented Psychiatric: Reports as per HPI Endocrine: Reports no additional endocrine complaints Hematologic/Lymphatic: Reports no additional hematologic/lymphatic complaints Allergic/Immunologic: Reports no additional allergic/immunologic complaints Mental Status Exam Mental Status Exam Narrative: Appearance: wearing hospital gown, fair hygiene, in NAD Behavior: less guarded Psychomotor: no agitation or retardation noted Speech: mostly clear, normal rate/rhythm/volume, spontaneous TP: mostly tangential TC: less fearful, projecting her delusions onto roommate Mood: good AFfect: constricted, normo-intense SI: none expressed HI: none expressed VH/AH: none Delusions: paranoid delusions Insight/judgment: impaired x 2. Memory/cog: alert, oriented to idea that she is in the hospital. She knows the month and year. Not oriented to situation. Pending MOCA. Diagnostics Vital Signs (24Hr): Vital Signs - 24 hr 03/27/25 20:00 03/28/25 08:00 Temperature 97.5 F 97.8 F Pulse Rate 82 16 L Respiratory Rate 16 16 Blood Pressure 114/87 121/74 Pulse Oximetry 99 98 Oxygen Delivery Method Room Air Room Air BMI result Body Mass Index 25.0 Labs 03/02/25 16:26 03/28/25 07:11 Labs: Laboratory Results - last 48 hr 03/26/25 03/27/25 03/27/25 20:25 06:33 12:31 Creatinine Estim Creat Clear Calc Estimated GFR POC Glucose 250 H 187 H 374 H* 03/27/25 03/27/25 03/28/25 16:36 20:25 06:14 Creatinine Estim Creat Clear Calc Estimated GFR POC Glucose 252 H 200 H 218 H 03/28/25 03/28/25 03/28/25 07:11 11:07 16:20 Creatinine 0.62 Estim Creat Clear Calc 72.3 Estimated GFR > 60 POC Glucose 332 H 196 H Medications Medications Current Medications Acetaminophen (Acetaminophen 325 Mg Tablet) 650 mg PO Q6H PRN PRN Reason: Headache/Pain, Scale 1-10 Last Admin: 03/24/25 09:36 Dose: 650 mg Al Hydroxide/Mg Hydroxide (Magnesium Hydrox/Alum Hydrox 30 Ml Oral.Susp) 30 ml PO Q6H PRN PRN Reason: Heartburn/Nausea Artificial Tears (Artificial Tears 15 Ml Drops) 1 drop EYE-BOTH DAILY@0900,1700 [facility] Last Admin: 03/28/25 11:28 Dose: 1 drop Atorvastatin Calcium (Atorvastatin Calcium 10 Mg Tablet) 10 mg PO BEDTIME [facility] Last Admin: 03/27/25 21:20 Dose: 10 mg Dextrose (Dextrose 50 % 25 Gm/50 Ml Syringe) 25 gm IVPUSH Q15M PRN; Protocol PRN Reason: per Hypoglycemia Standing Ord. Fluphenazine HCl (Fluphenazine Hcl 1 Mg Tablet) 4 mg PO BID [facility] Last Admin: 03/28/25 08:46 Dose: 4 mg Glucose (Glucose Gel 15 Gm Gel..Gram.) 15 gm PO Q15M PRN; Protocol PRN Reason: per Hypoglycemia Standing Ord. Hydroxyzine HCl (Hydroxyzine Hcl 25 Mg Tablet) 25 mg PO Q6H PRN PRN Reason: mild anxiety Last Admin: 03/05/25 22:32 Dose: 25 mg Insulin Glargine (Insulin Glargine,Hum.Rec.Anlog 100 Unit/Ml 10 Ml Vial) 14 unit SUBCUT BEDTIME [facility] Last Admin: 03/27/25 21:17 Dose: 14 unit Insulin Human Lispro (Insulin Lispro 100 Unit/Ml 3 Ml Vial) 0 unit SUBCUT QIDACHS [facility]; Protocol Last Admin: 03/28/25 16:43 Dose: 4 unit Lisinopril (Lisinopril 2.5 Mg Tablet) 2.5 mg PO DAILY [facility]; Protocol On Hold: 03/27/25 15:25 Last Admin: 03/27/25 09:30 Dose: 2.5 mg Magnesium Hydroxide (Milk Of Magnesia 30 Ml Oral.Susp) 30 ml PO DAILY PRN PRN Reason: Constipation Melatonin (Melatonin 3 Mg Tablet) 3 mg PO BEDTIME [facility] Last Admin: 03/27/25 21:20 Dose: 3 mg Metformin HCl (Metformin Hcl Er 500 Mg Tab.Er.24h) 1,000 mg PO DAILY [facility] Last Admin: 03/28/25 08:46 Dose: 1,000 mg Trazodone HCl (Trazodone Hcl 25 Mg Halftab) 25 mg PO BEDTIME [facility]X1 PRN PRN Reason: Insomnia Last Admin: 03/06/25 20:26 Dose: 25 mg Allergies Allergies Allergy/AdvReac Type Severity Reaction Status Date / Time No Known Allergies Allergy Verified 02/28/25 23:33 Assessment & Plan Assessment & Plan (1) Unspecified psychosis: Status: Acute Code(s): F29 - Unspecified psychosis not due to a substance or known physiological condition Plan HPI: Patient is a 65 years old [place]-speaking female with possible hx of diabetic and HTN who presented to the ED reporting someone is stealing her phone and making threatening comments to another person, patient feels that she is under threat. She said that she lives with her daughter. She says that she is afraid to call the police in regard to the pawn situation because it would involve using her phone which she believes is compromised. She reports that she has been sick for awhile, stomach pain. Patient provided very vague and none committal when asked clarified questions. She reports no security at home and missed just with a landlord and there are people in the house taking her phone and making threats Collateral done in the ED with family: Grandson's Stephane and Argenis her daughter reports that patient has not been taking medications. They suspect that patient flushing them down to toilet or hiding them. They feel there is paranoid. Reported that patient lives with [phone]. Formulation/clinical reasoning: Patient appeared to be paranoid, disorganized, anxious, depressed, poor sleep and appetite. Questioned if she have any cognitive decline or dementia. We will be benefit to having [place] done. She is not in distress, ADLs appeared to be fair. Poor insight and poor judgment. Reports that she feels safe here. We will do collateral with her daughter to get more history of diagnosis and baseline. Discussed with her regarding medication for severe disorganization, and paranoid thoughts, as well as insomnia. Patient agree with the plans but not sure she is able to process information. Hospital course: 03/01/25: at this time. I would address symptoms of insomnia, and paranoid until more information obtained from her daughter regarding treatment hx. [facility] dx and medcial conditions. Not sure if she is diabetic or having HTN hx. Start melatonin 3 mg at bedtime for insomnia with Low dose of trazodone PRN. Risperidone 0.5 b.i.d. for paranoid/disorganized thoughts. We will order point of care with insulin coverage. She refused on labs ordered for this morning. We will monitor for hypotension/high blood pressure and POC 03/02 pt a little confused and it is difficult to follow her answers; Seems to mentioned safety and talks about unrelated things, her family and lists the names of each of her kids. Says team can contact them. Does not really answer questions about mood 03/03 Patient remains odd. She thinks that she is being watched by cameras in the room. Asked if her family can visit, she says if they do we will need security... When asked if she is afraid of her family she points to the door and says the doors are not locked... Question is repeated in a different way and she again points to the door and says the door is not locked. Eventually she seems to say she is not afraid of her family but that she is in general afraid of someone coming into the house and hurting her. -will increase risperdal dose to 1mg bid -very much need collateral 03/05 Increase Risperdal to 2 mg bid for 24 hour trial. 03/07 patient has only taken one dose of risperidone 2 mg, otherwise she has refused it. She had not been eating for the past 2 days, finally today she did eat something. pt presents as suspicious and paranoid. 03/08 pt refusing risperidone, has only taken one time 2mg. continues to present as paranoid and suspicious, declines to go back to her daughter's house. does not seem to understand that she can't survive on the streets, insists on leaving regardless. add head CT, will complete moca/ acl next week in [place]. this technical document writer spoke with her daughter and provided update. r/o dementing process causing paranoia- her orientation for the most part seems intact except for situation. 03/09: no change 03/10: referred back to primary team to address concerns about not being discharged 03/11 d/c risperidone as pt reports she does not want this medication, will change to prolixin 1mg po daily. continues to present with paranoid delusions. anxious and guarded, declining to go back to her daughters' house, doesn't have a place to go. 03/12 increase prolixin to 2mg po daily. d/c risperidone. 03/13 continue prolixin, filed for 7&8. 03/14 continue tx. 03/15 continue tx. collateral information from daughter who reports paranoia may be present for long than initially suspected, more than 10 years at least. 03/16: continue current management and treatment plan. 03/17: continue current management and treatment plan. 03/18 continue tx. 03/19 continue tx. slightly less paranoid. 03/20 continue tx. 03/21 continue tx. 03/22 increase prolixin to 3mg po daily. 03/23: add prolixin 3 mg QHS due to florid psychosis. 03/24: psychosis improved from yesterday, less anxious. increase prolixin to 4 BID. 03/25 continue tx. 03/26 continue current medications. BP stable, yesterday on lower end and pt had reported dizziness. 03/27 continue tx. hold lisinopril low bp and pt reports dizziness. 03/28 continue tx. Reason for continued inpatient stay Substantial Risk for: inability to function Time Spent With Patient Time: Total time managing care of this patient today ____ minutes.
[2025-03-28 19:49] VITALS: BP 114/59; PULSE 86; RESP 18; TEMP 36.3; O2SAT 96
[2025-03-28 21:11] LABS: Glucose, Whole Blood 316 mg/dL (60-115)
[2025-03-28] MEDS: Insulin Glargine,Hum.rec.anlog 100 UNIT/ML 10 ML VIAL 14 UNIT SUBCUT (21:44)
[2025-03-29 06:46] LABS: Glucose, Whole Blood 220 mg/dL (60-115)
[2025-03-29] MEDS: Artificial Tears 15 ML DROPS 1 DROP EYE-BOTH ×2 (09:15→17:28)
[2025-03-29 09:16] VITALS: BP 120/72; PULSE 104; RESP 18; TEMP 36.2; O2SAT 97
[2025-03-29 11:27] LABS: Glucose, Whole Blood 346 mg/dL (60-115)
--- NOTE | 2025-03-29 14:43 | PC.NURSE ---
110 mls of slightly cloudy pale straw colored urine obtained via clean catch as ordered at 1430 today. Patient had been complaining of burning during urination and her POC'S are elevated.
[2025-03-29 14:53] LABS: Appearance Urine Clear; Glucose Urine UA >=1000 mg/dL (Negative); PH 6.5 (5.0-9.0); Specific Gravity - Urine 1.015 (1.005-1.025); UMIC TRIGGER UA YES
--- NOTE | 2025-03-29 15:12 | PM.EVENT ---
Event Note Date of Service: 03/29/25 Event Note: Nursing reports patient complaining of burning with urination. UA collected demonstrates positive leukocyte esterase, positive WBCs. Will start Ceftin and await sensitivities Time Spent With Patient Time: Total time managing care of this patient today ____ minutes.
--- NOTE | 2025-03-29 16:02 | HO.PSYCHPN ---
Subjective Subjective Date of Service: 03/29/25 Reason For Visit: F29 Unspecified Schizophrenia spectrumand other ps Subjective Notes: Section 7 Interim History: Pt slept through the night. She is visible and eating well. However, pt continues to report paranoid ideas about staff trying to poison her. She reports she is not safe here and hopes to be discharged soon. No behavioral concerns. Review of Systems Review of Systems She denies any shortness of breath, chest pain, dizziness, lightheadedness or any other concerning symptoms. Patient reports feeling hungry and thirsty. Yes all other systems are reviewed and are negative Constitutional: Reports no additional constitutional complaints Eyes: Reports no additional eye complaints Reports system reviewed and no additional complaints, except as documented Cardiovascular: Reports no additional cardiovascular complaints Respiratory: Reports no additional respiratory complaints Gastrointestinal: Reports no additional gastrointestinal complaints Musculoskeletal: Reports no additional musculoskeletal complaints Skin/Breast: Reports system reviewed and no additional complaints, except as docu Reports system reviewed and no additional complaints, except as documented Psychiatric: Reports as per HPI Endocrine: Reports no additional endocrine complaints Hematologic/Lymphatic: Reports no additional hematologic/lymphatic complaints Allergic/Immunologic: Reports no additional allergic/immunologic complaints Mental Status Exam Mental Status Exam Narrative: Appearance: wearing hospital gown, fair hygiene, in NAD Behavior: less guarded Psychomotor: no agitation or retardation noted Speech: mostly clear, normal rate/rhythm/volume, spontaneous TP: mostly tangential TC: less fearful, projecting her delusions onto roommate Mood: good AFfect: constricted, normo-intense SI: none expressed HI: none expressed VH/AH: none Delusions: paranoid delusions Insight/judgment: impaired x 2. Memory/cog: alert, oriented to idea that she is in the hospital. She knows the month and year. Not oriented to situation. Pending MOCA. Patient Appearance: Well Grooomed Patient Orientation: Person, Place (hospital) and Time (February only) Level of Consciousness: Awake and Alert Patient Behavior: Guarded Mood Description: Calm ( good ) Affect Description: Angry Patient Cognition Impaired: Yes Ability to Follow Directions: Good Speech Pattern: Clear Memory Description: Remote Impaired Diagnostics Vital Signs (24Hr): Vital Signs - 24 hr 03/28/25 19:49 03/29/25 09:16 Temperature 97.3 F 97.1 F Pulse Rate 86 104 H Respiratory Rate 18 18 Blood Pressure 114/59 L 120/72 Pulse Oximetry 96 97 Oxygen Delivery Method Room Air Room Air BMI result Body Mass Index 25.0 Labs 03/02/25 16:26 03/28/25 07:11 Labs: Laboratory Results - last 48 hr 03/27/25 03/27/25 03/28/25 16:36 20:25 06:14 Creatinine Estim Creat Clear Calc Estimated GFR POC Glucose 252 H 200 H 218 H Urine Color Urine Appearance Urine pH Ur Specific [place] Urine Protein Urine Glucose (UA) Urine Ketones Urine Blood Urine Nitrite Ur Leukocyte Esterase Urine RBC Urine WBC Ur Squamous Epith Cells Urine Bacteria Hyaline Casts 03/28/25 03/28/25 03/28/25 07:11 11:07 16:20 Creatinine 0.62 Estim Creat Clear Calc 72.3 Estimated GFR > 60 POC Glucose 332 H 196 H Urine Color Urine Appearance Urine pH Ur Specific [place] Urine Protein Urine Glucose (UA) Urine Ketones Urine Blood Urine Nitrite Ur Leukocyte Esterase Urine RBC Urine WBC Ur Squamous Epith Cells Urine Bacteria Hyaline Casts 03/28/25 03/29/25 03/29/25 21:06 06:30 11:21 Creatinine Estim Creat Clear Calc Estimated GFR POC Glucose 316 H 220 H 346 H Urine Color Urine Appearance Urine pH Ur Specific [place] Urine Protein Urine Glucose (UA) Urine Ketones Urine Blood Urine Nitrite Ur Leukocyte Esterase Urine RBC Urine WBC Ur Squamous Epith Cells Urine Bacteria Hyaline Casts 03/29/25 Unknown Creatinine Estim Creat Clear Calc Estimated GFR POC Glucose Urine Color Yellow Urine Appearance Clear Urine pH 6.5 Ur Specific [place] 1.015 Urine Protein Negative Urine Glucose (UA) >=1000 H Urine Ketones Negative Urine Blood Negative Urine Nitrite Negative Ur Leukocyte Esterase Moderate (2+) H Urine RBC 0-2 Urine WBC >50 H Ur Squamous Epith Cells 0-2 Urine Bacteria 4+ Hyaline Casts 0-2 Medications Medications Current Medications Acetaminophen (Acetaminophen 325 Mg Tablet) 650 mg PO Q6H PRN PRN Reason: Headache/Pain, Scale 1-10 Last Admin: 03/24/25 09:36 Dose: 650 mg Al Hydroxide/Mg Hydroxide (Magnesium Hydrox/Alum Hydrox 30 Ml Oral.Susp) 30 ml PO Q6H PRN PRN Reason: Heartburn/Nausea Artificial Tears (Artificial Tears 15 Ml Drops) 1 drop EYE-BOTH DAILY@0900,1700 [facility] Last Admin: 03/29/25 09:15 Dose: 1 drop Atorvastatin Calcium (Atorvastatin Calcium 10 Mg Tablet) 10 mg PO BEDTIME [facility] Last Admin: 03/28/25 21:42 Dose: 10 mg Cefuroxime Axetil (Cefuroxime Axetil 500 Mg Tablet) 500 mg PO Q12H [facility] Stop: 04/03/25 06:01 Dextrose (Dextrose 50 % 25 Gm/50 Ml Syringe) 25 gm IVPUSH Q15M PRN; Protocol PRN Reason: per Hypoglycemia Standing Ord. Fluphenazine HCl (Fluphenazine Hcl 1 Mg Tablet) 4 mg PO BID [facility] Last Admin: 03/29/25 09:12 Dose: 4 mg Glucose (Glucose Gel 15 Gm Gel..Gram.) 15 gm PO Q15M PRN; Protocol PRN Reason: per Hypoglycemia Standing Ord. Hydroxyzine HCl (Hydroxyzine Hcl 25 Mg Tablet) 25 mg PO Q6H PRN PRN Reason: mild anxiety Last Admin: 03/05/25 22:32 Dose: 25 mg Insulin Glargine (Insulin Glargine,Hum.Rec.Anlog 100 Unit/Ml 10 Ml Vial) 14 unit SUBCUT BEDTIME [facility] Last Admin: 03/28/25 21:44 Dose: 14 unit Insulin Human Lispro (Insulin Lispro 100 Unit/Ml 3 Ml Vial) 0 unit SUBCUT QIDACHS [facility]; Protocol Last Admin: 03/29/25 11:51 Dose: 10 unit Lisinopril (Lisinopril 2.5 Mg Tablet) 2.5 mg PO DAILY [facility]; Protocol On Hold: 03/27/25 15:25 Last Admin: 03/27/25 09:30 Dose: 2.5 mg Magnesium Hydroxide (Milk Of Magnesia 30 Ml Oral.Susp) 30 ml PO DAILY PRN PRN Reason: Constipation Melatonin (Melatonin 3 Mg Tablet) 3 mg PO BEDTIME [facility] Last Admin: 03/28/25 21:42 Dose: 3 mg Metformin HCl (Metformin Hcl Er 500 Mg Tab.Er.24h) 1,000 mg PO DAILY [facility] Last Admin: 03/29/25 09:13 Dose: 1,000 mg Trazodone HCl (Trazodone Hcl 25 Mg Halftab) 25 mg PO BEDTIME [facility] PRN PRN Reason: Insomnia Last Admin: 03/06/25 20:26 Dose: 25 mg Allergies Allergies Allergy/AdvReac Type Severity Reaction Status Date / Time No Known Allergies Allergy Verified 02/28/25 23:33 Assessment & Plan Assessment & Plan (1) Unspecified psychosis: Status: Acute Code(s): F29 - Unspecified psychosis not due to a substance or known physiological condition Plan HPI: Patient is a 65 years old [place]speaking female with possible hx of diabetic and HTN who presented to the ED reporting someone is stealing her phone and making threatening comments to another person, patient feels that she is under threat. She said that she lives with her daughter. She says that she is afraid to call the police in regard to the pawn situation because it would involve using her phone which she believes is compromised. She reports that she has been sick for awhile, stomach pain. Patient provided very vague and none committal when asked clarified questions. She reports no security at home and missed just with a landlord and there are people in the house taking her phone and making threats Collateral done in the ED with family: Grandson's Stephane and Argenis her daughter reports that patient has not been taking medications. They suspect that patient flushing them down to toilet or hiding them. They feel there is paranoid. Reported that patient lives with [phone]. Formulation/clinical reasoning: Patient appeared to be paranoid, disorganized, anxious, depressed, poor sleep and appetite. Questioned if she have any cognitive decline or dementia. We will be benefit to having [place] done. She is not in distress, ADLs appeared to be fair. Poor insight and poor judgment. Reports that she feels safe here. We will do collateral with her daughter to get more history of diagnosis and baseline. Discussed with her regarding medication for severe disorganization, and paranoid thoughts, as well as insomnia. Patient agree with the plans but not sure she is able to process information. Hospital course: 03/01/25: at this time. I would address symptoms of insomnia, and paranoid until more information obtained from her daughter regarding treatment hx. [facility] dx and medcial conditions. Not sure if she is diabetic or having HTN hx. Start melatonin 3 mg at bedtime for insomnia with Low dose of trazodone PRN. Risperidone 0.5 b.i.d. for paranoid/disorganized thoughts. We will order point of care with insulin coverage. She refused on labs ordered for this morning. We will monitor for hypotension/high blood pressure and POC 03/02 pt a little confused and it is difficult to follow her answers; Seems to mentioned safety and talks about unrelated things, her family and lists the names of each of her kids. Says team can contact them. Does not really answer questions about mood 03/03 Patient remains odd. She thinks that she is being watched by cameras in the room. Asked if her family can visit, she says if they do we will need security... When asked if she is afraid of her family she points to the door and says the doors are not locked... Question is repeated in a different way and she again points to the door and says the door is not locked. Eventually she seems to say she is not afraid of her family but that she is in general afraid of someone coming into the house and hurting her. -will increase risperdal dose to 1mg bid -very much need collateral 03/05 Increase Risperdal to 2 mg bid for 24 hour trial. 03/07 patient has only taken one dose of risperidone 2 mg, otherwise she has refused it. She had not been eating for the past 2 days, finally today she did eat something. pt presents as suspicious and paranoid. 03/08 pt refusing risperidone, has only taken one time 2mg. continues to present as paranoid and suspicious, declines to go back to her daughter's house. does not seem to understand that she can't survive on the streets, insists on leaving regardless. add head CT, will complete moca/ acl next week in [place]. this press writer spoke with her daughter and provided update. r/o dementing process causing paranoia- her orientation for the most part seems intact except for situation. 03/09: no change 03/10: referred back to primary team to address concerns about not being discharged 03/11 d/c risperidone as pt reports she does not want this medication, will change to prolixin 1mg po daily. continues to present with paranoid delusions. anxious and guarded, declining to go back to her daughters' house, doesn't have a place to go. 03/12 increase prolixin to 2mg po daily. d/c risperidone. 03/13 continue prolixin, filed for 7&8. 03/14 continue tx. 03/15 continue tx. collateral information from daughter who reports paranoia may be present for long than initially suspected, more than 10 years at least. 03/16: continue current management and treatment plan. 03/17: continue current management and treatment plan. 03/18 continue tx. 03/19 continue tx. slightly less paranoid. 03/20 continue tx. 03/21 continue tx. 03/22 increase prolixin to 3mg po daily. 03/23: add prolixin 3 mg QHS due to florid psychosis. 03/24: psychosis improved from yesterday, less anxious. increase prolixin to 4 BID. 03/25 continue tx. 03/26 continue current medications. BP stable, yesterday on lower end and pt had reported dizziness. 03/27 continue tx. hold lisinopril low bp and pt reports dizziness. 03/28 continue tx. 03/29 continue tx. Reason for continued inpatient stay Substantial Risk for: inability to function Time Spent With Patient Time: Total time managing care of this patient today ____ minutes.
[2025-03-29 16:18] LABS: Glucose, Whole Blood 142 mg/dL (60-115)
[2025-03-29 19:59] LABS: Glucose, Whole Blood 194 mg/dL (60-115)
[2025-03-29 20:00] VITALS: BP 120/57; PULSE 87; RESP 18; TEMP 36.7; O2SAT 98
[2025-03-29] MEDS: Insulin Glargine,Hum.rec.anlog 100 UNIT/ML 10 ML VIAL 14 UNIT SUBCUT (21:21)
[2025-03-30 06:43] LABS: Glucose, Whole Blood 213 mg/dL (60-115)
--- NOTE | 2025-03-30 07:21 | HO.PSYCHPN ---
Subjective Subjective Date of Service: 03/30/25 Reason For Visit: F29 Unspecified Schizophrenia spectrumand other ps Subjective Notes: Section 7 Interim History: Met with patient. Discussed with Nursing . Utilized video vending machine technician [id number]. Blood sugar levels continue to be elevated in the 200s. Reports he is doing well. Had no issues. Sleeping well. Reports not depressed. Reports her main issue is when she will get discharged and reported she has been here for 1 month, which is accurate. Denied feel paranoid or unsafe- did not other documentaton ref feeling paranoid. Medication Compliance: Yes Side effects from medications: No Attending Groups: Intermittent Review of Systems Acute medical concerns: No Review of Systems Review of Systems Nothing acute. Mental Status Exam Mental Status Exam Narrative: Appearance: wearing hospital gown, fair hygiene, in NAD Behavior: less guarded Psychomotor: no agitation or retardation noted Speech: mostly clear, normal rate/rhythm/volume, spontaneous TP: mostly tangential TC: less fearful, projecting her delusions onto roommate Mood: good AFfect: constricted, normo-intense SI: none expressed HI: none expressed VH/AH: none Delusions: paranoid with staff Insight/judgment: impaired x 2. Memory/cog: alert, oriented to idea that she is in the hospital. She knows the month and year. Not oriented to situation. Pending MOCA. Diagnostics Vital Signs (24Hr): Vital Signs - 24 hr 03/29/25 09:16 03/29/25 20:00 Temperature 97.1 F 98.1 F Pulse Rate 104 H 87 Respiratory Rate 18 18 Blood Pressure 120/72 120/57 L Pulse Oximetry 97 98 Oxygen Delivery Method Room Air Room Air BMI result Body Mass Index 25.0 Labs 03/02/25 16:26 03/28/25 07:11 Labs: Laboratory Results - last 48 hr 03/28/25 03/28/25 03/28/25 07:11 11:07 16:20 Creatinine 0.62 Estim Creat Clear Calc 72.3 Estimated GFR > 60 POC Glucose 332 H 196 H Urine Color Urine Appearance Urine pH Ur Specific [place] Urine Protein Urine Glucose (UA) Urine Ketones Urine Blood Urine Nitrite Ur Leukocyte Esterase Urine RBC Urine WBC Ur Squamous Epith Cells Urine Bacteria Hyaline Casts 03/28/25 03/29/25 03/29/25 21:06 06:30 11:21 Creatinine Estim Creat Clear Calc Estimated GFR POC Glucose 316 H 220 H 346 H Urine Color Urine Appearance Urine pH Ur Specific [place] Urine Protein Urine Glucose (UA) Urine Ketones Urine Blood Urine Nitrite Ur Leukocyte Esterase Urine RBC Urine WBC Ur Squamous Epith Cells Urine Bacteria Hyaline Casts 03/29/25 03/29/25 03/29/25 16:07 19:51 Unknown Creatinine Estim Creat Clear Calc Estimated GFR POC Glucose 142 H 194 H Urine Color Yellow Urine Appearance Clear Urine pH 6.5 Ur Specific [place] 1.015 Urine Protein Negative Urine Glucose (UA) >=1000 H Urine Ketones Negative Urine Blood Negative Urine Nitrite Negative Ur Leukocyte Esterase Moderate (2+) H Urine RBC 0-2 Urine WBC >50 H Ur Squamous Epith Cells 0-2 Urine Bacteria 4+ Hyaline Casts 0-2 03/30/25 06:28 Creatinine Estim Creat Clear Calc Estimated GFR POC Glucose 213 H Urine Color Urine Appearance Urine pH Ur Specific [place] Urine Protein Urine Glucose (UA) Urine Ketones Urine Blood Urine Nitrite Ur Leukocyte Esterase Urine RBC Urine WBC Ur Squamous Epith Cells Urine Bacteria Hyaline Casts Medications Medications Current Medications Acetaminophen (Acetaminophen 325 Mg Tablet) 650 mg PO Q6H PRN PRN Reason: Headache/Pain, Scale 1-10 Last Admin: 03/24/25 09:36 Dose: 650 mg Al Hydroxide/Mg Hydroxide (Magnesium Hydrox/Alum Hydrox 30 Ml Oral.Susp) 30 ml PO Q6H PRN PRN Reason: Heartburn/Nausea Artificial Tears (Artificial Tears 15 Ml Drops) 1 drop EYE-BOTH DAILY@0900,1700 [facility] Last Admin: 03/29/25 17:28 Dose: 1 drop Atorvastatin Calcium (Atorvastatin Calcium 10 Mg Tablet) 10 mg PO BEDTIME [facility] Last Admin: 03/29/25 21:22 Dose: 10 mg Cefuroxime Axetil (Cefuroxime Axetil 500 Mg Tablet) 500 mg PO Q12H [facility] Stop: 04/03/25 06:01 Last Admin: 03/30/25 05:45 Dose: 500 mg Dextrose (Dextrose 50 % 25 Gm/50 Ml Syringe) 25 gm IVPUSH Q15M PRN; Protocol PRN Reason: per Hypoglycemia Standing Ord. Fluphenazine HCl (Fluphenazine Hcl 1 Mg Tablet) 4 mg PO BID [facility] Last Admin: 03/29/25 21:22 Dose: 4 mg Glucose (Glucose Gel 15 Gm Gel..Gram.) 15 gm PO Q15M PRN; Protocol PRN Reason: per Hypoglycemia Standing Ord. Hydroxyzine HCl (Hydroxyzine Hcl 25 Mg Tablet) 25 mg PO Q6H PRN PRN Reason: mild anxiety Last Admin: 03/05/25 22:32 Dose: 25 mg Insulin Glargine (Insulin Glargine,Hum.Rec.Anlog 100 Unit/Ml 10 Ml Vial) 14 unit SUBCUT BEDTIME [facility] Last Admin: 03/29/25 21:21 Dose: 14 unit Insulin Human Lispro (Insulin Lispro 100 Unit/Ml 3 Ml Vial) 0 unit SUBCUT QIDACHS [facility]; Protocol Last Admin: 03/29/25 21:21 Dose: 4 unit Lisinopril (Lisinopril 2.5 Mg Tablet) 2.5 mg PO DAILY [facility]; Protocol On Hold: 03/27/25 15:25 Last Admin: 03/27/25 09:30 Dose: 2.5 mg Magnesium Hydroxide (Milk Of Magnesia 30 Ml Oral.Susp) 30 ml PO DAILY PRN PRN Reason: Constipation Melatonin (Melatonin 3 Mg Tablet) 3 mg PO BEDTIME [facility] Last Admin: 03/29/25 21:22 Dose: 3 mg Metformin HCl (Metformin Hcl Er 500 Mg Tab.Er.24h) 1,000 mg PO DAILY [facility] Last Admin: 03/29/25 09:13 Dose: 1,000 mg Trazodone HCl (Trazodone Hcl 25 Mg Halftab) 25 mg PO BEDTIME MRX1 PRN PRN Reason: Insomnia Last Admin: 03/06/25 20:26 Dose: 25 mg Allergies Allergies Allergy/AdvReac Type Severity Reaction Status Date / Time No Known Allergies Allergy Verified 02/28/25 23:33 Assessment & Plan Assessment & Plan (1) Unspecified psychosis: Status: Acute Code(s): F29 - Unspecified psychosis not due to a substance or known physiological condition Plan HPI: Patient is a 65 years old [place]-speaking female with possible hx of diabetic and HTN who presented to the ED reporting someone is stealing her phone and making threatening comments to another person, patient feels that she is under threat. She said that she lives with her daughter. She says that she is afraid to call the police in regard to the pawn situation because it would involve using her phone which she believes is compromised. She reports that she has been sick for awhile, stomach pain. Patient provided very vague and none committal when asked clarified questions. She reports no security at home and missed just with a landlord and there are people in the house taking her phone and making threats Collateral done in the ED with family: Grandson's Stephane and Argenis her daughter reports that patient has not been taking medications. They suspect that patient flushing them down to toilet or hiding them. They feel there is paranoid. Reported that patient lives with [phone]. Formulation/clinical reasoning: Patient appeared to be paranoid, disorganized, anxious, depressed, poor sleep and appetite. Questioned if she have any cognitive decline or dementia. We will be benefit to having [place] done. She is not in distress, ADLs appeared to be fair. Poor insight and poor judgment. Reports that she feels safe here. We will do collateral with her daughter to get more history of diagnosis and baseline. Discussed with her regarding medication for severe disorganization, and paranoid thoughts, as well as insomnia. Patient agree with the plans but not sure she is able to process information. Hospital course: 03/01/25: at this time. I would address symptoms of insomnia, and paranoid until more information obtained from her daughter regarding treatment hx. [place] dx and medcial conditions. Not sure if she is diabetic or having HTN hx. Start melatonin 3 mg at bedtime for insomnia with Low dose of trazodone PRN. Risperidone 0.5 b.i.d. for paranoid/disorganized thoughts. We will order point of care with insulin coverage. She refused on labs ordered for this morning. We will monitor for hypotension/high blood pressure and POC 03/02 pt a little confused and it is difficult to follow her answers; Seems to mentioned safety and talks about unrelated things, her family and lists the names of each of her kids. Says team can contact them. Does not really answer questions about mood 03/03 Patient remains odd. She thinks that she is being watched by cameras in the room. Asked if her family can visit, she says if they do we will need security... When asked if she is afraid of her family she points to the door and says the doors are not locked... Question is repeated in a different way and she again points to the door and says the door is not locked. Eventually she seems to say she is not afraid of her family but that she is in general afraid of someone coming into the house and hurting her. -will increase risperdal dose to 1mg bid -very much need collateral 03/05 Increase Risperdal to 2 mg bid for 24 hour trial. 03/07 patient has only taken one dose of risperidone 2 mg, otherwise she has refused it. She had not been eating for the past 2 days, finally today she did eat something. pt presents as suspicious and paranoid. 03/08 pt refusing risperidone, has only taken one time 2mg. continues to present as paranoid and suspicious, declines to go back to her daughter's house. does not seem to understand that she can't survive on the streets, insists on leaving regardless. add head CT, will complete moca/ acl next week in [place]. this journalists and other writers spoke with her daughter and provided update. r/o dementing process causing paranoia- her orientation for the most part seems intact except for situation. 03/09: no change 03/10: referred back to primary team to address concerns about not being discharged 03/11 d/c risperidone as pt reports she does not want this medication, will change to prolixin 1mg po daily. continues to present with paranoid delusions. anxious and guarded, declining to go back to her daughters' house, doesn't have a place to go. 03/12 increase prolixin to 2mg po daily. d/c risperidone. 03/13 continue prolixin, filed for 7&8. 03/14 continue tx. 03/15 continue tx. collateral information from daughter who reports paranoia may be present for long than initially suspected, more than 10 years at least. 03/16: continue current management and treatment plan. 03/17: continue current management and treatment plan. 03/18 continue tx. 03/19 continue tx. slightly less paranoid. 03/20 continue tx. 03/21 continue tx. 03/22 increase prolixin to 3mg po daily. 03/23: add prolixin 3 mg QHS due to florid psychosis. 03/24: psychosis improved from yesterday, less anxious. increase prolixin to 4 BID. 03/25 continue tx. 03/26 continue current medications. BP stable, yesterday on lower end and pt had reported dizziness. 03/27 continue tx. hold lisinopril low bp and pt reports dizziness. 03/28 continue tx. 03/30/2025: No changes to current regimen Reason for continued inpatient stay Substantial Risk for: rapid decompensation Time Spent With Patient Time: Total time managing care of this patient today ____ minutes.
[2025-03-30 08:00] VITALS: BP 129/67; PULSE 93; RESP 14; TEMP 36.4; O2SAT 97
[2025-03-30] MEDS: Artificial Tears 15 ML DROPS 1 DROP EYE-BOTH (09:01)
[2025-03-30 11:21] LABS: Glucose, Whole Blood 240 mg/dL (60-115)
[2025-03-30 16:03] LABS: Glucose, Whole Blood 123 mg/dL (60-115)
[2025-03-30 20:00] VITALS: BP 120/72; PULSE 72; RESP 16; TEMP 36.2; O2SAT 97
[2025-03-30 20:23] LABS: Glucose, Whole Blood 278 mg/dL (60-115)
[2025-03-30] MEDS: Insulin Glargine,Hum.rec.anlog 100 UNIT/ML 10 ML VIAL 14 UNIT SUBCUT (21:17)
[2025-03-31 06:46] LABS: Glucose, Whole Blood 198 mg/dL (60-115)
[2025-03-31 08:00] VITALS: BP 143/71; PULSE 91; RESP 16; TEMP 36.6; O2SAT 99
[2025-03-31] MEDS: Artificial Tears 15 ML DROPS 1 DROP EYE-BOTH (08:32)
--- NOTE | 2025-03-31 11:08 | P.PNPSI_ITS ---
Subjective Subjective Date of Service: 03/31/25 Reason For Visit: F29 Unspecified Schizophrenia spectrumand other ps Interim History: Met with patient. Discussed with Nursing . Overall still reports doing well. Sleeping well. Not depressed. Main focus is discharge but not agitated when asking about same. No overt psychosis noted today Medication Compliance: Yes Side effects from medications: No Attending Groups: Intermittent Review of Systems Acute medical concerns: No Review of Systems Review of Systems Nothing acute. Mental Status Exam Mental Status Exam Narrative: Appearance: wearing hospital gown, fair hygiene, in NAD Behavior: less guarded Psychomotor: no agitation or retardation noted Speech: mostly clear, normal rate/rhythm/volume, spontaneous TP: mostly tangential TC: less overt paranoia Mood: good AFfect: constricted, normo-intense SI: none expressed HI: none expressed VH/AH: none Delusions: less paranoid with staff Insight/judgment: impaired x 2. Memory/cog: alert, oriented to idea that she is in the hospital. She knows the month and year. Not oriented to situation. Pending MOCA. Diagnostics Vital Signs (24Hr): Vital Signs - 24 hr 03/30/25 20:00 03/31/25 08:00 Temperature 97.2 F 98 F Pulse Rate 72 91 Respiratory Rate 16 16 Blood Pressure 120/72 143/71 H Pulse Oximetry 97 99 Oxygen Delivery Method Room Air Room Air BMI result Body Mass Index 25.0 Labs 03/02/25 16:26 03/28/25 07:11 Labs: Laboratory Results - last 48 hr 03/29/25 03/29/25 03/29/25 11:21 16:07 19:51 POC Glucose 346 H 142 H 194 H Urine Color Urine Appearance Urine pH Ur Specific [place] Urine Protein Urine Glucose (UA) Urine Ketones Urine Blood Urine Nitrite Ur Leukocyte Esterase Urine RBC Urine WBC Ur Squamous Epith Cells Urine Bacteria Hyaline Casts 03/29/25 03/30/25 03/30/25 Unknown 06:28 11:11 POC Glucose 213 H 240 H Urine Color Yellow Urine Appearance Clear Urine pH 6.5 Ur Specific [place] 1.015 Urine Protein Negative Urine Glucose (UA) >=1000 H Urine Ketones Negative Urine Blood Negative Urine Nitrite Negative Ur Leukocyte Esterase Moderate (2+) H Urine RBC 0-2 Urine WBC >50 H Ur Squamous Epith Cells 0-2 Urine Bacteria 4+ Hyaline Casts 0-2 03/30/25 03/30/25 03/31/25 15:55 19:55 06:32 POC Glucose 123 H 278 H 198 H Urine Color Urine Appearance Urine pH Ur Specific [place] Urine Protein Urine Glucose (UA) Urine Ketones Urine Blood Urine Nitrite Ur Leukocyte Esterase Urine RBC Urine WBC Ur Squamous Epith Cells Urine Bacteria Hyaline Casts Medications Medications Current Medications Acetaminophen (Acetaminophen 325 Mg Tablet) 650 mg PO Q6H PRN PRN Reason: Headache/Pain, Scale 1-10 Last Admin: 03/24/25 09:36 Dose: 650 mg Al Hydroxide/Mg Hydroxide (Magnesium Hydrox/Alum Hydrox 30 Ml Oral.Susp) 30 ml PO Q6H PRN PRN Reason: Heartburn/Nausea Artificial Tears (Artificial Tears 15 Ml Drops) 1 drop EYE-BOTH DAILY@0900,1700 [facility] Last Admin: 03/31/25 08:32 Dose: 1 drop Atorvastatin Calcium (Atorvastatin Calcium 10 Mg Tablet) 10 mg PO BEDTIME [facility] Last Admin: 03/30/25 21:17 Dose: 10 mg Cefuroxime Axetil (Cefuroxime Axetil 500 Mg Tablet) 500 mg PO Q12H [facility] Stop: 04/03/25 06:01 Last Admin: 03/31/25 06:31 Dose: 500 mg Dextrose (Dextrose 50 % 25 Gm/50 Ml Syringe) 25 gm IVPUSH Q15M PRN; Protocol PRN Reason: per Hypoglycemia Standing Ord. Fluphenazine HCl (Fluphenazine Hcl 1 Mg Tablet) 4 mg PO BID [facility] Last Admin: 03/31/25 08:31 Dose: 4 mg Glucose (Glucose Gel 15 Gm Gel..Gram.) 15 gm PO Q15M PRN; Protocol PRN Reason: per Hypoglycemia Standing Ord. Hydroxyzine HCl (Hydroxyzine Hcl 25 Mg Tablet) 25 mg PO Q6H PRN PRN Reason: mild anxiety Last Admin: 03/05/25 22:32 Dose: 25 mg Insulin Glargine (Insulin Glargine,Hum.Rec.Anlog 100 Unit/Ml 10 Ml Vial) 14 unit SUBCUT BEDTIME [facility] Last Admin: 03/30/25 21:17 Dose: 14 unit Insulin Human Lispro (Insulin Lispro 100 Unit/Ml 3 Ml Vial) 0 unit SUBCUT QIDACHS [facility]; Protocol Last Admin: 03/31/25 08:32 Dose: 4 unit Lisinopril (Lisinopril 2.5 Mg Tablet) 2.5 mg PO DAILY [facility]; Protocol On Hold: 03/27/25 15:25 Last Admin: 03/27/25 09:30 Dose: 2.5 mg Magnesium Hydroxide (Milk Of Magnesia 30 Ml Oral.Susp) 30 ml PO DAILY PRN PRN Reason: Constipation Melatonin (Melatonin 3 Mg Tablet) 3 mg PO BEDTIME [facility] Last Admin: 03/30/25 21:17 Dose: 3 mg Metformin HCl (Metformin Hcl Er 500 Mg Tab.Er.24h) 1,000 mg PO DAILY [facility] Last Admin: 03/31/25 08:32 Dose: 1,000 mg Trazodone HCl (Trazodone Hcl 25 Mg Halftab) 25 mg PO BEDTIME MRX1 PRN PRN Reason: Insomnia Last Admin: 03/06/25 20:26 Dose: 25 mg Allergies Allergies Allergy/AdvReac Type Severity Reaction Status Date / Time No Known Allergies Allergy Verified 02/28/25 23:33 Assessment & Plan Assessment & Plan (1) Unspecified psychosis: Status: Acute Code(s): F29 - Unspecified psychosis not due to a substance or known physiological condition Plan HPI: Patient is a 65 years old Telugu-speaking female with possible hx of diabetic and HTN who presented to the ED reporting someone is stealing her phone and making threatening comments to another person, patient feels that she is under threat. She said that she lives with her daughter. She says that she is afraid to call the police in regard to the pawn situation because it would involve using her phone which she believes is compromised. She reports that she has been sick for awhile, stomach pain. Patient provided very vague and none committal when asked clarified questions. She reports no security at home and missed just with a landlord and there are people in the house taking her phone and making threats Collateral done in the ED with family: Grandson's Stephane and Argenis her daughter reports that patient has not been taking medications. They suspect that patient flushing them down to toilet or hiding them. They feel there is paranoid. Reported that patient lives with [phone]. Formulation/clinical reasoning: Patient appeared to be paranoid, disorganized, anxious, depressed, poor sleep and appetite. Questioned if she have any cognitive decline or dementia. We will be benefit to having [place] done. She is not in distress, ADLs appeared to be fair. Poor insight and poor judgment. Reports that she feels safe here. We will do collateral with her daughter to get more history of diagnosis and baseline. Discussed with her regarding medication for severe disorganization, and paranoid thoughts, as well as insomnia. Patient agree with the plans but not sure she is able to process information. Hospital course: 03/01/25: at this time. I would address symptoms of insomnia, and paranoid until more information obtained from her daughter regarding treatment hx. [place] dx and medcial conditions. Not sure if she is diabetic or having HTN hx. Start melatonin 3 mg at bedtime for insomnia with Low dose of trazodone PRN. Risperidone 0.5 b.i.d. for paranoid/disorganized thoughts. We will order point of care with insulin coverage. She refused on labs ordered for this morning. We will monitor for hypotension/high blood pressure and POC 03/02 pt a little confused and it is difficult to follow her answers; Seems to mentioned safety and talks about unrelated things, her family and lists the names of each of her kids. Says team can contact them. Does not really answer questions about mood 03/03 Patient remains odd. She thinks that she is being watched by cameras in the room. Asked if her family can visit, she says if they do we will need security... When asked if she is afraid of her family she points to the door and says the doors are not locked... Question is repeated in a different way and she again points to the door and says the door is not locked. Eventually she seems to say she is not afraid of her family but that she is in general afraid of someone coming into the house and hurting her. -will increase risperdal dose to 1mg bid -very much need collateral 03/05 Increase Risperdal to 2 mg bid for 24 hour trial. 03/07 patient has only taken one dose of risperidone 2 mg, otherwise she has refused it. She had not been eating for the past 2 days, finally today she did eat something. pt presents as suspicious and paranoid. 03/08 pt refusing risperidone, has only taken one time 2mg. continues to present as paranoid and suspicious, declines to go back to her daughter's house. does not seem to understand that she can't survive on the streets, insists on leaving regardless. add head CT, will complete moca/ acl next week in [place]. this data analyst report writer spoke with her daughter and provided update. r/o dementing process causing paranoia- her orientation for the most part seems intact except for situation. 03/09: no change 03/10: referred back to primary team to address concerns about not being discharged 03/11 d/c risperidone as pt reports she does not want this medication, will change to prolixin 1mg po daily. continues to present with paranoid delusions. anxious and guarded, declining to go back to her daughters' house, doesn't have a place to go. 03/12 increase prolixin to 2mg po daily. d/c risperidone. 03/13 continue prolixin, filed for 7&8. 03/14 continue tx. 03/15 continue tx. collateral information from daughter who reports paranoia may be present for long than initially suspected, more than 10 years at least. 03/16: continue current management and treatment plan. 03/17: continue current management and treatment plan. 03/18 continue tx. 03/19 continue tx. slightly less paranoid. 03/20 continue tx. 03/21 continue tx. 03/22 increase prolixin to 3mg po daily. 03/23: add prolixin 3 mg QHS due to florid psychosis. 03/24: psychosis improved from yesterday, less anxious. increase prolixin to 4 BID. 03/25 continue tx. 03/26 continue current medications. BP stable, yesterday on lower end and pt had reported dizziness. 03/27 continue tx. hold lisinopril low bp and pt reports dizziness. 03/28 continue tx. 03/31/2025: No changes to current regimen Reason for continued inpatient stay Substantial Risk for: rapid decompensation Time Spent With Patient Time: Total time managing care of this patient today ____ minutes.
[2025-03-31 11:31] LABS: Glucose, Whole Blood 305 mg/dL (60-115)
[2025-03-31 17:06] LABS: Glucose, Whole Blood 90 mg/dL (60-115)
[2025-03-31 19:53] LABS: Glucose, Whole Blood 220 mg/dL (60-115)
[2025-03-31 20:00] VITALS: BP 146/64; PULSE 76; RESP 16; TEMP 36.6; O2SAT 97
[2025-03-31] MEDS: Insulin Glargine,Hum.rec.anlog 100 UNIT/ML 10 ML VIAL 14 UNIT SUBCUT (20:40)
[2025-04-01 06:42] LABS: Glucose, Whole Blood 195 mg/dL (60-115)
[2025-04-01 07:55] VITALS: BP 138/72; PULSE 85; RESP 18; TEMP 36.6; O2SAT 99
[2025-04-01 11:18] LABS: Glucose, Whole Blood 240 mg/dL (60-115)
--- NOTE | 2025-04-01 13:35 | HO.PSYCHPN ---
Subjective Subjective Date of Service: 04/01/25 Reason For Visit: F29 Unspecified Schizophrenia spectrumand other ps Subjective Notes: Section 7 Interim History: Pt slept through the night. She is less paranoid about staff, but still some residual symptoms noted. She is more visible and pleasant on approach. VS stable. Review of Systems Review of Systems Nothing acute. Yes all other systems are reviewed and are negative Constitutional: Reports no additional constitutional complaints Eyes: Reports no additional eye complaints Reports system reviewed and no additional complaints, except as documented Cardiovascular: Reports no additional cardiovascular complaints Respiratory: Reports no additional respiratory complaints Gastrointestinal: Reports no additional gastrointestinal complaints Musculoskeletal: Reports no additional musculoskeletal complaints Skin/Breast: Reports system reviewed and no additional complaints, except as docu Reports system reviewed and no additional complaints, except as documented Psychiatric: Reports as per HPI Endocrine: Reports no additional endocrine complaints Hematologic/Lymphatic: Reports no additional hematologic/lymphatic complaints Allergic/Immunologic: Reports no additional allergic/immunologic complaints Mental Status Exam Mental Status Exam Narrative: Appearance: wearing hospital gown, fair hygiene, in NAD Behavior: less guarded Psychomotor: no agitation or retardation noted Speech: mostly clear, normal rate/rhythm/volume, spontaneous TP: mostly tangential TC: less overt paranoia Mood: good AFfect: constricted, normo-intense SI: none expressed HI: none expressed VH/AH: none Delusions: less paranoid with staff Insight/judgment: impaired x 2. Memory/cog: alert, oriented to idea that she is in the hospital. She knows the month and year. Not oriented to situation. Pending MOCA. Diagnostics Vital Signs (24Hr): Vital Signs - 24 hr 03/31/25 20:00 04/01/25 07:55 Temperature 97.9 F 97.8 F Pulse Rate 76 85 Respiratory Rate 16 18 Blood Pressure 146/64 H 138/72 Pulse Oximetry 97 99 Oxygen Delivery Method Room Air Room Air BMI result Body Mass Index 25.0 Labs 04/02/25 15:22 04/02/25 15:21 Labs: Laboratory Results - last 48 hr 03/30/25 03/30/25 03/31/25 15:55 19:55 06:32 POC Glucose 123 H 278 H 198 H 03/31/25 03/31/25 03/31/25 11:28 16:08 19:49 POC Glucose 305 H 90 220 H 04/01/25 04/01/25 06:30 11:15 POC Glucose 195 H 240 H Medications Medications Current Medications Acetaminophen (Acetaminophen 325 Mg Tablet) 650 mg PO Q6H PRN PRN Reason: Headache/Pain, Scale 1-10 Last Admin: 03/24/25 09:36 Dose: 650 mg Al Hydroxide/Mg Hydroxide (Magnesium Hydrox/Alum Hydrox 30 Ml Oral.Susp) 30 ml PO Q6H PRN PRN Reason: Heartburn/Nausea Artificial Tears (Artificial Tears 15 Ml Drops) 1 drop EYE-BOTH DAILY@0900,1700 [facility] Last Admin: 04/01/25 11:28 Dose: Not Given Atorvastatin Calcium (Atorvastatin Calcium 10 Mg Tablet) 10 mg PO BEDTIME [facility] Last Admin: 03/31/25 20:39 Dose: 10 mg Cefuroxime Axetil (Cefuroxime Axetil 500 Mg Tablet) 500 mg PO Q12H [facility] Stop: 04/03/25 06:01 Last Admin: 04/01/25 06:08 Dose: 500 mg Dextrose (Dextrose 50 % 25 Gm/50 Ml Syringe) 25 gm IVPUSH Q15M PRN; Protocol PRN Reason: per Hypoglycemia Standing Ord. Fluphenazine HCl (Fluphenazine Hcl 1 Mg Tablet) 4 mg PO BID [facility] Last Admin: 04/01/25 08:14 Dose: 4 mg Glucose (Glucose Gel 15 Gm Gel..Gram.) 15 gm PO Q15M PRN; Protocol PRN Reason: per Hypoglycemia Standing Ord. Hydroxyzine HCl (Hydroxyzine Hcl 25 Mg Tablet) 25 mg PO Q6H PRN PRN Reason: mild anxiety Last Admin: 03/05/25 22:32 Dose: 25 mg Insulin Glargine (Insulin Glargine,Hum.Rec.Anlog 100 Unit/Ml 10 Ml Vial) 14 unit SUBCUT BEDTIME [facility] Last Admin: 03/31/25 20:40 Dose: 14 unit Insulin Human Lispro (Insulin Lispro 100 Unit/Ml 3 Ml Vial) 0 unit SUBCUT QIDACHS [facility]; Protocol Last Admin: 04/01/25 11:34 Dose: 6 unit Lisinopril (Lisinopril 2.5 Mg Tablet) 2.5 mg PO DAILY [facility]; Protocol On Hold: 03/27/25 15:25 Last Admin: 03/27/25 09:30 Dose: 2.5 mg Magnesium Hydroxide (Milk Of Magnesia 30 Ml Oral.Susp) 30 ml PO DAILY PRN PRN Reason: Constipation Melatonin (Melatonin 3 Mg Tablet) 3 mg PO BEDTIME [facility] Last Admin: 03/31/25 20:37 Dose: 3 mg Metformin HCl (Metformin Hcl Er 500 Mg Tab.Er.24h) 1,000 mg PO DAILY [facility] Last Admin: 04/01/25 08:14 Dose: 1,000 mg Trazodone HCl (Trazodone Hcl 25 Mg Halftab) 25 mg PO BEDTIME MRX1 PRN PRN Reason: Insomnia Last Admin: 03/06/25 20:26 Dose: 25 mg Allergies Allergies Allergy/AdvReac Type Severity Reaction Status Date / Time No Known Allergies Allergy Verified 02/28/25 23:33 Assessment & Plan Assessment & Plan (1) Unspecified psychosis: Status: Acute Code(s): F29 - Unspecified psychosis not due to a substance or known physiological condition Plan HPI: Patient is a 65 years old [place]ian-speaking female with possible hx of diabetic and HTN who presented to the ED reporting someone is stealing her phone and making threatening comments to another person, patient feels that she is under threat. She said that she lives with her daughter. She says that she is afraid to call the police in regard to the pawn situation because it would involve using her phone which she believes is compromised. She reports that she has been sick for awhile, stomach pain. Patient provided very vague and none committal when asked clarified questions. She reports no security at home and missed just with a landlord and there are people in the house taking her phone and making threats Collateral done in the ED with family: Grandson's Stephane and Argenis her daughter reports that patient has not been taking medications. They suspect that patient flushing them down to toilet or hiding them. They feel there is paranoid. Reported that patient lives with [phone]. Formulation/clinical reasoning: Patient appeared to be paranoid, disorganized, anxious, depressed, poor sleep and appetite. Questioned if she have any cognitive decline or dementia. We will be benefit to having [place] done. She is not in distress, ADLs appeared to be fair. Poor insight and poor judgment. Reports that she feels safe here. We will do collateral with her daughter to get more history of diagnosis and baseline. Discussed with her regarding medication for severe disorganization, and paranoid thoughts, as well as insomnia. Patient agree with the plans but not sure she is able to process information. Hospital course: 03/01/25: at this time. I would address symptoms of insomnia, and paranoid until more information obtained from her daughter regarding treatment hx. [facility] dx and medcial conditions. Not sure if she is diabetic or having HTN hx. Start melatonin 3 mg at bedtime for insomnia with Low dose of trazodone PRN. Risperidone 0.5 b.i.d. for paranoid/disorganized thoughts. We will order point of care with insulin coverage. She refused on labs ordered for this morning. We will monitor for hypotension/high blood pressure and POC 03/02 pt a little confused and it is difficult to follow her answers; Seems to mentioned safety and talks about unrelated things, her family and lists the names of each of her kids. Says team can contact them. Does not really answer questions about mood 03/03 Patient remains odd. She thinks that she is being watched by cameras in the room. Asked if her family can visit, she says if they do we will need security... When asked if she is afraid of her family she points to the door and says the doors are not locked... Question is repeated in a different way and she again points to the door and says the door is not locked. Eventually she seems to say she is not afraid of her family but that she is in general afraid of someone coming into the house and hurting her. -will increase risperdal dose to 1mg bid -very much need collateral 03/05 Increase Risperdal to 2 mg bid for 24 hour trial. 03/07 patient has only taken one dose of risperidone 2 mg, otherwise she has refused it. She had not been eating for the past 2 days, finally today she did eat something. pt presents as suspicious and paranoid. 03/08 pt refusing risperidone, has only taken one time 2mg. continues to present as paranoid and suspicious, declines to go back to her daughter's house. does not seem to understand that she can't survive on the streets, insists on leaving regardless. add head CT, will complete moca/ acl next week in [place]. this telegraphic typewriter mechanic spoke with her daughter and provided update. r/o dementing process causing paranoia- her orientation for the most part seems intact except for situation. 03/09: no change 03/10: referred back to primary team to address concerns about not being discharged 03/11 d/c risperidone as pt reports she does not want this medication, will change to prolixin 1mg po daily. continues to present with paranoid delusions. anxious and guarded, declining to go back to her daughters' house, doesn't have a place to go. 03/12 increase prolixin to 2mg po daily. d/c risperidone. 03/13 continue prolixin, filed for 7&8. 03/14 continue tx. 03/15 continue tx. collateral information from daughter who reports paranoia may be present for long than initially suspected, more than 10 years at least. 03/16: continue current management and treatment plan. 03/17: continue current management and treatment plan. 03/18 continue tx. 03/19 continue tx. slightly less paranoid. 03/20 continue tx. 03/21 continue tx. 03/22 increase prolixin to 3mg po daily. 03/23: add prolixin 3 mg QHS due to florid psychosis. 03/24: psychosis improved from yesterday, less anxious. increase prolixin to 4 BID. 03/25 continue tx. 03/26 continue current medications. BP stable, yesterday on lower end and pt had reported dizziness. 03/27 continue tx. hold lisinopril low bp and pt reports dizziness. 03/28 continue tx. 03/29 continue tx. 04/01 continue tx. Reason for continued inpatient stay Substantial Risk for: inability to function Time Spent With Patient Time: Total time managing care of this patient today ____ minutes.
[2025-04-01 16:23] LABS: Glucose, Whole Blood 173 mg/dL (60-115)
[2025-04-01] MEDS: Artificial Tears 15 ML DROPS 1 DROP EYE-BOTH (16:38)
[2025-04-01 19:51] LABS: Glucose, Whole Blood 230 mg/dL (60-115)
[2025-04-01 20:00] VITALS: BP 122/61; PULSE 80; RESP 16; TEMP 36.6; O2SAT 98
[2025-04-01] MEDS: Insulin Glargine,Hum.rec.anlog 100 UNIT/ML 10 ML VIAL 14 UNIT SUBCUT (20:42)
[2025-04-02 06:51] LABS: Glucose, Whole Blood 212 mg/dL (60-115)
[2025-04-02 07:50] VITALS: BP 118/63; PULSE 88; RESP 18; TEMP 36.4; O2SAT 97
[2025-04-02] MEDS: Artificial Tears 15 ML DROPS 1 DROP EYE-BOTH (08:17)
[2025-04-02 11:22] LABS: Glucose, Whole Blood 298 mg/dL (60-115)
[2025-04-02] MEDS: guaiFENesin DM 600/30 1 TAB TAB.ER.12H PO ×2 (14:00→20:56)
[2025-04-02 15:17] LABS: Resp Syncy Virus RNA Qual PCR NEGATIVE (Negative); SARS COV2 PCR INHOUSE NEGATIVE (Negative)
[2025-04-02 15:31] LABS: MANUAL DIFF FLAG NO
[2025-04-02 15:34] LABS: Hematocrit 39.9 % (37.0-47.0); Hemoglobin 13.8 g/dl (12.0-16.0); Imm Gran Abs Auto 0.04 X10*3/uL (0.00-0.03); Imm Gran Pct Auto 0.5 % (0.0-0.4); Lymphocytes Absolute Auto 2.1 X10*3/uL (1.2-4.9); Mean Corpuscular HGB Conc 34.6 g/dl (31.0-35.0); Mean Corpuscular Hemoglobin 29.2 pg (27.0-33.0); Mean Corpuscular Volume 84.4 fL (80.0-98.0); NRBC Abs Auto 0.000 X10*3/uL (0.0-0.012); NRBC Pct Auto 0.0 /100WBC (0.0-0.2); Platelet Count 286 X10*3/uL (160-400); Red Blood Count 4.73 X10*6/uL (4.20-5.50); White Blood Count 7.7 X10*3/uL (4.8-10.8)
[2025-04-02 15:49] LABS: Alanine Aminotransferase 19 U/L (0-31); Albumin Level 4.0 g/dL (3.5-5.0); Alkaline Phosphatase 122 U/L (39-117); Anion Gap 13 (12-20); Aspartate Amino Transferase 20 U/L (5-31); Blood Urea Nitrogen 22 mg/dL (9-16); Calcium 9.0 mg/dL (8.4-10.2); Carbon Dioxide 27 mmol/L (22-29); Chloride 104 mmol/L (96-108); Creatinine Clr Calc Pharmacy 50.9; Estimated Glomerular Filt Rate > 60; Potassium 4.0 mmol/L (3.3-5.1); Sodium 140 mmol/L (135-145); Total Protein 6.7 g/dL (6.5-8.0)
[2025-04-02 16:17] LABS: Glucose, Whole Blood 184 mg/dL (60-115)
--- NOTE | 2025-04-02 19:45 | HO.PSYCHPN ---
Subjective Subjective Date of Service: 04/02/25 Reason For Visit: F29 Unspecified Schizophrenia spectrumand other ps Subjective Notes: Conditional Voluntary Interim History: Pt reports congestion, cough, malaise. afebrile today. no severe sob of breath. Less paranoid, taking medications as prescribed. Medication Compliance: Yes Review of Systems Review of Systems Nothing acute. Yes all other systems are reviewed and are negative Constitutional: Reports no additional constitutional complaints Eyes: Reports no additional eye complaints Reports system reviewed and no additional complaints, except as documented Cardiovascular: Reports no additional cardiovascular complaints Respiratory: Reports no additional respiratory complaints Gastrointestinal: Reports no additional gastrointestinal complaints Musculoskeletal: Reports no additional musculoskeletal complaints Skin/Breast: Reports system reviewed and no additional complaints, except as docu Reports system reviewed and no additional complaints, except as documented Psychiatric: Reports as per HPI Endocrine: Reports no additional endocrine complaints Hematologic/Lymphatic: Reports no additional hematologic/lymphatic complaints Allergic/Immunologic: Reports no additional allergic/immunologic complaints Mental Status Exam Mental Status Exam Narrative: Appearance: wearing hospital gown, fair hygiene, in NAD Behavior: less guarded Psychomotor: no agitation or retardation noted Speech: mostly clear, normal rate/rhythm/volume, spontaneous TP: mostly tangential TC: less overt paranoia Mood: good AFfect: constricted, normo-intense SI: none expressed HI: none expressed VH/AH: none Delusions: less paranoid with staff Insight/judgment: impaired x 2. Memory/cog: alert, oriented to idea that she is in the hospital. She knows the month and year. Not oriented to situation. Pending MOCA. Diagnostics Vital Signs (24Hr): Vital Signs - 24 hr 04/01/25 20:00 04/02/25 07:50 Temperature 97.9 F 97.6 F Pulse Rate 80 88 Respiratory Rate 16 18 Blood Pressure 122/61 118/63 Pulse Oximetry 98 97 Oxygen Delivery Method Room Air Room Air BMI result Body Mass Index 25.0 Labs 04/02/25 15:22 04/02/25 15:21 Labs: Laboratory Results - last 48 hr 03/31/25 04/01/25 04/01/25 19:49 06:30 11:15 WBC RBC Hgb Hct MCV MCH MCHC RDW Plt Count MPV Immature Gran % (Auto) Neut % (Auto) Lymph % (Auto) [place] % (Auto) Eos % (Auto) Baso % (Auto) Lymph # (Auto) [place] # (Auto) Eos # (Auto) Baso # (Auto) Abs Immat Gran (auto) Absolute Neuts (auto) Absolute Nucleated RBC Nucleated RBC % (auto) Sodium Potassium Chloride Carbon Dioxide Anion Gap BUN Creatinine Estim Creat Clear Calc Estimated GFR POC Glucose 220 H 195 H 240 H Random Glucose Calcium Total Bilirubin AST ALT Alkaline Phosphatase Total Protein Albumin Influenza Type A (PCR) Influenza Type B (PCR) RSV RNA Qual (PCR) SARS-CoV-2 RNA (RT-PCR) 04/01/25 04/01/25 04/02/25 16:18 19:45 06:39 WBC RBC Hgb Hct MCV MCH MCHC RDW Plt Count MPV Immature Gran % (Auto) Neut % (Auto) Lymph % (Auto) [place] % (Auto) Eos % (Auto) Baso % (Auto) Lymph # (Auto) [place] # (Auto) Eos # (Auto) Baso # (Auto) Abs Immat Gran (auto) Absolute Neuts (auto) Absolute Nucleated RBC Nucleated RBC % (auto) Sodium Potassium Chloride Carbon Dioxide Anion Gap BUN Creatinine Estim Creat Clear Calc Estimated GFR POC Glucose 173 H 230 H 212 H Random Glucose Calcium Total Bilirubin AST ALT Alkaline Phosphatase Total Protein Albumin Influenza Type A (PCR) Influenza Type B (PCR) RSV RNA Qual (PCR) SARS-CoV-2 RNA (RT-PCR) 04/02/25 04/02/25 04/02/25 11:16 14:12 15:21 WBC RBC Hgb Hct MCV MCH MCHC RDW Plt Count MPV Immature Gran % (Auto) Neut % (Auto) Lymph % (Auto) [place] % (Auto) Eos % (Auto) Baso % (Auto) Lymph # (Auto) [place] # (Auto) Eos # (Auto) Baso # (Auto) Abs Immat Gran (auto) Absolute Neuts (auto) Absolute Nucleated RBC Nucleated RBC % (auto) Sodium 140 Potassium 4.0 Chloride 104 Carbon Dioxide 27 Anion Gap 13 BUN 22 H Creatinine 0.89 Estim Creat Clear Calc 50.9 Estimated GFR > 60 POC Glucose 298 H Random Glucose 188 H Calcium 9.0 Total Bilirubin 0.2 AST 20 ALT 19 Alkaline Phosphatase 122 H Total Protein 6.7 Albumin 4.0 Influenza Type A (PCR) NEGATIVE Influenza Type B (PCR) NEGATIVE RSV RNA Qual (PCR) NEGATIVE SARS-CoV-2 RNA (RT-PCR) NEGATIVE 04/02/25 04/02/25 15:22 16:12 WBC 7.7 RBC 4.73 Hgb 13.8 Hct 39.9 MCV 84.4 MCH 29.2 MCHC 34.6 RDW 12.9 Plt Count 286 MPV 8.9 L Immature Gran % (Auto) 0.5 H Neut % (Auto) 60.5 Lymph % (Auto) 27.0 [place] % (Auto) 9.5 Eos % (Auto) 2.1 Baso % (Auto) 0.4 Lymph # (Auto) 2.1 [place] # (Auto) 0.7 Eos # (Auto) 0.2 Baso # (Auto) 0.0 Abs Immat Gran (auto) 0.04 H Absolute Neuts (auto) 4.7 Absolute Nucleated RBC 0.000 Nucleated RBC % (auto) 0.0 Sodium Potassium Chloride Carbon Dioxide Anion Gap BUN Creatinine Estim Creat Clear Calc Estimated GFR POC Glucose 184 H Random Glucose Calcium Total Bilirubin AST ALT Alkaline Phosphatase Total Protein Albumin Influenza Type A (PCR) Influenza Type B (PCR) RSV RNA Qual (PCR) SARS-CoV-2 RNA (RT-PCR) Medications Medications Current Medications Acetaminophen (Acetaminophen 325 Mg Tablet) 650 mg PO Q6H PRN PRN Reason: Headache/Pain, Scale 1-10 Last Admin: 03/24/25 09:36 Dose: 650 mg Al Hydroxide/Mg Hydroxide (Magnesium Hydrox/Alum Hydrox 30 Ml Oral.Susp) 30 ml PO Q6H PRN PRN Reason: Heartburn/Nausea Artificial Tears (Artificial Tears 15 Ml Drops) 1 drop EYE-BOTH DAILY@0900,1700 [facility] Last Admin: 04/02/25 16:26 Dose: Not Given Atorvastatin Calcium (Atorvastatin Calcium 10 Mg Tablet) 10 mg PO BEDTIME [facility] Last Admin: 04/01/25 20:44 Dose: 10 mg Cefuroxime Axetil (Cefuroxime Axetil 500 Mg Tablet) 500 mg PO Q12H [facility] Stop: 04/03/25 06:01 Last Admin: 04/02/25 18:04 Dose: 500 mg Dextrose (Dextrose 50 % 25 Gm/50 Ml Syringe) 25 gm IVPUSH Q15M PRN; Protocol PRN Reason: per Hypoglycemia Standing Ord. Fluphenazine HCl (Fluphenazine Hcl 1 Mg Tablet) 4 mg PO BID [facility] Last Admin: 04/02/25 08:10 Dose: 4 mg Glucose (Glucose Gel 15 Gm Gel..Gram.) 15 gm PO Q15M PRN; Protocol PRN Reason: per Hypoglycemia Standing Ord. Guaifenesin/Dextromethorphan (Guaifenesin Dm 600/30 1 Tab Tab.Er.12h) 1 tab PO BID [facility] Last Admin: 04/02/25 14:00 Dose: 1 tab Hydroxyzine HCl (Hydroxyzine Hcl 25 Mg Tablet) 25 mg PO Q6H PRN PRN Reason: mild anxiety Last Admin: 03/05/25 22:32 Dose: 25 mg Insulin Glargine (Insulin Glargine,Hum.Rec.Anlog 100 Unit/Ml 10 Ml Vial) 14 unit SUBCUT BEDTIME [facility] Last Admin: 04/01/25 20:42 Dose: 14 unit Insulin Human Lispro (Insulin Lispro 100 Unit/Ml 3 Ml Vial) 0 unit SUBCUT QIDACHS [facility]; Protocol Last Admin: 04/02/25 16:25 Dose: 4 unit Lisinopril (Lisinopril 2.5 Mg Tablet) 2.5 mg PO DAILY [facility]; Protocol On Hold: 03/27/25 15:25 Last Admin: 03/27/25 09:30 Dose: 2.5 mg Magnesium Hydroxide (Milk Of Magnesia 30 Ml Oral.Susp) 30 ml PO DAILY PRN PRN Reason: Constipation Melatonin (Melatonin 3 Mg Tablet) 3 mg PO BEDTIME [facility] Last Admin: 04/01/25 20:44 Dose: 3 mg Metformin HCl (Metformin Hcl Er 500 Mg Tab.Er.24h) 1,000 mg PO DAILY [facility] Last Admin: 04/02/25 08:10 Dose: 1,000 mg Trazodone HCl (Trazodone Hcl 25 Mg Halftab) 25 mg PO BEDTIME MRX1 PRN PRN Reason: Insomnia Last Admin: 03/06/25 20:26 Dose: 25 mg Allergies Allergies Allergy/AdvReac Type Severity Reaction Status Date / Time No Known Allergies Allergy Verified 02/28/25 23:33 Assessment & Plan Assessment & Plan (1) Unspecified psychosis: Status: Acute Code(s): F29 - Unspecified psychosis not due to a substance or known physiological condition Plan HPI: Patient is a 65 years old [place]-speaking female with possible hx of diabetic and HTN who presented to the ED reporting someone is stealing her phone and making threatening comments to another person, patient feels that she is under threat. She said that she lives with her daughter. She says that she is afraid to call the police in regard to the pawn situation because it would involve using her phone which she believes is compromised. She reports that she has been sick for awhile, stomach pain. Patient provided very vague and none committal when asked clarified questions. She reports no security at home and missed just with a landlord and there are people in the house taking her phone and making threats Collateral done in the ED with family: Grandson's Stephane and Argenis her daughter reports that patient has not been taking medications. They suspect that patient flushing them down to toilet or hiding them. They feel there is paranoid. Reported that patient lives with [phone]. Formulation/clinical reasoning: Patient appeared to be paranoid, disorganized, anxious, depressed, poor sleep and appetite. Questioned if she have any cognitive decline or dementia. We will be benefit to having [place] done. She is not in distress, ADLs appeared to be fair. Poor insight and poor judgment. Reports that she feels safe here. We will do collateral with her daughter to get more history of diagnosis and baseline. Discussed with her regarding medication for severe disorganization, and paranoid thoughts, as well as insomnia. Patient agree with the plans but not sure she is able to process information. Hospital course: 03/01/25: at this time. I would address symptoms of insomnia, and paranoid until more information obtained from her daughter regarding treatment hx. [facility] dx and medcial conditions. Not sure if she is diabetic or having HTN hx. Start melatonin 3 mg at bedtime for insomnia with Low dose of trazodone PRN. Risperidone 0.5 b.i.d. for paranoid/disorganized thoughts. We will order point of care with insulin coverage. She refused on labs ordered for this morning. We will monitor for hypotension/high blood pressure and POC 03/02 pt a little confused and it is difficult to follow her answers; Seems to mentioned safety and talks about unrelated things, her family and lists the names of each of her kids. Says team can contact them. Does not really answer questions about mood 03/03 Patient remains odd. She thinks that she is being watched by cameras in the room. Asked if her family can visit, she says if they do we will need security... When asked if she is afraid of her family she points to the door and says the doors are not locked... Question is repeated in a different way and she again points to the door and says the door is not locked. Eventually she seems to say she is not afraid of her family but that she is in general afraid of someone coming into the house and hurting her. -will increase risperdal dose to 1mg bid -very much need collateral 03/05 Increase Risperdal to 2 mg bid for 24 hour trial. 03/07 patient has only taken one dose of risperidone 2 mg, otherwise she has refused it. She had not been eating for the past 2 days, finally today she did eat something. pt presents as suspicious and paranoid. 03/08 pt refusing risperidone, has only taken one time 2mg. continues to present as paranoid and suspicious, declines to go back to her daughter's house. does not seem to understand that she can't survive on the streets, insists on leaving regardless. add head CT, will complete moca/ acl next week in [place]. this poem writer spoke with her daughter and provided update. r/o dementing process causing paranoia- her orientation for the most part seems intact except for situation. 03/09: no change 03/10: referred back to primary team to address concerns about not being discharged 03/11 d/c risperidone as pt reports she does not want this medication, will change to prolixin 1mg po daily. continues to present with paranoid delusions. anxious and guarded, declining to go back to her daughters' house, doesn't have a place to go. 03/12 increase prolixin to 2mg po daily. d/c risperidone. 03/13 continue prolixin, filed for 7&8. 03/14 continue tx. 03/15 continue tx. collateral information from daughter who reports paranoia may be present for long than initially suspected, more than 10 years at least. 03/16: continue current management and treatment plan. 03/17: continue current management and treatment plan. 03/18 continue tx. 03/19 continue tx. slightly less paranoid. 03/20 continue tx. 03/21 continue tx. 03/22 increase prolixin to 3mg po daily. 03/23: add prolixin 3 mg QHS due to florid psychosis. 03/24: psychosis improved from yesterday, less anxious. increase prolixin to 4 BID. 03/25 continue tx. 03/26 continue current medications. BP stable, yesterday on lower end and pt had reported dizziness. 03/27 continue tx. hold lisinopril low bp and pt reports dizziness. 03/28 continue tx. 03/29 continue tx. 04/02 congestion, cough, malaise. labs ordered negative for covid/rsv/flu, cbc without leukocytosis, cmp wnl. added mucinex Reason for continued inpatient stay Substantial Risk for: inability to function Time Spent With Patient Time: Total time managing care of this patient today ____ minutes.
[2025-04-02 19:53] LABS: Glucose, Whole Blood 277 mg/dL (60-115)
[2025-04-02 20:00] VITALS: BP 130/74; PULSE 88; RESP 18; TEMP 36.5; O2SAT 97
[2025-04-02] MEDS: Insulin Glargine,Hum.rec.anlog 100 UNIT/ML 10 ML VIAL 14 UNIT SUBCUT (20:55)
[2025-04-03 06:54] LABS: Glucose, Whole Blood 211 mg/dL (60-115)
[2025-04-03 08:00] VITALS: BP 134/78; PULSE 97; RESP 17; TEMP 36.8; O2SAT 97
[2025-04-03] MEDS: guaiFENesin DM 600/30 1 TAB TAB.ER.12H PO ×2 (08:05→20:00)
[2025-04-03] MEDS: Artificial Tears 15 ML DROPS 1 DROP EYE-BOTH ×2 (08:07→16:06)
[2025-04-03 11:40] LABS: Glucose, Whole Blood 324 mg/dL (60-115)
[2025-04-03 16:22] LABS: Glucose, Whole Blood 197 mg/dL (60-115)
--- NOTE | 2025-04-03 16:48 | HO.PSYCHPN ---
Subjective Subjective Date of Service: 04/03/25 Reason For Visit: F29 Unspecified Schizophrenia spectrumand other ps Subjective Notes: Section 8 Interim History: Pt reports congestion, cough, malaise. afebrile today. no severe sob of breath. Less paranoid, taking medications as prescribed. Review of Systems Review of Systems Nothing acute. Yes all other systems are reviewed and are negative Constitutional: Reports no additional constitutional complaints Eyes: Reports no additional eye complaints Reports system reviewed and no additional complaints, except as documented Cardiovascular: Reports no additional cardiovascular complaints Respiratory: Reports no additional respiratory complaints Gastrointestinal: Reports no additional gastrointestinal complaints Musculoskeletal: Reports no additional musculoskeletal complaints Skin/Breast: Reports system reviewed and no additional complaints, except as docu Reports system reviewed and no additional complaints, except as documented Psychiatric: Reports as per HPI Endocrine: Reports no additional endocrine complaints Hematologic/Lymphatic: Reports no additional hematologic/lymphatic complaints Allergic/Immunologic: Reports no additional allergic/immunologic complaints Mental Status Exam Mental Status Exam Narrative: Appearance: wearing hospital gown, fair hygiene, in NAD Behavior: less guarded Psychomotor: no agitation or retardation noted Speech: mostly clear, normal rate/rhythm/volume, spontaneous TP: mostly tangential TC: less overt paranoia Mood: good AFfect: constricted, normo-intense SI: none expressed HI: none expressed VH/AH: none Delusions: less paranoid with staff Insight/judgment: impaired x 2. Memory/cog: alert, oriented to idea that she is in the hospital. She knows the month and year. Not oriented to situation. Pending MOCA. Diagnostics Vital Signs (24Hr): Vital Signs - 24 hr 04/02/25 20:00 04/03/25 08:00 Temperature 97.7 F 98.2 F Pulse Rate 88 97 Respiratory Rate 18 17 Blood Pressure 130/74 134/78 Pulse Oximetry 97 97 Oxygen Delivery Method Room Air Room Air BMI result Body Mass Index 25.0 Labs 04/02/25 15:22 04/04/25 07:14 Labs: Laboratory Results - last 48 hr 04/01/25 04/02/25 04/02/25 19:45 06:39 11:16 WBC RBC Hgb Hct MCV MCH MCHC RDW Plt Count MPV Immature Gran % (Auto) Neut % (Auto) Lymph % (Auto) [place] % (Auto) Eos % (Auto) Baso % (Auto) Lymph # (Auto) [place] # (Auto) Eos # (Auto) Baso # (Auto) Abs Immat Gran (auto) Absolute Neuts (auto) Absolute Nucleated RBC Nucleated RBC % (auto) Sodium Potassium Chloride Carbon Dioxide Anion Gap BUN Creatinine Estim Creat Clear Calc Estimated GFR POC Glucose 230 H 212 H 298 H Random Glucose Calcium Total Bilirubin AST ALT Alkaline Phosphatase Total Protein Albumin Influenza Type A (PCR) Influenza Type B (PCR) RSV RNA Qual (PCR) SARS-CoV-2 RNA (RT-PCR) 04/02/25 04/02/25 04/02/25 14:12 15:21 15:22 WBC 7.7 RBC 4.73 Hgb 13.8 Hct 39.9 MCV 84.4 MCH 29.2 MCHC 34.6 RDW 12.9 Plt Count 286 MPV 8.9 L Immature Gran % (Auto) 0.5 H Neut % (Auto) 60.5 Lymph % (Auto) 27.0 [place] % (Auto) 9.5 Eos % (Auto) 2.1 Baso % (Auto) 0.4 Lymph # (Auto) 2.1 [place] # (Auto) 0.7 Eos # (Auto) 0.2 Baso # (Auto) 0.0 Abs Immat Gran (auto) 0.04 H Absolute Neuts (auto) 4.7 Absolute Nucleated RBC 0.000 Nucleated RBC % (auto) 0.0 Sodium 140 Potassium 4.0 Chloride 104 Carbon Dioxide 27 Anion Gap 13 BUN 22 H Creatinine 0.89 Estim Creat Clear Calc 50.9 Estimated GFR > 60 POC Glucose Random Glucose 188 H Calcium 9.0 Total Bilirubin 0.2 AST 20 ALT 19 Alkaline Phosphatase 122 H Total Protein 6.7 Albumin 4.0 Influenza Type A (PCR) NEGATIVE Influenza Type B (PCR) NEGATIVE RSV RNA Qual (PCR) NEGATIVE SARS-CoV-2 RNA (RT-PCR) NEGATIVE 04/02/25 04/02/25 04/03/25 16:12 19:48 06:49 WBC RBC Hgb Hct MCV MCH MCHC RDW Plt Count MPV Immature Gran % (Auto) Neut % (Auto) Lymph % (Auto) [place] % (Auto) Eos % (Auto) Baso % (Auto) Lymph # (Auto) [place] # (Auto) Eos # (Auto) Baso # (Auto) Abs Immat Gran (auto) Absolute Neuts (auto) Absolute Nucleated RBC Nucleated RBC % (auto) Sodium Potassium Chloride Carbon Dioxide Anion Gap BUN Creatinine Estim Creat Clear Calc Estimated GFR POC Glucose 184 H 277 H 211 H Random Glucose Calcium Total Bilirubin AST ALT Alkaline Phosphatase Total Protein Albumin Influenza Type A (PCR) Influenza Type B (PCR) RSV RNA Qual (PCR) SARS-CoV-2 RNA (RT-PCR) 04/03/25 04/03/25 11:36 16:10 WBC RBC Hgb Hct MCV MCH MCHC RDW Plt Count MPV Immature Gran % (Auto) Neut % (Auto) Lymph % (Auto) [place] % (Auto) Eos % (Auto) Baso % (Auto) Lymph # (Auto) [place] # (Auto) Eos # (Auto) Baso # (Auto) Abs Immat Gran (auto) Absolute Neuts (auto) Absolute Nucleated RBC Nucleated RBC % (auto) Sodium Potassium Chloride Carbon Dioxide Anion Gap BUN Creatinine Estim Creat Clear Calc Estimated GFR POC Glucose 324 H 197 H Random Glucose Calcium Total Bilirubin AST ALT Alkaline Phosphatase Total Protein Albumin Influenza Type A (PCR) Influenza Type B (PCR) RSV RNA Qual (PCR) SARS-CoV-2 RNA (RT-PCR) Medications Medications Current Medications Acetaminophen (Acetaminophen 325 Mg Tablet) 650 mg PO Q6H PRN PRN Reason: Headache/Pain, Scale 1-10 Last Admin: 03/24/25 09:36 Dose: 650 mg Al Hydroxide/Mg Hydroxide (Magnesium Hydrox/Alum Hydrox 30 Ml Oral.Susp) 30 ml PO Q6H PRN PRN Reason: Heartburn/Nausea Artificial Tears (Artificial Tears 15 Ml Drops) 1 drop EYE-BOTH DAILY@0900,1700 [facility] Last Admin: 04/03/25 16:06 Dose: 1 drop Atorvastatin Calcium (Atorvastatin Calcium 10 Mg Tablet) 10 mg PO BEDTIME [facility] Last Admin: 04/02/25 20:56 Dose: 10 mg Dextrose (Dextrose 50 % 25 Gm/50 Ml Syringe) 25 gm IVPUSH Q15M PRN; Protocol PRN Reason: per Hypoglycemia Standing Ord. Fluphenazine HCl (Fluphenazine Hcl 1 Mg Tablet) 4 mg PO BID [facility] Last Admin: 04/03/25 08:05 Dose: 4 mg Glucose (Glucose Gel 15 Gm Gel..Gram.) 15 gm PO Q15M PRN; Protocol PRN Reason: per Hypoglycemia Standing Ord. Guaifenesin/Dextromethorphan (Guaifenesin Dm 600/30 1 Tab Tab.Er.12h) 1 tab PO BID [facility] Last Admin: 04/03/25 08:05 Dose: 1 tab Hydroxyzine HCl (Hydroxyzine Hcl 25 Mg Tablet) 25 mg PO Q6H PRN PRN Reason: mild anxiety Last Admin: 03/05/25 22:32 Dose: 25 mg Insulin Glargine (Insulin Glargine,Hum.Rec.Anlog 100 Unit/Ml 10 Ml Vial) 14 unit SUBCUT BEDTIME [facility] Last Admin: 04/02/25 20:55 Dose: 14 unit Insulin Human Lispro (Insulin Lispro 100 Unit/Ml 3 Ml Vial) 0 unit SUBCUT QIDACHS [facility]; Protocol Last Admin: 04/03/25 11:46 Dose: 10 unit Lisinopril (Lisinopril 2.5 Mg Tablet) 2.5 mg PO DAILY [facility]; Protocol On Hold: 03/27/25 15:25 Last Admin: 03/27/25 09:30 Dose: 2.5 mg Magnesium Hydroxide (Milk Of Magnesia 30 Ml Oral.Susp) 30 ml PO DAILY PRN PRN Reason: Constipation Melatonin (Melatonin 3 Mg Tablet) 3 mg PO BEDTIME [facility] Last Admin: 04/02/25 20:56 Dose: 3 mg Metformin HCl (Metformin Hcl Er 500 Mg Tab.Er.24h) 1,000 mg PO DAILY [facility] Last Admin: 04/03/25 08:05 Dose: 1,000 mg Trazodone HCl (Trazodone Hcl 25 Mg Halftab) 25 mg PO BEDTIME MRX1 PRN PRN Reason: Insomnia Last Admin: 03/06/25 20:26 Dose: 25 mg Allergies Allergies Allergy/AdvReac Type Severity Reaction Status Date / Time No Known Allergies Allergy Verified 02/28/25 23:33 Assessment & Plan Assessment & Plan (1) Unspecified psychosis: Status: Acute Code(s): F29 - Unspecified psychosis not due to a substance or known physiological condition Plan HPI: Patient is a 65 years old [place]-speaking female with possible hx of diabetic and HTN who presented to the ED reporting someone is stealing her phone and making threatening comments to another person, patient feels that she is under threat. She said that she lives with her daughter. She says that she is afraid to call the police in regard to the pawn situation because it would involve using her phone which she believes is compromised. She reports that she has been sick for awhile, stomach pain. Patient provided very vague and none committal when asked clarified questions. She reports no security at home and missed just with a landlord and there are people in the house taking her phone and making threats Collateral done in the ED with family: Grandson's Stephane and Argenis her daughter reports that patient has not been taking medications. They suspect that patient flushing them down to toilet or hiding them. They feel there is paranoid. Reported that patient lives with [id number]. Formulation/clinical reasoning: Patient appeared to be paranoid, disorganized, anxious, depressed, poor sleep and appetite. Questioned if she have any cognitive decline or dementia. We will be benefit to having [facility] done. She is not in distress, ADLs appeared to be fair. Poor insight and poor judgment. Reports that she feels safe here. We will do collateral with her daughter to get more history of diagnosis and baseline. Discussed with her regarding medication for severe disorganization, and paranoid thoughts, as well as insomnia. Patient agree with the plans but not sure she is able to process information. Hospital course: 03/01/25: at this time. I would address symptoms of insomnia, and paranoid until more information obtained from her daughter regarding treatment hx. [facility] dx and medcial conditions. Not sure if she is diabetic or having HTN hx. Start melatonin 3 mg at bedtime for insomnia with Low dose of trazodone PRN. Risperidone 0.5 b.i.d. for paranoid/disorganized thoughts. We will order point of care with insulin coverage. She refused on labs ordered for this morning. We will monitor for hypotension/high blood pressure and POC 03/02 pt a little confused and it is difficult to follow her answers; Seems to mentioned safety and talks about unrelated things, her family and lists the names of each of her kids. Says team can contact them. Does not really answer questions about mood 03/03 Patient remains odd. She thinks that she is being watched by cameras in the room. Asked if her family can visit, she says if they do we will need security... When asked if she is afraid of her family she points to the door and says the doors are not locked... Question is repeated in a different way and she again points to the door and says the door is not locked. Eventually she seems to say she is not afraid of her family but that she is in general afraid of someone coming into the house and hurting her. -will increase risperdal dose to 1mg bid -very much need collateral 03/05 Increase Risperdal to 2 mg bid for 24 hour trial. 03/07 patient has only taken one dose of risperidone 2 mg, otherwise she has refused it. She had not been eating for the past 2 days, finally today she did eat something. pt presents as suspicious and paranoid. 03/08 pt refusing risperidone, has only taken one time 2mg. continues to present as paranoid and suspicious, declines to go back to her daughter's house. does not seem to understand that she can't survive on the streets, insists on leaving regardless. add head CT, will complete moca/ acl next week [place]. this comic writer spoke with her daughter and provided update. r/o dementing process causing paranoia- her orientation for the most part seems intact except for situation. 03/09: no change 03/10: referred back to primary team to address concerns about not being discharged 03/11 d/c risperidone as pt reports she does not want this medication, will change to prolixin 1mg po daily. continues to present with paranoid delusions. anxious and guarded, declining to go back to her daughters' house, doesn't have a place to go. 03/12 increase prolixin to 2mg po daily. d/c risperidone. 03/13 continue prolixin, filed for 7&8. 03/14 continue tx. 03/15 continue tx. collateral information from daughter who reports paranoia may be present for long than initially suspected, more than 10 years at least. 03/16: continue current management and treatment plan. 03/17: continue current management and treatment plan. 03/18 continue tx. 03/19 continue tx. slightly less paranoid. 03/20 continue tx. 03/21 continue tx. 03/22 increase prolixin to 3mg po daily. 03/23: add prolixin 3 mg QHS due to florid psychosis. 03/24: psychosis improved from yesterday, less anxious. increase prolixin to 4 BID. 03/25 continue tx. 03/26 continue current medications. BP stable, yesterday on lower end and pt had reported dizziness. 03/27 continue tx. hold lisinopril low bp and pt reports dizziness. 03/28 continue tx. 03/29 continue tx. 04/02 congestion, cough, malaise. labs ordered negative for covid/rsv/flu, cbc without leukocytosis, cmp wnl. added mucinex 04/03 afebrile, no SOB, less paranoid. no self harm behaviors. Reason for continued inpatient stay Substantial Risk for: inability to function Time Spent With Patient Time: Total time managing care of this patient today ____ minutes.
[2025-04-03 19:53] LABS: Glucose, Whole Blood 284 mg/dL (60-115)
[2025-04-03 20:00] VITALS: BP 124/67; PULSE 86; RESP 18; TEMP 36.6; O2SAT 98
[2025-04-03] MEDS: Insulin Glargine,Hum.rec.anlog 100 UNIT/ML 10 ML VIAL 14 UNIT SUBCUT (20:00)
[2025-04-04 06:34] LABS: Glucose, Whole Blood 188 mg/dL (60-115)
[2025-04-04 08:00] VITALS: BP 131/68; PULSE 90; RESP 17; TEMP 36.4; O2SAT 98
[2025-04-04] MEDS: guaiFENesin DM 600/30 1 TAB TAB.ER.12H PO (08:05)
[2025-04-04 08:13] LABS: Creatinine Clr Calc Pharmacy 72.0; Estimated Glomerular Filt Rate > 60
[2025-04-04] MEDS: Artificial Tears 15 ML DROPS 1 DROP EYE-BOTH ×2 (08:29→16:30)
--- NOTE | 2025-04-04 09:34 | PC.NURSE ---
Pharmacy called reg. Char chapin Awaiting delivery.
[2025-04-04 11:40] LABS: Glucose, Whole Blood 280 mg/dL (60-115)
[2025-04-04 13:36] VITALS: BMI 25.0
[2025-04-04 16:26] LABS: Glucose, Whole Blood 194 mg/dL (60-115)
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
--- NOTE | 2025-04-04 19:53 | PC.NURSE ---
Patient was aware of discharge, reported readiness for discharge. D/C instructions given to the patient and her daughter Blanca in the presence of the atomic fuel assembler/Ekaterina. Pt took all her belongings. Pt left the unit accompanied by her daughter and staff member at 19:50.
== END 2025-04-04 19:50 | disposition home or self-care (01) | DRG 750 ==
LOC: HO.PM5 03-01 07:28 → HO.PGERI 03-06 10:52
PROVIDERS: Nurse Practitioner Family; Nurse Practitioner Psychiatric/Mental Health; Admitting Provider Psychiatry & Neurology Psychiatry; Visit Provider Social Worker
DX: F20.9 Schizophrenia, unspecified (principal); F29 Unspecified psychosis not due to a substance or known physiological condition; Z91.148 Patient's other noncompliance with medication regimen for other reason; Z20.822 Contact with and (suspected) exposure to COVID-19; Z79.84 Long term (current) use of oral hypoglycemic drugs; Z79.899 Other long term (current) drug therapy
CPT/HCPCS: 36415; 70450; 76705; 80048; 80053; 80061; 81001; 82565; 82607; 82746; 82947; 83036; 83735; 84439; 84443; 85025; 86038; 87637

== ENCOUNTER 2025-02-28 23:36 | Outpatient (BNV) | payer MEDICAID, SELFPAY | END 2025-03-10 11:29 | PROVIDERS: Admitting Provider Psychiatry & Neurology Psychiatry; Visit Provider Specialist | DX: G31.84 Mild cognitive impairment of uncertain or unknown etiology (principal) | CPT/HCPCS: 70450 ==

== ENCOUNTER 2025-02-28 23:36 | Outpatient (BNV) | payer MEDICAID, SELFPAY | END 2025-03-03 12:15 | PROVIDERS: Admitting Provider Psychiatry & Neurology Psychiatry; Visit Provider Radiology Diagnostic Radiology | DX: R10.84 Generalized abdominal pain (principal) | CPT/HCPCS: 76705 ==

== ENCOUNTER → 2025-02-28 23:36 | Outpatient (BNV) | payer MEDICAID, SELFPAY | PROVIDERS: Admitting Provider Psychiatry & Neurology Psychiatry; Visit Provider Psychiatry & Neurology Psychiatry | DX: F29 Unspecified psychosis not due to a substance or known physiological condition (principal) | CPT/HCPCS: 90792; 99232 ==

== ENCOUNTER → 2025-02-28 23:36 | Outpatient (BNV) | payer MEDICAID, SELFPAY | PROVIDERS: Admitting Provider Psychiatry & Neurology Psychiatry; Visit Provider Nurse Practitioner Family | DX: R10.9 Unspecified abdominal pain (principal) | CPT/HCPCS: 99221 ==